=== PATIENT | male | born 1950 | race Caucasian/White ===

== ENCOUNTER 2021-02-11 15:10 | Inpatient (IN) | payer MEDICARE, OTHER, SELFPAY ==
[2021-02-11] VITALS (72 sets, daily range): BP systolic 123–197; BP diastolic 63–138; PULSE 85–141; RESP 11–27; TEMP 36.8; O2SAT 90–98; BMI 54.7
--- NOTE | 2021-02-11 15:43 | XRR_ITS ---
PROCEDURE INFORMATION: Exam: XR Chest Exam date and time: 02/11/2021 3:53 PM Age: 70 years old Clinical indication: Shortness of breath; Additional info: SOB TECHNIQUE: Imaging protocol: XR of the chest Views: 1 view. COMPARISON: CR Chest 1 [place] [id number] 06/10/2019 7:42 PM FINDINGS: Lungs: Unremarkable. No consolidation. Pleural spaces: Unremarkable. No pleural effusion. No pneumothorax. Heart/Mediastinum: Unremarkable. No cardiomegaly. Bones/joints: Unremarkable. XR/XR chest 1V portable [id number] IMPRESSION: No acute findings.
--- NOTE | 2021-02-11 15:43 | ECG_ITS ---
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 Measurements Intervals [place] Rate: 141 P: [place]: QRS: -81 QRSD: 145 T: 18 QT: 320 QTc: 491 Interpretive Statements ATRIAL FLUTTER/TACHYCARDIA WITH RAPID VENTRICULAR RESPONSE RIGHT BUNDLE BRANCH BLOCK [120+ ms QRS DURATION, UPRIGHT V1, 40+ ms S IN I/aVL/V4/V5/V6] MODERATE VOLTAGE CRITERIA FOR LVH, CONSIDER NORMAL VARIANT [MEETS CRITERIA IN ONE OF: R(aVL), S(V1), R(V5), R(V5/V6)+S(V1)] INFERIOR MYOCARDIAL INFARCTION [40+ ms Q WAVE AND/OR ST/T ABNORMALITY IN II/aVF], PROBABLY OLD Compared to ECG 06/11/2019 06:49:34 Myocardial infarct finding now present Sinus rhythm no longer present Left-axis deviation no longer present Electronically Signed On 02-11-2021 19:13:04 CDT by Jaspal Bhatia M.D. [id number]
[2021-02-11 15:56] LABS: Basophils # 0.1 10^3/uL (0.0-0.1); Basophils % 0.7 %; Eosinophils # 0.1 10^3/uL (0.0-0.8); Eosinophils % 1.8 %; Hematocrit 43.8 % (42.0-52.0); Lymphocytes # 2.1 10^3/uL (0.8-4.8); Lymphocytes % 28.8 %; Mean Corpuscular Hemoglobin 30.5 pg (28.0-34.0); Mean Corpuscular Volume 95.4 fL (80-94); Mean Platelet Volume 11.8 fL (7.4-10.4); Monocytes # 0.7 10^3/uL (0.2-0.9); Monocytes % 9.2 %; Neutrophils # 4.21 10^3/uL (1.8-7.7); Neutrophils % 58.9 %; Nucleated Red Blood Cells % 0 %; Platelet Count 158 10^3/cmm (130-400); Red Blood Count 4.59 10^6/uL (4.1-5.3); Red Cell Distribution Width 14.2 % (12.1-15.1); White Blood Count 7.2 10^3/uL (4.0-10.0)
[2021-02-11 16:20] LABS: Troponin(5th) Baseline 36 ng/L (0-15)
[2021-02-11 16:24] LABS: Alanine Aminotransferase 18 U/L (0-41); Albumin Level 3.9 g/dL (3.5-5.2); Alkaline Phosphatase 66 IU/L (40-130); Aspartate Amino Transferase 15 U/L (0-40); Blood Urea Nitrogen 14 mg/dL (8-23); Calcium 9.3 mg/dL (8.5-10.5); Carbon Dioxide 30 mmol/L (22-29); Chloride 101 mmol/L (98-107); Creatinine Clr Calc Pharmacy 149.7665; Globulin 3.4 g/dL (1.3-4.6); Glomerular Filtration Rate 95.6 mL/min (90-130); Glucose 82 mg/dL (65-115); INR 1.05 (0.8-1.2); NT Pro B Type Natriuretic Pept 601 pg/mL (0-125); Osmolality Calculated 294 mOsm/kg (285-295); Sodium 142 mmol/L (136-145); Total Bilirubin 0.7 mg/dL (0.15-1.2); Total Protein 7.3 g/dL (6.6-8.7)
[2021-02-11 16:26] LABS: D Dimer 0.47 ug/mIFEU (0-0.59)
--- NOTE | 2021-02-11 17:41 | P.HP_ITS ---
Providers/Chief Complaint Chief Complaint: RAPID HR/SENT BY CARDIO History of Present Illness Bartolo Hardy is a 70 year old male was sent by his primary care physician to emergency room with diagnosis of new onset atrial fibrillation with RVR. The patient was at his regular checkup with his PCP. EKG revealed A. fib with RVR. In the emergency room his ventricular rate was at 140s. The patient was given diltiazem bolus and started on diltiazem drip. Currently he is on 5 mg/h. His heart rate is at 114 currently. The patient reports feeling tired for last several months. It is mainly intermittent. He occasionally feels palpitations. However did not pay much attention to his symptoms. On review of systems he also indicates increased swelling in his lower extremities. Reports some shortness of breath which he contributed previously to increased weight. He has significant obesity. Denies chest pain. No cough. No fever or chills. Chest x-ray was unremarkable. BNP and troponin are mildly elevated however. Denies similar episodes in the past. He reports history of diabetes and hypertension. Denies any known history of heart disease. No history of CHF. Denies history of stroke. No nausea or vomiting. No diarrhea. Reports history of smoking in the past. Denies alcohol and drugs Review of Systems General: Reports: 10 or more systems reviewed and unremarkable except in HPI and below Medications/Allergies Allergies Allergy/AdvReac Type Severity Reaction Status Date / Time No Known Allergies Allergy Verified 02/11/21 15:24 Vitals/I&O/Wt Last Vital Signs Temp 98.2 F 02/11/21 15:21 Pulse 141 H 02/11/21 15:42 Resp 20 H 02/11/21 15:42 BP 141/86 02/11/21 15:42 Pulse Ox 98 02/11/21 15:42 Weight last 48 hrs Weight 188.241 kg Physical Exam Narrative: EXAM NARRATIVE: The patient is awake alert and oriented. No acute distress. Mood and affect are appropriate. Responses are adequate. Skin is warm and dry. Moist mucous membranes Neck supple. Unable to assess JVD because of large thick neck. Lungs are clear bilaterally. No respiratory distress Heart S1, S2, irregularly irregular. Mild murmur is appreciated. Abdomen is large, soft, nontender, bowel sounds are present Extremities bilateral pedal edema is present. No cyanosis or calf tenderness bilaterally Normal speech Eyes PERRL, extraocular muscles are intact No focal weakness or sensory loss Data : 02/11/21 15:40 02/11/21 15:40 Other Labs: Laboratory Results WBC 7.2 10^3/uL (4.0-10.0) 02/11/21 15:40 RBC 4.59 10^6/uL (4.1-5.3) 02/11/21 15:40 Hgb 14.0 g/dL (11.7-16.6) 02/11/21 15:40 Hct 43.8 % (42.0-52.0) 02/11/21 15:40 MCV 95.4 fL (80-94) H 02/11/21 15:40 MCH 30.5 pg (28.0-34.0) 02/11/21 15:40 MCHC 32.0 g/dL (30.0-36.0) 02/11/21 15:40 RDW 14.2 % (12.1-15.1) 02/11/21 15:40 Plt Count 158 10^3/cmm (130-400) 02/11/21 15:40 MPV 11.8 fL (7.4-10.4) H 02/11/21 15:40 Neut % (Auto) 58.9 % 02/11/21 15:40 Lymph % (Auto) 28.8 % 02/11/21 15:40 Christian % (Auto) 9.2 % 02/11/21 15:40 Eos % (Auto) 1.8 % 02/11/21 15:40 Baso % (Auto) 0.7 % 02/11/21 15:40 Neut # (Auto) 4.21 10^3/uL (1.8-7.7) 02/11/21 15:40 Lymph # (Auto) 2.1 10^3/uL (0.8-4.8) 02/11/21 15:40 Christian # (Auto) 0.7 10^3/uL (0.2-0.9) 02/11/21 15:40 Eos # (Auto) 0.1 10^3/uL (0.0-0.8) 02/11/21 15:40 Baso # (Auto) 0.1 10^3/uL (0.0-0.1) 02/11/21 15:40 Nucleated RBC % (auto) 0 % 02/11/21 15:40 Nucleated RBCs # 0.0 /100WBC 02/11/21 15:40 PT 14.10 SECONDS (12.1-14.9) 02/11/21 15:40 INR 1.05 (0.8-1.2) 02/11/21 15:40 D-Dimer 0.47 ug/mIFEU (0-0.59) 02/11/21 15:40 Sodium 142 mmol/L (136-145) 02/11/21 15:40 Potassium 4.0 mmol/L (3.5-5.1) 02/11/21 15:40 Chloride 101 mmol/L (98-107) 02/11/21 15:40 Carbon Dioxide 30 mmol/L (22-29) H 02/11/21 15:40 Anion Gap 15.0 (5-19) 02/11/21 15:40 BUN 14 mg/dL (8-23) 02/11/21 15:40 Creatinine 0.8 mg/dL (0.7-1.2) 02/11/21 15:40 GFR Calculation 95.6 mL/min (90-130) 02/11/21 15:40 Glucose 82 mg/dL (65-115) 02/11/21 15:40 Calculated Osmolality 294 mOsm/kg (285-295) 02/11/21 15:40 Calcium 9.3 mg/dL (8.5-10.5) 02/11/21 15:40 Total Bilirubin 0.7 mg/dL (0.15-1.2) 02/11/21 15:40 AST 15 U/L (0-40) 02/11/21 15:40 ALT 18 U/L (0-41) 02/11/21 15:40 Alkaline Phosphatase 66 IU/L (40-130) 02/11/21 15:40 Troponin T Baseline 36 ng/L (0-15) H 02/11/21 15:40 Troponin T 120 Minute 33.85 ng/L (0-15) H 02/11/21 17:00 Delta Troponin T -2.15 ABS# (0-10) L 02/11/21 17:00 NT-Pro-B Natriuret Pep 601 pg/mL (0-125) H 02/11/21 15:40 Total Protein 7.3 g/dL (6.6-8.7) 02/11/21 15:40 Albumin 3.9 g/dL (3.5-5.2) 02/11/21 15:40 Globulin 3.4 g/dL (1.3-4.6) 02/11/21 15:40 Impressions Chest X-Ray 02/11/21 15:43 IMPRESSION: No acute findings. A&P Additional A&P Information 70-year-old with history of morbid obesity, diabetes, hypertension, negative his tory of heart disease who is being admitted for A. fib with RVR. Has associated chronic shortness of breath and increased peripheral swelling. A. fib with RVR. The patient will go to cardiac stepdown unit. We will continue diltiazem drip. We will adjust the drip rate based on his heart rate. We will check TSH. Will order echo. Will wait for Dr. Snider to see and evaluate the patient. Consult was called by ER. [id number] score is 3 or higher. High risk for thromboembolic events. Will discuss with Dr. Snider and probably initiate anticoagulation. History of diabetes. We will review his home medications and resume them. We will start him on insulin sliding scale. Hypertension. Currently well controlled. We will review his home medications. DVT prophylaxis. As above. CODE STATUS. The patient wants to be full code. The plan of care was discussed with the patient and his who is at the bedside. I answered to their questions. They verbalized understanding and satisfaction with the conversation. Attestations Medical Necessity Statement*: The patient being admitted for A. fib with RVR requires diltiazem drip for rate control. I expect that the patient will spend more than 2 midnights in the hospital. Coding Level of Care Code Acute Business And Services Instructor for Heber Woodruff
[2021-02-11 17:42] LABS: Troponin 5 2HR 33.85 ng/L (0-15); Troponin 5 2HR Delta -2.15 ABS# (0-10)
--- NOTE | 2021-02-11 17:43 | ECG_ITS ---
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 Measurements Intervals [place] Rate: 112 P: [place]: QRS: -80 QRSD: 155 T: 28 QT: 378 QTc: 516 Interpretive Statements ATRIAL FLUTTER/TACHYCARDIA WITH RAPID VENTRICULAR RESPONSE RIGHT BUNDLE BRANCH BLOCK [120+ ms QRS DURATION, UPRIGHT V1, 40+ ms S IN I/aVL/V4/V5/V6] LEFT ANTERIOR FASCICULAR BLOCK [QRS AXIS <= -45, QR IN I, RS IN II] POSSIBLE LEFT VENTRICULAR HYPERTROPHY [VOLTAGE CRITERIA PLUS LAE OR QRS WIDENING] Compared to ECG 02/11/2021 15:20:08 Left anterior fascicular block now present Myocardial infarct finding no longer present Electronically Signed On 02-11-2021 19:21:18 CDT by Jaspal Bhatia M.D. [id number]
[2021-02-11 20:18] LABS: Glucose Point of Care 89 mg/dL (70-110)
[2021-02-11 20:38] LABS: Glucose Point of Care 78 mg/dL (70-110)
--- NOTE | 2021-02-11 21:22 | ED_ITS ---
HPI - Arrhythmia/Palpitations General: Chief Complaint: Arrhythmia/Palpitations Stated Complaint: RAPID HR/SENT BY CARDIO Time Seen by Provider: 02/11/21 15:40 Source: patient and other (his PCP) Mode of arrival: ambulatory Limitations: no limitations History of Present Illness: HPI narrative: Patient is a 70-year-old male with a history of diabetes mellitus but no cardiac history who presents to the emergency department after his primary care provider asked him to come in. He went to see his PCP today for a regular well check visit and he was noted to be in A. fib with RVR. He has no prior history of this. The patient denies palpitations or shortness of breath but endorses weakness. He denies any chest pain. MD complaint: atrial fibrillation Duration: constant Context: occurred during rest Associated symptoms: Deny anxiety, cough, diaphoresis, muscle cramps, nausea, paresthesias, pre-syncope, sense of impending doom, short of breath, syncope or vomiting Review of Systems General: Reports: 10 or more systems reviewed and unremarkable except in HPI and below Const: Denies: diaphoresis Card: Denies: syncope or pre-syncope GI: Denies: nausea or vomiting Musc: Denies: muscle cramps Psych: Denies: anxiety Physical Exam Const: COMMON NORMALS: no acute distress, average body habitus, patient oriented x3, no limitations, healthy appearing, alert and well nourished HENMT: COMMON NORMALS: normocephalic, atraumatic and moist oral mucous membranes HEAD & SCALP: normocephalic and atraumatic Neck/C-Spine: COMMON NORMALS: no meningeal signs and no JVD Chest: COMMONS NORMALS: normal inspection of the chest and normal palpation of entire chest wall Resp: COMMON NORMALS: normal respiratory effort, No retractions, No use of accessory muscles, clear to auscultation bilaterally and percussion normal AUSCULTATION: clear to auscultation bilaterally PERCUSSION: percussion normal Cardio: COMMON NORMALS: no JVD, regular rhythm, S1 normal heart sound present, S2 normal heart sound present, No gallops present (Cardio), No clicks present (Cardio), No murmurs present (Cardio), No rub (Cardio) and Peripheral pulses 2+ throughout RATE: tachycardic RHYTHM: regular rhythm HEART SOUNDS: S1 normal heart sound present and S2 normal heart sound present PERIPHERAL PULSES: Peripheral pulses 2+ throughout GI: COMMON NORMALS: Normal to inspection, nondistended, normoactive bowel sounds present, Soft to palpation, non-tender, No hepatosplenomegaly present, no masses and no bruits PALPATION: Yes Soft to palpation and Yes No hepatosplenomegaly present Extremity: COMMON NORMALS: normal to inspection, full ROM, capillary refill normal and no calf tenderness GENERAL: Yes edema (2+) Neuro: COMMON NORMALS: patient oriented x3 SENSORIUM/ORIENTATION: Yes alert MENINGEAL SIGNS: Yes no meningeal signs Skin: COMMON NORMALS: no rashes or lesions noted, no wounds, turgor normal, no jaundice, no petechiae and no mottling GENERAL SKIN EXAM: no rashes or lesions noted and turgor normal Course Consultations: Consultation #1: Discussed the patient with Dr. Lowe, hospitalist and he kindly accepted the patient to his service. Time: 17:06 Consultation #2: Discussed the patient with Dr. Snider, product marketing executive. He will see the patient while he is in the hospital. Time: 17:09 Vital Signs: Vital signs: Vital Signs Temperature 98.2 F 02/11/21 15:21 Pulse Rate 107 H 02/11/21 20:20 Respiratory Rate 21 H 02/11/21 20:20 Blood Pressure 123/63 02/11/21 20:20 Pulse Oximetry 94 02/11/21 19:20 MDM - Arrhythmia/Palpitations MDM Narrative: Medical decision making narrative: 70-year-old male who presented to the emergency department with new onset A. fib with RVR. He required intravenous doses of diltiazem and a continuous diltiazem drip. He responded to this management and he is admitted to the hospitalist service for further evaluation and management. Medical Records: Attestation: I reviewed the patient's medical records. Lab Data: Attestation: I reviewed the patient's lab results. Labs: Lab Results 02/11/21 02/11/21 02/11/21 Range/Units 15:40 15:40 15:40 WBC 7.2 (4.0-10.0) 10^3/ uL RBC 4.59 (4.1-5.3) 10^6/u L Hgb 14.0 (11.7-16.6) g/dL Hct 43.8 (42.0-52.0) % MCV 95.4 H (80-94) fL MCH 30.5 (28.0-34.0) pg MCHC 32.0 (30.0-36.0) g/dL RDW 14.2 (12.1-15.1) % Plt Count 158 (130-400) 10^3/c mm MPV 11.8 H (7.4-10.4) fL Neut % (Auto) 58.9 % Lymph % (Auto) 28.8 % Clinch % (Auto) 9.2 % Eos % (Auto) 1.8 % Baso % (Auto) 0.7 % Neut # (Auto) 4.21 (1.8-7.7) 10^3/u L Lymph # (Auto) 2.1 (0.8-4.8) 10^3/u L Clinch # (Auto) 0.7 (0.2-0.9) 10^3/u L Eos # (Auto) 0.1 (0.0-0.8) 10^3/u L Baso # (Auto) 0.1 (0.0-0.1) 10^3/u L Nucleated RBC % (a uto) 0 % Nucleated RBCs # 0.0 /100WBC PT 14.10 (12.1-14.9) SECO NDS INR 1.05 (0.8-1.2) D-Dimer 0.47 (0-0.59) ug/mIFE U Sodium 142 (136-145) mmol/L Potassium 4.0 (3.5-5.1) mmol/L Chloride 101 (98-107) mmol/L Carbon Dioxide 30 H (22-29) mmol/L Anion Gap 15.0 (5-19) BUN 14 (8-23) mg/dL Creatinine 0.8 (0.7-1.2) mg/dL GFR Calculation 95.6 (90-130) mL/min Glucose 82 (65-115) mg/dL Calculated Osmolal ity 294 (285-295) mOsm/k g Calcium 9.3 (8.5-10.5) mg/dL Total Bilirubin 0.7 (0.15-1.2) mg/dL AST 15 (0-40) U/L ALT 18 (0-41) U/L Alkaline Phosphata se 66 (40-130) IU/L Troponin T Baselin e (0-15) ng/L Troponin T 120 Min chip (0-15) ng/L Delta Troponin T (0-10) ABS# NT-Pro-B Natriuret Pep 601 H (0-125) pg/mL Total Protein 7.3 (6.6-8.7) g/dL Albumin 3.9 (3.5-5.2) g/dL Globulin 3.4 (1.3-4.6) g/dL 02/11/21 02/11/21 Range/Units 15:40 17:00 WBC (4.0-10.0) 10^3/ uL RBC (4.1-5.3) 10^6/u L Hgb (11.7-16.6) g/dL Hct (42.0-52.0) % MCV (80-94) fL MCH (28.0-34.0) pg MCHC (30.0-36.0) g/dL RDW (12.1-15.1) % Plt Count (130-400) 10^3/c mm MPV (7.4-10.4) fL Neut % (Auto) % Lymph % (Auto) % Clinch % (Auto) % Eos % (Auto) % Baso % (Auto) % Neut # (Auto) (1.8-7.7) 10^3/u L Lymph # (Auto) (0.8-4.8) 10^3/u L Clinch # (Auto) (0.2-0.9) 10^3/u L Eos # (Auto) (0.0-0.8) 10^3/u L Baso # (Auto) (0.0-0.1) 10^3/u L Nucleated RBC % (a uto) % Nucleated RBCs # /100WBC PT (12.1-14.9) SECO NDS INR (0.8-1.2) D-Dimer (0-0.59) ug/mIFE U Sodium (136-145) mmol/L Potassium (3.5-5.1) mmol/L Chloride (98-107) mmol/L Carbon Dioxide (22-29) mmol/L Anion Gap (5-19) BUN (8-23) mg/dL Creatinine (0.7-1.2) mg/dL GFR Calculation (90-130) mL/min Glucose (65-115) mg/dL Calculated Osmolal ity (285-295) mOsm/k g Calcium (8.5-10.5) mg/dL Total Bilirubin (0.15-1.2) mg/dL AST (0-40) U/L ALT (0-41) U/L Alkaline Phosphata se (40-130) IU/L Troponin T Baselin e 36 H (0-15) ng/L Troponin T 120 Min chip 33.85 H (0-15) ng/L Delta Troponin T -2.15 L (0-10) ABS# NT-Pro-B Natriuret Pep (0-125) pg/mL Total Protein (6.6-8.7) g/dL Albumin (3.5-5.2) g/dL Globulin (1.3-4.6) g/dL Imaging Data^: CXR: Attestation: I personally reviewed and interpreted this imaging study as follows: Radiologist's impression: [address] [place] [address] XRay Report Signed Patient: Bartolo Hardy #: [id number] : 1950Acct#:[id number] Age/Sex: 70 / MADM Date: 02/11/21 Loc: [facility]/Bed: Attending Dr: Ordering Provider/Ordering MD: Abril Lindsay MD, [facility] [place] Date of Service: 02/11/21 Procedure(s): XR chest 1V portable [id number] Accession Number(s): [id number] Report Number: [id number] PROCEDURE INFORMATION: Exam: XR Chest Exam date and time: 02/11/2021 3:53 PM Age: 70 years old Clinical indication: Shortness of breath; Additional info: SOB TECHNIQUE: Imaging protocol: XR of the chest Views: 1 view. COMPARISON: CR Chest 1 [place] [id number] 06/10/2019 7:42 PM FINDINGS: Lungs: Unremarkable. No consolidation. Pleural spaces: Unremarkable. No pleural effusion. No pneumothorax. Heart/Mediastinum: Unremarkable. No cardiomegaly. Bones/joints: Unremarkable. XR/XR chest 1V portable [id number] IMPRESSION: No acute findings. Dictated By:Isreal Valderrama Signed By:Prasad Valderrama Date/Time:02/11/21 1627 DD/ 1625 EKG Data^: EKG 1: Attestation: I personally reviewed and interpreted this EKG as follows: EKG interpretation date: 02/11/21 EKG interpretation time: 15:20 Prior EKG tracings: not available for review Interpretation: Atrial fibrillation with RVR. Heart rate [address] changes. Other EKG comments: Chest X-Ray 02/11/21 15:43 IMPRESSION: No acute findings. EKG 2: Attestation: I personally reviewed and interpreted this EKG as follows: EKG interpretation date: 02/11/21 EKG interpretation time: 17:58 Prior EKG tracings: available for review Interpretation: Atrial fibrillation with RVR. Heart rate 112 bpm. Right bundle branch block. No ST changes. Other EKG comments: Chest X-Ray 02/11/21 15:43 IMPRESSION: No acute findings. Critical Care Time Critical Care Time: Critical Care Time: Yes Total Critical Care Time: 60 Attestation: This case had a high probability of a clinically significant, sudden, or life threatening deterioration of this patient's condition which required my full and direct attention, intervention and personal management. Discharge Plan Discharge Patient Disposition: Admitted As Inpatient Admit Provider: Luke Lowe Clinical Impression: Atrial fibrillation with rapid ventricular response, New onset atrial fibrillation Condition: Stable Coding Level of Care Code ED Receiving Tank Operator for Chg Ranjan
--- NOTE | 2021-02-11 21:41 | PM.CONSULT ---
Providers/Reason For Consult Consulting Physican/Specialty*: Cardiology Reason for Consult*: New onset atrial fibrillation, new onset of congestive heart failure Attending Physician: Luke Lowe History of Present Illness History of Present Illness Bartolo Hardy is a 70 year old male past medical history significant for hypertension presented with new onset of atrial fibrillation and rapid ventricle response. He was started on Cardizem drip. We have been asked to assist in his care. According to the patient prior the past few months he has been feeling fatigued short of breath and palpitation. It is the reason he went to primary care physician. By noticing atrial fibrillation on physical examination he was sent to emergency room. He denies any prior history of cardiac disease diabetes mellitus stroke or valvular heart problem. Twelve-lead EKG is consistent with right bundle branch block. Patient also appeared to me in volume overload status most likely congestive heart failure of unknown etiology at this point. I will diurese him as well. Review of Systems General: Reports: 10 or more systems reviewed and unremarkable except in HPI and below Const: Denies: diaphoresis Card: Denies: syncope or pre-syncope GI: Denies: nausea or vomiting Musc: Denies: muscle cramps Psych: Denies: anxiety Meds/Allergies Home Medications and Allergies Allergies Allergy/AdvReac Type Severity Reaction Status Date / Time No Known Allergies Allergy Verified 02/11/21 15:24 Current Medications Current Medications Generic Name Dose Route Start Last Admin Trade Name Freq PRN Reason Stop Dose Admin Diltiazem HCl 125 mg/ Sodium 125 mls @ 0 mls/hr 02/11/21 16:00 02/11/21 19:37 Chloride IV 10 mg/hr .Q0M SHERLYN 10 mls/hr Titration Protocol Per Protocol Insulin Aspart 0 unit 02/11/21 18:00 02/11/21 20:18 Insulin Aspart 100 Unit/1 Ml SUBCUT Not Given WM&BEDTIME SHERLYN Protocol Vitals/I&O/Wt Last Vital Signs Temp 98.2 F 02/11/21 15:21 Pulse 107 H 02/11/21 20:20 Resp 21 H 02/11/21 20:20 BP 123/63 02/11/21 20:20 Pulse Ox 94 02/11/21 19:20 02/11/21 02/11/21 02/11/21 06:59 14:59 22:59 Intake Total 16.583 / 16.583 Output Total 500 / 500 Balance -483.417 / -483.417 Weight last 48 hrs Weight 415 lb Physical Exam Narrative: EXAM NARRATIVE: GENERAL: Patient is alert, awake and oriented x3. NECK: No jugular vein distension. HEENT: No cyanosis. No icterus. No pallor. HEART: Irregularly regular r S1 and S2. No murmur, rub or gallop. LUNGS: Clear to auscultate bilaterally. ABDOMEN: Soft, nontender and nondistended. Positive bowel sounds. No guarding, rebound or tenderness. CENTRAL NERVOUS SYSTEM: Grossly nonfocal. EXTREMITIES: Lower extremities without edema bilaterally. Pulses palpable in the lower extremities, both dorsalis pedis and posterior tibial. A&P Assessment and plan (1) New onset atrial fibrillation: Status: Acute (2) CHF (congestive heart failure), NYHA class III: Status: Acute Additional A&P Information Agree with continuation of Cardizem drip. Will add beta-cherelle if does not slow down. Will obtain echocardiogram to assess LV function and any structural heart problem. Need to rule out sleep apnea which could be inciting cause. Continue anticoagulation as suggested by medicine colleague. Further plan will be devised as per progress of the patient. Patient is also volume overloaded most likely secondary to CHF of unknown etiology. We will start diuresing him. Medicines will be optimized. After reviewing the echocardiogram will make distinction regarding systolic versus diastolic alongside with right ventricle. Consult Attestations Medical Necessity Statement: I am expecting his stay to cross more than 2 midnights Coding Level of Care Code New Pt Acute Merchandising Lead for g Fwd Patient Type New Medical Decision Making Moderate Complexity Diagnoses New onset atrial fibrillation I48.91 CHF (congestive heart failure), NYHA class III I50.9
--- NOTE | 2021-02-11 21:43 | ECG_ITS ---
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1950 Requested By: Abril Lindsay I Order Number: [id number] Reading MD: RICK ESTRADA Measurements Intervals [place] Rate: 86 P: [place]: QRS: -76 QRSD: 153 T: 21 QT: 410 QTc: 491 Interpretive Statements ATRIAL FIBRILLATION WITH ABERRANT CONDUCTION OR VENTRICULAR PREMATURE COMPLEXES RIGHT BUNDLE BRANCH BLOCK [120+ ms QRS DURATION, UPRIGHT V1, 40+ ms S IN I/aVL/V4/V5/V6] MODERATE VOLTAGE CRITERIA FOR LVH, CONSIDER NORMAL VARIANT [MEETS CRITERIA IN ONE OF: R(aVL), S(V1), R(V5), R(V5/V6)+S(V1)] INFERIOR MYOCARDIAL INFARCTION [40+ ms Q WAVE AND/OR ST/T ABNORMALITY IN II/aVF], OF INDETERMINATE AGE Compared to ECG 02/11/2021 17:58:43 Ventricular premature complex(es) now present Aberrant conduction of supraventricular beat(s) now present Myocardial infarct finding now present Atrial flutter no longer present Left anterior fascicular block no longer present Electronically Signed On 02-12-2021 20:20:21 CDT by RICK ESTRADA [id number]
[2021-02-11 21:44] LABS: Troponin 5 6HR 29.74 ng/L (0-15)
[2021-02-11 21:45] LABS: Troponin 5 6HR Delta -6.26 ng/L (0-12)
[2021-02-11] MEDS: potassium chloride ER 20 mEq Tablet PO (22:23)
[2021-02-11] MEDS: apixaban 5 mg Tablet PO (22:23)
[2021-02-11] MEDS: FUROsemide 10 mg/mL SDV 4mL 40 MG IVP (22:23)
[2021-02-12] VITALS (235 sets, daily range): BP systolic 89–222; BP diastolic 50–106; PULSE 53–132; RESP 7–51; TEMP 36.8; O2SAT 86–95
[2021-02-12 06:08] LABS: Anion Gap 11.5 (5-19); Blood Urea Nitrogen 13 mg/dL (8-23); Calcium 8.9 mg/dL (8.5-10.5); Carbon Dioxide 34 mmol/L (22-29); Chloride 100 mmol/L (98-107); Creatinine Clr Calc Pharmacy 149.7665; Glomerular Filtration Rate 95.6 mL/min (90-130); Glucose 71 mg/dL (65-115); Magnesium 2.2 mg/dL (1.7-2.3); Osmolality Calculated 293 mOsm/kg (285-295); Potassium 3.5 mmol/L (3.5-5.1); Sodium 142 mmol/L (136-145); Thyroid Stimulating Hormone 3.43 uIU/mL (0.27-4.20)
[2021-02-12 07:45] LABS: Glucose Point of Care 163 mg/dL (70-110)
[2021-02-12] MEDS: potassium chloride ER 20 mEq Tablet PO (08:36)
[2021-02-12] MEDS: FUROsemide 10 mg/mL SDV 4mL 40 MG IVP (08:37)
[2021-02-12] MEDS: metoprolol succinate ER (24 HR) 25 mg Tablet PO (08:37)
[2021-02-12] MEDS: apixaban 5 mg Tablet PO ×2 (08:37→20:47)
[2021-02-12] MEDS: lisinopril 10 mg Tablet PO (08:37)
[2021-02-12 09:05] LABS: Estmated Average Glucose 154
[2021-02-12 11:07] LABS: Glucose Point of Care 148 mg/dL (70-110)
--- NOTE | 2021-02-12 12:07 | PC.CHAP ---
Pastoral Care Encounter/Spiritual Assessment Type of Contact [] Declined nylon hot wire cutter visit [] Patient/Family/Request visit [] Outpatient visit [] Follow-up visit [] Physician referral [] Code/Alert [x] Routine visit [] Staff referral [] Actively dying [] Patient sleeping [] Family support [] [] Out of room [] Palliative care [] [] Receiving care in room [] Pre-surgical visit [] Trauma [] Long length of stay [x] ICU visit [] Other: Relational/Emotional Strength [] Patient feels connected with others/family/visitors/staff [] Distress [] Loneliness/isolation [] Abandonment Spirituality of Patient [] Person of [place] [] Attends Church of their [place] [] Believes in Prayer [] Reads Bible or Methodist materials [] There are Spiritual issues to be addressed Recyclable Products Sorter Interventions [x] Prayer [x] Active listening [x] Non-anxious presence [x] Spiritual/emotional support [] Crisis/trauma care [] Spiritual counseling [] Bereavement support [] Provided bereavement packet [] Provided Bible/devotional materials [] Provided toy/stuffed animal, coloring book to patient or family member [] Provided Communion [] Anointing/[place] [] Salvation [x] Completed spiritual assessment [] Other: Impact on Illness or Injury [] Angry [] Fearful [] Anxious [] Often cries [] Exhaustion [] Unable to work [] Unable to attend adventist [] Unable to walk/stand [] Unable to read [] Unable to drive [] Unable to eat/drink [] Unable to sleep [] Unable to be with family [] Patient intubated [] Other: Summary resting well... good spirits.. prayed for nylon hot wire cutter Time spent with patient 10 min
[2021-02-12] MEDS: verapamil ER 240 mg Tablet 120 MG PO (12:14)
--- NOTE | 2021-02-12 12:16 | USCV_ITS ---
Bartolo Hardy Age: 70 Gender: M : 1950 Exam Date: 02/12/2021 15:40 Ordering Phys: Rohan Snider MD ([email or web address]) Technologist: Eze Santo [place] [facility] [place]: EF BP: 149 / 70 HR: 69 Rhythm: Sinus Technical Quality: Adequate MEASUREMENTS (Male / Female) Normal Values 2D ECHO LVOT Diameter 2.2 cm LV Ejection Fraction MOD 2C 68.4 % LV Ejection Fraction 2C AL 68.5 % LA Diameter 3.8 cm M-MODE LV Diastolic Diameter MM 5.2 cm 4.2 - 5.9 / 3.9 - 5.3 cm LV Systolic Diameter MM 3.7 cm LV Ejection Fraction MM Teich 55.8 % IVS Diastolic Thickness MM 1.1 cm 0.6 - 1.0 / 0.6 - 0.9 cm IVS Systolic Thickness MM 1.6 cm LVPW Diastolic Thickness MM 1.2 cm 0.6 - 1.0 / 0.6 - 0.9 cm LVPW Systolic Thickness MM 2.2 cm RV Diastolic Diameter MM 1.5 cm DOPPLER AV Peak Velocity 254.7 cm/s LVOT Peak Velocity 76.0 cm/s AV Area Cont Eq vti 0.9 cm squared AV Area Cont Eq pk 1.1 cm squared MV Area PHT 5.0 cm squared Mitral E to A Ratio 1.1 MV E' Velocity 51.5 cm/s Mitral E to MV E' Ratio 13.6 Mitral E to LV E' Lateral Ratio 16.1 Mitral E to LV E' Septal Ratio 11.8 TR Peak Velocity 179.0 cm/s TR Peak Gradient 12.8 mmHg TV Peak E Velocity 87.0 cm/s Right Atrial Pressure 3.0 mmHg Pulmonary Artery Systolic Pressu 15.8 mmHg PV Peak Velocity 94.0 cm/s FINDINGS Left Ventricle Normal left ventricular cavity size. Normal left ventricular systolic function. No regional wall motion abnormalities. Left ventricular ejection fraction is estimated at 60 %. Grade III/IV diastolic dysfunction (restrictive filling pattern), severely elevated filling pressures. Right Ventricle The right ventricle is normal in size and function. Right Atrium The right atrium is normal in size. Left Atrium The left atrium is normal in size. Mitral Valve Moderately thickened mitral valve. Moderate mitral annular calcification. No mitral valve stenosis. No mitral valve regurgitation. Aortic Valve Severe aortic valve calcification. Moderate aortic valve stenosis, mean gradient 12.6 mmHg, OLIVE 0.88 cm squared. No aortic valve regurgitation. Tricuspid Valve Structurally normal tricuspid valve without significant stenosis or regurgitation. Pulmonary artery systolic pressure is normal. Pulmonic Valve Structurally normal pulmonic valve without significant stenosis. There is no pulmonic regurgitation. Pericardium Normal pericardium without effusion. Aorta Normal ascending aorta dimension. CONCLUSIONS 1-Normal left ventricular cavity size. Normal left ventricular systolic function. No regional wall motion abnormalities. Left ventricular ejection fraction is estimated at 60 %. Grade III/IV diastolic dysfunction (restrictive filling pattern), severely elevated filling pressures. 2-Severe aortic valve calcification. Moderate aortic valve stenosis, mean gradient 12.6 mmHg, OLIVE 0.88 cm squared. No aortic valve regurgitation. 3-Moderately thickened mitral valve. Moderate mitral annular calcification. No mitral valve stenosis. No mitral valve regurgitation. 4-There is no pericardial effusion. 5-Pulmonary artery systolic pressure is within normal limits. 6-Right atrial pressure is around 5 mm of mercury. Rohan Snider MD (Electronically Signed) Final Date: 13 February 2021 16:13 S
--- NOTE | 2021-02-12 12:43 | P.PN_ITS ---
Subjective Subjective: Interval history: The patient is feeling better today. Denies any active complaints. No chest pain or palpitations. No dizziness or lightheadedness. No shortness of breath. Medications: Reviewed: Yes Medication Review Details: Generic Name Dose Route Start Last Admin Trade Name Willq PRN Reason Stop Dose Admin Apixaban 5 mg 02/11/21 21:00 02/12/21 08:37 Apixaban 5 Mg Ta blet PO 5 mg BID@0900,2100 SHERLYN Administration Furosemide 40 mg 02/12/21 08:00 02/12/21 08:37 Furosemide 10 Mg /Ml Sdv 4ml IVP 40 mg Q24H SHERLYN Administration Diltiazem HCl 125 mg/ Sodium 125 mls @ 0 mls/h r 02/11/21 16:00 02/12/21 05:22 Chloride IV 5 mg/hr .Q0M SHERLYN 5 mls/hr Administration Protocol Per Protocol Insulin Aspart 0 unit 02/11/21 18:00 02/12/21 11:28 Insulin Aspart 1 00 Unit/1 Ml SUBCUT Not Given WM&BEDTIME SHERLYN Protocol Lisinopril 10 mg 02/12/21 08:00 02/12/21 08:37 Lisinopril 10 Mg Tablet PO 10 mg DAILY SHERLYN Administration Metoprolol Succina te 25 mg 02/12/21 09:00 02/12/21 08:37 Metoprolol Succi ruby Er (24 Hr) 25 Mg Tablet PO 25 mg DAILY SHERLYN Administration Potassium Chloride 20 meq 02/11/21 22:15 02/12/21 08:36 Potassium Chlori de Er 20 Meq Table t PO 20 meq DAILY SHERLYN Administration Verapamil HCl 120 mg 02/12/21 11:00 02/12/21 12:14 Verapamil Er 240 Mg Tablet PO 120 mg DAILY SHERLYN Administration Vitals/I&O/Wt Last Vital Signs Temp 98.3 F 02/12/21 08:00 Pulse 72 02/12/21 12:20 Resp 16 02/12/21 12:20 BP 148/62 02/12/21 12:20 Pulse Ox 93 02/12/21 12:20 02/11/21 02/12/21 02/12/21 22:59 06:59 14:59 Intake Total 238.583 / 238.583 437.666 / 676.249 120 / 120 Output Total 500 / 500 1300 / 1800 800 / 800 Balance -261.417 / -261.417 -862.334 / -1123.751 -680 / -680 Weight last 48 hrs Weight 188.241 kg Physical Exam Narrative: EXAM NARRATIVE: The patient is awake alert and oriented. No acute distress. Mood and affect are appropriate. Responses are adequate. Skin is warm and dry. Moist mucous membranes Neck supple. Unable to assess JVD because of large thick neck. Lungs are clear bilaterally. No respiratory distress Heart S1, S2, irregular. Abdomen is large, soft, nontender, bowel sounds are present Extremities bilateral pedal edema is present. No cyanosis or calf tenderness b ilaterally Normal speech Eyes PERRL, extraocular muscles are intact No focal weakness or sensory loss Data : 02/11/21 15:40 02/12/21 05:03 A&P Additional A&P Information 70-year-old with history of morbid obesity, diabetes, hypertension, negative history of heart disease who is being admitted for A. fib with RVR. Has as sociated chronic shortness of breath and increased peripheral swelling. A. fib with RVR. Stabilized with diltiazem drip. His medications are adjusted by Dr. Snider. (Currently on verapamil, beta-cherelle, Eliquis). Currently rate controlled. Appreciate Dr. Snider's input. TSH is within normal limit. Echo is pending. History of diabetes. A1c level is 7. We will review his home medications and resume them. Insulin sliding scale. Hypertension. Currently well controlled. We will review his home medications. DVT prophylaxis. Eliquis. CODE STATUS. Full code. The plan of care was discussed with the patient. he verbalized understanding and satisfaction with the conversation. 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
[2021-02-12] MEDS: perflutren protein-a microsphr 0.22 mg/mL SDV 3 mL IV (15:57)
[2021-02-12 17:06] LABS: Glucose Point of Care 119 mg/dL (70-110)
--- NOTE | 2021-02-12 19:37 | P.PN_ITS ---
Subjective Subjective: Interval history: Started diuresing well. Heart rate is under control now in fact patient is in sinus rhythm. Breathing better Medications: Reviewed: Yes Medication Review Details: Generic Name Dose Route Start Last Admin Trade Name Daniele PRN Reason Stop Dose Admin Apixaban 5 mg 02/11/21 21:00 02/12/21 08:37 Apixaban 5 Mg Ta blet PO 5 mg BID@0900,2100 SHERLYN Administration Furosemide 40 mg 02/12/21 08:00 02/12/21 08:37 Furosemide 10 Mg /Ml Sdv 4ml IVP 40 mg Q24H SHERLYN Administration Diltiazem HCl 125 mg/ Sodium 125 mls @ 0 mls/h r 02/11/21 16:00 02/12/21 05:22 Chloride IV 5 mg/hr .Q0M SHERLYN 5 mls/hr Administration Protocol Per Protocol Insulin Aspart 0 unit 02/11/21 18:00 02/12/21 11:28 Insulin Aspart 1 00 Unit/1 Ml SUBCUT Not Given WM&BEDTIME SHERLYN Protocol Lisinopril 10 mg 02/12/21 08:00 02/12/21 08:37 Lisinopril 10 Mg Tablet PO 10 mg DAILY SHERLYN Administration Metoprolol Succina te 25 mg 02/12/21 09:00 02/12/21 08:37 Metoprolol Succi ruby Er (24 Hr) 25 Mg Tablet PO 25 mg DAILY SHERLYN Administration Potassium Chloride 20 meq 02/11/21 22:15 02/12/21 08:36 Potassium Chlori de Er 20 Meq Table t PO 20 meq DAILY SHERLYN Administration Verapamil HCl 120 mg 02/12/21 11:00 02/12/21 12:14 Verapamil Er 240 Mg Tablet PO 120 mg DAILY SHERLYN Administration Vitals/I&O/Wt Last Vital Signs Temp 98.3 F 02/12/21 16:00 Pulse 72 02/12/21 16:00 Resp 16 02/12/21 16:00 BP 148/62 02/12/21 16:00 Pulse Ox 93 02/12/21 16:00 02/12/21 02/12/21 02/12/21 06:59 14:59 22:59 Intake Total 437.666 / 676.249 159.167 / 159.167 240 / 399.167 Output Total 1300 / 1800 800 / 800 400 / 1200 Balance -862.334 / -1123.751 -640.833 / -640.833 -160 / -800.833 Weight last 48 hrs Weight 415 lb Physical Exam Narrative: EXAM NARRATIVE: GENERAL: Patient is alert, awake and oriented x3. NECK: No jugular vein distension. HEENT: No cyanosis. No icterus. No pallor. HEART: Regular S1 and S2. No murmur, rub or gallop. LUNGS: Clear to auscultate bilaterally. ABDOMEN: Soft, nontender and nondistended. Positive bowel sounds. No guarding, rebound or tenderness. CENTRAL NERVOUS SYSTEM: Grossly nonfocal. EXTREMITIES: Lower extremities with 2+ edema bilaterally. Data : 02/11/21 15:40 02/12/21 05:03 A&P Assessment and plan (1) New onset atrial fibrillation: Status: Acute (2) CHF (congestive heart failure), NYHA class III: Status: Acute Additional A&P Information Continue IV Lasix 40 mg once a day and 20 mg of potassium chloride. I will switch patient to verapamil by mouth. I will discontinue IV calcium channel cherelle. Echocardiogram is pending. Further plan will be advised as per progress of patient. Continue anticoagulation. Attestations Medical Necessity Statement*: Patient require continuation hospitalization for above care Coding Level of Care Code Established Pt Acute Financial Sales Professional for Chg Fwd Patient Type Established History Expanded Problem Focused Exam Expanded Problem Focused Medical Decision Making Moderate Complexity Diagnoses New onset atrial fibrillation I48.91 CHF (congestive heart failure), NYHA class III I50.9
[2021-02-12 20:36] LABS: Glucose Point of Care 168 mg/dL (70-110)
[2021-02-13] VITALS (59 sets, daily range): BP systolic 110–149; BP diastolic 48–93; PULSE 61–88; RESP 13–26; TEMP 36.3–37; O2SAT 82–95
[2021-02-13 04:01] LABS: Basophils # 0.1 10^3/uL (0.0-0.1); Basophils % 0.8 %; Eosinophils # 0.2 10^3/uL (0.0-0.8); Eosinophils % 2.1 %; Hematocrit 41.6 % (42.0-52.0); Lymphocytes # 2.2 10^3/uL (0.8-4.8); Lymphocytes % 30.6 %; Mean Corpuscular HGB Conc 31.3 g/dL (30.0-36.0); Mean Corpuscular Hemoglobin 30.4 pg (28.0-34.0); Mean Corpuscular Volume 97.4 fL (80-94); Mean Platelet Volume 12.4 fL (7.4-10.4); Monocytes # 0.9 10^3/uL (0.2-0.9); Monocytes % 12.2 %; Neutrophils # 3.84 10^3/uL (1.8-7.7); Neutrophils % 53.9 %; Nucleated Red Blood Cells % 0 %; Platelet Count 152 10^3/cmm (130-400); Red Blood Count 4.27 10^6/uL (4.1-5.3); Red Cell Distribution Width 14.6 % (12.1-15.1); White Blood Count 7.1 10^3/uL (4.0-10.0)
[2021-02-13 04:14] LABS: Magnesium 2.3 mg/dL (1.7-2.3)
[2021-02-13 04:28] LABS: Albumin Level 3.7 g/dL (3.5-5.2); Anion Gap 12.3 (5-19); Blood Urea Nitrogen 25 mg/dL (8-23); Calcium 8.8 mg/dL (8.5-10.5); Carbon Dioxide 32 mmol/L (22-29); Chloride 104 mmol/L (98-107); Cholesterol 126 mg/dL (0-200); Glomerular Filtration Rate 73.9 mL/min (90-130); Glucose 92 mg/dL (65-115); HDL Cholesterol 28 mg/dL (60-100); LDL Cholesterol Calculated 78 mg/dL (50-129); LDL HDL Ratio 2.79 RATIO (0.00-3.22); Phosphorus 5.2 mg/dL (2.5-4.5); Potassium 4.3 mmol/L (3.5-5.1); Sodium 144 mmol/L (136-145); Triglycerides 100 mg/dL (0-150)
--- NOTE | 2021-02-13 05:48 | PC.NURSE ---
Patient transferred to [facility] at 0535 on telemetry. All of patients belongings were transported with the patient to the med-surg floor.
[2021-02-13] MEDS: metoprolol succinate ER (24 HR) 25 mg Tablet PO (10:13)
[2021-02-13] MEDS: apixaban 5 mg Tablet PO (10:13)
[2021-02-13] MEDS: potassium chloride ER 20 mEq Tablet PO (10:13)
[2021-02-13] MEDS: FUROsemide 10 mg/mL SDV 4mL 40 MG IVP (10:14)
[2021-02-13] MEDS: lisinopril 10 mg Tablet PO (10:14)
[2021-02-13 10:39] LABS: Glucose Point of Care 220 mg/dL (70-110)
[2021-02-13] MEDS: verapamil ER 240 mg Tablet 120 MG PO (12:08)
--- NOTE | 2021-02-13 15:55 | PM.PN ---
Subjective Subjective: Interval history: Doing much better denies any shortness of breath. Diuresed well. Heart rate is under control in sinus rhythm now. Medications: Reviewed: Yes Medication Review Details: Generic Name Dose Route Start Last Admin Trade Name Daniele PRN Reason Stop Dose Admin Apixaban 5 mg 02/11/21 21:00 02/12/21 08:37 Apixaban 5 Mg Ta blet PO 5 mg BID@0900,2100 SHERLYN Administration Furosemide 40 mg 02/12/21 08:00 02/12/21 08:37 Furosemide 10 Mg /Ml Sdv 4ml IVP 40 mg Q24H SHERLYN Administration Diltiazem HCl 125 mg/ Sodium 125 mls @ 0 mls/h r 02/11/21 16:00 02/12/21 05:22 Chloride IV 5 mg/hr .Q0M SHERLYN 5 mls/hr Administration Protocol Per Protocol Insulin Aspart 0 unit 02/11/21 18:00 02/12/21 11:28 Insulin Aspart 1 00 Unit/1 Ml SUBCUT Not Given WM&BEDTIME SHERLYN Protocol Lisinopril 10 mg 02/12/21 08:00 02/12/21 08:37 Lisinopril 10 Mg Tablet PO 10 mg DAILY SHERLYN Administration Metoprolol Succina te 25 mg 02/12/21 09:00 02/12/21 08:37 Metoprolol Succi ruby Er (24 Hr) 25 Mg Tablet PO 25 mg DAILY SHERLYN Administration Potassium Chloride 20 meq 02/11/21 22:15 02/12/21 08:36 Potassium Chlori de Er 20 Meq Table t PO 20 meq DAILY SHERLYN Administration Verapamil HCl 120 mg 02/12/21 11:00 02/12/21 12:14 Verapamil Er 240 Mg Tablet PO 120 mg DAILY SHERLYN Administration Vitals/I&O/Wt Last Vital Signs Temp 98.6 F 02/13/21 15:12 Pulse 81 02/13/21 15:12 Resp 20 H 02/13/21 15:12 BP 120/63 02/13/21 15:12 Pulse Ox 94 02/13/21 15:12 02/13/21 02/13/21 02/13/21 06:59 14:59 22:59 Intake Total 320 / 719.167 720 / 720 Output Total 500 / 1700 Balance -180 / -980.833 720 / 720 Physical Exam Narrative: EXAM NARRATIVE: GENERAL: Patient is alert, awake and oriented x3. NECK: No jugular vein distension. HEENT: No cyanosis. No icterus. No pallor. HEART: Regular S1 and S2. No murmur, rub or gallop. LUNGS: Clear to auscultate bilaterally. ABDOMEN: Soft, nontender and nondistended. Positive bowel sounds. No guarding, rebound or tenderness. CENTRAL NERVOUS SYSTEM: Grossly nonfocal. EXTREMITIES: Lower extremities with trace edema bilaterally. Data : 02/13/21 03:18 02/13/21 03:18 A&P Assessment and plan (1) New onset atrial fibrillation: Converted back in sinus rhythm continue verapamil 120 mg p.o. daily in the morning and metoprolol succinate 25 mg in the evening. Continue apixaban. Status: Acute (2) CHF (congestive heart failure), NYHA class III: Patient has diastolic decompensated heart failure which is now compensated after diuresis. Continue 40 mg p.o. Lasix along with 20 mg of potassium chloride. Status: Acute (3) Aortic stenosis, severe: Patient has moderate to severe aortic stenosis without significant aortic regurgitation. We will follow him up as an outpatient. I may will ask for left and right heart cath at some point before deciding regarding aortic valve replacement. Status: Acute Additional A&P Information Continue IV Lasix 40 mg once a day and 20 mg of potassium chloride. I will switch patient to verapamil by mouth. I will discontinue IV calcium channel cherelle. Echocardiogram is pending. Further plan will be advised as per progress of patient. Continue anticoagulation. Attestations Medical Necessity Statement*: From a cardiovascular perspective patient can be discharged home. 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
--- NOTE | 2021-02-13 16:03 | PM.DCS ---
Discharge Providers Date of Admission: 02/11/21 17:29 Date of Discharge: February 13, 2021 Attending Provider at Admission: Luke Lowe Attending Provider at Discharge: Luke Lowe Diagnoses at Discharge Discharge Diagnosis (1) New onset atrial fibrillation: Status: Acute (2) CHF (congestive heart failure), NYHA class III: Status: Acute Reason for Visit Reason for Visit: RAPID HR/SENT BY CARDIO Hospital Course Hospital Course 70-year-old with history of diabetes, hypertension admitted for A. fib with RVR. Has associated chronic shortness of breath and increased peripheral swelling. A. fib with RVR. Stabilized with diltiazem drip. His medications are adjusted by Dr. Snider and he is cleared for discharge. Currently rate controlled. Echo was with normal EF. Currently he is feeling well and is eager to go home. Reports improved tiredness. Denies dizziness or lightheadedness. Denies chest pain or palpitations. We had a discussion regarding his discharge medications and need for follow-up appointments for further adjustments to his medications and possible additional testing in the future. I asked him to watch for any signs of possible bleeding since he is on Eliquis. He verbalized understanding and agreement History of diabetes. A1c level is 7. He will continue his home medications and follow-up with his primary care physician. Hypertension. Currently well controlled. Physical Exam Narrative: EXAM NARRATIVE: The patient is awake alert and oriented. No acute distress. Mood and affect are appropriate. Responses are adequate. Skin is warm and dry. Moist mucous membranes Neck supple. Unable to assess JVD because of large thick neck. Lungs are clear bilaterally. No respiratory distress Heart S1, S2, irregular. Abdomen is soft, nontender, bowel sounds are present Extremities bilateral pedal edema is present. No cyanosis or calf tenderness bilaterally Normal speech Eyes PERRL, extraocular muscles are intact No focal weakness or sensory loss Discharge Data Data Completed and Pending: Completed Studies During Hospitalization Category Date Time Status XR chest 1V kaia ble [id number] Stat Exams 02/11/21 15:43 Completed Pending at discharge Category Date Time Status Complete Blood Co unt w/Auto AM LABS Lab 02/14/21 04:00 Ordered Magnesium AM LABS Lab 02/14/21 04:00 Ordered Renal Function Pa sinan AM LABS Lab 02/14/21 04:00 Ordered CV echo wo/w cont rast [id number] Routine Ultrasound 02/12/21 12:16 Taken US/CV paperwork R outine Ultrasound 02/12/21 Taken Labs from last 24 hours 02/13/21 02/13/21 02/13/21 10:25 03:18 03:18 WBC RBC Hgb Hct MCV MCH MCHC RDW Plt Count MPV Neut % (Auto) Lymph % (Auto) [place] % (Auto) Eos % (Auto) Baso % (Auto) Neut # (Auto) Lymph # (Auto) [place] # (Auto) Eos # (Auto) Baso # (Auto) Nucleated RBC % (a uto) Nucleated RBCs # Sodium 144 Potassium 4.3 Chloride 104 Carbon Dioxide 32 H Anion Gap 12.3 BUN 25 H Creatinine 1.0 GFR Calculation 73.9 L Glucose 92 POC Glucose 220 H Calcium 8.8 Phosphorus 5.2 H Magnesium 2.3 Albumin 3.7 Triglycerides 100 Cholesterol 126 LDL Cholesterol, C alc 78 HDL Cholesterol 28 L LDL/HDL Ratio 2.79 Cholesterol/HDL Ra aimee 4.50 02/13/21 02/12/21 02/12/21 03:18 20:32 17:04 WBC 7.1 RBC 4.27 Hgb 13.0 Hct 41.6 L MCV 97.4 H MCH 30.4 MCHC 31.3 RDW 14.6 Plt Count 152 MPV 12.4 H Neut % (Auto) 53.9 Lymph % (Auto) 30.6 [place] % (Auto) 12.2 Eos % (Auto) 2.1 Baso % (Auto) 0.8 Neut # (Auto) 3.84 Lymph # (Auto) 2.2 [place] # (Auto) 0.9 Eos # (Auto) 0.2 Baso # (Auto) 0.1 Nucleated RBC % (a uto) 0 Nucleated RBCs # 0.0 Sodium Potassium Chloride Carbon Dioxide Anion Gap BUN Creatinine GFR Calculation Glucose POC Glucose 168 H 119 H Calcium Phosphorus Magnesium Albumin Triglycerides Cholesterol LDL Cholesterol, C alc HDL Cholesterol LDL/HDL Ratio Cholesterol/HDL Ra aimee Vitals: Last Vital Signs Temp 98.6 F 02/13/21 15:12 Pulse 81 02/13/21 15:12 Resp 20 H 02/13/21 15:12 BP 120/63 02/13/21 15:12 Pulse Ox 94 02/13/21 15:12 Discharge Plan Discharge Patient Disposition: Home Condition: Stable Prescriptions: New Eliquis 5 mg Tablet 5 mg PO BID@0900,2100 Qty: 60 RF: 4 Klor-Con M20 20 mEq Tablet,Er Particles/Crystals 20 meq PO DAILY Qty: 30 RF: 4 lisinopril 10 mg Tablet 10 mg PO DAILY Qty: 30 RF: 3 metoprolol succinate 25 mg Tablet Extended Release 24 Hr 25 mg PO DAILY Qty: 30 RF: 4 Continued latanoprost 0.005 % drops 1 drp ophthalmic (eye) BEDTIME RF: 0 venlafaxine 75 mg capsule,extended release 24hr 75 mg PO DAILY RF: 0 allopurinol 100 mg tablet 200 mg PO DAILY RF: 0 amlodipine 10 mg tablet 10 mg PO DAILY RF: 0 simvastatin 20 mg tablet 20 mg PO DAILY RF: 0 doxazosin 2 mg tablet 2 mg PO DAILY RF: 0 metformin 750 mg tablet extended release 24 hr 1,500 mg PO DAILY RF: 0 Symbicort 80-4.5 mcg/actuation HFA aerosol inhaler 1 puff INHALATION DAILY RF: 0 Tresiba FlexTouch U-100 100 unit/mL (3 mL) insulin pen See Rx Instructions .ROUTE .COMPLEX RF: 0 furosemide 40 mg tablet 40 mg PO DAILY Qty: 30 RF: 3 aspirin 81 mg Tablet,Chewable 81 mg PO DAILY Qty: 30 RF: 4 Discharge Orders: Discharge Order (Routine); Ordered 02/13/21 Ordered By: Luke Lowe Referrals: Rohan Snider MD [Physician] - 2 weeks Discharge Diet: Cardiac Discharge Activity: Increase activity as tolerated Patient Instructions: Apixaban (By mouth), Heart Failure (DC), Atrial Fibrillation (DC) Activity Restrictions/Additional Instructions: Please follow-up with Dr. Snider and with your primary care physician as instructed. Please come back to emergency room if you develop any new dizziness or lightheadedness, weakness, tiredness, chest pain, palpitations, diaphoresis, black stool or bloody stool, blood in the urine, excessive bruising or any other new symptoms. Discharge Attestations Time Spent in Discharge Care*: less than 30 min Quality Metrics Clinical Quality Measures During this hospital stay, did patient experience: None Coding Level of Care Code Acute Chg FW DC note Diagnoses New onset atrial fibrillation I48.91 CHF (congestive heart failure), NYHA class III I50.9
--- NOTE | 2021-02-13 17:14 | PC.NURSE ---
patient and verbalize understanding of discharge instructions, home medications, and follow up appointments. All current questions answered. IV removed.
== END 2021-02-13 17:26 | disposition home or self-care (01) | DRG 308 ==
LOC: ER 16:33 → ICU 17:45 → MEDSURG 02-13 06:47
PROVIDERS: Admitting Provider Internal Medicine; Emergency Provider Family Medicine; Visit Provider Internal Medicine
DX: I48.91 Unspecified atrial fibrillation (principal); I50.33 Acute on chronic diastolic (congestive) heart failure; Z68.43 Body mass index [BMI] 50.0-59.9, adult; E66.01 Morbid (severe) obesity due to excess calories; Z87.891 Personal history of nicotine dependence; E11.9 Type 2 diabetes mellitus without complications; I11.0 Hypertensive heart disease with heart failure; I45.10 Unspecified right bundle-branch block; I35.0 Nonrheumatic aortic (valve) stenosis; Z79.84 Long term (current) use of oral hypoglycemic drugs; Z79.82 Long term (current) use of aspirin
CPT/HCPCS: 36415; 36416; 71045; 80048; 80053; 80061; 80069; 82962; 83036; 83735; 83880; 84443; 84484; 85025; 85378; 85610; 93005; 96365; 96366; 96372; 99285; C8929; J1815; J1940; J3490; Q9956

== ENCOUNTER → 2021-03-19 09:19 | Outpatient (BNVA) | payer MEDICARE, OTHER, SELFPAY | PROVIDERS: Visit Provider Internal Medicine Cardiovascular Disease | DX: Z01.812 Encounter for preprocedural laboratory examination (principal); Z20.822 Contact with and (suspected) exposure to COVID-19 | CPT/HCPCS: 87635 ==

== ENCOUNTER 2021-03-25 10:45 | Day surgery (SDC) | payer MEDICARE, OTHER, SELFPAY ==
[2021-03-25] MEDS: sodium chloride 0.9% 1,000 ML 30 ML IV (11:30)
[2021-03-25 11:33] VITALS: BMI 54.2
[2021-03-25 11:37] VITALS: BP 177/77; PULSE 86; RESP 18; TEMP 36.8; O2SAT 93
--- NOTE | 2021-03-25 11:45 | USCV_ITS ---
Bartolo Hardy Age: 71 Gender: M : 1950 Exam Date: 03/25/2021 15:01 Ordering Phys: Rohan Snider MD ([email or web address]) Technologist: Eze Santo Exam Location: [facility] [place] Indication: BP: / HR: Rhythm: Sinus Technical Quality: Good MEASUREMENTS (Male / Female) Normal Values Medications Patient given IV sedation by anesthesia service, for details please refer to the anesthesia report. Complications None. Proc. Components FINDINGS Left Ventricle Normal left ventricular cavity size. Normal left ventricular systolic function. Left ventricular ejection fraction is estimated at 60 %. Right Ventricle The right ventricle is normal in size and function. Right Atrium The right atrium is normal in size. Left Atrium The left atrium is normal in size. LA Appendage The LA appendage is normal. IA Septum The interatrial septum is normal. Mitral Valve Structurally normal mitral valve without significant stenosis or prolapse. There is no mitral regurgitation. Aortic Valve Severe aortic valve calcification. Moderate aortic valve stenosis, OLIVE 2.0 cm squared by planimetry.trace aortic valve regurgitation. Tricuspid Valve Structurally normal tricuspid valve without significant stenosis or regurgitation. Pulmonary artery systolic pressure is normal. Pulmonic Valve Structurally normal pulmonic valve without significant stenosis. There is no pulmonic regurgitation. Pericardium Normal pericardium without effusion. Aorta Normal ascending aorta dimension. CONCLUSIONS 1-Normal left ventricular cavity size. Normal left ventricular systolic function. Left ventricular ejection fraction is estimated at 60 %. 2-Severe aortic valve calcification. Moderate aortic valve stenosis, OLIVE 2.0 cm squared by planimetry.trace aortic valve regurgitation. 3-The LA appendage is normal. 4-Structurally normal mitral valve without significant stenosis or prolapse. There is no mitral regurgitation. 5-There is no pericardial effusion. 6-There are no prior echocardiogram studies to compare. Rohan Snider MD (Electronically Signed) Final Date: 27 Mar 2021 08:50 S
[2021-03-25 12:03] LABS: Glucose Point of Care 84 mg/dL (70-110)
--- NOTE | 2021-03-25 14:08 | ANES.PREANE2 ---
Pre-Anesthetic Assessment Pre-Anesthetic Assessment: Height/Weight: Height 1.83 m Weight 181.437 kg Temp Pulse Resp BP Pulse Ox 98.2 F 86 18 177/77 93 03/25/21 11:37 03/25/21 11:37 03/25/21 11:37 03/25/21 11:37 03/25/21 11:37 Preop Diagnosis: Aortic stenosis Proposed Procedure: Operation Date: 03/25/21 12:00 Proposed Procedures p BERTHA 60041 I35.0(Not Applicable) - Rohan Snider MD Familial anesthetic complications: Hard time waking up Was Beta Portillo taken within 24 hours: Yes Was Clonidine taken within 24 hours: N/A Last intake: Intake Last Liquid Date 03/24/21 Last Liquid Time 19:00 Last Solid Date 03/24/21 Last Solid Time :00 Social: Social History: No alcohol and No tobacco Comment: former smoker Exam: Pre-Anes Outpt Exam: alert, oriented x 3, clear to auscultation bilaterally and regular rate & rhythm Airway: Cervical ROM: WNL MP: 4 Dentition: Other (poor dentition) CV/HEM: CV/HEM: Afib, CHF and HTN Comments: mod to severe , EF 60% Metabolic: Metabolic: DM, Hyperlipidemia and Morbid obesity Anesthetic Plan: ASA status: 4 Anesthesia: MAC Risk of > 500 ml blood loss (7ml/kg in children): No PFSH Anesthesia PFSH: Medical History (Updated 03/09/21 @ 18:53 by Rohan Snider MD) CHF (congestive heart failure), NYHA class III New onset atrial fibrillation Family History (Updated 03/05/21 @ 16:23 by Gloria Alexander, RN) Other CAD (coronary artery disease) Cancer Dementia Diabetes Family history of premature coronary artery disease Hyperlipidemia Hypertension Denies family history of Chronic kidney disease (CKD) Anesthesia complication Bleeding disorder Lung disease Stroke Social History (Updated 03/05/21 @ 16:22 by Gloria Alexander, RN) Smoking and tobacco status: former smoker Alcohol intake: never Data Anesthesia Other Labs: Laboratory Results - last 48 hr 03/25/21 11:54 POC Glucose 84 Cardiac Studies: Echocardiogram 02/12/21
--- NOTE | 2021-03-25 15:10 | W.PM.OPSUD ---
Surgery/Procedure H&P Update DATE OF PROCEDURE: March 25, 2021 DATE H&P PERFORMED: 03/05/21 H&P UPDATE INFORMATION: I have reviewed H&P completed within last 30 days, I have examined patient prior to procedure and No changes to prior documentation PREOP DIAGNOSIS: Aortic stenosis PLANNED PROCEDURE: Operation Date: 03/25/21 12:00 Proposed Procedures p BERTHA 01118 I35.0(Not Applicable) - Rohan Snider MD AIRWAY EVAL/ANESTHESIA PLAN: ASA III, Risks, benefits & alternatives of sedation and/or procedure discussed and Patient agrees to continue as planned ADDITIONAL INFORMATION: Please see anesthesia note.
[2021-03-25 15:15] VITALS: BP 132/60; PULSE 85; RESP 18; TEMP 36.6; O2SAT 95
[2021-03-25 15:31] VITALS: BP 129/55; PULSE 81; RESP 18; O2SAT 96
--- NOTE | 2021-03-25 15:43 | ANE.PACU2 ---
Inpatient post-anesthesia follow up: Airway intact: Yes Vital signs: Temperature 97.9 F Pulse Rate 81 Respiratory Rate 18 Blood Pressure 129/55 Pulse Oximetry 96 Oxygen Delivery Me thod Room Air Oxygen Flow Rate Fraction of Inspir ed Oxygen Hydration adequate: Yes Nausea and vomiting: No Pain level: 1 Mental status: Baseline
== END 2021-03-25 15:40 | disposition home or self-care (01) ==
PROVIDERS: PCP Family Medicine; Visit Provider Internal Medicine Cardiovascular Disease
PROC: (CPT 93312; principal; 2021-03-25 12:00)
DX: I35.0 Nonrheumatic aortic (valve) stenosis (principal); Z87.891 Personal history of nicotine dependence; I48.91 Unspecified atrial fibrillation; I11.0 Hypertensive heart disease with heart failure; I50.9 Heart failure, unspecified; E11.9 Type 2 diabetes mellitus without complications; E78.5 Hyperlipidemia, unspecified; E66.01 Morbid (severe) obesity due to excess calories; Z68.43 Body mass index [BMI] 50.0-59.9, adult; Z82.49 Family history of ischemic heart disease and other diseases of the circulatory system; Z83.3 Family history of diabetes mellitus
CPT/HCPCS: 36416; 43270; 82962; 93312; 93318; 93320; 93325; 96360; 96361; J2704; J7030

== ENCOUNTER 2021-04-08 20:15 | Emergency (ER) | payer MEDICARE, OTHER, SELFPAY ==
[2021-04-08 20:25] VITALS: BP 119/59; PULSE 112; RESP 16; TEMP 36.8; O2SAT 94; BMI 54.9
--- NOTE | 2021-04-08 20:47 | ED_ITS ---
HPI - Skin/Abscess/Foreign Bdy General: Chief complaint: Skin/Abscess/Foreign Body Stated complaint: POSSIBLE SHINGLES Time Seen by Provider: 04/08/21 20:38 History of Present Illness: HPI narrative: Patient is a 71-year-old male comes to the ED with a pruritic rash. Rash started within the last 24 hours and any says it is itchy. He has had this rash once before he was given a steroid shot and it helped resolve it. Denies any pain from rash. Rash is located at the left underarm, left side of abdomen and right side of abdomen. There are red raised bumps and one under his armpit is a linear raised rash. Denies any purulent or clear fluid or drainage from rash. 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 Denies any shortness of breath, nausea/vomiting. Associated symptoms: Deny chills, fever(s), nausea or vomiting Review of Systems Const: Denies: fever(s), chills or fatigue Eyes: Denies: change in vision or eye discomfort ENMT: Denies: throat pain, odynophagia, nasal discharge or nasal congestion Card: Denies: chest pain, palpitations, edema, swelling of feet/ankles, dyspnea on exertion or orthopnea Resp: Denies: dyspnea, productive cough or non-productive cough GI: Denies: abdominal pain, nausea, vomiting, diarrhea, constipation or hematochezia : Denies: flank pain, difficulty urinating, dysuria or hematuria Musc: Denies: neck pain, back pain or extremity swelling Skin/Breast: Reports: rash (Pruritic rash on right and left side of abdomen and left axillary.) and pruritus; Denies: new lesions Neuro: Denies: headache(s), numbness in extremities or weakness in extremities PFSH ED PFSH: Medical History CHF (congestive heart failure), NYHA class III New onset atrial fibrillation Family History Other CAD (coronary artery disease) Cancer Dementia Diabetes Family history of premature coronary artery disease Hyperlipidemia Hypertension Denies family history of Chronic kidney disease (CKD) Anesthesia complication Bleeding disorder Lung disease Stroke Social History Smoking and tobacco status: former smoker Alcohol intake: never Physical Exam Const: COMMON NORMALS: no acute distress, patient oriented x3 and alert GENERAL APPEARANCE: cooperative and comfortable NUTRITIONAL APPEARANCE: obese HENMT: COMMON NORMALS: normocephalic HEAD & SCALP: normocephalic MOUTH: Normal oral and palatal mucosa present THROAT: posterior oropharynx normal and uvula midline Neck/C-Spine: COMMON NORMALS: supple GENERAL: Yes normal visual inspection Resp: COMMON NORMALS: normal respiratory effort, No retractions, No use of accessory muscles and clear to auscultation bilaterally AUSCULTATION: clear to auscultation bilaterally Cardio: COMMON NORMALS: regular rate, regular rhythm, S1 normal heart sound present, S2 normal heart sound present, No gallops present (Cardio), No clicks present (Cardio), No murmurs present (Cardio) and Peripheral pulses 2+ throughout RATE: regular rate RHYTHM: regular rhythm HEART SOUNDS: S1 normal heart sound present and S2 normal heart sound present PERIPHERAL PULSES: Peripheral pulses 2+ throughout GI: COMMON NORMALS: Normal to inspection, nondistended, normoactive bowel sounds present, Soft to palpation, non-tender and no masses PALPATION: Yes Soft to palpation : COMMON NORMALS: Yes no CVA tenderness BLADDER/KIDNEY EXAM: Yes no CVA tenderness Back/Pelvis: COMMON NORMALS: no CVA tenderness Extremity: COMMON NORMALS: normal to inspection Neuro: COMMON NORMALS: patient oriented x3 and moves all extremities SENSORIUM/ORIENTATION: Yes alert Skin: NARRATIVE SKIN EXAM: Patient has small maculopapular pruritic rash on right and left flank of abdomen and left axillary region. The rash under left axillary region is linear in nature and appears to be likely a contact dermatitis caused by poison yemi. All the rashes are nontender and nonvesicular. Findings suggestive of contact dermatitis. At this point based off exam I do not think this rash is shingles. GENERAL SKIN EXAM: dry skin Course Vital Signs: Vital signs: Vital Signs Temperature 98.2 F 04/08/21 20:25 Pulse Rate 106 H 04/08/21 21:16 Respiratory Rate 16 04/08/21 20:25 Blood Pressure 124/77 04/08/21 21:16 Pulse Oximetry 95 04/08/21 21:16 MDM - Skin/Abscess/Foreign Bdy MDM Narrative: Medical decision making narrative: Patient reports to the ED with the pruritic rash on both right and left side of abdomen and left axillary region. Rash is nontender and nonvesicular. History and exam findings suggestive of some contact dermatitis. Patient was given a shot of triamcinolone while here in the ED and discharged home. He was told to follow- up with PCP in 7 to 10 days for reevaluation. Return to ED precautions given. Patient understood and agree with plan. Discharge Plan Discharge Patient Disposition: Home Clinical Impression: Contact dermatitis Qualifiers: Contact dermatitis type: allergic Contact dermatitis trigger: unspecified trigger Qualified Code(s): L23.9 - Allergic contact dermatitis, unspecified cause Condition: Stable Prescriptions: No Action aspirin 81 mg tablet,chewable 81 mg PO DAILY Qty: 90 RF: 3 furosemide 40 mg tablet 40 mg PO .COMPLEX Qty: 135 RF: 3 Klor-Con M20 20 mEq tablet,ER particles/crystals 20 meq PO DAILY Qty: 90 RF: 3 metoprolol succinate 25 mg tablet extended release 24 hr 25 mg PO DAILY Qty: 90 RF: 3 Eliquis 5 mg tablet 5 mg PO BID@0900,2100 Qty: 180 RF: 3 lisinopril 10 mg tablet 10 mg PO DAILY Qty: 90 RF: 3 latanoprost 0.005 % drops 1 drp ophthalmic (eye) BEDTIME RF: 0 venlafaxine 75 mg capsule,extended release 24hr 75 mg PO DAILY RF: 0 allopurinol 100 mg tablet 200 mg PO DAILY RF: 0 amlodipine 10 mg tablet 10 mg PO DAILY RF: 0 simvastatin 20 mg tablet 20 mg PO DAILY RF: 0 doxazosin 2 mg tablet 2 mg PO DAILY RF: 0 metformin 750 mg tablet extended release 24 hr 1,500 mg PO DAILY RF: 0 budesonide-formoterol [Symbicort] 80-4.5 mcg/actuation HFA aerosol inhaler 1 puff INHALATION DAILY RF: 0 Tresiba FlexTouch U-100 100 unit/mL (3 mL) insulin pen See Rx Instructions .ROUTE .COMPLEX RF: 0 Discharge Orders: Discharge ED (Routine); Ordered 04/08/21 Ordered By: Felipe Marie Referrals: Ministerio Sewell MD [Primary Care Provider] - Discharge Diet: Regular Discharge Activity: Resume usual activity Patient Instructions: Contact Dermatitis (ED) Activity Restrictions/Additional Instructions: Follow-up with medical provider in 3 to 5 days for reevaluation. Make sure to monitor your blood sugars closely since you have been given a steroid. Continue taking all your previously prescribed medications. If rash continues to progress after couple days or becomes painful, return to the ER or your medical provider to reevaluate for possible shingles. Please read and understand discharge instructions. Thank you for choosing [facility] for your healthcare needs today. Please realize this is an emergency room and that we are providing you with a medical screening exam and this may not be complete and all inclusive of all the testing and or work up that you may need to determine your ailment or severity of your illness. It is very important that you follow up as instructed or that you return to the Emergency Department should you have concerns or if your condition changes or worsens in any way. Coding Level of Care Code ED Electrical Hardware Engineer for Heber Woodruff Exam Comprehensive
[2021-04-08] MEDS: triamcinolone 40 mg/mL SDV IM (21:07)
[2021-04-08 21:16] VITALS: BP 124/77; PULSE 106; O2SAT 95
== END 2021-04-08 21:17 | disposition home or self-care (01) ==
PROVIDERS: Emergency Provider Physician Assistant; PCP Family Medicine
DX: L23.9 Allergic contact dermatitis, unspecified cause (principal); Z79.82 Long term (current) use of aspirin; Z79.01 Long term (current) use of anticoagulants; Z79.4 Long term (current) use of insulin; I50.9 Heart failure, unspecified; Z87.891 Personal history of nicotine dependence; I48.91 Unspecified atrial fibrillation
CPT/HCPCS: 96372; 99283; J3301

== ENCOUNTER 2021-05-07 13:24 | Inpatient (IN) | payer MEDICARE, OTHER, SELFPAY ==
[2021-05-07] VITALS (61 sets, daily range): BP systolic 76–133; BP diastolic 54–99; PULSE 108–143; RESP 14–33; TEMP 36.8–37.1; O2SAT 89–100; BMI 54.3
--- NOTE | 2021-05-07 13:46 | XRR_ITS ---
PROCEDURE INFORMATION: Exam: XR Chest Exam date and time: 05/07/2021 1:46 PM Age: 71 years old Clinical indication: Cough and dyspnea; Additional info: Dyspnea/cough TECHNIQUE: Imaging protocol: XR of the chest. Views: 1 view. COMPARISON: 1. CR XR chest 1V portable [id number] 02/11/2021 4:02 PM 2. CR Chest 1 [place] [id number] 06/10/2019 7:42 PM 3. CR [facility] Chest 2 views 06/09/2019 4:41 PM 4. [place] [id number] 06/10/2019 9:19 PM FINDINGS: Lungs: Mild left basilar pneumonia. Pleural spaces: Unremarkable. No pleural effusion. No pneumothorax. Heart/Mediastinum: Unremarkable. No cardiomegaly. Bones/joints: Unremarkable. XR/XR chest 1V portable [id number] IMPRESSION: Mild left basilar pneumonia.
--- NOTE | 2021-05-07 13:46 | ECG_ITS ---
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1950 Requested By: Shaun Jones Order Number: [id number] Reading MD: RICK ESTRADA Measurements Intervals [place] Rate: 138 P: 173 NV: 112 QRS: -82 QRSD: 145 T: 64 QT: 332 QTc: 505 Interpretive Statements Possible atrial flutter RIGHT BUNDLE BRANCH BLOCK [120+ ms QRS DURATION, UPRIGHT V1, 40+ ms S IN I/aVL/V4/V5/V6] LEFT ANTERIOR FASCICULAR BLOCK [QRS AXIS <= -45, QR IN I, RS IN II] MODERATE VOLTAGE CRITERIA FOR LVH, CONSIDER NORMAL VARIANT [MEETS CRITERIA IN ONE OF: R(aVL), S(V1), R(V5), R(V5/V6)+S(V1)] Compared to ECG 02/11/2021 22:30:31 Short NV interval now present Left anterior fascicular block now present Atrial fibrillation no longer present Ventricular premature complex(es) no longer present Aberrant conduction of supraventricular beat(s) no longer present Myocardial infarct finding no longer present Electronically Signed On 05-07-2021 18:39:56 CDT by RICK ESTRADA [id number]
--- NOTE | 2021-05-07 13:48 | ED_ITS ---
HPI - Arrhythmia/Palpitations General: Chief Complaint: Dizziness Stated Complaint: low blood preassure, dizzy, SOB, Time Seen by Provider: 05/07/21 13:30 History of Present Illness: HPI narrative: 71-year-old male presents emergency room complaining of low blood pressure lightheaded dizziness short of breath last 4 days. He recently had metoprolol added to his medication list he has a known history of atrial fibrillation he is on aspirin and Eliquis. On presentation here he is in A. fib with RVR there is some ST elevation changes but I suspect that her rate related he denies any chest pain at this time he is able to converse easily he denies any pain neck arms shoulders back etc. Not previously been on a heart attack. MD complaint: heart racing and atrial fibrillation Onset (ago): day(s) Duration: constant Severity: moderate Context: occurred during rest Arrhythmia history: atrial fibrillation Associated symptoms: Reports short of breath; Deny anxiety, cough, diaphoresis, muscle cramps, nausea, paresthesias, pre- syncope, sense of impending doom, syncope or vomiting Treatments prior to arrival: beta-cherelle Review of Systems Const: Denies: diaphoresis ENMT: Denies: throat pain, ear or mastoid pain, nasal discharge or nasal congestion Card: Denies: syncope or pre-syncope Resp: Denies: dyspnea, productive cough or non-productive cough GI: Denies: nausea or vomiting : Denies: flank pain, dysuria, urinary frequency or urinary urgency Musc: Denies: muscle cramps Skin/Breast: Denies: rash or pruritus Psych: Denies: anxiety PFSH ED PFSH: Medical History CHF (congestive heart failure), NYHA class III New onset atrial fibrillation Family History Other CAD (coronary artery disease) Cancer Dementia Diabetes Family history of premature coronary artery disease Hyperlipidemia Hypertension Denies family history of Chronic kidney disease (CKD) Anesthesia complication Bleeding disorder Lung disease Stroke Social History Smoking and tobacco status: former smoker Alcohol intake: never Physical Exam Const: COMMON NORMALS: no acute distress GENERAL APPEARANCE: cooperative and comfortable ORIENTATION/CONSCIOUSNESS: Yes awake, Yes oriented to person, Yes oriented to place and Yes oriented to time HENMT: COMMON NORMALS: normocephalic, atraumatic, hearing grossly normal bilaterally and external ears normal HEAD & SCALP: normocephalic and atraumatic EXTERNAL EAR: Yes external ears normal Neck/C-Spine: COMMON NORMALS: no JVD Resp: COMMON NORMALS: normal respiratory effort, No retractions, No use of accessory muscles and clear to auscultation bilaterally AUSCULTATION: clear to auscultation bilaterally Cardio: COMMON NORMALS: no JVD, regular rate, regular rhythm and No murmurs present (Cardio) RATE: regular rate RHYTHM: regular rhythm GI: COMMON NORMALS: Soft to palpation and No hepatosplenomegaly present AUSCULTATION: Yes normoactive bowel sounds PALPATION: Yes Soft to palpation, No Tenderness to palpation present (GI), No Guarding due to palpation present (GI) and Yes No hepatosplenomegaly present Extremity: COMMON NORMALS: normal to inspection, capillary refill normal, no clubbing, cyanosis or edema, no calf tenderness and no pedal edema Neuro: SENSORIUM/ORIENTATION: Yes oriented to person, Yes oriented to place and Yes oriented to time Skin: COMMON NORMALS: no rashes or lesions noted GENERAL SKIN EXAM: no rashes or lesions noted Course Vital Signs: Vital signs: Vital Signs Temperature 97.4 F L 05/08/21 05:00 Pulse Rate 116 H 05/08/21 06:00 Respiratory Rate 19 H 05/08/21 05:00 Blood Pressure 132/84 05/08/21 05:00 Pulse Oximetry 95 05/08/21 05:00 MDM - Arrhythmia/Palpitations MDM Narrative: Medical decision making narrative: EKG shows A. fib flutter with rapid ventricular response. Initially patient was trialed on Cardizem he did not respond to that he quickly got to max dose with no effective improvement. He was changed to esmolol which did improve however his tachycardia persisted. Blood pressure actually improved initially and worsen that and then stabilized will admit to the ICU discussed with hospitalist orders are written Lab Data: Labs: Lab Results 05/07/21 05/07/21 05/07/21 Range/Units 13:35 13:35 13:35 WBC 13.2 H (4.0-10.0) 10^3/ uL RBC 4.47 (4.1-5.3) 10^6/u L Hgb 13.9 (11.7-16.6) g/dL Hct 42.7 (42.0-52.0) % MCV 95.5 H (80-94) fL MCH 31.1 (28.0-34.0) pg MCHC 32.6 (30.0-36.0) g/dL RDW 14.6 (12.1-15.1) % Plt Count 160 (130-400) 10^3/c mm MPV 12.1 H (7.4-10.4) fL Neut % (Auto) 81.6 % Lymph % (Auto) 10.6 % Warren % (Auto) 6.9 % Eos % (Auto) 0.2 % Baso % (Auto) 0.3 % Neut # (Auto) 10.75 H (1.8-7.7) 10^3/u L Lymph # (Auto) 1.4 (0.8-4.8) 10^3/u L Warren # (Auto) 0.9 (0.2-0.9) 10^3/u L Eos # (Auto) 0.0 (0.0-0.8) 10^3/u L Baso # (Auto) 0.0 (0.0-0.1) 10^3/u L Nucleated RBC % (a uto) 0 % Nucleated RBCs # 0.0 /100WBC Sodium 136 (136-145) mmol/L Potassium 4.4 (3.5-5.1) mmol/L Chloride 97 L (98-107) mmol/L Carbon Dioxide 27 (22-29) mmol/L Anion Gap 16.4 (5-19) BUN 22 (8-23) mg/dL Creatinine 1.4 H (0.7-1.2) mg/dL GFR Calculation Not Reportable Glucose 182 H (65-115) mg/dL Calculated Osmolal ity 290 (285-295) mOsm/k g Calcium 9.0 (8.5-10.5) mg/dL Total Bilirubin 0.8 (0.15-1.2) mg/dL AST 13 (0-40) U/L ALT 15 (0-41) U/L Alkaline Phosphata se 71 (40-130) IU/L Creatine Kinase 111 (39-308) U/L Troponin T Baselin e 42 H (0-15) ng/L Total Protein 6.6 (6.6-8.7) g/dL Albumin 3.8 (3.5-5.2) g/dL Globulin 2.8 (1.3-4.6) g/dL Urine Color (Yellow) Urine Appearance (CLEAR) Urine pH (5-7) Ur Specific Gravit y (1.005-1.030) Urine Protein (Negative) Urine Glucose (UA) (Normal) Urine Ketones (Negative) Urine Blood (Negative) Urine Nitrate (Negative) Urine Bilirubin (Negative) Urine Urobilinogen (Negative) mg/dL Ur Leukocyte Yusra ase (Negative) Urine RBC (0-2) /hpf Urine WBC (0-5) /hpf Ur Squamous Epith Cells (0-5) /hpf Amorphous Sediment Urine Bacteria (NONE) /hpf 05/07/21 Range/Units 15:00 WBC (4.0-10.0) 10^3/ uL RBC (4.1-5.3) 10^6/u L Hgb (11.7-16.6) g/dL Hct (42.0-52.0) % MCV (80-94) fL MCH (28.0-34.0) pg MCHC (30.0-36.0) g/dL RDW (12.1-15.1) % Plt Count (130-400) 10^3/c mm MPV (7.4-10.4) fL Neut % (Auto) % Lymph % (Auto) % Warren % (Auto) % Eos % (Auto) % Baso % (Auto) % Neut # (Auto) (1.8-7.7) 10^3/u L Lymph # (Auto) (0.8-4.8) 10^3/u L Warren # (Auto) (0.2-0.9) 10^3/u L Eos # (Auto) (0.0-0.8) 10^3/u L Baso # (Auto) (0.0-0.1) 10^3/u L Nucleated RBC % (a uto) % Nucleated RBCs # /100WBC Sodium (136-145) mmol/L Potassium (3.5-5.1) mmol/L Chloride (98-107) mmol/L Carbon Dioxide (22-29) mmol/L Anion Gap (5-19) BUN (8-23) mg/dL Creatinine (0.7-1.2) mg/dL GFR Calculation Glucose (65-115) mg/dL Calculated Osmolal ity (285-295) mOsm/k g Calcium (8.5-10.5) mg/dL Total Bilirubin (0.15-1.2) mg/dL AST (0-40) U/L ALT (0-41) U/L Alkaline Phosphata se (40-130) IU/L Creatine Kinase (39-308) U/L Troponin T Baselin e (0-15) ng/L Total Protein (6.6-8.7) g/dL Albumin (3.5-5.2) g/dL Globulin (1.3-4.6) g/dL Urine Color Yellow (Yellow) Urine Appearance Clear (CLEAR) Urine pH 5 (5-7) Ur Specific Gravit y 1.015 (1.005-1.030) Urine Protein Neg (Negative) Urine Glucose (UA) Norm (Normal) Urine Ketones Negative (Negative) Urine Blood Neg (Negative) Urine Nitrate Negative (Negative) Urine Bilirubin Neg (Negative) Urine Urobilinogen 4 H (Negative) mg/dL Ur Leukocyte Yusra ase Trace H (Negative) Urine RBC 0-4 H (0-2) /hpf Urine WBC 15-25 H (0-5) /hpf Ur Squamous Epith Cells 0-4 H (0-5) /hpf Amorphous Sediment Not Reportable Urine Bacteria 4+ H (NONE) /hpf Discharge Plan Discharge Patient Disposition: Admitted As Inpatient Admit Provider: Maynor Brasher Clinical Impression: Atrial flutter with rapid ventricular response, CHF (congestive heart failure), NYHA class III, Aortic stenosis, severe, Diabetes Condition: Stable Coding Level of Care Code ED Statistical Programmer for Stephanieg Fwd Exam Comprehensive
[2021-05-07 13:56] LABS: Basophils % 0.3 %; Eosinophils % 0.2 %; Hematocrit 42.7 % (42.0-52.0); Hemoglobin 13.9 g/dL (11.7-16.6); Lymphocytes # 1.4 10^3/uL (0.8-4.8); Lymphocytes % 10.6 %; Mean Corpuscular HGB Conc 32.6 g/dL (30.0-36.0); Mean Corpuscular Hemoglobin 31.1 pg (28.0-34.0); Mean Corpuscular Volume 95.5 fL (80-94); Mean Platelet Volume 12.1 fL (7.4-10.4); Monocytes # 0.9 10^3/uL (0.2-0.9); Monocytes % 6.9 %; Neutrophils # 10.75 10^3/uL (1.8-7.7); Neutrophils % 81.6 %; Nucleated Red Blood Cells % 0 %; Platelet Count 160 10^3/cmm (130-400); Red Blood Count 4.47 10^6/uL (4.1-5.3); Red Cell Distribution Width 14.6 % (12.1-15.1); White Blood Count 13.2 10^3/uL (4.0-10.0)
[2021-05-07 14:08] LABS: Alanine Aminotransferase 15 U/L (0-41); Albumin Level 3.8 g/dL (3.5-5.2); Alkaline Phosphatase 71 IU/L (40-130); Anion Gap 16.4 (5-19); Aspartate Amino Transferase 13 U/L (0-40); Blood Urea Nitrogen 22 mg/dL (8-23); Carbon Dioxide 27 mmol/L (22-29); Chloride 97 mmol/L (98-107); Creatine Phosphokinase 111 U/L (39-308); Globulin 2.8 g/dL (1.3-4.6); Glucose 182 mg/dL (65-115); Osmolality Calculated 290 mOsm/kg (285-295); Potassium 4.4 mmol/L (3.5-5.1); Sodium 136 mmol/L (136-145); Total Bilirubin 0.8 mg/dL (0.15-1.2); Total Protein 6.6 g/dL (6.6-8.7)
[2021-05-07 14:09] LABS: Troponin(5th) Baseline 42 ng/L (0-15)
[2021-05-07] MEDS: esmolol drip 2,500 MG/250 ML PREMIX 54.57 MG IV (14:56)
[2021-05-07] MEDS: levofloxacin-dextrose 5 % 750 MG/150 ML PREMIX 100 MG IV (15:37)
--- NOTE | 2021-05-07 15:46 | ECG_ITS ---
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1950 Requested By: Shaun Jones Order Number: [id number] Reading MD: RICK ESTRADA Measurements Intervals [place] Rate: 136 P: FL: QRS: -79 QRSD: 148 T: 45 QT: 333 QTc: 501 Interpretive Statements ATRIAL FLUTTER/TACHYCARDIA WITH RAPID VENTRICULAR RESPONSE RIGHT BUNDLE BRANCH BLOCK [120+ ms QRS DURATION, UPRIGHT V1, 40+ ms S IN I/aVL/V4/V5/V6] LEFT ANTERIOR FASCICULAR BLOCK [QRS AXIS <= -45, QR IN I, RS IN II] MODERATE VOLTAGE CRITERIA FOR LVH, CONSIDER NORMAL VARIANT [MEETS CRITERIA IN ONE OF: R(aVL), S(V1), R(V5), R(V5/V6)+S(V1)] POSSIBLE ANTERIOR MYOCARDIAL INFARCTION [30 ms Q WAVE IN V3/V4, OR R < 0.2 mV IN V4], OF INDETERMINATE AGE Compared to ECG 05/07/2021 14:29:47 Myocardial infarct finding now present Sinus tachycardia no longer present Short [place] interval no longer present Electronically Signed On 05-07-2021 18:40:48 CDT by RICK ESTRADA [id number]
[2021-05-07 16:05] LABS: Protein Urine Neg (Negative); Specific Gravity, Urine 1.015 (1.005-1.030); Urine Appearance Clear (CLEAR); Urine Color Yellow (Yellow); pH Urine 5 (5-7)
[2021-05-07 16:06] LABS: Add Urine Microscopic? YES; Bilirubin Urine Neg (Negative); Blood Urine Neg (Negative); Glucose Urine UA Norm (Normal); Ketones Urine Negative (Negative); Leukocyte Esterase Urine Trace (Negative); Nitrate Urine Negative (Negative); Urobilinogen Urine 4 mg/dL (Negative)
[2021-05-07 16:13] LABS: Add Urine Culture? Yes; Bacteria Urine 4+ /hpf; RBC Urine 0-4 /hpf (0-2); Squamous Epithelial Cell Urine 0-4 /hpf (0-5); WBC Urine 15-25 /hpf (0-5)
--- NOTE | 2021-05-07 16:28 | PM.HP ---
Providers/Chief Complaint Primary Care Provider: Ministerio Sewell MD Chief Complaint: low blood preassure, dizzy, SOB, History of Present Illness Bartolo Hardy is a 71 year old male with PMH of HTN,MIKE, A.FIB on Eliquis for Ac,DM,Gout ,HFpEF came in with c/o racing of heart as well as dizziness.Upon arrival in the ER he was worked up for above mention complain. Imaging Studies : Xray chest : Mild left basilar pneumonia. EKG : A. flutter with RVR with underlying RBBB as well as LAFB Pertinent Labs : WBC : 13.2 , H/H : 13.9/24,PLT : 160 Na : 136, K : 4.4 , BUN/SCR : 22/1.4 Troponin: Baseline : 42, 2h :38: 2h delta: -3.88, 6h: 46 6h D:4.13 U/A:Dirty In the ER patient was started on Cardizem drip but was later switched to esmolol drip as h/r was uncontrolled on maximum cardizem drip rate. Review of Systems Const: Denies: body aches, change in appetite or diaphoresis Card: Denies: edema, swelling of feet/ankles, orthopnea or leg pain with exertion Resp: Denies: dyspnea, productive cough, wheezing or pain on inspiration GI: Denies: abdominal pain, nausea, vomiting, diarrhea or constipation : Denies: flank pain or difficulty urinating Musc: Denies: back pain, extremity pain or extremity swelling Neuro: Denies: headache(s), difficulty walking or confusion Medications/Allergies Home Medications Medication Instructions Recorded Confirmed Last Taken Type Tresiba FlexTouch U-100 230 unit SUBCUT QAM 02/12/21 05/07/21 05/07/21 History allopurinol 200 mg PO QAM 02/12/21 05/07/21 05/07/21 07:00 History amlodipine 10 mg PO QAM 02/12/21 05/07/21 05/07/21 07:00 History budesonide-formoterol [Symbicort] 2 puff INHALATION DAILY 02/12/21 05/07/21 03/24/21 History doxazosin 2 mg PO QAM 02/12/21 05/07/21 05/07/21 07:00 History latanoprost 1 drp OPHTHALMIC (EYE) BEDTIME 02/12/21 05/07/21 05/06/21 History metformin 1,500 mg PO QAM 02/12/21 05/07/21 05/07/21 07:00 History simvastatin 20 mg PO QAM 02/12/21 05/07/21 05/07/21 07:00 History venlafaxine 75 mg PO QAM 02/12/21 05/07/21 05/07/21 07:00 History Eliquis 5 mg PO BID 05/07/21 05/07/21 05/07/21 07:00 History Klor-Con M20 20 meq PO QAM 05/07/21 05/07/21 05/07/21 07:00 History ascorbic acid (vitamin C) [Vitamin 500 mg PO QAM 05/07/21 05/07/21 Unknown History C] aspirin 81 mg PO QAM 05/07/21 05/07/21 05/07/21 07:00 History furosemide 40 mg PO BID 05/07/21 05/07/21 05/07/21 07:00 History lisinopril 10 mg PO QAM 05/07/21 05/07/21 05/07/21 07:00 History metoprolol succinate 25 mg PO QAM 05/07/21 05/07/21 05/07/21 07:00 History pramipexole 0.25 mg PO BEDTIME 05/07/21 05/07/21 05/06/21 History Allergies Allergy/AdvReac Type Severity Reaction Status Date / Time Penicillins Allergy ADR/ALGY-Fl Verified 05/07/21 14:34 ushing PFSH Acute PFSH: Medical History CHF (congestive heart failure), NYHA class III New onset atrial fibrillation Family History Other CAD (coronary artery disease) Cancer Dementia Diabetes Family history of premature coronary artery disease Hyperlipidemia Hypertension Denies family history of Chronic kidney disease (CKD) Anesthesia complication Bleeding disorder Lung disease Stroke Social History Smoking and tobacco status: former smoker Alcohol intake: never Vitals/I&O/Wt Last Vital Signs Temp 98.8 F 05/07/21 13:26 Pulse 126 H 05/07/21 16:22 Resp 20 H 05/07/21 16:22 BP 116/77 05/07/21 16:22 Pulse Ox 97 05/07/21 15:56 05/07/21 05/07/21 05/07/21 06:59 14:59 22:59 Intake Total 12.917 / 12.917 110.502 / 123.419 Balance 12.917 / 12.917 110.502 / 123.419 Weight last 48 hrs Weight 181.891 kg Physical Exam Const: COMMON NORMALS: patient oriented x3 HENMT: COMMON NORMALS: normocephalic and atraumatic HEAD & SCALP: normocephalic and atraumatic Chest: CHEST: Yes Symmetrical chest wall rise Resp: COMMON NORMALS: normal respiratory effort, No retractions, No use of accessory muscles and clear to auscultation bilaterally EFFORT & INSPECTION: Yes symmetric chest movement AUSCULTATION: clear to auscultation bilaterally Cardio: OTHER: S1S2 Of variable intensity, ESM in Rt 2nd ICS GI: COMMON NORMALS: Soft to palpation, non-tender, No hepatosplenomegaly present and no masses AUSCULTATION: Yes normoactive bowel sounds PALPATION: Yes Soft to palpation and Yes No hepatosplenomegaly present RECTAL EXAM: Yes deferred OTHER: Obese Abdomen Extremity: COMMON NORMALS: no clubbing, cyanosis or edema and no pedal edema Neuro: COMMON NORMALS: patient oriented x3 Data : 05/08/21 04:23 05/08/21 04:23 Micro: Microbiology 05/07/21 15:47 Blood Culture - Preliminary Blood SPECIMEN COLLECTED 05/07/21 15:50 Blood Culture - Preliminary Blood SPECIMEN COLLECTED A&P Assessment and plan (1) Atrial flutter with rapid ventricular response: A.flutter with RVR 2D Echo:Normal left ventricular cavity size. Normal left ventricular systolic function. No regional wall motion abnormalities. Left ventricular ejection fraction is estimated at 60 %. Grade III/IV diastolic dysfunction (restrictive filling pattern), severely elevated filling pressures. 2-Severe aortic valve calcification. Moderate aortic valve stenosis, mean gradient 12.6 mmHg, OLIVE 0.88 cm squared. No aortic valve regurgitation. Moderately thickened mitral valve. Moderate mitral annular calcification. No mitral valve stenosis. No mitral valve regurgitation. BERTHA : Normal left ventricular cavity size. Normal left ventricular systolic function. Left ventricular ejection fraction is estimated at 60 %.Severe aortic valve calcification. Moderate aortic valve stenosis, OLIVE 2.0 cm squared by planimetry.trace aortic valve regurgitation. The LA appendage is normal.Structurally normal mitral valve without significant stenosis or prolapse.There is no mitral regurgitation. In the ER patient was started on Cardizem drip but was later switched to esmolol drip as h/r was uncontrolled on maximum cardizem drip rate. Continue Esmolol Drip. Cardizem 60 mg po q6h Eliquis 5 mg q12 h TSH:3.43 Status: Acute (2) CHF (congestive heart failure), NYHA class III: Mildly decompensated heart failure with preserved ejection fraction. Continue Lasix 40 mg IV every 12 hours Daily. Intake output charting Daily weight K>4, Mg >2 Status: Acute Qualifiers: Congestive heart failure chronicity: chronic Congestive heart failure type: diastolic Qualified Code(s): I50.32 - Chronic diastolic (congestive) heart failure (3) Acute kidney injury superimposed on CKD: RACHELE on CKD:likey 2/2 CRS Monitor BMP Urine electrolytes Avoid nephrotoxic's Status: Acute (4) UTI (urinary tract infection): UTI with leukocytosis: Lactic acid procalcitonin Urine culture: Blood culture: Ceftriaxone 1 g IV daily Status: Acute (5) Aortic stenosis, severe: Status: Acute (6) Diabetes: LDSSI Status: Acute (7) HTN (hypertension): Amlodipine 10 mg p.o. daily Status: Acute (8) Gout: Allopurinol 200 mg p.o. daily. Status: Acute Additional A&P Information Code Status:Full Code DVT PPX: Not needed patient on Elquis Attestations Medical Necessity Statement*: Patient needs to be in hospital for the management of A.fib with RVR.Anticipated LOS greater then 2 midnights. Coding Level of Care Code Acute Scene And Lighting Design Lecturer for g Fwd Exam Detailed Diagnoses Atrial flutter with rapid ventricular response I48.92 CHF (congestive heart failure), NYHA class III I50.32 Congestive heart failure chronicity: chronic Congestive heart failure type: diastolic Acute kidney injury superimposed on CKD N17.9; N18.9 UTI (urinary tract infection) N39.0 Aortic stenosis, severe I35.0 Diabetes E11.9 HTN (hypertension) I10 Gout M10.9
[2021-05-07 16:46] LABS: Troponin 5 2HR 38.12 ng/L (0-15)
[2021-05-07 16:47] LABS: Troponin 5 2HR Delta -3.88 ABS# (0-10)
--- NOTE | 2021-05-07 16:48 | PC.NURSE ---
attempted to call report, call back pending
[2021-05-07] MEDS: esmolol drip 2,500 MG/250 ML PREMIX 163.7 MG IV ×2 (17:08→18:43)
[2021-05-07] MEDS: cefTRIAXone 1,000 MG in sodium chloride 0.9% (plus) 50 ML 100 MG IV (18:42)
[2021-05-07] MEDS: apixaban 5 mg Tablet PO (18:43)
[2021-05-07] MEDS: dilTIAZem 60 mg Tablet PO (18:43)
--- NOTE | 2021-05-07 18:48 | PC.NURSE ---
Pt arrived at 1835. Meds given per orders. pt connected to monitor. Pt is in a wide complex tachycardia, with rates in the 130's. Esmolol gtt at 150mcg/kg/min. O2@2L/NC in use. No c/o of pain or SOB. No other issues noted. Pt AAOx4.
--- NOTE | 2021-05-07 19:46 | ECG_ITS ---
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 Measurements Intervals [place] Rate: 128 P: 243 MS: 200 QRS: -76 QRSD: 156 T: 48 QT: 343 QTc: 502 Interpretive Statements ECTOPIC ATRIAL TACHYCARDIA RIGHT BUNDLE BRANCH BLOCK [120+ ms QRS DURATION, UPRIGHT V1, 40+ ms S IN I/aVL/V4/V5/V6] LEFT ANTERIOR FASCICULAR BLOCK [QRS AXIS <= -45, QR IN I, RS IN II] MINIMAL VOLTAGE CRITERIA FOR LVH, CONSIDER NORMAL VARIANT [MEETS CRITERIA IN ONE OF: R(aVL), S(V1), R(V5), R(V5/V6)+S(V1)] POSSIBLE SEPTAL MYOCARDIAL INFARCTION [30 ms Q WAVE IN V1/V2], PROBABLY OLD Compared to ECG 05/07/2021 16:06:35 Atrial flutter no longer present Myocardial infarct finding still present Electronically Signed On 05-08-2021 20:09:22 CDT by Jamee Torres M.D. [id number]
[2021-05-07] MEDS: esmolol drip 2,500 MG/250 ML PREMIX 190.99 MG IV (20:14)
[2021-05-07 21:33] LABS: Troponin 5 6HR 46.13 ng/L (0-15); Troponin 5 6HR Delta 4.13 ng/L (0-12)
[2021-05-07] MEDS: latanoprost 0.005% Op Soln 2.5 mL Btl 1 DROP EYE-BOTH (21:37)
[2021-05-07] MEDS: pramipexole 0.25 mg Tablet PO (21:37)
[2021-05-07] MEDS: zolpidem 5 mg Tablet PO (21:37)
[2021-05-07] MEDS: esmolol drip 2,500 MG/250 ML PREMIX 109.14 MG IV (21:51)
[2021-05-07 23:54] LABS: Glucose Point of Care 95 mg/dL (70-110)
[2021-05-08] VITALS (29 sets, daily range): BP systolic 80–184; BP diastolic 55–106; PULSE 40–132; RESP 15–30; TEMP 36.3–36.8; O2SAT 89–98
[2021-05-08] MEDS: esmolol drip 2,500 MG/250 ML PREMIX 109.14 MG IV (00:18)
--- NOTE | 2021-05-08 01:24 | PC.NURSE ---
Refractory Afib Dr. Caldwell notified for HR uncontrolled with esmolol gtt. HR remains afib rate 120's-140's. Esmolol at 125mcg, pt BP can not tolerated esmolol higher than 125mcg. Orders received to wean esmolol, give 150mg amiodarone bolus and start amiodarone gtt.
[2021-05-08 04:52] LABS: Basophils # 0.1 10^3/uL (0.0-0.1); Basophils % 0.3 %; Eosinophils % 0.1 %; Hematocrit 41.9 % (42.0-52.0); Hemoglobin 13.4 g/dL (11.7-16.6); Lymphocytes # 1.9 10^3/uL (0.8-4.8); Mean Corpuscular Hemoglobin 31.3 pg (28.0-34.0); Mean Corpuscular Volume 97.9 fL (80-94); Mean Platelet Volume 11.8 fL (7.4-10.4); Monocytes # 1.4 10^3/uL (0.2-0.9); Monocytes % 8.1 %; Neutrophils # 13.97 10^3/uL (1.8-7.7); Neutrophils % 79.9 %; Nucleated Red Blood Cells % 0 %; Platelet Count 143 10^3/cmm (130-400); Red Blood Count 4.28 10^6/uL (4.1-5.3); White Blood Count 17.5 10^3/uL (4.0-10.0)
[2021-05-08 05:11] LABS: Alanine Aminotransferase 11 U/L (0-41); Albumin Level 3.5 g/dL (3.5-5.2); Alkaline Phosphatase 60 IU/L (40-130); Anion Gap 11.4 (5-19); Aspartate Amino Transferase 11 U/L (0-40); Blood Urea Nitrogen 30 mg/dL (8-23); Calcium 8.3 mg/dL (8.5-10.5); Carbon Dioxide 28 mmol/L (22-29); Chloride 101 mmol/L (98-107); Glucose 91 mg/dL (65-115); Magnesium 2.2 mg/dL (1.7-2.3); Osmolality Calculated 288 mOsm/kg (285-295); Potassium 4.4 mmol/L (3.5-5.1); Sodium 136 mmol/L (136-145); Total Bilirubin 0.9 mg/dL (0.15-1.2); Total Protein 6.5 g/dL (6.6-8.7)
[2021-05-08 05:21] LABS: NT Pro B Type Natriuretic Pept 1088 pg/mL (0-125); Procalcitonin 0.31 ng/mL (0-0.5)
[2021-05-08] MEDS: aspirin 81 mg Chew Tablet PO (05:30)
[2021-05-08] MEDS: allopurinol 100 mg Tablet 200 MG PO (05:30)
[2021-05-08] MEDS: amlodipine 10 mg Tablet PO (05:31)
[2021-05-08] MEDS: atorvastatin 40 mg Tablet 20 MG PO (05:31)
[2021-05-08] MEDS: venlafaxine ER (24HR) 75 mg Capsule PO (05:32)
[2021-05-08] MEDS: doxazosin 4 mg Tablet 2 MG PO (05:33)
[2021-05-08] MEDS: ascorbic acid 500 mg Tablet PO (05:38)
[2021-05-08] MEDS: FUROsemide 10 mg/mL SDV 4mL 40 MG IVP ×2 (09:29→20:22)
[2021-05-08] MEDS: apixaban 5 mg Tablet PO ×2 (09:29→18:09)
--- NOTE | 2021-05-08 09:30 | PC.NURSE ---
MAR other delay related to caring for other ICU patents.
--- NOTE | 2021-05-08 10:06 | PC.CHAP ---
Pastoral Care Encounter/Spiritual Assessment Type of Contact [] Declined air tube releaser visit [] Patient/Family/Request visit [] Outpatient visit [] Follow-up visit [] Physician referral [] Code/Alert [x] Routine visit [] Staff referral [] Actively dying [] Patient sleeping [] Family support [] [] Out of room [] Palliative care [] [] Receiving care in room [] Pre-surgical visit [] Trauma [] Long length of stay [x] ICU visit [] Other: Relational/Emotional Strength [] Patient feels connected with others/family/visitors/staff [] Distress [] Loneliness/isolation [] Abandonment Spirituality of Patient [] Person of [place]ina [] Attends Tenriism of their [place] [] Believes in Prayer [] Reads Bible or Protestant materials [] There are Spiritual issues to be addressed Retail Supervisor Interventions [x] Prayer [] Active listening [] Non-anxious presence [] Spiritual/emotional support [] Crisis/trauma care [] Spiritual counseling [] Bereavement support [] Provided bereavement packet [] Provided Bible/devotional materials [] Provided toy/stuffed animal, coloring book to patient or family member [] Provided Communion [] Anointing/[place] [] Salvation [x] Completed spiritual assessment [] Other: Impact on Illness or Injury [] Angry [] Fearful [] Anxious [] Often cries [] Exhaustion [] Unable to work [] Unable to attend yarsani [] Unable to walk/stand [] Unable to read [] Unable to drive [] Unable to eat/drink [] Unable to sleep [] Unable to be with family [] Patient intubated [] Other: Summary Time spent with patient
[2021-05-08] MEDS: metoprolol tartrate 25 mg Tablet PO ×2 (10:53→20:22)
--- NOTE | 2021-05-08 11:57 | P.PN_ITS ---
Subjective Subjective: Interval history: Patient was seen and examined this morning, overall he is doing better, denies any chest pain shortness of breath. Vitals/I&O/Wt Last Vital Signs Temp 97.4 F L 05/08/21 05:00 Pulse 130 H 05/08/21 09:58 Resp 18 05/08/21 09:58 BP 132/84 05/08/21 05:00 Pulse Ox 97 05/08/21 09:58 05/07/21 05/08/21 05/08/21 22:59 06:59 14:59 Intake Total 1050.000 / 8644.049 0876.361 / 2348.278 209.482 / 209.482 Output Total 75 / 75 375 / 450 Balance 975.000 / 987.917 910.361 / 1898.278 209.482 / 209.482 Weight last 48 hrs Weight 181.891 kg Physical Exam Const: COMMON NORMALS: patient oriented x3 HENMT: COMMON NORMALS: normocephalic and atraumatic HEAD & SCALP: normocephalic and atraumatic Chest: CHEST: Yes Symmetrical chest wall rise Resp: COMMON NORMALS: normal respiratory effort, No retractions, No use of accessory muscles and clear to auscultation bilaterally EFFORT & INSPECTION: Yes symmetric chest movement AUSCULTATION: clear to auscultation bilaterally Cardio: OTHER: S1S2 Of variable intensity, ESM in Rt 2nd ICS GI: COMMON NORMALS: Soft to palpation, non-tender, No hepatosplenomegaly present and no masses AUSCULTATION: Yes normoactive bowel sounds PALPATION: Yes Soft to palpation and Yes No hepatosplenomegaly present RECTAL EXAM: Yes deferred OTHER: Obese Abdomen Extremity: COMMON NORMALS: no clubbing, cyanosis or edema and no pedal edema Neuro: COMMON NORMALS: patient oriented x3 Data : 05/08/21 04:23 05/08/21 04:23 Micro: Microbiology 05/07/21 15:47 Blood Culture - Preliminary Blood SPECIMEN COLLECTED 05/07/21 15:50 Blood Culture - Preliminary Blood SPECIMEN COLLECTED A&P Assessment and plan (1) Atrial flutter with rapid ventricular response: A.flutter with RVR 2D Echo:Normal left ventricular cavity size. Normal left ventricular systolic function. No regional wall motion abnormalities. Left ventricular ejection fraction is estimated at 60 %. Grade III/IV diastolic dysfunction (restrictive filling pattern), severely elevated filling pressures. 2-Severe aortic valve calcification. Moderate aortic valve stenosis, mean gradient 12.6 mmHg, OLIVE 0.88 cm squared. No aortic valve regurgitation. Moderately thickened mitral valve. Moderate mitral annular calcification. No mitral valve stenosis. No mitral valve regurgitation. BERTHA : Normal left ventricular cavity size. Normal left ventricular systolic function. Left ventricular ejection fraction is estimated at 60 %.Severe aortic valve calcification. Moderate aortic valve stenosis, OLIVE 2.0 cm squared by planimetry.trace aortic valve regurgitation. The LA appendage is normal.Structurally normal mitral valve without significant stenosis or prolapse.There is no mitral regurgitation. In the ER patient was started on Cardizem drip but was later switched to esmolol drip as h/r was uncontrolled on maximum cardizem drip rate. Esmolol Drip. Which was stopped overnight as the patient was hypotensive. Patient was started on amiodarone drip after amiodarone bolus, given the fact that the patient had a recent BERTHA which failed to show any clot attempt to convert him to normal sinus rhythm, was done.Given the fact that the patient has paroxysmal A. fib, and currently he is on anticoagulation. Patient responded to amiodarone drip and been converted to normal sinus rhythm. He was started on Amiodarone 400 mg p.o. every 12 hours daily. Metoprolol tartrate 25 mg every 12 hours daily. Eliquis 5 mg q12 h TSH:3.43 Status: Acute (2) CHF (congestive heart failure), NYHA class III: Mildly decompensated heart failure with preserved ejection fraction. Continue Lasix 40 mg IV every 12 hours Daily. Intake output charting Daily weight K>4, Mg >2 Status: Acute (3) Acute kidney injury superimposed on CKD: RACHELE on CKD:likey 2/2 CRS Monitor BMP Urine electrolytes Avoid nephrotoxic's Status: Acute (4) UTI (urinary tract infection): UTI with leukocytosis: Lactic acid: procalcitonin:Normal Urine culture: Blood culture: Ceftriaxone 1 g IV daily Status: Acute (5) Aortic stenosis, moderate: Moderate aortic stenosis: OLIVE 2.0 cm squared by planimetry. No acute intervention at this point of time. Status: Acute (6) Diabetes: LDSSI Status: Acute (7) HTN (hypertension): Amlodipine 10 mg p.o. daily Status: Acute (8) Gout: Allopurinol 200 mg p.o. daily. Status: Acute Additional A&P Information Code Status:Full Code DVT PPX: Not needed patient on Elquis Attestations Medical Necessity Statement*: Patient needs to be in hospital for management of A. fib with RVR. Coding Level of Care Code Acute Wage And Hour Investigator for Chg Fwd Exam Detailed Diagnoses Atrial flutter with rapid ventricular response I48.92 CHF (congestive heart failure), NYHA class III I50.9 Acute kidney injury superimposed on CKD N17.9; N18.9 UTI (urinary tract infection) N39.0 Aortic stenosis, moderate I35.0 Diabetes E11.9 HTN (hypertension) I10 Gout M10.9
--- NOTE | 2021-05-08 13:40 | PC.NURSE ---
Heart rhythm noted to be regular. Sinus. The P wave has two waves, but measures less than 0.2. Dr Brasher notified of change from A-fib.
--- NOTE | 2021-05-08 15:04 | PC.NURSE ---
Report faxed to [facility].
--- NOTE | 2021-05-08 15:36 | PC.NURSE ---
Report called to [facility]. Report given to RIKKI Guajardo.
--- NOTE | 2021-05-08 15:38 | PC.NURSE ---
Message left via voice message for about room transfer.
--- NOTE | 2021-05-08 16:00 | PC.NURSE ---
Pt transferred to [facility] via W/C. All belongings transferred with pt.
--- NOTE | 2021-05-08 17:10 | P.CONIM_ITS ---
Providers/Reason For Consult Consulting Physician/Specialty*: Dr. Hernadez, Cardiology Reason for Consult*: Atrial fibrillation with RVR Attending Physician: Maynor Brasher MD Primary Care Provider: Ministerio Sewell MD History of Present Illness History of Present Illness Bartolo Hardy is a 71 year old male with PMHx of paroxysmal A. fib RVR, DM- 2, HTN, HLD, morbid obesity, congestive heart failure (HFpEF) and moderate by recent BERTHA, COPD and smoker presented with c/o racing of heart as well as dizziness. He was noted to be in atrial flutter with RVR. He was started on cardizem drip followed by esmolol drip that was transitioned to amiodarone gtt after he had mild hypotension after PO cardizem. This morning he was started on metoprolol tartrate 25 mg BID and he converted to NSR around 12:30 pm. At the time of evaluation, he denies any complaints. Review of Systems General: Reports: 10 or more systems reviewed and unremarkable except in HPI and below Const: Denies: body aches, change in appetite or diaphoresis Card: Denies: edema, swelling of feet/ankles, orthopnea or leg pain with exertion Resp: Denies: dyspnea, productive cough, wheezing or pain on inspiration GI: Denies: abdominal pain, nausea, vomiting, diarrhea or constipation : Denies: flank pain or difficulty urinating Musc: Denies: back pain, extremity pain or extremity swelling Neuro: Denies: headache(s), difficulty walking or confusion Meds/Allergies Home Medications and Allergies Home Medications Medication Instructions Recorded Confirmed Last Taken Type Tresiba FlexTouch U-100 230 unit SUBCUT QAM 02/12/21 05/07/21 05/07/21 History allopurinol 200 mg PO QAM 02/12/21 05/07/21 05/07/21 07:00 History amlodipine 10 mg PO QAM 02/12/21 05/07/21 05/07/21 07:00 History budesonide-formoterol [Symbicort] 2 puff INHALATION DAILY 02/12/21 05/07/21 03/24/21 History doxazosin 2 mg PO QAM 02/12/21 05/07/21 05/07/21 07:00 History latanoprost 1 drp OPHTHALMIC (EYE) BEDTIME 02/12/21 05/07/21 05/06/21 History metformin 1,500 mg PO QAM 02/12/21 05/07/21 05/07/21 07:00 History simvastatin 20 mg PO QAM 02/12/21 05/07/21 05/07/21 07:00 History venlafaxine 75 mg PO QAM 02/12/21 05/07/21 05/07/21 07:00 History Eliquis 5 mg PO BID 05/07/21 05/07/21 05/07/21 07:00 History Klor-Con M20 20 meq PO QAM 05/07/21 05/07/21 05/07/21 07:00 History ascorbic acid (vitamin C) [Vitamin 500 mg PO QAM 05/07/21 05/07/21 Unknown History C] aspirin 81 mg PO QAM 05/07/21 05/07/21 05/07/21 07:00 History furosemide 40 mg PO BID 05/07/21 05/07/21 05/07/21 07:00 History lisinopril 10 mg PO QAM 05/07/21 05/07/21 05/07/21 07:00 History metoprolol succinate 25 mg PO QAM 05/07/21 05/07/21 05/07/21 07:00 History pramipexole 0.25 mg PO BEDTIME 05/07/21 05/07/21 05/06/21 History Allergies Allergy/AdvReac Type Severity Reaction Status Date / Time Penicillins Allergy ADR/ALGY-Fl Verified 05/07/21 14:34 ushing Current Medications Current Medications Generic Name Dose Route Start Last Admin Trade Name Freq PRN Reason Stop Dose Admin Allopurinol 200 mg 05/08/21 06:00 05/08/21 05:30 Allopurinol 100 Mg Tablet PO 200 mg QAM SHERLYN Administration Apixaban 5 mg 05/07/21 18:00 05/08/21 09:29 Apixaban 5 Mg Tablet PO 5 mg BID SHERLYN Administration Ascorbic Acid 500 mg 05/08/21 06:00 05/08/21 05:38 Ascorbic Acid 500 Mg Tablet PO 500 mg QAM SHERLYN Administration Aspirin 81 mg 05/08/21 06:00 05/08/21 05:30 Aspirin 81 Mg Chew Tablet PO 81 mg QAM SHERLYN Administration Atorvastatin Calcium 20 mg 05/08/21 06:00 05/08/21 05:31 Atorvastatin 40 Mg Tablet PO 20 mg QAM SHERLYN Administration Doxazosin Mesylate 2 mg 05/08/21 06:00 05/08/21 05:33 Doxazosin 4 Mg Tablet PO 2 mg QAM SHRELYN Administration Furosemide 40 mg 05/08/21 08:15 05/08/21 09:29 Furosemide 10 Mg/Ml Sdv 4ml IVP 40 mg Q12H SHERLYN Administration Ceftriaxone Sodium 1,000 mg/ 50 mls @ 100 mls/hr 05/07/21 18:00 05/07/21 19:12 Sodium Chloride IV Infused Q24H SHERLYN Infusion Protocol Amiodarone HCl 900 mg/ 518 mls @ 0 mls/hr 05/08/21 01:30 05/08/21 08:15 Dextrose/ IV Miscellaneous IV 0.5 mg/min Supplies .Q0M SHERLYN 17.27 mls/hr Titration Protocol Per Protocol Latanoprost 1 drop 05/07/21 21:00 05/07/21 21:37 Latanoprost 0.005% Op Soln 2.5 Ml Btl EYE-BOTH 1 drop BEDTIME SHERLYN Administration Metoprolol Tartrate 25 mg 05/08/21 10:30 05/08/21 10:53 Metoprolol Tartrate 25 Mg Tablet PO 25 mg BID@0900,2100 SHERLYN Administration Pramipexole Dihydrochloride 0.25 mg 05/07/21 21:00 05/07/21 21:37 Pramipexole 0.25 Mg Tablet PO 0.25 mg BEDTIME SHERLYN Administration Fluticasone/Salmeterol 1 puff 05/08/21 09:00 05/08/21 09:54 Fluticasone-Salmeterol 250-50 Diskus INHALATION 1 inhalation BID.RESPIRATORY SHERLYN Administration Venlafaxine HCl 75 mg 05/08/21 06:00 05/08/21 05:32 Venlafaxine Er (24hr) 75 Mg Capsule PO 75 mg QAM SHERLYN Administration Zolpidem Tartrate 5 mg 05/07/21 21:00 05/07/21 21:37 Zolpidem 5 Mg Tablet PO 5 mg BEDTIME SHERLYN Administration PFSH Acute PFSH: Medical History CHF (congestive heart failure), NYHA class III New onset atrial fibrillation Family History Other CAD (coronary artery disease) Cancer Dementia Diabetes Family history of premature coronary artery disease Hyperlipidemia Hypertension Denies family history of Chronic kidney disease (CKD) Anesthesia complication Bleeding disorder Lung disease Stroke Social History Smoking and tobacco status: former smoker Alcohol intake: never Vitals/I&O/Wt Last Vital Signs Temp 98 F 05/08/21 12:30 Pulse 90 05/08/21 14:56 Resp 18 05/08/21 14:30 BP 117/55 05/08/21 14:30 Pulse Ox 95 05/08/21 14:30 05/08/21 05/08/21 05/08/21 06:59 14:59 22:59 Intake Total 1285.361 / 2348.278 909.482 / 909.482 0 / 909.482 Output Total 375 / 450 1999 / 1999 Balance 910.361 / 1898.278 -1090.518 / -1090.518 0 / -1090.518 Weight last 48 hrs Weight 401 lb Physical Exam Narrative: EXAM NARRATIVE: [place]: obese man sitting in chair in NAD Neck: short thick neck, JVD not appreciated RS: CTAB/L decreased d/t habitus, No wheeezing or rales CVS: S, S2 regular. 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 Normal left ventricular systolic function. Left ventricular ejection fraction is estimated at 60 %. 2-Severe aortic valve calcification. Moderate aortic valve stenosis, OLIVE 2.0 cm squared by planimetry.trace aortic valve regurgitation. 3-The LA appendage is normal. 4-Structurally normal mitral valve without significant stenosis or prolapse. There is no mitral regurgitation. 5-There is no pericardial effusion. 6-There are no prior echocardiogram studies to compare. A&P Assessment and plan (1) Atrial flutter with rapid ventricular response: converted to NSR. -transition to PO amiodarone and continue Eliquis. -continue metoprolol. Status: Acute (2) CHF (congestive heart failure), NYHA class III: On lasix IV today, may continue Status: Acute Qualifiers: Congestive heart failure type: diastolic Congestive heart failure chronicity: acute on chronic Qualified Code(s): I50.33 - Acute on chronic diastolic (congestive) heart failure (3) HTN (hypertension): Status: Acute Qualifiers: Hypertension type: essential hypertension Qualified Code(s): I10 - Essential (primary) hypertension (4) Aortic stenosis, moderate: Status: Acute (5) Diabetes: Status: Acute Qualifiers: Diabetes mellitus type: type 2 Diabetes mellitus vermin exterminator insulin use: without fpc use Additional A&P Information H/P paroxysmal A. fib UTI Morbid obesity COPD Thank you for allowing me to participate in patient 's care. Please feeel free to call with questions or concerns. Coding Level of Care Code Acute Soaping Machine Back Tender for Heber Fwata Diagnoses Atrial flutter with rapid ventricular response I48.92 CHF (congestive heart failure), NYHA class III I50.33 Congestive heart failure type: diastolic Congestive heart failure chronicity: acute on chronic HTN (hypertension) I10 Hypertension type: essential hypertension Aortic stenosis, moderate I35.0 Diabetes E11.9 Diabetes mellitus type: type 2 Diabetes mellitus fpc insulin use: without fpc use
--- NOTE | 2021-05-08 17:18 | ECG_ITS ---
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 Measurements Intervals Scott Rate: 89 P: 46 IL: 154 QRS: -76 QRSD: 158 T: 25 QT: 399 QTc: 486 Interpretive Statements SINUS RHYTHM RIGHT BUNDLE BRANCH BLOCK [120+ ms QRS DURATION, UPRIGHT V1, 40+ ms S IN I/aVL/V4/V5/V6] LEFT ANTERIOR FASCICULAR BLOCK [QRS AXIS <= -45, QR IN I, RS IN II] MODERATE VOLTAGE CRITERIA FOR LVH, CONSIDER NORMAL VARIANT [MEETS CRITERIA IN ONE OF: R(aVL), S(V1), R(V5), R(V5/V6)+S(V1)] Compared to ECG 05/07/2021 19:43:28 Myocardial infarct finding no longer present Electronically Signed On 05-08-2021 20:14:07 CDT by Jamee Torres M.D. [id number]
[2021-05-08 18:06] LABS: Glucose Point of Care 173 mg/dL (70-110)
[2021-05-08] MEDS: amiodarone 200 mg Tablet 400 MG PO (18:09)
[2021-05-08] MEDS: cefTRIAXone 1,000 MG in sodium chloride 0.9% (plus) 50 ML 100 MG IV (18:09)
[2021-05-08] MEDS: latanoprost 0.005% Op Soln 2.5 mL Btl 1 DROP EYE-BOTH (20:21)
[2021-05-08] MEDS: zolpidem 5 mg Tablet PO (20:23)
[2021-05-08] MEDS: pramipexole 0.25 mg Tablet PO (20:23)
[2021-05-08] MEDS: oxyCODONE-APAP 5-325 mg Tablet 1 TAB PO (21:19)
[2021-05-09] VITALS (10 sets, daily range): BP systolic 115–139; BP diastolic 52–92; PULSE 80–94; RESP 16–20; TEMP 36.6–37.3; O2SAT 90–95
[2021-05-09 04:06] LABS: Basophils # 0.1 10^3/uL (0.0-0.1); Basophils % 0.3 %; Eosinophils % 0.1 %; Hematocrit 42.1 % (42.0-52.0); Hemoglobin 13.1 g/dL (11.7-16.6); Lymphocytes # 1.8 10^3/uL (0.8-4.8); Lymphocytes % 11.6 %; Mean Corpuscular HGB Conc 31.1 g/dL (30.0-36.0); Mean Corpuscular Hemoglobin 30.6 pg (28.0-34.0); Mean Corpuscular Volume 98.4 fL (80-94); Mean Platelet Volume 11.4 fL (7.4-10.4); Monocytes # 1.2 10^3/uL (0.2-0.9); Monocytes % 8.1 %; Neutrophils # 11.96 10^3/uL (1.8-7.7); Neutrophils % 79.3 %; Nucleated Red Blood Cells % 0 %; Platelet Count 150 10^3/cmm (130-400); Red Blood Count 4.28 10^6/uL (4.1-5.3); Red Cell Distribution Width 15.1 % (12.1-15.1); White Blood Count 15.1 10^3/uL (4.0-10.0)
[2021-05-09 04:22] LABS: Alanine Aminotransferase 14 U/L (0-41); Albumin Level 3.8 g/dL (3.5-5.2); Alkaline Phosphatase 66 IU/L (40-130); Anion Gap 11.6 (5-19); Aspartate Amino Transferase 15 U/L (0-40); Blood Urea Nitrogen 24 mg/dL (8-23); Calcium 8.6 mg/dL (8.5-10.5); Carbon Dioxide 33 mmol/L (22-29); Chloride 97 mmol/L (98-107); Globulin 3.2 g/dL (1.3-4.6); Glucose 104 mg/dL (65-115); Magnesium 2.3 mg/dL (1.7-2.3); Osmolality Calculated 288 mOsm/kg (285-295); Potassium 4.6 mmol/L (3.5-5.1); Sodium 137 mmol/L (136-145); Total Bilirubin 0.7 mg/dL (0.15-1.2)
[2021-05-09] MEDS: ascorbic acid 500 mg Tablet PO (05:53)
[2021-05-09] MEDS: aspirin 81 mg Chew Tablet PO (05:53)
[2021-05-09] MEDS: allopurinol 100 mg Tablet 200 MG PO (05:53)
[2021-05-09] MEDS: doxazosin 4 mg Tablet 2 MG PO (05:55)
[2021-05-09] MEDS: venlafaxine ER (24HR) 75 mg Capsule PO (05:56)
[2021-05-09] MEDS: atorvastatin 40 mg Tablet 20 MG PO (05:56)
[2021-05-09] MEDS: oxyCODONE-APAP 5-325 mg Tablet 1 TAB PO ×2 (08:25→13:19)
[2021-05-09] MEDS: metoprolol tartrate 25 mg Tablet PO (08:26)
[2021-05-09] MEDS: amiodarone 200 mg Tablet 400 MG PO ×2 (08:26→17:32)
[2021-05-09] MEDS: apixaban 5 mg Tablet PO ×2 (08:26→17:32)
[2021-05-09] MEDS: amlodipine 10 mg Tablet PO (08:26)
[2021-05-09 08:32] LABS: Glucose Point of Care 105 mg/dL (70-110)
[2021-05-09] MEDS: FUROsemide 10 mg/mL SDV 4mL 40 MG IVP (09:03)
[2021-05-09 11:06] LABS: Glucose Point of Care 179 mg/dL (70-110)
[2021-05-09] MEDS: FUROsemide 40 mg Tablet PO (15:57)
--- NOTE | 2021-05-09 16:02 | PM.DCS ---
Discharge Providers Date of Admission: 05/07/21 15:46 Date of Discharge: May 09, 2021 Attending Provider at Admission: Maynor Brasher MD Attending Provider at Discharge: Maynor Brasher MD Primary Care Provider: Ministerio Sewell MD Diagnoses at Discharge Discharge Diagnosis (1) Atrial flutter with rapid ventricular response: Status: Resolved Permanent problem details: Patient converted to normal sinus rhythm on amiodarone drip. (2) CHF (congestive heart failure), NYHA class III: Status: Chronic Qualifiers: Congestive heart failure chronicity: acute on chronic Congestive heart failure type: diastolic Qualified Code(s): I50.33 - Acute on chronic diastolic (congestive) heart failure (3) HTN (hypertension): Status: Chronic Qualifiers: Hypertension type: essential hypertension Qualified Code(s): I10 - Essential (primary) hypertension (4) Aortic stenosis, moderate: Status: Chronic (5) Diabetes: Status: Chronic Qualifiers: Diabetes mellitus snf insulin use: without snf use Diabetes mellitus type: type 2 Reason for Visit Reason for Visit: low blood preassure, dizzy, SOB, Hospital Course Hospital Course Bartolo Hardy is a 71 year old male with PMH of HTN,MIKE, A.FIB on Eliquis for Ac,DM,Gout ,HFpEF came in with c/o racing of heart as well as dizziness.Upon arrival in the ER he was worked up for above mention complain. Imaging Studies : Xray chest : Mild left basilar pneumonia. EKG : A. flutter with RVR with underlying RBBB as well as LAFB. Pertinent Labs : WBC : 13.2 , H/H : 13.9/24,PLT : 160. Na : 136, K : 4.4 , BUN/SCR : 22/1.4 Troponin: Baseline : 42, 2h :38: 2h delta: -3.88, 6h: 46 6h D:4.13 . U/A:Dirty. Patient had recent 2D Echo:Normal left ventricular cavity size. Normal left ventricular systolic function. No regional wall motion abnormalities. Left ventricular ejection fraction is estimated at 60 %. Grade III/IV diastolic dysfunction (restrictive filling pattern), severely elevated filling pressures. 2-Severe aortic valve calcification. Moderate aortic valve stenosis, mean gradient 12.6 mmHg, OLIVE 0.88 cm squared. No aortic valve regurgitation. Moderately thickened mitral valve. Moderate mitral annular calcification. No mitral valve stenosis. No mitral valve regurgitation. BERTHA : Normal left ventricular cavity size. Normal left ventricular systolic function. Left ventricular ejection fraction is estimated at 60 %.Severe aortic valve calcification. Moderate aortic valve stenosis, OLIVE 2.0 cm squared by planimetry.trace aortic valve regurgitation. The LA appendage is normal.Structurally normal mitral valve without significant stenosis or prolapse.There is no mitral regurgitation. In the ER patient was started on Cardizem drip but was later switched to esmolol drip as h/r was uncontrolled on maximum cardizem drip rate.Overnight patient became hypotensive on esmolol drip and had to be started on amiodarone drip after amiodarone bolus.given the fact that the patient had a recent BERTHA which failed to show any clot attempt to convert him to normal sinus rhythm, will not hurt and also given the fact that patient has paroxysmal A. fib, and currently he is on anticoagulation. Post conversion to normal sinus rhythm patient continued to be in sinus rhythm. Patient was discharged on p.o. amiodarone 400 mg twice daily for 7 days, thereafter to 200 mg twice daily for 7 days, and then 200 mg p.o. daily.Patient was also discharged on metoprolol succinate ER 25 mg every 12 hours daily, dose of metoprolol succinate has been increased to 25 mg every 12 daily as compared to his initial home dose of 25 mg p.o. daily.Patient was also managed for mildly decompensated heart failure with preserved ejection fraction he was kept on IV Lasix and was discharged on his home p.o. Lasix dose. Patient was also managed for RACHELE likely secondary to cardiorenal syndrome, at the time of discharge serum creatinine was stable, lisinopril has been kept on hold. Patient was also managed for UTI: He was kept on ceftriaxone during the hospital stay, urine culture grew gram-negative patricia: Pending sensitivity;Lactic acid: , procalcitonin:Normal, blood culture: NTD was discharged on levofloxacin for additional 3 days. Patient responded to the above medical management well And was discharged in stable condition, he will continue to follow cardiology as an outpatient in 1 week time. Physical Exam Const: COMMON NORMALS: patient oriented x3 HENMT: COMMON NORMALS: normocephalic and atraumatic HEAD & SCALP: normocephalic and atraumatic Chest: CHEST: Yes Symmetrical chest wall rise Resp: COMMON NORMALS: clear to auscultation bilaterally EFFORT & INSPECTION: Yes symmetric chest movement AUSCULTATION: clear to auscultation bilaterally Cardio: OTHER: S1S2 Of variable intensity, ESM in Rt 2nd ICS GI: COMMON NORMALS: Soft to palpation, non-tender, No hepatosplenomegaly present and no masses AUSCULTATION: Yes normoactive bowel sounds PALPATION: Yes Soft to palpation and Yes No hepatosplenomegaly present RECTAL EXAM: Yes deferred OTHER: Obese Abdomen Extremity: COMMON NORMALS: no clubbing, cyanosis or edema and no pedal edema Neuro: COMMON NORMALS: patient oriented x3 Discharge Data Data Completed and Pending: Completed Studies During Hospitalization Category Date Time Status XR chest 1V kaia ble [id number] Stat Exams 05/07/21 13:46 Completed Pending at discharge Category Date Time Status Blood Culture Sta t Lab 05/07/21 15:47 Results Complete Blood Co unt w/Auto AM LABS Lab 05/10/21 04:00 Ordered Comprehensive Met abolic Panel AM LA BS Lab 05/10/21 04:00 Ordered Magnesium AM LABS Lab 05/10/21 04:00 Ordered Urine Culture Sta t Lab 05/07/21 15:00 Results Labs from last 24 hours 05/09/21 05/09/21 05/09/21 11:00 07:21 03:54 WBC RBC Hgb Hct MCV MCH MCHC RDW Plt Count MPV Neut % (Auto) Lymph % (Auto) Callaway % (Auto) Eos % (Auto) Baso % (Auto) Neut # (Auto) Lymph # (Auto) [place] # (Auto) Eos # (Auto) Baso # (Auto) Nucleated RBC % (a uto) Nucleated RBCs # Sodium 137 Potassium 4.6 Chloride 97 L Carbon Dioxide 33 H Anion Gap 11.6 BUN 24 H Creatinine 1.4 H GFR Calculation Not Reportable Glucose 104 POC Glucose 179 H 105 Calculated Osmolal ity 288 Calcium 8.6 Magnesium 2.3 Total Bilirubin 0.7 AST 15 ALT 14 Alkaline Phosphata se 66 Total Protein 7.0 Albumin 3.8 Globulin 3.2 05/09/21 05/08/21 03:54 18:03 WBC 15.1 H RBC 4.28 Hgb 13.1 Hct 42.1 MCV 98.4 H MCH 30.6 MCHC 31.1 RDW 15.1 Plt Count 150 MPV 11.4 H Neut % (Auto) 79.3 Lymph % (Auto) 11.6 Callaway % (Auto) 8.1 Eos % (Auto) 0.1 Baso % (Auto) 0.3 Neut # (Auto) 11.96 H Lymph # (Auto) 1.8 Callaway # (Auto) 1.2 H Eos # (Auto) 0.0 Baso # (Auto) 0.1 Nucleated RBC % (a uto) 0 Nucleated RBCs # 0.0 Sodium Potassium Chloride Carbon Dioxide Anion Gap BUN Creatinine GFR Calculation Glucose POC Glucose 173 H Calculated Osmolal ity Calcium Magnesium Total Bilirubin AST ALT Alkaline Phosphata se Total Protein Albumin Globulin Vitals: Last Vital Signs Temp 99.2 F 05/09/21 12:05 Pulse 81 05/09/21 12:05 Resp 16 05/09/21 13:19 BP 124/52 05/09/21 12:05 Pulse Ox 90 05/09/21 12:05 Discharge Plan Discharge Patient Disposition: Home Condition: Stable Prescriptions: New Pacerone 200 mg Tablet 400 mg PO BID 7 Days Qty: 28 RF: 0 amiodarone 200 mg tablet 200 mg PO BID 7 Days Qty: 14 RF: 0 amiodarone 200 mg tablet 200 mg PO DAILY Qty: 30 RF: 3 levofloxacin 500 mg tablet 500 mg PO DAILY 3 Days RF: 0 Continued Vitamin C 500 mg Tablet 500 mg PO QAM RF: 0 pramipexole 0.25 mg tablet 0.25 mg PO BEDTIME RF: 0 furosemide 40 mg tablet 40 mg PO BID RF: 0 Klor-Con M20 20 mEq tablet,ER particles/crystals 20 meq PO QAM RF: 0 aspirin 81 mg tablet,chewable 81 mg PO QAM RF: 0 Eliquis 5 mg tablet 5 mg PO BID RF: 0 latanoprost 0.005 % drops 1 drp ophthalmic (eye) BEDTIME RF: 0 venlafaxine 75 mg capsule,extended release 24hr 75 mg PO QAM RF: 0 allopurinol 100 mg tablet 200 mg PO QAM RF: 0 amlodipine 10 mg tablet 10 mg PO QAM RF: 0 simvastatin 20 mg tablet 20 mg PO QAM RF: 0 doxazosin 2 mg tablet 2 mg PO QAM RF: 0 metformin 750 mg tablet extended release 24 hr 1,500 mg PO QAM RF: 0 budesonide-formoterol [Symbicort] 80-4.5 mcg/actuation HFA aerosol inhaler 2 puff INHALATION DAILY RF: 0 Tresiba FlexTouch U-100 100 unit/mL (3 mL) insulin pen 230 unit SUBCUT QAM RF: 0 Changed metoprolol succinate 25 mg tablet extended release 24 hr 25 mg PO BID Qty: 0 RF: 0 Held lisinopril 10 mg tablet 10 mg PO QAM RF: 0 Hold Instructions: Resume on 05/22/21. Discharge Orders: Discharge Order (Routine); Ordered 05/09/21 Ordered By: Maynor Brasher Referrals: Rohan Snider MD [Physician] - 05/13/21 3:00 pm (You have a cardiology followup with Dr. Snider at [facility] on May 13 at 3:00pm) Discharge Diet: Diabetic Discharge Activity: Resume usual activity Patient Instructions: Amiodarone (By mouth), Levofloxacin (By mouth), Atrial Fibrillation (DC), Aortic Stenosis (DC), Acute Kidney Injury (DC), Opioid Safety Discharge Attestations Time Spent in Discharge Care*: greater than 30 min Specific Discharge Activities: educating patient, educating and/or supporting family/caregiver, discussing with pcp/other providers, discussing with corrections caseworker/social workers/dc planners, documenting/other paperwork and evaluating patient/reviewing data Status at Discharge: Cognitive status at discharge: cognitively intact, Behavioral status at discharge: cooperative, Functional status at discharge: independent ambulation Overall status at discharge: patient is back to baseline Quality Metrics Clinical Quality Measures During this hospital stay, did patient experience: None Coding Level of Care Code Acute Chg FW DC note Exam Detailed Diagnoses Atrial flutter with rapid ventricular response I48.92 CHF (congestive heart failure), NYHA class III I50.33 Congestive heart failure chronicity: acute on chronic Congestive heart failure type: diastolic HTN (hypertension) I10 Hypertension type: essential hypertension Aortic stenosis, moderate I35.0 Diabetes E11.9 Diabetes mellitus intermediate manager insulin use: without intermediate manager use Diabetes mellitus type: type 2
[2021-05-09 16:27] LABS: Glucose Point of Care 182 mg/dL (70-110)
--- NOTE | 2021-05-09 17:45 | PC.NURSE ---
pt education provided to self and spouse. no questions or concerns pt left via wheelchair. VS stable upon departure.
--- NOTE | 2021-05-09 18:27 | P.PN_ITS ---
Subjective Subjective: Interval history: He feels well. Denies any complaints Medications: Reviewed: Yes Vitals/I&O/Wt Last Vital Signs Temp 97.9 F 05/09/21 16:21 Pulse 80 05/09/21 16:21 Resp 18 05/09/21 16:21 BP 139/57 05/09/21 16:21 Pulse Ox 95 05/09/21 16:21 05/09/21 05/09/21 05/09/21 06:59 14:59 22:59 Intake Total 200 / 2121.968 418 / 418 Output Total 900 / 3900 1150 / 1150 Balance -700 / -1778.032 -732 / -732 Physical Exam Narrative: EXAM NARRATIVE: [place]: obese man sitting in chair in NAD Neck: short thick neck, JVD not appreciated RS: CTAB/L decreased d/t habitus, No wheeezing or rales CVS: S, S2 regular. No rub or gallop. 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 -transitioned to PO amiodarone and continue Eliquis. -continue metoprolol. Amiodarone 400 mg BID x 1 week f/b 200 mg BID x 1 week and then 200 mg daily. -Patient requesting to be discharged today. May be discharged with follow-up in heart care services in 7 to 10 days. -He will potentially benefit from further risk stratification given multiple CAD risk factors. I will defer that to patient's primary umbrella finisher. Status: Resolved (2) CHF (congestive heart failure), NYHA class III: Transitioned to home dose lasix. Status: Chronic Qualifiers: Congestive heart failure type: diastolic Congestive heart failure chronicity: acute on chronic Qualified Code(s): I50.33 - Acute on chronic diastolic (congestive) heart failure (3) HTN (hypertension): Status: Chronic Qualifiers: Hypertension type: essential hypertension Qualified Code(s): I10 - Essential (primary) hypertension (4) Aortic stenosis, moderate: Status: Chronic (5) Diabetes: Status: Chronic Qualifiers: Diabetes mellitus penitentiary insulin use: without penitentiary use Diabetes mellitus type: type 2 Additional A&P Information H/P paroxysmal A. fib RACHELE: Lisinopril held. UTI: On antibiotics as per primary team Morbid obesity COPD Thank you for allowing me to participate in patient 's care. Please feeel free to call with questions or concerns. Attestations Medical Necessity Statement*: [facility] be discharged from [facility] from cardiac standpoint Time Spent in Patient Care: 16 - 35 minutes (>than 50% of time spent in counselling and/or direct pt care on unit) . Coding Level of Care Code Acute Mortgage Professional for Heber Hartleyd Diagnoses Atrial flutter with rapid ventricular response I48.92 CHF (congestive heart failure), NYHA class III I50.33 Congestive heart failure type: diastolic Congestive heart failure chronicity: acute on chronic HTN (hypertension) I10 Hypertension type: essential hypertension Aortic stenosis, moderate I35.0 Diabetes E11.9 Diabetes mellitus industrial education instructor insulin use: without industrial education instructor use Diabetes mellitus type: type 2
== END 2021-05-09 17:45 | disposition home or self-care (01) | DRG 308 ==
LOC: ER 15:17 → ICU 17:27 → CSU 05-08 15:53
PROVIDERS: Admitting Provider Internal Medicine; Emergency Provider Family Medicine; PCP Family Medicine; Visit Provider Internal Medicine
DX: I48.91 Unspecified atrial fibrillation (principal); I50.33 Acute on chronic diastolic (congestive) heart failure; J18.9 Pneumonia, unspecified organism; I13.0 Hypertensive heart and chronic kidney disease with heart failure and stage 1 through stage 4 chronic kidney disease, or unspecified chronic kidney disease; N17.9 Acute kidney failure, unspecified; N39.0 Urinary tract infection, site not specified; N18.9 Chronic kidney disease, unspecified; E11.22 Type 2 diabetes mellitus with diabetic chronic kidney disease; G47.33 Obstructive sleep apnea (adult) (pediatric); M10.9 Gout, unspecified; Z87.891 Personal history of nicotine dependence; I35.0 Nonrheumatic aortic (valve) stenosis; I95.9 Hypotension, unspecified; Z79.82 Long term (current) use of aspirin; Z79.01 Long term (current) use of anticoagulants; Z79.4 Long term (current) use of insulin; I48.92 Unspecified atrial flutter
CPT/HCPCS: 36415; 36416; 71045; 80053; 81001; 82550; 82962; 83735; 83880; 84145; 84484; 85025; 87040; 87077; 87086; 87186; 93005; 94640; 94660; 96365; 96366; 96367; 96372; 96375; 99291; J0282; J0696; J1815; J1940; J1956; J3490; J7060

== ENCOUNTER → 2021-07-09 14:46 | Outpatient (BNVA) | payer MEDICARE, OTHER, SELFPAY | PROVIDERS: PCP Family Medicine; Visit Provider Nurse Practitioner Family | DX: I50.33 Acute on chronic diastolic (congestive) heart failure (principal); I10 Essential (primary) hypertension | CPT/HCPCS: 80048; 83880 ==

== ENCOUNTER 2021-08-20 14:17 | Inpatient (IN) | payer MEDICARE, OTHER, SELFPAY ==
[2021-08-20] VITALS (10 sets, daily range): BP systolic 150–189; BP diastolic 49–79; PULSE 79–84; RESP 17–24; TEMP 36.7–36.9; O2SAT 92–95; BMI 56.7; BMI 58.0
--- NOTE | 2021-08-20 14:49 | W.ED.SOB ---
HPI - SOB/Dyspnea General: Chief Complaint: Shortness of Breath/Dyspnea Stated Complaint: heart care sent him over sob Time Seen by Provider: 08/20/21 14:49 History of Present Illness: HPI Narrative: Mr. Broussard is a 71-year-old gentleman with significant past medical history of atrial fibrillation on anticoagulation, CHF, aortic stenosis, hypertension who presents emergency department due to volume overload. Symptom onset was greater than 1 month ago. He has gradually worsening increased shortness of breath. He has marked dyspnea on exertion and orthopnea. He feels out of breath after walking only 5 to 6 feet. He has been compliant with his medication however continues to gain weight and retain fluid. Overall the intensity of symptoms is now moderate to severe. No infectious symptoms. No other specific exacerbating relieving factors identified. Review of Systems General: Reports: 10 or more systems reviewed and unremarkable except in HPI and below PFSH ED PFSH: Medical History Acute kidney injury superimposed on CKD Aortic stenosis, moderate Aortic stenosis, severe Atrial flutter with rapid ventricular response Patient converted to normal sinus rhythm on amiodarone drip. CHF (congestive heart failure), NYHA class III Diabetes Gout HTN (hypertension) New onset atrial fibrillation UTI (urinary tract infection) Surgical History H/O vasectomy Family History Other CAD (coronary artery disease) Cancer Dementia Diabetes Family history of premature coronary artery disease Hyperlipidemia Hypertension Denies family history of Chronic kidney disease (CKD) Anesthesia complication Bleeding disorder Lung disease Stroke Social History Alcohol intake: never Physical Exam Narrative: EXAM NARRATIVE: GENERAL/CONSTITUTIONAL -chronically ill-appearing. Increased respiratory effort. Obese Eyes - PERRL, no conjunctival injection ENMT - Atraumatic external nose and ears. Moist mucous membranes NECK - supple. trachea midline CARDIOVASCULAR - regular rate and rhythm. Peripheral pulses 2+ and equal. 2+ pitting edema, firm RESPIRATORY -diminished to auscultation bilaterally. No retractions or accessory muscle use. ABDOMEN/GI - Nontender. Nondistended. Obese MSK - Extremities without obvious deformity or tenderness to palpation SKIN - Warm, Dry NEURO - alert and appropriately oriented. Moves all extremities equally. Course ED course: - Patient was seen and evaluated by me at bedside - Patient placed on cardiac monitors, IV access obtained - Initial evaluation notable for increased respiratory effort, evidence of peripheral fluid overload. - Labs benign compared to clinical presentation - Imaging notable for no lobar consolidation - Upon serial reexamination after treatment the patient was similar - Based on patient history, evaluation, labs, and imaging as interpreted the most likely cause of the patient's condition is unclear, certainly peripheral volume overloaded, valve question requires further inpatient management - The results of ED evaluation were discussed with the patient including plan for admission due to requirement for level of care not available if discharged to prevent significant worsening/deterioration. -Hospitalist service contacted and agreed admit the patient - Patient was admitted without further deterioration or significant events. Vital Signs: Vital signs: Vital Signs Temperature 97.7 F 08/22/21 16:00 Pulse Rate 78 08/22/21 16:00 Respiratory Rate 16 08/22/21 16:00 Blood Pressure 169/78 08/22/21 16:00 Pulse Oximetry 95 08/22/21 16:00 MDM - SOB/Dyspnea Medical Records: Attestation: I reviewed the patient's medical records. Lab Data: Attestation: I reviewed the patient's lab results. Labs: Lab Results 08/20/21 08/20/21 08/20/21 15:43 15:43 15:43 WBC 7.5 10^3/uL 10^3/ uL (4.0-10.0) RBC 4.17 10^6/uL 10^6 /uL (4.1-5.3) Hgb 13.2 g/dL g/dL (11.7-16.6) Hct 41.8 % L % (42.0-52.0) MCV 100.2 fl H fl (80-94) MCH 31.7 pg pg (28.0-34.0) MCHC 31.6 g/dL g/dL (30.0-36.0) RDW 14.6 % % (12.1-15.1) Plt Count 136 10^3/cmm 10^3 /cmm (130-400) MPV 11.8 fL H fL (7.4-10.4) Neut % (Auto) 68.8 % % Lymph % (Auto) 17.2 % % Phillips % (Auto) 11.7 % % Eos % (Auto) 1.2 % % Baso % (Auto) 0.4 % % Neut # (Auto) 5.19 10^3/uL 10^3 /uL (1.8-7.7) Lymph # (Auto) 1.3 10^3/uL 10^3/ uL (0.8-4.8) Phillips # (Auto) 0.9 10^3/uL 10^3/ uL (0.2-0.9) Eos # (Auto) 0.1 10^3/uL 10^3/ uL (0.0-0.8) Baso # (Auto) 0.0 10^3/uL 10^3/ uL (0.0-0.1) Nucleated RBC % (a uto) 0 % % Nucleated RBCs # 0.0 /100WBC /100W BC Specimen Type Sample Site ABG pH ABG pCO2 ABG pO2 ABG HCO3 ABG Base Excess Serge Test Hematocrit O2 Delivery Device FiO2 Food Storeroom Clerk ID Sodium 139 mmol/L mmol/L (136-145) Potassium 4.6 mmol/L mmol/L (3.5-5.1) Chloride 99 mmol/L mmol/L (98-107) Carbon Dioxide 29 mmol/L mmol/L (22-29) Anion Gap 15.6 (5-19) BUN 22 mg/dL mg/dL (8-23) Creatinine 1.1 mg/dL mg/dL (0.7-1.2) GFR Calculation Not Reportable Glucose 95 mg/dL mg/dL (65-115) POC Glucose Estimat Average Gl ucose Hemoglobin A1c Calculated Osmolal ity 291 mOsm/kg mOsm/ kg (285-295) Lactate 1.0 mmol/L mmol/L (0.5-2.2) Calcium 8.7 mg/dL mg/dL (8.5-10.5) Total Bilirubin 0.3 mg/dL mg/dL (0.15-1.2) AST 15 U/L U/L (0-40) ALT 19 U/L U/L (0-41) Alkaline Phosphata se 67 IU/L IU/L (40-130) Troponin T Baselin e Troponin T 120 Min chip Delta Troponin T Troponin T Hi Sens 6Hr Troponin T Hi Sens 6Hr Delta NT-Pro-B Natriuret Pep 226 pg/mL H pg/mL (0-125) Total Protein 6.8 g/dL g/dL (6.6-8.7) Albumin 4.1 g/dL g/dL (3.5-5.2) Globulin 2.7 g/dL g/dL (1.3-4.6) Procalcitonin TSH 3.49 uIU/mL uIU/m L (0.27-4.20) SARS-CoV-2 Ag (Rap id) 08/20/21 08/20/21 08/20/21 15:43 15:43 15:43 WBC RBC Hgb Hct MCV MCH MCHC RDW Plt Count MPV Neut % (Auto) Lymph % (Auto) Phillips % (Auto) Eos % (Auto) Baso % (Auto) Neut # (Auto) Lymph # (Auto) Phillips # (Auto) Eos # (Auto) Baso # (Auto) Nucleated RBC % (a uto) Nucleated RBCs # Specimen Type Sample Site ABG pH ABG pCO2 ABG pO2 ABG HCO3 ABG Base Excess Serge Test Hematocrit O2 Delivery Device FiO2 Food Storeroom Clerk ID Sodium Potassium Chloride Carbon Dioxide Anion Gap BUN Creatinine GFR Calculation Glucose POC Glucose Estimat Average Gl ucose 157 Hemoglobin A1c 7.1 % H % (4.0-6.0) Calculated Osmolal ity Lactate Calcium Total Bilirubin AST ALT Alkaline Phosphata se Troponin T Baselin e 35 ng/L H ng/L (0-15) Troponin T 120 Min chip Delta Troponin T Troponin T Hi Sens 6Hr Troponin T Hi Sens 6Hr Delta NT-Pro-B Natriuret Pep Total Protein Albumin Globulin Procalcitonin TSH SARS-CoV-2 Ag (Rap id) Negative (Negative) 08/20/21 08/20/21 08/20/21 16:00 18:05 18:05 WBC RBC Hgb Hct MCV MCH MCHC RDW Plt Count MPV Neut % (Auto) Lymph % (Auto) Phillips % (Auto) Eos % (Auto) Baso % (Auto) Neut # (Auto) Lymph # (Auto) Phillips # (Auto) Eos # (Auto) Baso # (Auto) Nucleated RBC % (a uto) Nucleated RBCs # Specimen Type Arterial Sample Site Radial, right ABG pH 7.41 (7.35-7.45) ABG pCO2 47.5 mmHg H mmHg (35-45) ABG pO2 64.2 mmHg L mmHg (80.0-100.0) ABG HCO3 30.3 mmol/L H mmo l/L (22-26) ABG Base Excess 4.8 mmol/L H mmol /L (-2.0-2.0) Serge Test Pos Hematocrit 39.6 % L % (42-52) O2 Delivery Device Room air FiO2 21.0 % % Food Storeroom Clerk ID glc Sodium Potassium Chloride Carbon Dioxide Anion Gap BUN Creatinine GFR Calculation Glucose POC Glucose Estimat Average Gl ucose Hemoglobin A1c Calculated Osmolal ity Lactate Calcium Total Bilirubin AST ALT Alkaline Phosphata se Troponin T Baselin e Troponin T 120 Min chip 34.07 ng/L H ng/L (0-15) Delta Troponin T -0.93 ABS# L ABS# (0-10) Troponin T Hi Sens 6Hr Troponin T Hi Sens 6Hr Delta NT-Pro-B Natriuret Pep Total Protein Albumin Globulin Procalcitonin 0.07 ng/mL ng/mL (0-0.5) TSH SARS-CoV-2 Ag (Rap id) 08/20/21 08/20/21 08/21/21 21:10 21:41 04:25 WBC 7.9 10^3/uL 10^3/ uL (4.0-10.0) RBC 4.07 10^6/uL L 10 ^6/uL (4.1-5.3) Hgb 12.5 g/dL g/dL (11.7-16.6) Hct 40.7 % L % (42.0-52.0) MCV 100.0 fl H fl (80-94) MCH 30.7 pg pg (28.0-34.0) MCHC 30.7 g/dL g/dL (30.0-36.0) RDW 14.5 % % (12.1-15.1) Plt Count 138 10^3/cmm 10^3 /cmm (130-400) MPV 11.9 fL H fL (7.4-10.4) Neut % (Auto) 67.8 % % Lymph % (Auto) 18.4 % % Phillips % (Auto) 11.8 % % Eos % (Auto) 1.0 % % Baso % (Auto) 0.6 % % Neut # (Auto) 5.36 10^3/uL 10^3 /uL (1.8-7.7) Lymph # (Auto) 1.5 10^3/uL 10^3/ uL (0.8-4.8) Phillips # (Auto) 0.9 10^3/uL 10^3/ uL (0.2-0.9) Eos # (Auto) 0.1 10^3/uL 10^3/ uL (0.0-0.8) Baso # (Auto) 0.1 10^3/uL 10^3/ uL (0.0-0.1) Nucleated RBC % (a uto) 0 % % Nucleated RBCs # 0.0 /100WBC /100W BC Specimen Type Sample Site ABG pH ABG pCO2 ABG pO2 ABG HCO3 ABG Base Excess Serge Test Hematocrit O2 Delivery Device FiO2 Food Storeroom Clerk ID Sodium Potassium Chloride Carbon Dioxide Anion Gap BUN Creatinine GFR Calculation Glucose POC Glucose 87 mg/dL mg/dL (70-110) Estimat Average Gl ucose Hemoglobin A1c Calculated Osmolal ity Lactate Calcium Total Bilirubin AST ALT Alkaline Phosphata se Troponin T Baselin e Troponin T 120 Min chip Delta Troponin T Troponin T Hi Sens 6Hr 43.04 ng/L H ng/L (0-15) Troponin T Hi Sens 6Hr Delta 8.04 ng/L ng/L (0-12) NT-Pro-B Natriuret Pep Total Protein Albumin Globulin Procalcitonin TSH SARS-CoV-2 Ag (Rap id) 08/21/21 08/21/21 08/21/21 04:25 06:23 11:00 WBC RBC Hgb Hct MCV MCH MCHC RDW Plt Count MPV Neut % (Auto) Lymph % (Auto) Phillips % (Auto) Eos % (Auto) Baso % (Auto) Neut # (Auto) Lymph # (Auto) Phillips # (Auto) Eos # (Auto) Baso # (Auto) Nucleated RBC % (a uto) Nucleated RBCs # Specimen Type Sample Site ABG pH ABG pCO2 ABG pO2 ABG HCO3 ABG Base Excess Serge Test Hematocrit O2 Delivery Device FiO2 Food Storeroom Clerk ID Sodium 141 mmol/L mmol/L (136-145) Potassium 4.1 mmol/L mmol/L (3.5-5.1) Chloride 102 mmol/L mmol/L (98-107) Carbon Dioxide 30 mmol/L H mmol/ L (22-29) Anion Gap 13.1 (5-19) BUN 21 mg/dL mg/dL (8-23) Creatinine 1.3 mg/dL H mg/dL (0.7-1.2) GFR Calculation Not Reportable Glucose 67 mg/dL mg/dL (65-115) POC Glucose 83 mg/dL mg/dL 153 mg/dL H mg/dL (70-110) (70-110) Estimat Average Gl ucose Hemoglobin A1c Calculated Osmolal ity 293 mOsm/kg mOsm/ kg (285-295) Lactate Calcium 8.9 mg/dL mg/dL (8.5-10.5) Total Bilirubin AST ALT Alkaline Phosphata se Troponin T Baselin e Troponin T 120 Min chip Delta Troponin T Troponin T Hi Sens 6Hr Troponin T Hi Sens 6Hr Delta NT-Pro-B Natriuret Pep Total Protein Albumin Globulin Procalcitonin TSH SARS-CoV-2 Ag (Rap id) EKG Data^: EKG 1: Attestation: I personally reviewed and interpreted this EKG as follows: EKG Interpretation Date: 08/20/21 EKG interpretation time: 14:54 Interpretation: Twelve-lead EKG shows a regular sinus rhythm at a rate of 82. NM interval 166, QRS duration 149, QTc 442. Left axis deviation. Interpretation: Right bundle branch block. Similar to prior. EKG 2: Attestation: I personally reviewed and interpreted this EKG as follows: EKG Interpretation Date: 08/20/21 EKG interpretation time: 17:35 Interpretation: Twelve-lead EKG shows a regular sinus rhythm at a rate of 51. NM interval 167, QRS duration 162, QTc 455. Left axis deviation. Interpretation: Right bundle branch block. Sinus rhythm. Similar to prior. Discharge Plan Discharge Patient Disposition: Admitted As Inpatient Admit Provider: Rohan Caldwell Coding Level of Care Code ED Mine Analyst for Heber Woodruff
--- NOTE | 2021-08-20 14:50 | XR_ITS ---
WS: [id number] XR chest 1V portable [id number] REASON FOR EXAM: sob FINDINGS: The chest is unchanged compared to a previous examination of 02/11/2021. There is tortuosity and ectasia of the thoracic aorta. The heart is enlarged. Calcified granulomatous disease bilaterally. No active pulmonary parenchymal or pleural disease. Degenerative changes in the mid and lower thoracic spine. XR/XR chest 1V portable [id number] IMPRESSION: No acute chest abnormality.
--- NOTE | 2021-08-20 14:50 | ECG_ITS ---
[facility] Test Date: 2021-08-20 Pat Name: Bartolo Hardy Department: Room: Gender: Male Housekeeper: : 1950 Requested By: Joseph Mathews Order Number: [id number] Khalida MD: Jamee Torres M.D. Measurements Intervals [place] Rate: 82 P: 56 VA: 166 QRS: -79 QRSD: 149 T: 56 QT: 403 QTc: 473 Interpretive Statements SINUS RHYTHM RIGHT BUNDLE BRANCH BLOCK [120+ ms QRS DURATION, UPRIGHT V1, 40+ ms S IN I/aVL/V4/V5/V6] LEFT ANTERIOR FASCICULAR BLOCK [QRS AXIS <= -45, QR IN I, RS IN II] MODERATE VOLTAGE CRITERIA FOR LVH, CONSIDER NORMAL VARIANT [MEETS CRITERIA IN ONE OF: R(aVL), S(V1), R(V5), R(V5/V6)+S(V1)] Compared to ECG 05/08/2021 18:26:42 No significant changes Electronically Signed On 08-20-2021 17:30:28 CDT by Jamee Torres M.D. [email or web address] choice [facility] of smith countyExelonixtrinity [email or web address]/[id number]
--- NOTE | 2021-08-20 14:51 | CT_ITS ---
WS: [id number] CT HEAD NONCONTRAST HISTORY: Somnolence TECHNIQUE: Contiguous axial imaging performed through the brain in 2.5 mm imaging. Bone and soft tiss ue windows. Sagittal and coronal reformats reviewed. All CT scans at [facility] use at least one of these dose optimization techniques: automated exposure control; mA and/or kV adjustment per pa tient size (includes targeted exams where dose is matched to clinical indication); or iterative recon struction. DLP: 987.84 mGy.cm COMPARISON: None available. No acute intracranial hemorrhage, midline shift or mass effect. Mild atrophy and very mild chronic microvascular ischemic type changes. No prior infarct. There is a small lacunar infarct in the external capsule posteriorly on the LEFT. Ventricles: Normal size with no hydrocephalus. Paranasal sinuses: Mucoperiosteal thickening in the RIGHT maxillary sinus. Mastoid air cells: Well pneumatized. Calvarium and scalp: Skull is intact with no soft tissue edema or swelling. CT/CT head wo con* [id number] IMPRESSION: 1. No acute intracranial hemorrhage or edema. 2. Mild atrophy and a small LEFT lacunar infarct.
--- NOTE | 2021-08-20 15:47 | PC.NURSE ---
patient connected to street light cleaner
--- NOTE | 2021-08-20 15:55 | PC.PHAR ---
pts verified the pts medications-pt states he takes 160 units qam of tresiba flextouch u-100 ext med history shows last filled on 07/22/21 230 units daily-pt states he takes pramipexole 1mg hs ext med history shows last filled 07/11/21 for 0.5mg hs-notes are made in the pharmacy comments
[2021-08-20 15:58] LABS: Basophils % 0.4 %; Eosinophils # 0.1 10^3/uL (0.0-0.8); Eosinophils % 1.2 %; Hematocrit 41.8 % (42.0-52.0); Hemoglobin 13.2 g/dL (11.7-16.6); Lymphocytes # 1.3 10^3/uL (0.8-4.8); Lymphocytes % 17.2 %; Mean Corpuscular HGB Conc 31.6 g/dL (30.0-36.0); Mean Corpuscular Hemoglobin 31.7 pg (28.0-34.0); Mean Corpuscular Volume 100.2 fl (80-94); Mean Platelet Volume 11.8 fL (7.4-10.4); Monocytes # 0.9 10^3/uL (0.2-0.9); Monocytes % 11.7 %; Neutrophils # 5.19 10^3/uL (1.8-7.7); Neutrophils % 68.8 %; Nucleated Red Blood Cells % 0 %; Platelet Count 136 10^3/cmm (130-400); Red Blood Count 4.17 10^6/uL (4.1-5.3); Red Cell Distribution Width 14.6 % (12.1-15.1); White Blood Count 7.5 10^3/uL (4.0-10.0)
[2021-08-20 16:07] LABS: ABG PCO2 47.5 mmHg (35-45); ABG PH Result 7.41 (7.35-7.45); Arterial Blood Gas Hematocrit 39.6 % (42-52); Base Excess ABG 4.8 mmol/L (-2.0-2.0); Blood Gas Allen Test Pos; Blood Gas Operator Identificat glc; Blood Gas Sample Site Radial, right; Blood Gas Sample Type Arterial; HCO3 ABG 30.3 mmol/L (22-26); Oxygen Device ROOM AIR; PO2 ABG 64.2 mmHg (80.0-100.0)
[2021-08-20 16:27] LABS: Troponin(5th) Baseline 35 ng/L (0-15)
[2021-08-20 16:38] LABS: Alanine Aminotransferase 19 U/L (0-41); Albumin Level 4.1 g/dL (3.5-5.2); Alkaline Phosphatase 67 IU/L (40-130); Aspartate Amino Transferase 15 U/L (0-40); Blood Urea Nitrogen 22 mg/dL (8-23); Calcium 8.7 mg/dL (8.5-10.5); Carbon Dioxide 29 mmol/L (22-29); Chloride 99 mmol/L (98-107); Globulin 2.7 g/dL (1.3-4.6); Glucose 95 mg/dL (65-115); NT Pro B Type Natriuretic Pept 226 pg/mL (0-125); Osmolality Calculated 291 mOsm/kg (285-295); Sodium 139 mmol/L (136-145); Thyroid Stimulating Hormone 3.49 uIU/mL (0.27-4.20); Total Bilirubin 0.3 mg/dL (0.15-1.2); Total Protein 6.8 g/dL (6.6-8.7)
[2021-08-20 16:42] LABS: Anion Gap 15.6 (5-19); Potassium 4.6 mmol/L (3.5-5.1); SARS Covid-2 Antigen Negative (Negative)
--- NOTE | 2021-08-20 16:50 | ECG_ITS ---
[facility] Test Date: 2021-08-20 Pat Name: Bartolo Hardy Department: Room: Gender: Male Awning Installer: : 1950 Requested By: Joseph Mathews Order Number: [id number] Khalida MD: Jamee Torres M.D. Measurements Intervals [place] Rate: 81 P: 52 DE: 167 QRS: -80 QRSD: 162 T: 54 QT: 417 QTc: 486 Interpretive Statements SINUS RHYTHM RIGHT BUNDLE BRANCH BLOCK [120+ ms QRS DURATION, UPRIGHT V1, 40+ ms S IN I/aVL/V4/V5/V6] LEFT ANTERIOR FASCICULAR BLOCK [QRS AXIS <= -45, QR IN I, RS IN II] MINIMAL VOLTAGE CRITERIA FOR LVH, CONSIDER NORMAL VARIANT [MEETS CRITERIA IN ONE OF: R(aVL), S(V1), R(V5), R(V5/V6)+S(V1)] Compared to ECG 08/20/2021 14:53:58 No significant changes Electronically Signed On 08-20-2021 17:33:22 CDT by Jamee Torres M.D. [id number]
--- NOTE | 2021-08-20 17:11 | P.HP_ITS ---
Providers/Chief Complaint Primary Care Provider: Ministerio Sewell MD Chief Complaint: heart care sent him over sob History of Present Illness Bartolo Hardy is a 71 year old male who carries history of moderate aortic valve stenosis, preserved ejection fraction, presented today from cardiology clinic for weight gain, shortness of breath, orthopnea, PND and somnolence. Patient is stating that for last 3 to 4 weeks he has been gaining weight roughly he has gained 8 to 10 pounds, he is endorsing orthopnea, PND however no fever, chest pain. No diarrhea. is at the bedside who is endorsing that at night she walks her refrigerator to restrict him from eating junk food. In the daytime he does overeat. He does not follow cardio restricted diet. He is compliant with his medications. On 08/13 his Lasix dose was increased to 60 mg twice a day from 40 mg twice a day regimen because of worsening of edema. Diagnostics in the ER revealed congestive heart failure exacerbation with high BMI BNP is not reliable however clinically he does look fluid overloaded with mild crackles on auscultation of lung chest x-ray is unremarkable 3+ pitting edema of lower extremity extending up to abdominal wall We will discontinue amlodipine, start her on Bumex 2 mg IV daily requested echo In the ER he received IV Lasix, EKG showing sinus rhythm heart rate 80 Patient is full code, does use CPAP at night, Review of Systems Const: Reports: fatigue; Denies: fever(s) or body aches Eyes: Denies: change in vision ENMT: Denies: throat pain Card: Reports: swelling of feet/ankles, dyspnea on exertion and orthopnea Resp: Reports: dyspnea; Denies: non-productive cough GI: Reports: early satiety; Denies: abdominal pain : Denies: flank pain Musc: Denies: neck pain Skin/Breast: Denies: rash Neuro: Denies: headache(s) Psych: Denies: anxiety Endo: Denies: polyuria Pierre/Lymph: Denies: easy bruising All/Imm: Denies: urticaria Medications/Allergies Home Medications Medication Instructions Recorded Confirmed Last Taken Type Tresiba FlexTouch U-100 160 unit SUBCUT QAM 02/12/21 08/20/21 08/20/21 History allopurinol 200 mg PO QAM 02/12/21 08/20/2121 08:00 History amlodipine 10 mg PO QAM 02/12/21 08/20/21 08/20/21 08:00 History doxazosin 2 mg PO QAM 02/12/21 08/20/21 08/20/21 08:00 History latanoprost 1 drp OPHTHALMIC (EYE) BEDTIME 02/12/21 08/20/21 08/19/21 History venlafaxine 75 mg PO QAM 02/12/21 08/20/21 08/20/21 08:00 History Eliquis 5 mg PO BID 05/07/21 08/20/21 08/20/21 08:00 History ascorbic acid (vitamin C) [Vitamin 500 mg PO QAM 05/07/21 08/20/21 08/20/21 History C] aspirin 81 mg PO QAM 05/07/21 08/20/21 08/20/21 08:00 History metformin 750 mg tablet,extended 750 mg PO BID tab 06/25/21 08/20/21 08/20/21 08:00 History release 24 hr simvastatin 20 mg tablet 20 mg PO QAM tab 07/09/21 08/20/21 08/20/21 08:00 Hist ory metoprolol succinate 25 mg 37.5 mg PO BID #270 tab 07/26/21 08/20/21 08/20/21 08:00 Rx tablet,extended release 24 hr budesonide-formoterol HFA 80 2 puff INHALATION BID g 08/13/21 08/20/21 08/20/21 History mcg-4.5 mcg/actuation aerosol inhaler furosemide 40 mg tablet 60 mg PO BID #90 tab 08/13/21 08/20/21 08/20/21 08:00 Rx potassium chloride 20 mEq 20 meq PO BID #180 tab 08/13/21 08/20/21 08/20/21 08:00 Rx tablet,extended release acetaminophen [Tylenol 8 Hour] 2,600 mg PO BEDTIME 08/20/21 08/20/21 08/19/21 History amiodarone 200 mg PO QAM 08/20/21 08/20/21 08/20/21 08:00 History levothyroxine 50 mcg PO QAM 08/20/21 08/20/21 08/20/21 08:00 History lisinopril 10 mg PO QAM 08/20/21 08/20/21 08/20/21 08:00 History polyethylene glycol 3350 [Miralax] 17 g PO DAILY 08/20/21 08/20/21 Unknown History pramipexole 1 mg PO BEDTIME 08/20/21 08/20/21 08/19/21 History Allergies Allergy/AdvReac Type Severity Reaction Status Date / Time No Known Allergies Allergy Verified 08/20/21 15:55 PFSH Acute PFSH: Medical History (Updated 08/20/21 @ 17:45 by Rohan Caldwell MD) Acute kidney injury superimposed on CKD Aortic stenosis, moderate Aortic stenosis, severe Atrial flutter with rapid ventricular response Patient converted to normal sinus rhythm on amiodarone drip. CHF (congestive heart failure), NYHA class III Diabetes Gout HTN (hypertension) New onset atrial fibrillation UTI (urinary tract infection) Surgical History (Updated 08/20/21 @ 17:45 by Rohan Caldwell MD) H/O vasectomy Family History Other CAD (coronary artery disease) Cancer Dementia Diabetes Family history of premature coronary artery disease Hyperlipidemia Hypertension Denies family history of Chronic kidney disease (CKD) Anesthesia complication Bleeding disorder Lung disease Stroke Social History Alcohol intake: never Vitals/I&O/Wt Last Vital Signs Temp 98.4 F 08/20/21 14:32 Pulse 80 08/20/21 16:30 Resp 19 H 08/20/21 16:30 BP 165/50 08/20/21 16:30 Pulse Ox 93 08/20/21 16:30 Weight last 48 hrs Weight 195.045 kg Physical Exam Narrative: EXAM NARRATIVE: morbidly obese male who appears stated age Features of congestive heart failure Grade 2/6 aortic stenosis murmur appreciated all over precordium No active chest pain S1, S2 sinus rhythm Generalized anasarca 3+ edema Abdominal wall edema Patient bilaterally Saturating well on room air No focal deficit No signs of cellulitis No focal deficit Awake alert oriented x3 GCS 15 Data : 08/20/21 15:43 08/20/21 15:43 A&P Assessment and plan (1) Aortic stenosis, moderate: Status: Acute (2) CHF (congestive heart failure), NYHA class III: Status: Acute Qualifiers: Congestive heart failure type: diastolic Congestive heart failure chronicity: acute on chronic Qualified Code(s): I50.33 - Acute on chronic diastolic (congestive) heart failure (3) CHF exacerbation: Status: Acute (4) Dietary indiscretion: Status: Acute Additional A&P Information Acute CHF exacerbation, preserved ejection fraction Moderate aortic stenosis We will request echo in the morning Start Bumex 2 mg IV daily For accurate ins and outs will request Brand catheter placement We will update Dr. Srinivasan in the morning I do believe because of exacerbation is underlying valvular pathology with underlying dietary indiscretion Fluid restriction Obstructive sleep apnea: Auto CPAP at night Type 2 diabetes: Lantus and sliding scale for now check hemoglobin A1c level Full code Cardiac fluid restricted diet DVT prophylaxis not indicated as patient is already on Eliquis which he takes for A. fib History of A. fib currently in sinus rhythm continue amiodarone and AV denice blocking agents Attestations Medical Necessity Statement*: Anticipating discharge within 48 hours Time Spent in Patient Care: Greater than 35 minutes Coding Level of Care Code Acute Transformer Coil Winder for Chg Fwd Diagnoses Aortic stenosis, moderate I35.0 CHF (congestive heart failure), NYHA class III I50.33 Congestive heart failure type: diastolic Congestive heart failure chronicity: acute on chronic CHF exacerbation I50.9 Dietary indiscretion R63.8
[2021-08-20] MEDS: FUROsemide 10 mg/mL SDV 4mL 40 MG IVP (17:20)
[2021-08-20 18:23] LABS: Estmated Average Glucose 157; Hemoglobin A1C 7.1 % (4.0-6.0)
--- NOTE | 2021-08-20 18:28 | PC.NURSE ---
PATIENT OUTPUT 1500 ML.
[2021-08-20 18:34] LABS: Troponin 5 2HR 34.07 ng/L (0-15)
[2021-08-20 18:35] LABS: Troponin 5 2HR Delta -0.93 ABS# (0-10)
[2021-08-20 18:40] LABS: Procalcitonin 0.07 ng/mL (0-0.5)
[2021-08-20] MEDS: apixaban 5 mg Tablet PO (20:31)
[2021-08-20] MEDS: metoprolol succinate ER (24 HR) 25 mg Tablet 37.5 MG PO (20:32)
[2021-08-20] MEDS: pramipexole 0.25 mg Tablet 1 MG PO (20:32)
--- NOTE | 2021-08-20 20:50 | ECG_ITS ---
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 Measurements Intervals [place] Rate: 82 P: 82 NM: 174 QRS: -77 QRSD: 154 T: 49 QT: 420 QTc: 491 Interpretive Statements SINUS RHYTHM RIGHT BUNDLE BRANCH BLOCK [120+ ms QRS DURATION, UPRIGHT V1, 40+ ms S IN I/aVL/V4/V5/V6] LEFT ANTERIOR FASCICULAR BLOCK [QRS AXIS <= -45, QR IN I, RS IN II] MINIMAL VOLTAGE CRITERIA FOR LVH, CONSIDER NORMAL VARIANT [MEETS CRITERIA IN ONE OF: R(aVL), S(V1), R(V5), R(V5/V6)+S(V1)] Compared to ECG 08/20/2021 17:27:25 No significant changes Electronically Signed On 08-21-2021 23:06:00 CDT by Jamee Torres M.D. [id number]
[2021-08-20] MEDS: ipratropium-albuterol 3 mL Neb INHALATION (20:56)
[2021-08-20 21:18] LABS: Glucose Point of Care 87 mg/dL (70-110)
[2021-08-20 22:32] LABS: Troponin 5 6HR 43.04 ng/L (0-15); Troponin 5 6HR Delta 8.04 ng/L (0-12)
[2021-08-21] VITALS (7 sets, daily range): BP systolic 137–183; BP diastolic 62–72; PULSE 82–93; RESP 17–24; TEMP 36.7–36.8; O2SAT 90–93
--- NOTE | 2021-08-21 04:31 | PC.NURSE ---
Pt has refused story catheter at this time
--- NOTE | 2021-08-21 04:54 | PC.NURSE ---
i reported high reps 20 to nurse
[2021-08-21 05:10] LABS: Basophils # 0.1 10^3/uL (0.0-0.1); Basophils % 0.6 %; Eosinophils # 0.1 10^3/uL (0.0-0.8); Hematocrit 40.7 % (42.0-52.0); Hemoglobin 12.5 g/dL (11.7-16.6); Lymphocytes # 1.5 10^3/uL (0.8-4.8); Lymphocytes % 18.4 %; Mean Corpuscular HGB Conc 30.7 g/dL (30.0-36.0); Mean Corpuscular Hemoglobin 30.7 pg (28.0-34.0); Mean Platelet Volume 11.9 fL (7.4-10.4); Monocytes # 0.9 10^3/uL (0.2-0.9); Monocytes % 11.8 %; Neutrophils # 5.36 10^3/uL (1.8-7.7); Neutrophils % 67.8 %; Nucleated Red Blood Cells % 0 %; Platelet Count 138 10^3/cmm (130-400); Red Blood Count 4.07 10^6/uL (4.1-5.3); Red Cell Distribution Width 14.5 % (12.1-15.1); White Blood Count 7.9 10^3/uL (4.0-10.0)
[2021-08-21 05:40] LABS: Blood Urea Nitrogen 21 mg/dL (8-23); Calcium 8.9 mg/dL (8.5-10.5); Carbon Dioxide 30 mmol/L (22-29); Chloride 102 mmol/L (98-107); Glucose 67 mg/dL (65-115); Osmolality Calculated 293 mOsm/kg (285-295); Sodium 141 mmol/L (136-145)
[2021-08-21 05:41] LABS: Anion Gap 13.1 (5-19); Potassium 4.1 mmol/L (3.5-5.1)
[2021-08-21] MEDS: lisinopril 10 mg Tablet PO (05:54)
[2021-08-21] MEDS: atorvastatin 40 mg Tablet 20 MG PO (05:55)
[2021-08-21] MEDS: amiodarone 200 mg Tablet PO (05:55)
[2021-08-21] MEDS: allopurinol 100 mg Tablet 200 MG PO (05:57)
[2021-08-21] MEDS: venlafaxine ER (24HR) 75 mg Capsule PO (05:57)
[2021-08-21] MEDS: ascorbic acid 500 mg Tablet PO (05:58)
[2021-08-21] MEDS: levothyroxine 50 mcg Tablet PO (05:58)
[2021-08-21] MEDS: aspirin 81 mg Chew Tablet PO (05:58)
[2021-08-21 06:46] LABS: Glucose Point of Care 83 mg/dL (70-110)
[2021-08-21] MEDS: bumetanide 0.25 mg/mL SDV 10 mL 2 MG IVP ×2 (09:04→16:34)
[2021-08-21] MEDS: metoprolol succinate ER (24 HR) 25 mg Tablet 37.5 MG PO ×2 (09:04→17:00)
[2021-08-21] MEDS: apixaban 5 mg Tablet PO ×2 (09:04→17:00)
[2021-08-21] MEDS: potassium chloride ER 20 mEq Tablet PO ×2 (09:04→17:00)
--- NOTE | 2021-08-21 09:54 | PC.CHAP ---
Pastoral Care Encounter/Spiritual Assessment Type of Contact [] Declined slot shift supervisor visit [] Patient/Family/Request visit [] Outpatient visit [] Follow-up visit [] Physician referral [] Code/Alert [x] Routine visit [] Staff referral [] Actively dying [] Patient sleeping [] Family support [] [] Out of room [] Palliative care [] [] Receiving care in room [] Pre-surgical visit [] Trauma [] Long length of stay [] ICU visit [] Other: Relational/Emotional Strength [x] Patient feels connected with others/family/visitors/staff [] Distress [] Loneliness/isolation [] Abandonment Spirituality of Patient [x] Person of Pina [x] Attends Confucianism of their [place] [x] Believes in Prayer [x] Reads Bible or Confucianism materials [] There are Spiritual issues to be addressed Grade Foreman Interventions [x] Prayer [x] Active listening [x] Non-anxious presence [x Spiritual/emotional support [] Crisis/trauma care [] Spiritual counseling [] Bereavement support [] Provided bereavement packet [] Provided Bible/devotional materials [] Provided toy/stuffed animal, coloring book to patient or family member [] Provided Communion [] Anointing/[place] [] Salvation [x] Completed spiritual assessment [] Other: Impact on Illness or Injury [] Angry [] Fearful [] Anxious [] Often cries [] Exhaustion [] Unable to work [] Unable to attend confucianist [] Unable to walk/stand [] Unable to read [] Unable to drive [] Unable to eat/drink [] Unable to sleep [] Unable to be with family [] Patient intubated [] Other: Summary patient doi9ng good patient prayed for me Time spent with patient 15 min
[2021-08-21] MEDS: acetaminophen 325 mg Tablet PO (10:27)
[2021-08-21 11:05] LABS: Glucose Point of Care 153 mg/dL (70-110)
--- NOTE | 2021-08-21 12:24 | P.CONIM_ITS ---
Providers/Reason For Consult Consulting Physician/Specialty*: Dr. Hernadez, cardiology Reason for Consult*: Aortic stenosis and congestive heart failure Attending Physician: Rohan Caldwell MD Primary Care Provider: Ministerio Sewell MD History of Present Illness History of Present Illness Bartolo Hardy is a 71 year old pleasant male with past medical history of heart failure with preserved ejection fraction, paroxysmal atrial fibrillation/ atrial flutter (s/p cardioversion), moderate aortic stenosis, diabetes mellitus type 2, hypertension, hyperlipidemia, morbid obesity, obstructive sleep apnea on CPAP, COPD and smoking who is recently being managed for decompensated angelia estive heart failure. He was seen by Ms. Awilda Carrizales on 20 August for worsening shortness of breath. He had gained 8 pounds since last visit. He was sent to ER for further management. EKG on admission showed sinus rhythm with right bundle branch block. Left anterior fascicular block. Moderate voltage criteria for LVH. He was started on Bumex 2 mg IV daily. This morning his dose of Bumex was increased to 2 mg IV twice a day. At the time of examination, patient states his shortness of breath has improved. Denies any fever, chills, URI or UTI-like symptoms. He complains of watery diarrhea (foul-smelling) 3-4 times/day for last 2 weeks. He denies any recent antibiotic use. Patient states he has been struggling with worsening shortness of breath over the past month. Complains of worsening leg swelling and some orthopnea. No significant symptoms of PND. He complains of some difficulty in swallowing larger pills as well as meals intermittently for the last 3 to 4 months. No prior EGD. No complaints of hematochezia or melena or gastric ulcers. Review of Systems General: Reports: 10 or more systems reviewed and unremarkable except in HPI and below Const: Reports: fatigue; Denies: fever(s) or body aches Card: Reports: swelling of feet/ankles, dyspnea on exertion and orthopnea Resp: Reports: dyspnea; Denies: non-productive cough GI: Reports: diarrhea; Denies: abdominal pain, hematemesis, early satiety or hematochezia : Denies: flank pain Musc: Denies: neck pain Skin/Breast: Denies: rash Neuro: Denies: headache(s) Psych: Denies: anxiety Endo: Denies: polyuria Pierre/Lymph: Denies: easy bruising All/Imm: Denies: urticaria Meds/Allergies Home Medications and Allergies Home Medications Medication Instructions Recorded Confirmed Last Taken Type Tresiba FlexTouch U-100 160 unit SUBCUT QAM 02/12/21 08/20/21 08/20/21 History allopurinol 200 mg PO QAM 02/12/21 08/20/21 08/20/21 08:00 History amlodipine 10 mg PO QAM 02/12/21 08/20/21 08/20/21 08:00 History doxazosin 2 mg PO QAM 02/12/21 08/20/21 08/20/21 08:00 History latanoprost 1 drp OPHTHALMIC (EYE) BEDTIME 02/12/21 08/20/21 08/19/21 History venlafaxine 75 mg PO QAM 02/12/21 08/20/21 08/20/21 08:00 History Eliquis 5 mg PO BID 05/07/21 08/20/21 08/20/21 08:00 History ascorbic acid (vitamin C) [Vitamin 500 mg PO QAM 05/07/21 08/20/21 08/20/21 History C] aspirin 81 mg PO QAM 05/07/21 08/20/21 08/20/21 08:00 History metformin 750 mg tablet,extended 750 mg PO BID tab 06/25/21 08/20/21 08/20/21 08:00 History release 24 hr simvastatin 20 mg tablet 20 mg PO QAM tab 07/09/21 08/20/21 08/20/21 08:00 History metoprolol succinate 25 mg 37.5 mg PO BID #270 tab 07/26/21 08/20/21 08/20/21 08:00 Rx tablet,extended release 24 hr budesonide-formoterol HFA 80 2 puff INHALATION BID g 08/13/21 08/20/21 08/20/21 History mcg-4.5 mcg/actuation aerosol inhaler furosemide 40 mg tablet 60 mg PO BID #90 tab 08/13/21 08/20/21 08/20/21 08:00 Rx potassium chloride 20 mEq 20 meq PO BID #180 tab 08/13/21 08/20/21 08/20/21 08:00 Rx tablet,extended release acetaminophen [Tylenol 8 Hour] 2,600 mg PO BEDTIME 08/20/21 08/20/21 08/19/21 History amiodarone 200 mg PO QAM 08/20/21 08/20/21 08/20/21 08:00 History levothyroxine 50 mcg PO QAM 08/20/21 08/20/21 08/20/21 08:00 History lisinopril 10 mg PO QAM 08/20/21 08/20/21 08/20/21 08:00 History polyethylene glycol 3350 [Miralax] 17 g PO DAILY 08/20/21 08/20/21 Unknown Hi story pramipexole 1 mg PO BEDTIME 08/20/21 08/20/21 08/19/21 History Allergies Allergy/AdvReac Type Severity Reaction Status Date / Time No Known Allergies Allergy Verified 08/20/21 15:55 Current Medications Current Medications Generic Name Dose Route Start Last Admin Trade Name Freq PRN Reason Stop Dose Admin Acetaminophen 325 - 650 mg 08/21/21 10:14 08/21/21 10:27 Acetaminophen 325 Mg Tablet PO 650 mg Q4H PRN Administration MILD PAIN OR INCREASE TEMP Albuterol/Ipratropium 3 ml 08/20/21 19:47 08/20/21 20:56 Ipratropium-Albuterol 3 Ml Neb INHALATION 3 ml Q6H PRN Administration SHORTNESS OF BREATH Allopurinol 200 mg 08/21/21 06:00 08/21/21 05:57 Allopurinol 100 Mg Tablet PO 200 mg QAM SHERLYN Administration Amiodarone HCl 200 mg 08/21/21 06:00 08/21/21 05:55 Amiodarone 200 Mg Tablet PO 200 mg QAM SHERLYN Administration Apixaban 5 mg 08/20/21 20:00 08/21/21 09:04 Apixaban 5 Mg Tablet PO 5 mg BID SHERLYN Administration Ascorbic Acid 500 mg 08/21/21 06:00 08/21/21 05:58 Ascorbic Acid 500 Mg Tablet PO 500 mg QAM SHERLYN Administration Aspirin 81 mg 08/21/21 06:00 08/21/21 05:58 Aspirin 81 Mg Chew Tablet PO 81 mg QAM SHERLYN Administration Atorvastatin Calcium 20 mg 08/21/21 06:00 08/21/21 05:55 Atorvastatin 40 Mg Tablet PO 20 mg QAM SHERLYN Administration Insulin Aspart 0 unit 08/20/21 19:47 08/21/21 11:41 Insulin Aspart 100 Unit/1 Ml SUBCUT 4 unit WM&BEDTIME SHERLYN Administration Protocol Insulin Glargine 30 unit 08/21/21 09:00 08/21/21 09:07 Insulin Glargine 100 Units/1 Ml SUBCUT Not Given DAILY SHERLYN Levothyroxine Sodium 50 mcg 08/21/21 06:00 08/21/21 05:58 Levothyroxine 50 Mcg Tablet PO 50 mcg QAM SHERLYN Administration Lisinopril 10 mg 08/21/21 06:00 08/21/21 05:54 Lisinopril 10 Mg Tablet PO 10 mg QAM SHERLYN Administration Metoprolol Succinate 37.5 mg 08/20/21 19:47 08/21/21 09:04 Metoprolol Succinate Er (24 Hr) 25 Mg Tablet PO 37.5 mg BID SHERLYN Administration Potassium Chloride 20 meq 08/21/21 09:00 08/21/21 09:04 Potassium Chloride Er 20 Meq Tablet PO 20 meq BID SHERLYN Administration Pramipexole Dihydrochloride 1 mg 08/20/21 21:00 08/20/21 20:32 Pramipexole 0.25 Mg Tablet PO 1 mg BEDTIME SHERLYN Administration Venlafaxine HCl 75 mg 08/21/21 06:00 08/21/21 05:57 Venlafaxine Er (24hr) 75 Mg Capsule PO 75 mg QAM SHERLYN Administration PFSH Acute PFSH: Medical History Acute kidney injury superimposed on CKD Aortic stenosis, moderate Aortic stenosis, severe Atrial flutter with rapid ventricular response Patient converted to normal sinus rhythm on amiodarone drip. CHF (congestive heart failure), NYHA class III Diabetes Gout HTN (hypertension) New onset atrial fibrillation UTI (urinary tract infection) Surgical History H/O vasectomy Family History Other CAD (coronary artery disease) Cancer Dementia Diabetes Family history of premature coronary artery disease Hyperlipidemia Hypertension Denies family history of Chronic kidney disease (CKD) Anesthesia complication Bleeding disorder Lung disease Stroke Social History Alcohol intake: never Vitals/I&O/Wt Last Vital Signs Temp 98.1 F 08/21/21 11:53 Pulse 86 08/21/21 11:53 Resp 18 08/21/21 11:53 BP 183/70 08/21/21 11:53 Pulse Ox 91 08/21/21 11:53 08/20/21 08/21/21 08/21/21 22:59 06:59 14:59 Intake Total 240 / 240 480 / 480 Output Total 780 / 780 1150 / 1150 Balance -540 / -540 -670 / -670 Weight last 48 hrs Weight 440 lb Weight 430 lb Physical Exam Narrative: EXAM NARRATIVE: GENERAL: Morbidly obese man lying in bed in no acute respiratory distress HEENT: Pupils equal round reactive to light. No pallor or icterus. NECK: Small thick neck, JVD not appreciated CARDIOVASCULAR SYSTEM: S1-S2 regular. Grade 3/6 systolic murmur in aortic area RESPIRATORY SYSTEM: Decreased breath sounds due to body habitus. No wheezes or rales. no use of accessory muscles. ABDOMEN: Soft, nontender and nondistended. Normal bowel sounds present. EXTREMITIES: No cyanosis or clubbing. No edema. SENIOR STATISTICAL PROGRAMMER: Patient is alert oriented ?3. No focal neurological deficits. SKIN: Normal turgor and temperature. PSYCH: Normal insight and judgment. Data Labs: Other Labs: ABG on admission: pH 7.41, PCO2 48, PO2 64 on FiO2 of 21%. BUN 22, creatinine 1.1 on 20 August. Hemoglobin A1c 7.1. Rapid Covid antigen negative. TSH 3.49. Baseline troponin T of 35 and at 2 hours of 34. At 6 hours 43. NT proBNP 226. Imaging^: CT Head: Radiologist's impression: IMPRESSION: 1. No acute intracranial hemorrhage or edema. 2. Mild atrophy and a small LEFT lacunar infarct. Other Data: Attestation for Other Data: I personally reviewed and interpreted the following: Other data: BERTHA (03/25/21) CONCLUSIONS 1-Normal left ventricular cavity size. Normal left ventricular systolic function. Left ventricular ejection fraction is estimated at 60 %. 2-Severe aortic valve calcification. Moderate aortic valve stenosis, OLIVE 2.0 cm squared by planimetry.trace aortic valve regurgitation. 3-The LA appendage is normal. 4-Structurally normal mitral valve without significant stenosis or prolapse. There is no mitral regurgitation. 5-There is no pericardial effusion. 6-There are no prior echocardiogram studies to compare. Transthoracic echocardiogram 12 February 2021 CONCLUSIONS 1-Normal left ventricular cavity size. Normal left ventricular systolic function. No regional wall motion abnormalities. Left ventricular ejection fraction is estimated at 60 %. Grade III/IV diastolic dysfunction (restrictive filling pattern), severely elevated filling pressures. 2-Severe aortic valve calcification. Moderate aortic valve stenosis, mean gradient 12.6 mmHg, OLIVE 0.88 cm squared. No aortic valve regurgitation. 3-Moderately thickened mitral valve. Moderate mitral annular calcification. No mitral valve stenosis. No mitral valve regurgitation. 4-There is no pericardial effusion. 5-Pulmonary artery systolic pressure is within normal limits. 6-Right atrial pressure is around 5 mm of mercury. Event monitor 15 July - 28 July 2021 Baseline rhythm is sinus rhythm with a heart rate of 87 bpm. 0 critical 1 serious and 6 stable events occurred. Patient was in atrial fibrillation 1% of the time. Heart rate ranged from 92 to 150 bpm with average heart rate ranging from 110s to 129 bpm. Overall heart rate ranged from 52 to 150 bpm with average heart rate of 77 bpm. Patient was rate controlled 98% of the time and not in atrial fibrillation. One 7 beats long run of nonsustained ventricular tachycardia asymptomatic. A&P Assessment and plan (1) CHF exacerbation: Decompensated heart failure with preserved ejection fraction -Right ventricle not well visualized but appears to be functioning normally on TDS study. -Agree with Bumex 2 mg IV every 12 for today, good urine output so far. -His diuretics will probably need to be down titrated tomorrow. -He remains in sinus rhythm. Underlying ischemia could be a possible etiology for his CHF exacerbation. -Will probably need a stress test/coronary angiogram either way. Unsure if we will get good results on stress test given BMI ~58. Status: Acute Qualifiers: Heart failure type: diastolic Qualified Code(s): I50.33 - Acute on chronic diastolic (congestive) heart failure (2) RACHELE (acute kidney injury): f/u BMP in am Status: Acute (3) HTN (hypertension): Status: Acute Qualifiers: Hypertension type: essential hypertension Qualified Code(s): I10 - Essential (primary) hypertension Additional A&P Information Paroxysmal atrial flutter/fibrillation Elevated troponin Aortic stenosis: Moderate to severe aortic stenosis by continued equation with a peak velocity of 3.3 m/s, peak gradient 45 mmHg and mean gradient 25 mmHg. Aortic valve area 1.1 cm? (LVOT 21 mm). Indexed aortic valve area 0.3 cm2/m2. DVI -0.27 Diabetes mellitus type 2 Bifascicular block Morbid obesity Obstructive sleep apnea on CPAP Thank you for allowing me to participate in patient's care. Please please feel free to call with questions or concerns. Consult Attestations Time Spent in Patient Care: Greater than 35 minutes (>than 50% of time spent in counselling and/or direct pt care on unit) . Coding Level of Care Code Acute Customer Accounts Advisor for Stephanieg Fwd Diagnoses CHF exacerbation I50.33 Heart failure type: diastolic RACHELE (acute kidney injury) N17.9 HTN (hypertension) I10 Hypertension type: essential hypertension
[2021-08-21] MEDS: perflutren protein-a microsphr 0.22 mg/mL SDV 3 mL IV (12:30)
--- NOTE | 2021-08-21 12:31 | PM.PN ---
Subjective Subjective: Interval history: This morning patient is endorsing feeling slightly better, still endorsing orthopnea and PND, saturating well on room air Did requested Dr. Hernadez to evaluate, I did receive a call from veterinary technology instructor that they want to be able to calculate velocity around aortic valve because of his BMI and depth of the heart, requested Dr. Radford if transesophageal echo will be indicated, she will evaluate this patient today for now we will do echo with contrast No active chest pain, -1.2 L negative balance with 2 L urine output Plan to escalate Bumex dose creatinine today 1.3 Vitals/I&O/Wt Last Vital Signs Temp 98.1 F 08/21/21 11:53 Pulse 86 08/21/21 11:53 Resp 18 08/21/21 11:53 BP 183/70 08/21/21 11:53 Pulse Ox 91 08/21/21 11:53 08/20/21 08/21/21 08/21/21 22:59 06:59 14:59 Intake Total 240 / 240 480 / 480 Output Total 780 / 780 1150 / 1150 Balance -540 / -540 -670 / -670 Weight last 48 hrs Weight 199.581 kg Weight 195.045 kg Physical Exam Narrative: EXAM NARRATIVE: Morbidly obese male was sitting in his chair Generalized anasarca No active chest pain Saturating well on room air Present awake alert oriented x3 GCS 15 Systolic murmur grade 2/6 over precordium Abdomen soft distended with obesity Bilateral breath sounds with crackles at the bases of the lung Lower extremity edema without any signs of cellulitis Data : 08/21/21 04:25 08/21/21 04:25 A&P Assessment and plan (1) Dietary indiscretion: Status: Acute (2) CHF exacerbation: Status: Acute (3) Aortic stenosis, moderate: Status: Acute (4) CHF (congestive heart failure), NYHA class III: Status: Acute Qualifiers: Congestive heart failure type: diastolic Congestive heart failure chronicity: acute on chronic Qualified Code(s): I50.33 - Acute on chronic diastolic (congestive) heart failure (5) RACHELE (acute kidney injury): Status: Acute Additional A&P Information Acute preserved ejection fraction heart failure exacerbation secondary to dietary indiscretion and valvular abnormality Requested Dr. Hernadez if patient would benefit from transesophageal echo Patient is stating that he can hardly take 20 feet without getting short of breath Symptomatic aortic valve stenosis We will go ahead and start him on Bumex 2 mg IV twice daily Adequate urine output RACHELE seems secondary to cardiorenal in nature anticipating improvement with diuresis Monitor for any signs of contraction alkalosis Normal pro calcitonin and TSH Sleep apnea: Auto CPAP at night Sliding scale consistent carb cardiac diet for type 2 diabetes Full code Restricted fluid diet A. fib history: Currently in sinus rhythm continue Eliquis along AV denice blocking agents Attestations Medical Necessity Statement*: Will reevaluate after cardiology evaluation, continue medical management for now Time Spent in Patient Care: 16 - 35 minutes Coding Level of Care Code Acute [employer] Information Center Supervisor for Chg Fwd Diagnoses Dietary indiscretion R63.8 CHF exacerbation I50.9 Aortic stenosis, moderate I35.0 CHF (congestive heart failure), NYHA class III I50.33 Congestive heart failure type: diastolic Congestive heart failure chronicity: acute on chronic RACHELE (acute kidney injury) N17.9
[2021-08-21 17:37] LABS: Glucose Point of Care 336 mg/dL (70-110)
--- NOTE | 2021-08-21 19:47 | USCV_ITS ---
Bartolo Hardy Age: 71 Gender: M : 1950 Exam Date: 08/21/2021 12:06 Ordering Phys: Rohan Caldwell MD Technologist: Eze Santo Exam Location: [facility] [place] Indication: CHF. Aortic stenosis BP: 143 / 75 HR: 82 Rhythm: Sinus Technical Quality: Poor MEASUREMENTS (Male / Female) Normal Values 2D ECHO LVOT Diameter 2.1 cm LV Ejection Fraction MOD 2C 50.9 % LV Ejection Fraction 2C AL 50.6 % LA Diameter 4.6 cm LA Width 6.3 cm LA Height 6.7 cm RA Width 6.1 cm RA Height 5.8 cm Aorta at Sinotubular Diameter 3.9 cm DOPPLER AV Peak Velocity 365.7 cm/s LVOT Peak Velocity 90.0 cm/s AV Area Cont Eq vti 0.9 cm squared AV Area Cont Eq pk 0.8 cm squared MV Area PHT 5.0 cm squared Mitral E to A Ratio 1.1 MV E' Velocity 135.0 cm/s TR Peak Velocity 166.0 cm/s TR Peak Gradient 11.0 mmHg TV Peak E Velocity 82.0 cm/s Right Atrial Pressure 3.0 mmHg Pulmonary Artery Systolic Pressu 14.0 mmHg FINDINGS Left Ventricle Normal left ventricular cavity size. Normal left ventricular systolic function. Left ventricular ejection fraction is estimated at 65-70 %. No regional wall motion abnormalities. Abnormal septal motion consistent with conduction abnormality. Right Ventricle Possibly normal right ventricular systolic function. Right ventricular systolic pressure 14 mmHg. Right Atrium Right atrium not well visualized. Left Atrium Probably mildly increased left atrial size. Mitral Valve Moderate mitral annular calcification. No mitral valve stenosis. Trace mitral valve regurgitation. Aortic Valve Aortic valve not well visualized. Thickened and calcified aortic valve. At least moderate aortic valve stenosis, peak velocity 3.3 m/s, peak gradient 45 mmHg, mean gradient 25 mmHg, OLIVE 1.1 cm squared (LVOT=21 mm). Dimensionless valve index of 0.27. Indexed aortic valve area 0.4 cm2/m2. Tricuspid Valve Tricuspid valve not well visualized. Pulmonic Valve Pulmonic valve not well visualized. Pericardium No pericardial effusion. Aorta Aorta not well visualized. Normal-sized aortic root. CONCLUSIONS 1. This is a technically difficult study. Ultrasound enhancing agent Optison was used per protocol. 2. Normal left ventricular cavity size and systolic function. Left ventricular ejection fraction is estimated at 65-70 %. No regional wall motion abnormalities. Abnormal septal motion consistent with conduction abnormality. 3. Thickened and calcified aortic valve. At least moderate aortic valve stenosis, peak velocity 3.3 m/s, peak gradient 45 mmHg, mean gradient 25 mmHg, OLIVE 1.1 cm squared (LVOT=21 mm). Dimensionless valve index of 0.27. Indexed aortic valve area 0.4 cm2/m2. 4. Direct comparison to previous study is not possible given technical differences in study. Elsa Hernadez MD (Electronically Signed) Final Date: 21 August 2021 16:58 Amended: 22 August 2021 16:45 C
[2021-08-21 20:37] LABS: Glucose Point of Care 161 mg/dL (70-110)
[2021-08-21] MEDS: pramipexole 0.25 mg Tablet 1 MG PO (21:06)
[2021-08-22] VITALS (8 sets, daily range): BP systolic 140–170; BP diastolic 75–83; PULSE 76–91; RESP 16–24; TEMP 36.5–37.5; O2SAT 90–96
[2021-08-22] MEDS: ascorbic acid 500 mg Tablet PO (06:05)
[2021-08-22] MEDS: aspirin 81 mg Chew Tablet PO (06:05)
[2021-08-22] MEDS: allopurinol 100 mg Tablet 200 MG PO (06:06)
[2021-08-22] MEDS: atorvastatin 40 mg Tablet 20 MG PO (06:06)
[2021-08-22] MEDS: amiodarone 200 mg Tablet PO (06:07)
[2021-08-22] MEDS: levothyroxine 50 mcg Tablet PO (06:08)
[2021-08-22] MEDS: venlafaxine ER (24HR) 75 mg Capsule PO (06:08)
[2021-08-22 06:43] LABS: Glucose Point of Care 128 mg/dL (70-110)
[2021-08-22 06:44] LABS: Blood Urea Nitrogen 20 mg/dL (8-23); Calcium 8.9 mg/dL (8.5-10.5); Carbon Dioxide 31 mmol/L (22-29); Chloride 98 mmol/L (98-107); Glucose 120 mg/dL (65-115); Osmolality Calculated 290 mOsm/kg (285-295); Sodium 138 mmol/L (136-145)
[2021-08-22 07:23] LABS: Glucose Point of Care 121 mg/dL (70-110)
[2021-08-22] MEDS: insulin glargine 100 units/1 mL 30 UNIT SUBCUT (08:32)
[2021-08-22] MEDS: apixaban 5 mg Tablet PO (08:32)
[2021-08-22] MEDS: potassium chloride ER 20 mEq Tablet PO ×2 (08:32→17:42)
[2021-08-22] MEDS: metoprolol succinate ER (24 HR) 25 mg Tablet 37.5 MG PO ×2 (08:32→17:42)
[2021-08-22] MEDS: bumetanide 0.25 mg/mL SDV 10 mL 2 MG IVP (08:33)
[2021-08-22] MEDS: ipratropium-albuterol 3 mL Neb INHALATION (08:54)
[2021-08-22] MEDS: acetaminophen 325 mg Tablet PO (10:26)
--- NOTE | 2021-08-22 10:36 | PC.CHAP ---
Pastoral Care Encounter/Spiritual Assessment Type of Contact [] Declined security nurse visit [] Patient/Family/Request visit [] Outpatient visit [] Follow-up visit [] Physician referral [] Code/Alert [x] Routine visit [] Staff referral [] Actively dying [] Patient sleeping [] Family support [] [] Out of room [] Palliative care [] [x] Receiving care in room [] Pre-surgical visit [] Trauma [x] Long length of stay [] ICU visit [] Other: Relational/Emotional Strength [x] Patient feels connected with others/family/visitors/staff [] Distress [] Loneliness/isolation [] Abandonment Spirituality of Patient [x] Person of Pina [] Attends Yarsani of their [place] [x] Believes in Prayer [] Reads Bible or Methodist materials [] There are Spiritual issues to be addressed Manager Fixed Income Interventions [x] Prayer [x] Active listening [x] Non-anxious presence [x] Spiritual/emotional support [] Crisis/trauma care [x] Spiritual counseling [] Bereavement support [] Provided bereavement packet [] Provided Bible/devotional materials [] Provided toy/stuffed animal, coloring book to patient or family member [] Provided Communion [] Anointing/[place] [] Salvation [x] Completed spiritual assessment [] Other: Impact on Illness or Injury [] Angry [] Fearful [x] Anxious [] Often cries [] Exhaustion [x] Unable to work [] Unable to attend mandaeism [] Unable to walk/stand [] Unable to read [] Unable to drive [] Unable to eat/drink [] Unable to sleep [] Unable to be with family [] Patient intubated [] Other: Summary Lungs shortness of breath [place] he has a declining santo waiting to see how things go and the`n the next step, he hopoes his health will get batter has good attitude and will go home soon Time spent with patient 10 mins
[2021-08-22 12:03] LABS: Glucose Point of Care 162 mg/dL (70-110)
--- NOTE | 2021-08-22 12:35 | PM.PN ---
Subjective Subjective: Interval history: Patient was seen and examined this morning, adequate urine output overnight creatinine has improved Patient is endorsing feeling better, saturating well on room air no orthopnea, PND or chest pain We will keep him n.p.o. if he goes for right and left heart cath tomorrow, discontinue Eliquis, de-escalate Bumex to 2 mg daily instead of twice a day 4500 mL urine output, There is difference of 20 pounds in his weight from day of admission Vitals/I&O/Wt Last Vital Signs Temp 98.4 F 08/22/21 08:00 Pulse 89 08/22/21 08:57 Resp 22 H 08/22/21 08:57 BP 155/83 08/22/21 08:00 Pulse Ox 95 08/22/21 08:57 08/21/21 08/22/21 08/22/21 22:59 06:59 14:59 Intake Total 360 / 1320 360 / 360 Output Total 2300 / 3450 400 / 3850 Balance -1940 / -2130 -400 / -2530 360 / 360 Weight last 48 hrs Weight 191.507 kg Weight 199.581 kg Weight 195.045 kg Physical Exam Narrative: EXAM NARRATIVE: Patient was laying with semi-Alston position 25 degrees Saturating well on room air Feet looks less edematous Distended abdomen S1, S2 systolic murmur all over precordium 2/6 No genital swelling EOMI, PERRLA Saturating well on room air No focal deficit Data : 08/21/21 04:25 08/22/21 05:54 A&P Assessment and plan (1) RACHELE (acute kidney injury): Status: Acute (2) Dietary indiscretion: Status: Acute (3) CHF exacerbation: Status: Acute Qualifiers: Heart failure type: diastolic Qualified Code(s): I50.33 - Acute on chronic diastolic (congestive) heart failure (4) Aortic stenosis, moderate: Status: Acute (5) CHF (congestive heart failure), NYHA class III: Status: Acute Qualifiers: Congestive heart failure type: diastolic Congestive heart failure chronicity: acute on chronic Qualified Code(s): I50.33 - Acute on chronic diastolic (congestive) heart failure Additional A&P Information Acute presentation heart failure exacerbation Moderate aortic stenosis Considering high BMI stress test is not optimal Might plan for right and left heart cath will follow up with cardiology recommendations Plan to de-escalate Bumex to 2 mg IV push daily instead of twice a day 20 pound weight difference from day of admission, 4500 mL urine output Hold Eliquis in anticipation of procedure tomorrow RACHELE cardiorenal improved with aggressive diuretic regimen A. fib without RVR: Continue AV denice blocking agents Sleep apnea, auto CPAP at night N.p.o. after midnight Hold Eliquis Full code Attestations Medical Necessity Statement*: Continue medical management Time Spent in Patient Care: 16 - 35 minutes Coding Level of Care Code Acute Rubber Extrusion Machine Operator for Chg Fwd Diagnoses RACHELE (acute kidney injury) N17.9 Dietary indiscretion R63.8 CHF exacerbation I50.33 Heart failure type: diastolic Aortic stenosis, moderate I35.0 CHF (congestive heart failure), NYHA class III I50.33 Congestive heart failure type: diastolic Congestive heart failure chronicity: acute on chronic
--- NOTE | 2021-08-22 13:10 | P.PN_ITS ---
Subjective Subjective: Interval history: UO 3.8 L, -2.5 L, LOS- 2.7 Patient declined telemetry. Weight patient's weight today is 422 pounds <--440 lb (08/20/21) Medications: Reviewed: Yes Medication Review Details: Current Medications Acetaminophen (Acetaminophen 325 Mg Tablet) 325 - 650 mg PO Q4H PRN PRN Reason: MILD PAIN OR INCREASE TEMP Last Admin: 08/22/21 10:26 Dose: 650 mg Documented by: Albuterol/Ipratropium (Ipratropium-Albuterol 3 Ml Neb) 3 ml INHALATION Q6H PRN PRN Reason: SHORTNESS OF BREATH Last Admin: 08/22/21 08:54 Dose: 3 ml Documented by: Allopurinol (Allopurinol 100 Mg Tablet) [facility] [place] Last Admin: 08/22/21 06:06 Dose: 200 mg Documented by: Amiodarone HCl (Amiodarone 200 Mg Tablet) 200 mg PO [facility] Last Admin: 08/22/21 06:07 Dose: 200 mg Documented by: Apixaban (Apixaban 5 Mg Tablet) 5 mg PO BID [facility] Last Admin: 08/22/21 08:32 Dose: 5 mg Documented by: Ascorbic Acid (Ascorbic Acid 500 Mg Tablet) 500 mg PO [facility] Last Admin: 08/22/21 06:05 Dose: 500 mg Documented by: Aspirin (Aspirin 81 Mg Chew Tablet) 81 mg PO QAM [facility] Last Admin: 08/22/21 06:05 Dose: 81 mg Documented by: Atorvastatin Calcium (Atorvastatin 40 Mg Tablet) 20 mg PO [facility] Last Admin: 08/22/21 06:06 Dose: 20 mg Documented by: Bumetanide (Bumetanide 0.25 Mg/Ml Sdv 10 Ml) 2 mg IVP Q24H [facility] Dextrose (Dextrose 50% Syringe 50 Ml) 25 ml IVP ONCE PRN; Protocol PRN Reason: hypoglycemia protocol Dextrose (Dextrose 50% Syringe 50 Ml) 50 ml IVP PRN PRN; Protocol PRN Reason: hypoglycemia protocol Glucagon (Glucagon 1 Mg/Ml Inj 1 Ml) 1 mg IM ONCE PRN; Protocol PRN Reason: Adult Acute Hypoglycemia Prot. Dextrose (D5w) 500 mls @ 100 mls/hr IV ONCE PRN; Protocol PRN Reason: Adult Acute Hypoglycemia Prot Insulin Aspart (Insulin Aspart 100 Unit/1 Ml) 0 unit SUBCUT WM&BEDTIME [facility]; Protocol Last Admin: 08/22/21 12:57 Dose: 4 unit Documented by: Insulin Glargine (Insulin Glargine 100 Units/1 Ml) 30 unit SUBCUT DAILY [facility] Last Admin: 08/22/21 08:32 Dose: 30 unit Documented by: Levothyroxine Sodium (Levothyroxine 50 Mcg Tablet) 50 mcg [facility] [place] Last Admin: 08/22/21 06:08 Dose: 50 mcg Documented by: Lisinopril (Lisinopril 10 Mg Tablet) 10 mg PO QAM [facility] Last Admin: 08/21/21 05:54 Dose: 10 mg Documented by: Metoprolol Succinate (Metoprolol Succinate Er (24 Hr) 25 Mg Tablet) 37.5 mg PO BID [facility] Last Admin: 08/22/21 08:32 Dose: 37.5 mg Documented by: Potassium Chloride (Potassium Chloride Er 20 Meq Tablet) 20 meq PO BID [facility] Last Admin: 08/22/21 08:32 Dose: 20 meq Documented by: Pramipexole Dihydrochloride (Pramipexole 0.25 Mg Tablet) 1 mg PO BEDTIME [facility] Last Admin: 08/21/21 21:06 Dose: 1 mg Documented by: Venlafaxine HCl (Venlafaxine Er (24hr) 75 Mg Capsule) 75 mg PO [facility] Last Admin: 08/22/21 06:08 Dose: 75 mg Documented by: Vitals/I&O/Wt Last Vital Signs Temp 98.4 F 08/22/21 08:00 Pulse 89 08/22/21 08:57 Resp 22 H 08/22/21 08:57 BP 155/83 08/22/21 08:00 Pulse Ox 95 08/22/21 08:57 08/21/21 08/22/21 08/22/21 22:59 06:59 14:59 Intake Total 360 / 1320 360 / 360 Output Total 2300 / 3450 400 / 3850 Balance -1940 / -2130 -400 / -2530 360 / 360 Weight last 48 hrs Weight 422 lb 3.2 oz Weight 440 lb Weight 430 lb Physical Exam Narrative: EXAM NARRATIVE: GENERAL: Morbidly obese man lying in bed in no acute respiratory distress HEENT: Pupils equal round reactive to light. No pallor or icterus. NECK: Small thick neck, JVD not appreciated CARDIOVASCULAR SYSTEM: S1-S2 regular. Grade 3/6 systolic murmur in aortic area RESPIRATORY SYSTEM: Decreased breath sounds due to body habitus. No wheezes or rales. ABDOMEN: Soft, nontender and obese. Normal bowel sounds present. EXTREMITIES: No cyanosis or clubbing. 2-3+ bilateral leg edema. HOROLOGIST APPRENTICE: Patient is alert oriented ?3. No focal neurological deficits. SKIN: Normal turgor and temperature. PSYCH: Normal insight and judgment. Data : 08/21/21 04:25 08/22/21 05:54 A&P Assessment and plan (1) CHF exacerbation: Decompensated heart failure with preserved ejection fraction -Right ventricle not well visualized but appears to be functioning normally on TDS study. -Decrease Bumex to 2 mg IV daily for today, good urine output so far. -He remains in sinus rhythm. Underlying ischemia could be a possible etiology for his worsening SMITH and CHF exacerbation. -Patient has multiple CAD risk factors with last stress test 7 years ago. -Recommend left and right cardiac cathetarization for assessment of coronaries as well as assessment of aortic valve. - stress test will likely not help much given BMI ~58 and weight 422 lb. -Plan for procedure tomorrow at noon with Dr. Bhatia. Jareth Yusuf in prep for Cath. Risks and benefits were discussed with the patients. Possible complications were reviewed with the patient as well. Plan is to proceed with the procedure tomorrow. Status: Acute Qualifiers: Heart failure type: diastolic Qualified Code(s): I50.33 - Acute on chronic diastolic (congestive) heart failure (2) RACHELE (acute kidney injury): f/u BMP with normal creatinine. Status: Acute (3) HTN (hypertension): Status: Acute Qualifiers: Hypertension type: essential hypertension Qualified Code(s): I10 - Essential (primary) hypertension Additional A&P Information Paroxysmal atrial flutter/fibrillation Elevated troponin Aortic stenosis: Moderate to severe aortic stenosis by continued equation with a peak velocity of 3.3 m/s, peak gradient 45 mmHg and mean gradient 25 mmHg. Aortic valve area 1.1 cm? (LVOT 21 mm). Indexed aortic valve area 0.3 cm2/m2. DVI -0.27 Diabetes mellitus type 2 Bifascicular block Morbid obesity Obstructive sleep apnea on CPAP Thank you for allowing me to participate in patient's care. Please please feel free to call with questions or concerns. Attestations Medical Necessity Statement*: Needs hospital stay for decompensated CHF and f urther w/u for moderate to severe Time Spent in Patient Care: Greater than 35 minutes (>than 50% of time spent in counselling and/or direct pt care on unit) . Coding Level of Care Code Acute Correctional Substance Abuse Counselor for [place] Fwd Diagnoses CHF exacerbation I50.33 Heart failure type: diastolic RACHELE (acute kidney injury) N17.9 HTN (hypertension) I10 Hypertension type: essential hypertension
[2021-08-22 17:20] LABS: Glucose Point of Care 155 mg/dL (70-110)
[2021-08-22] MEDS: insulin lispro 100 unit/1 mL SUBCUT ×2 (17:41→21:09)
[2021-08-22] MEDS: azithromycin 250 mg Tablet 500 MG PO (17:42)
[2021-08-22] MEDS: pramipexole 0.25 mg Tablet 1 MG PO (20:39)
[2021-08-22 21:02] LABS: Glucose Point of Care 204 mg/dL (70-110)
[2021-08-23] VITALS (20 sets, daily range): BP systolic 133–173; BP diastolic 63–87; PULSE 70–79; RESP 16–70; TEMP 36.5–37; O2SAT 91–97
[2021-08-23] MEDS: ascorbic acid 500 mg Tablet PO (05:23)
[2021-08-23] MEDS: levothyroxine 50 mcg Tablet PO (05:23)
[2021-08-23] MEDS: amiodarone 200 mg Tablet PO (05:23)
[2021-08-23] MEDS: atorvastatin 40 mg Tablet 20 MG PO (05:23)
[2021-08-23] MEDS: aspirin 81 mg Chew Tablet 324 MG PO (05:24)
[2021-08-23] MEDS: allopurinol 100 mg Tablet 200 MG PO (05:24)
[2021-08-23] MEDS: venlafaxine ER (24HR) 75 mg Capsule PO (05:24)
[2021-08-23 06:20] LABS: Anion Gap 11.5 (5-19); Blood Urea Nitrogen 19 mg/dL (8-23); Calcium 8.9 mg/dL (8.5-10.5); Carbon Dioxide 33 mmol/L (22-29); Chloride 101 mmol/L (98-107); Glucose 134 mg/dL (65-115); Magnesium 2.2 mg/dL (1.7-2.3); NT Pro B Type Natriuretic Pept 112 pg/mL (0-125); Osmolality Calculated 296 mOsm/kg (285-295); Potassium 4.5 mmol/L (3.5-5.1); Sodium 141 mmol/L (136-145)
[2021-08-23 06:25] LABS: Glucose Point of Care 136 mg/dL (70-110)
[2021-08-23] MEDS: acetaminophen 325 mg Tablet PO (06:45)
[2021-08-23] MEDS: metoprolol succinate ER (24 HR) 25 mg Tablet 37.5 MG PO ×2 (09:15→18:38)
[2021-08-23] MEDS: potassium chloride ER 20 mEq Tablet PO ×2 (09:15→18:38)
[2021-08-23] MEDS: azithromycin 250 mg Tablet 500 MG PO (09:15)
[2021-08-23] MEDS: diphenhydrAMINE 50 mg Capsule PO (11:07)
[2021-08-23 11:13] LABS: Glucose Point of Care 123 mg/dL (70-110)
--- NOTE | 2021-08-23 12:29 | P.HPUD_ITS ---
Surgery/Procedure H&P Update DATE OF PROCEDURE: August 23, 2021 DATE H&P PERFORMED: 08/21/21 H&P UPDATE INFORMATION: I have reviewed H&P completed within last 30 days, I have examined patient prior to procedure and No changes to prior documentation PREOP DIAGNOSIS: Aortic stenosis/ Congestive heart failure PRIMARY INDICATION FOR PROCEDURE: Aortic stenosis/ Congestive heart failure PLANNED PROCEDURE: Operation Date: 08/23/21 12:00 Proposed Procedures p Cardiac Catheterization rigth and left heart cath(Bilateral) - Jaspal orellana M.D Possible percutaneous coronary intervention PATIENT REASSESSED PRIOR TO SEDATION, WITH NO CHANGE NOTED: Yes PHYSICAL EXAM: alert, oriented x 3, clear to auscultation bilaterally and regular rate & rhythm AIRWAY EVAL/ANESTHESIA PLAN: ASA III, Monitored Anesthesia, Local Anesthesia, Risks, benefits & alternatives of sedation and/or procedure discussed and Patient agrees to continue as planned
--- NOTE | 2021-08-23 14:10 | PC.NURSE ---
Pt arrived to room 101 from clinical lab clerk at approximately 1400. Pt had TR Band on right wrist. No hematoma, swelling or bleeding noted around the TR band. Pt had no c/o pain or discomfort at the present time. Call light in reach. Will continue to monitor.
--- NOTE | 2021-08-23 14:45 | PM.PN ---
Subjective Subjective: Interval history: Status post PCI of RCA stent as per my discussion with Dr. Radford Diarrhea consistent with mary beth Patient is endorsing feeling the same No orthopnea PND no chest pain Lower extremity swelling. The same as yesterday Weight today 191 kg Vitals/I&O/Wt Last Vital Signs Temp 97.7 F 08/23/21 11:27 Pulse 79 08/23/21 11:27 Resp 20 H 08/23/21 11:27 BP 163/76 08/23/21 11:27 Pulse Ox 91 08/23/21 11:27 08/22/21 08/23/21 08/23/21 22:59 06:59 14:59 Output Total 750 / 1350 400 / 1750 350 / 350 Balance -750 / -870 -400 / -1270 -350 / -350 Weight last 48 hrs Weight 191.144 kg Weight 191.507 kg Physical Exam Narrative: EXAM NARRATIVE: Patient was in semi-Alston position saturating well on room air Clinical signs of fluid overload however slight improvement of lower extremity edema Pedal edema positive Distended abdomen however less tense as compared to yesterday EOMI, PERRLA Saturating well on room air No focal deficit Data : 08/21/21 04:25 08/23/21 05:35 Micro: Microbiology 08/22/21 11:57 Enteric Pathogens (PCR) - Final Stool Parasite Antigen Panel - Final 08/22/21 11:57 C.difficile Toxin B Gene (PCR) - Final Stool A&P Assessment and plan (1) RACHELE (acute kidney injury): Status: Acute (2) Dietary indiscretion: Status: Acute (3) CHF exacerbation: Status: Acute Qualifiers: Heart failure type: diastolic Qualified Code(s): I50.33 - Acute on chronic diastolic (congestive) heart failure (4) S/P right coronary artery (RCA) stent placement: Status: Acute (5) Aortic stenosis, moderate: Status: Acute (6) CHF (congestive heart failure), NYHA class III: Status: Acute Qualifiers: Congestive heart failure type: diastolic Congestive heart failure chronicity: acute on chronic Qualified Code(s): I50.33 - Acute on chronic diastolic (congestive) heart failure Additional A&P Information Preserved ejection fraction heart failure progress to class IV Moderate aortic valve stenosis Patient symptoms improved with diuresis Status post RCA stent 08/23 Continue aspirin, Plavix high-dose statins No active chest pain Bumex 1 mg daily RACHELE secondary to cardiorenal: Improved with diuresis Patient counseled on balanced meals, low sodium intake Compylobacter diarrhea: Continue azithromycin for 3 more days Sleep apnea: Uses BiPAP at night Moderate dose sliding scale for history of diabetes Full code DVT prophylaxis currently on Eliquis for history of A. fib Attestations Medical Necessity Statement*: Anticipating discharge tomorrow home Time Spent in Patient Care: 16 - 35 minutes Coding Level of Care Code Acute User Experience Developer for Chg Fwd Diagnoses RACHELE (acute kidney injury) N17.9 Dietary indiscretion R63.8 CHF exacerbation I50.33 Heart failure type: diastolic S/P right coronary artery (RCA) stent placement Z95.5 Aortic stenosis, moderate I35.0 CHF (congestive heart failure), NYHA class III I50.33 Congestive heart failure type: diastolic Congestive heart failure chronicity: acute on chronic
--- NOTE | 2021-08-23 16:16 | XACV_ITS ---
Exam Room: [facility] Ht: 185 cm Wt: 191 kg BSA: 3.25 m2 Gender: Male : 1950 Any Known Allergies: No known allergies Exam Priority: Routine Procedure(s): Procedure Description: Diagnostic procedure Procedure Description: PCI procedure Procedure Description: Left Heart Catheterization Procedure Description: Drug Eluting Coronary Stent Procedure Description: PTCA Procedure Description: Miscellaneous Procedure Description: ACT Procedure Description: Coronary Angiography Diagnostic Cath Status: Urgent Diagnostic Findings * Left Main is short and has no signficant disease. * Left Anterior Descending has mild luminal irregularities. * INDICATION: Worsening dyspnea on exertion/congestive heart failure/ aortic stenosis. * Aortic valve findings: Peak to peak gradient: 42mmHg Mean gradient: 26 mmHg. * Circumflex has no disease. * Mid Right Coronary Artery: significant 80% stenosis, MEGGAN: 3 flow. * Coronary angiography shows right dominance. PCI Status: Urgent PCI Indication: Other Interventional Findings * PCI indication: Severe mid RCA stenosis/ worsening dyspnea on exertion. * Procedure Detail: Procedure details: We engaged RCA with a JR4 guide catheter. IV heparin was administered to maintain an ACT above 250 seconds. A 0.014 run-through guidewire was used to cross the stenosis and was placed in distal vessel. 2.5 x 12 mm semicompliant balloon was used to predilate the stenosis in the mid RCA. This was followed by placement of 3.5 x 18 mm resolute Oxford drug-eluting stent. We postdilated the proximal part of stent with 3.75 x 8 mm NC balloon. At this time final angiogram was performed that showed excellent stent expansion, MEGGAN-3 flow and no residual stenosis. Guidewire and guide catheter were removed. Patient left the Chemist [employer] in a stable condition.. * Mid Right Coronary Artery: 80% stenosis treated with a AB TREK 2.50X12 RX BALLOON, RACHEL Bass GRACIELA 3.5X18 ASHLEY, and RACHEL MAE EUPHORA RX [id number] BALLOON. 0% residual stenosis, MEGGAN: 3 flow. Conclusions 1. Severe mid RCA stenosis s/p successful revascularization with ASHLEY x 1. 2. Moderate aortic stenosis with mean gradient across the aortic valve of 26mmHg. Recommendations * Transfer to [facility]. * Continue Eliquis and Plavix. * High intensity statin therapy. * Outpatient cardiology follow up in 4 weeks. Interventional RX Recommendation: PCI w/o planned CABG Diagnostic RX Recommendation: PCI w/o planned CABG Anticoagulation: Heparin Pressures Phase:Rest AO : 165 / 91 ( 117 ) @ 11:52:00 AM 155 / 89 ( 114 ) @ 12:03:00 PM 124 / 84 ( 99 ) @ 12:22:00 PM 157 / 82 ( 109 ) @ 12:35:00 PM 163 / 66 ( 106 ) @ 12:35:00 PM 145 / 77 ( 103 ) @ 12:35:00 PM LV : 213 / 9 / 29 @ 12:34:00 PM 197 / 8 / 28 @ 12:35:00 PM 194 / 5 / 27 @ 12:35:00 PM Valves Phase:DefaultPhase AV : 42.0 @ 1:49:01 PM AV Mean Gradient: 26.0 @ 1:49:01 PM Clinical Evaluation EBL: 5mL-10mL Procedural Details Procedure Consent Obtained. Pre-Procedure Time Out. Identified patient by full name and date of as verbalized by the patient/guarantor. Does the consent match the physician's order: Yes. Accurate & Complete Informed Consent: Yes. Inpatient/Outpatient History & Physical on Chart: Yes. If H&P is completed, is and addenduem needed: No; If yes, is the addendum complete: N/A. Visualize and Verify Site with Patient/Guarantor: N/A. Relevant Radiology Images available: N/A. Pre-op teaching completed and patient verbalized understanding. The risks, benefits, and alternatives of sedation and/or procedure were discussed by physician. The patient agrees to continue. Procedure started. [facility] Clinical Fraility Score: 4: Vulnerable. [employer] Indications: CHF, aortic stenosis. Chest Pain Symptom Assessment: Atypical Angina. Cardiovascular Instability: No. Correct patient, site and procedure confirmed by cath team. PERRLA. Strong, equal hand stock room manager bilaterally. Lungs clear x 5 lobes. IV Site on Arrival: 20 gauge in the right hand. IV Fluids: 0.9% NaCl at KVO. 0 mL infused prior to cardiac cath rn. right groin was prepped with chloroprep then draped in the usual sterile fashion. right radial was prepped with chloroprep then draped in the usual sterile fashion. right brachial was prepped with chloroprep then draped in the usual sterile fashion. Baseline sample Acquired. HR: 78 BPM. Equipment: 6F - Radial. Attempt to call Dr Bhatia. Went to voicemail. Cardiac Cath Pack. ACIST Manifold Kit Model BT 2000. Heparinized Saline (2 units/mL), 1000 mL bag. Physician notified. Physician arrived. Physician scrubbed in. Immediate Pre-Procedure Time Out. Correct Patient: Yes; Correct Procedure: Yes; Correct Site: Yes; Correct Patient Position: Yes; Correct Supplies: Yes; Dried Flammable Prep: Yes; Blood Products Available: N/A;. A 20 gauge IV was started in the right anticubital using aseptic technique. Lidocaine 1% infiltrated to the right brachial. Ultrasound machine used to obtain venous access. Venous access obtained with a micropuncture set. Wire and needle out. Lidocaine 1% infiltrated to the right radial. Arterial access obtained. Oxygen started at 2liters/min via nasal canula. A TR 6FR Radial TIG 4.0 110cm was advanced over the wire and used for Left coronary angiography. Multiple views taken of left coronary artery. Catheter redirected to the RCA. Catheter removed over the exchange wire. Inventory is CRD 6FR JR 4 GUIDE 100cm. Inventory is TR 180cm Runthrough NS extra floppy 0.014 wire. 6 panamanian JR 4 guide catheter was inserted over the wire. ACT drawn. Results 222 seconds. Therapeutic limits - pre-heparin administration 90-150 seconds and monitoring heparin during a vascular procedure >250 seconds. Runthrough guidewire was advanced through the guide catheter to lesion in the mid RCA. Inflation number : 1 A AB TREK 2.50X12 RX BALLOON was prepped and advanced across the Mid RCA , then inflated to 12 YEHUDA for 0:27 seconds. Balloon and wire out. Inflation Number : 2 A MDT R GRACIELA 3.5X18 ASHLEY -Lot Number# [id number] exp date 04/16/2024 was prepped and advanced across the Mid RCA. The stent was deployed at 12 YEHUDA for 0:29 seconds. Stent balloon out over wire. ACT drawn. Results 358 seconds. Therapeutic limits - pre-heparin administration 90-150 seconds and monitoring heparin during a vascular procedure >250 seconds. Inflation number : 3 A MDT NC EUPHORA RX [id number] BALLOON was prepped and advanced across the Mid RCA , then inflated to 12 YEHUDA for 0:21 seconds. Inflation number: 4 The MDT NC EUPHORA RX [id number] BALLOON was reinflated across the Mid RCA, to 12 YEHUDA for 0:17 seconds. Inflation number: 5 The MDT NC EUPHORA RX [id number] BALLOON was reinflated across the Mid RCA, to 14 YEHUDA for 0:12 seconds. Balloon out. Results checked. Wire out. Guide catheter out. A 5 panamanian Angled Pig catheter in over wire. Catheter removed over the exchange wire. A 5 panamanian AR MOD catheter in over wire. Catheter removed over the exchange wire. A 5 panamanian TIG catheter in over wire. EDP Sample taken: LV 213/9,29; HR: 60 BPM; SpO2: 97%. EDP Sample taken: LV 197/8,28; HR: 78 BPM; SpO2: 98%. Pullback taken: LV 194/5,27; AO 157/82(109); Mean: 26mmHg, Peak to Peak: 42mmHg, SEP: 22sec/min; HR: 78 BPM; SpO2: 97%. Catheter removed over the exchange wire. ACT drawn. Results 205 seconds. Therapeutic limits - pre-heparin administration 90-150 seconds and monitoring heparin during a vascular procedure >250 seconds. Physician scrubbed out. A TR Band was successful obtaining hemostatsis at the Right Radial artery insertion site. TR band placed. Hemostasis obtained. Post Procedure: Pulses reassessed and unchanged. PERRLA. Strong, equal hand stock room manager bilaterally. No VTE prophylaxis required. Medication's Wasted: Lidocaine 1% = 17 mL. Medication's Wasted: Nitro = 49.6 mg. Total IV fluids: 74 mL. Contrast type used: Omnipaque 300 mgI/mL, 500 mL bottle. Complications: none. Post-op diagnosis: severe mid RCA stenosis, Moderate aortic stenosis. Estimated blood loss: 5mL-10mL. Procedure completed. Patient transferred by wheelchair to 1st floor. Vital chart was stopped. Access Site Site: Right Radial artery Sheath Size: 6 Fr Hemostasis Method: TR Band Hemostasis Success: Successful Procedure Medications Start: 12:28 PM Stop: 12:28 PM Medication: Versed Amount: 1 mg Route: I.V. Start: 12:28 PM Stop: 12:28 PM Medication: Fentanyl Amount: 50 mcg Route: I.V. Start: 12:51 PM Stop: 12:51 PM Medication: Heparin Amount: 5000 units Start: 1:00 PM Stop: 1:00 PM Medication: Heparin Amount: 88960 units Route: I.V. Start: 1:06 PM Stop: 1:06 PM Medication: Heparin Amount: 2000 units Route: I.V. Start: 1:11 PM Stop: 1:11 PM Medication: Heparin Amount: 1000 units Route: I.V. Start: 1:20 PM Stop: 1:20 PM Medication: Nitrogylcerin Amount: 200 mcg Route: I.C. Start: 12:50 PM Stop: 12:50 PM Medication: Nitrogylcerin Amount: 200 mcg Route: I.A. Start: 1:40 PM Stop: 1:40 PM Medication: Heparin Amount: 3000 units Route: I.V. Start: 1:41 PM Stop: 1:41 PM Medication: Plavix Amount: 600 mg Route: P.O. I, the attending physician, have reviewed and verified all procedure medications. Yes, all medications given per verbal order History/Risk Factors Hypertension: Yes Dyslipidemia: Yes Peripheral Arterial Disease (PAD): No Myocardial Infarction ([place]): No Obesity: Yes Renal Disease: No Tobacco Use: Never Prior Interventions PCI: No CABG: No Valve Surgery: No Report Signatures Finalized by Jaspal Bhatia MD on 09/07/2021 01:28 PM
[2021-08-23 18:35] LABS: Glucose Point of Care 216 mg/dL (70-110)
--- NOTE | 2021-08-23 19:36 | PC.NURSE ---
TR Band removed at approximately 1800. No hematoma, swelling or bleeding noted. Pt had no c/o pain or discomfort at the present time. Call light in reach. Will continue to monitor.
[2021-08-23 19:47] LABS: Glucose Point of Care 173 mg/dL (70-110)
[2021-08-23] MEDS: insulin lispro 100 unit/1 mL SUBCUT (20:29)
[2021-08-23] MEDS: atorvastatin 40 mg Tablet 80 MG PO (20:30)
--- NOTE | 2021-08-23 20:44 | PC.NURSE ---
Received report from RIKKI Packer. Patient resting in bed watching TV. Patient s/p C with right radial access. Dressing in place to right wrist remains c,d,i with no s/s of bleeding or hematoma formation observed. Discussed site care and restrictions. Patient verbalized complete understanding.
[2021-08-24] VITALS (8 sets, daily range): BP systolic 129–150; BP diastolic 57–70; PULSE 73–76; RESP 18–22; TEMP 36.7–36.8; O2SAT 92–96
[2021-08-24 04:03] LABS: Basophils # 0.1 10^3/uL (0.0-0.1); Basophils % 0.9 %; Eosinophils # 0.2 10^3/uL (0.0-0.8); Eosinophils % 2.6 %; Hematocrit 41.4 % (42.0-52.0); Hemoglobin 12.9 g/dL (11.7-16.6); Lymphocytes # 1.4 10^3/uL (0.8-4.8); Lymphocytes % 22.4 %; Mean Corpuscular HGB Conc 31.2 g/dL (30.0-36.0); Mean Corpuscular Volume 99.5 fl (80-94); Mean Platelet Volume 11.6 fL (7.4-10.4); Monocytes # 0.7 10^3/uL (0.2-0.9); Monocytes % 11.3 %; Neutrophils # 3.99 10^3/uL (1.8-7.7); Nucleated Red Blood Cells % 0 %; Platelet Count 163 10^3/cmm (130-400); Red Blood Count 4.16 10^6/uL (4.1-5.3); Red Cell Distribution Width 13.9 % (12.1-15.1); White Blood Count 6.4 10^3/uL (4.0-10.0)
[2021-08-24 04:34] LABS: Anion Gap 13.3 (5-19); Blood Urea Nitrogen 18 mg/dL (8-23); Carbon Dioxide 29 mmol/L (22-29); Chloride 97 mmol/L (98-107); Creatinine Clr Calc Pharmacy 108.3767; Glucose 105 mg/dL (65-115); Osmolality Calculated 282 mOsm/kg (285-295); Potassium 4.3 mmol/L (3.5-5.1); Sodium 135 mmol/L (136-145)
[2021-08-24] MEDS: allopurinol 100 mg Tablet 200 MG PO (04:45)
[2021-08-24] MEDS: levothyroxine 50 mcg Tablet PO (04:45)
[2021-08-24] MEDS: amiodarone 200 mg Tablet PO (04:45)
[2021-08-24] MEDS: lisinopril 10 mg Tablet PO (04:45)
--- NOTE | 2021-08-24 06:30 | PC.NURSE ---
Shift Note Frequent safety and comfort rounds continue. Orders and/or nursing care completed as indicated. Patient monitored for response to intervention and treatment(s). Education provided includes post [facility] site care. Patient verbalized complete understanding. Patient had uneventful night. Patient denies pain or needs. No distress observed. . Will continue to monitor.
[2021-08-24 06:40] LABS: Glucose Point of Care 125 mg/dL (70-110)
--- NOTE | 2021-08-24 09:32 | P.PN_ITS ---
Subjective Subjective: Interval history: Patient is doing well. He underwent coronary angiogram yesterday that showed severe mid RCA stenosis. Mean gradient across aortic valve was 26 mmHg consistent with moderate aortic stenosis. Vitals/I&O/Wt Last Vital Signs Temp 98.1 F 08/24/21 08:00 Pulse 74 08/24/21 08:22 Resp 22 H 08/24/21 08:22 BP 129/57 08/24/21 08:00 Pulse Ox 96 08/24/21 08:22 08/23/21 08/24/21 08/24/21 22:59 06:59 14:59 Intake Total 360 / 360 Output Total 500 / 500 Balance -140 / -140 Weight last 48 hrs Weight 421 lb 6.4 oz Physical Exam Narrative: EXAM NARRATIVE: GENERAL: Morbidly obese man in no distress HEENT: PERRLA NECK: No abnormalities seen CARDIOVASCULAR SYSTEM: Regular rate and rhythm. S1 plus S2, grade 3/6 systolic murmur RESPIRATORY SYSTEM: Diminished heart sounds, no wheezes or rales ABDOMEN: Soft, nontender and obese. Normal bowel sounds present. EXTREMITIES: No cyanosis or clubbing. 2 + bilateral edema MAINTENANCE SERVICES DISPATCHER: Patient is alert oriented ?3. No focal neurological deficits. SKIN: Normal turgor and temperature. PSYCH: Normal insight and judgment. Data : 08/24/21 03:14 08/24/21 03:14 Micro: Microbiology 08/22/21 11:57 Enteric Pathogens (PCR) - Final Stool Parasite Antigen Panel - Final A&P Assessment and plan (1) CHF exacerbation: Preserved LV systolic function. Has diuresed well. Close to being euvolemic. Given his worsening dyspnea on exertion and CHF exacerbation, coronary angiogram was performed as stress test accuracy would be questionable given his weight of 400+ pounds. Coronary angiogram showed severe mid RCA stenosis. He underwent successful revascularization with ASHLEY x1. Continue Eliquis. Start Plavix. Stop aspirin. Discharge on Eliquis and Plavix Aortic stenosis is moderate with mean gradient of 26 mmHg. Status: Acute Qualifiers: Heart failure type: diastolic Qualified Code(s): I50.33 - Acute on chronic diastolic (congestive) heart failure (2) RACHELE (acute kidney injury): Resolved Status: Acute (3) HTN (hypertension): Status: Acute Qualifiers: Hypertension type: essential hypertension Qualified Code(s): I10 - Essential (primary) hypertension (4) Aortic stenosis, moderate: Status: Acute (5) Atrial flutter: Status: Acute Additional A&P Information Thank you for allowing me to participate in patient's care. Patient is stable to be discharged from cardiology standpoint. Please call with questions. Attestations Medical Necessity Statement*: Care expected to cross 2 midnights. Coding Level of Care Code Acute Associate Justice for [place] Fwd Diagnoses CHF exacerbation I50.33 Heart failure type: diastolic RACHELE (acute kidney injury) N17.9 HTN (hypertension) I10 Hypertension type: essential hypertension Aortic stenosis, moderate I35.0 Atrial flutter I48.92
[2021-08-24] MEDS: potassium chloride ER 20 mEq Tablet PO (09:33)
[2021-08-24] MEDS: azithromycin 250 mg Tablet 500 MG PO (09:33)
[2021-08-24] MEDS: apixaban 5 mg Tablet PO (09:33)
[2021-08-24] MEDS: clopidogrel 75 mg Tablet PO (09:33)
[2021-08-24] MEDS: metoprolol succinate ER (24 HR) 25 mg Tablet 37.5 MG PO (09:33)
--- NOTE | 2021-08-24 09:37 | PC.SOCIAL ---
IMM update IMM updated with patient. Verbalized an understanding. Copy Pg2 provided. Initialled,dated, timed, and placed in chart.
[2021-08-24] MEDS: insulin glargine 100 units/1 mL 30 UNIT SUBCUT (10:27)
--- NOTE | 2021-08-24 11:15 | P.DS_ITS ---
Discharge Providers Date of Admission: 08/21/21 16:07 Date of Discharge: August 24, 2021 Attending Provider at Admission: Rohan Caldwell MD Attending Provider at Discharge: Rohan Caldwell MD Primary Care Provider: Ministerio Sewell MD Diagnoses at Discharge Discharge Diagnosis (1) CHF exacerbation: Status: Acute Qualifiers: Heart failure type: diastolic Qualified Code(s): I50.33 - Acute on chronic diastolic (congestive) heart failure (2) RACHELE (acute kidney injury): Status: Acute (3) HTN (hypertension): Status: Acute Qualifiers: Hypertension type: essential hypertension Qualified Code(s): I10 - Essential (primary) hypertension (4) Aortic stenosis, moderate: Status: Acute (5) Atrial flutter: Status: Acute Reason for Visit Reason for Visit: heart care sent him over sob Hospital Course Hospital Course Mr. Hardy who is a 71-year-old male, was sent from cardiology clinic for exacerbation of his shortness of breath and weight gain. Few weeks ago his diuretic regimen was increased by his crusher operator. Despite increasing diuretic dose he was experiencing shortness of breath which he described as worsening air hunger after walking upto 20 feet. He has been experiencing orthopnea, PND. Endorsed 10 pound weight gain in last 2 weeks. He does not follow any cardiac diet, as per the he does overeat and eats a lot of junk food on daily basis. Did not experience any chest pain, nausea, vomiting or diarrhea. He was admitted for management of CHF exacerbation, echo showed moderate aortic valve stenosis which has not worsened since last echo, cardiology was consulted, not a candidate of stress test due to BMI, patient went for right and left heart cath, status post stent RCA. Post PCI patient is endorsing improvement in his symptoms he remained in negative fluid balance he was diuresed aggressively with Bumex 2 mg IV twice a day which was deescalated to 1 mg at the time of discharge. He will be discharged on Plavix, Eliquis high-dose statins along with lisinopril and metoprolol succinate. Follow-up with cardiology in [address] Snider in 3- 4weeks. Patient did develop diarrhea stool studies positive for campylobacter, C. difficile negative, he was started on azithromycin Physical Exam Narrative: EXAM NARRATIVE: Patient is able to lay flat no orthopnea or PND very pleasant and cooperative during my evaluation S1, S2 variable Abdomen soft distended visceral obesity Pedal edema 1+ EOMI, PERRLA No audible stridor or wheezing Saturating well on room air Nonfocal neuro exam Discharge Data Data Completed and Pending: Completed Studies During Hospitalization Category Date Time Status CT head wo con* 7 0450 Urgent Cat Scan 08/20/21 14:51 Completed XR chest 1V kaia ble [id number] Urgent Exams 08/20/21 14:50 Completed CV. echo wo/w con trast [id number] Routin e Ultrasound 08/21/21 19:47 Completed Pending at discharge Category Date Time Status SACK KEEPER request for service Routin e Exams 08/23/21 16:16 Taken Labs from last 24 hours 08/24/21 08/24/21 08/24/21 06:35 03:14 03:14 WBC 6.4 RBC 4.16 Hgb 12.9 Hct 41.4 L MCV 99.5 H MCH 31.0 MCHC 31.2 RDW 13.9 Plt Count 163 MPV 11.6 H Neut % (Auto) 62.0 Lymph % (Auto) 22.4 Benson % (Auto) 11.3 Eos % (Auto) 2.6 Baso % (Auto) 0.9 Neut # (Auto) 3.99 Lymph # (Auto) 1.4 Benson # (Auto) 0.7 Eos # (Auto) 0.2 Baso # (Auto) 0.1 Nucleated RBC % (a uto) 0 Nucleated RBCs # 0.0 Sodium 135 L Potassium 4.3 Chloride 97 L Carbon Dioxide 29 Anion Gap 13.3 BUN 18 Creatinine 1.1 GFR Calculation Not Reportable Glucose 105 POC Glucose 125 H Calculated Osmolal ity 282 L Calcium 9.0 08/23/21 08/23/21 19:39 17:49 WBC RBC Hgb Hct MCV MCH MCHC RDW Plt Count MPV Neut % (Auto) Lymph % (Auto) Benson % (Auto) Eos % (Auto) Baso % (Auto) Neut # (Auto) Lymph # (Auto) Benson # (Auto) Eos # (Auto) Baso # (Auto) Nucleated RBC % (a uto) Nucleated RBCs # Sodium Potassium Chloride Carbon Dioxide Anion Gap BUN Creatinine GFR Calculation Glucose POC Glucose 173 H 216 H Calculated Osmolal ity Calcium Vitals: Last Vital Signs Temp 98.1 F 08/24/21 08:00 Pulse 74 08/24/21 08:22 Resp 22 H 08/24/21 08:22 BP 129/57 08/24/21 08:00 Pulse Ox 96 08/24/21 08:22 Discharge Plan Discharge Patient Disposition: Home Condition: Stable Prescriptions: New atorvastatin 40 mg Tablet 80 mg PO BEDTIME 30 Days Qty: 30 RF: 2 clopidogrel 75 mg Tablet 75 mg PO DAILY 30 Days Qty: 30 RF: 3 azithromycin 500 mg tablet 500 mg PO DAILY 5 Days Qty: 5 RF: 0 bumetanide 2 mg tablet 1 mg PO DAILY Qty: 30 RF: 0 Continued potassium chloride 20 mEq tablet extended release 20 meq PO BID Qty: 180 RF: 4 ascorbic acid (vitamin C) [Vitamin C] 500 mg Tablet 500 mg PO QAM RF: 0 Tylenol 8 Hour 650 mg Tablet Extended Release 2,600 mg PO BEDTIME RF: 0 pramipexole 0.5 mg tablet 1 mg PO BEDTIME RF: 0 levothyroxine 50 mcg tablet 50 mcg PO QAM RF: 0 lisinopril 10 mg tablet 10 mg PO QAM RF: 0 Miralax 17 gram/dose Powder 17 g PO DAILY RF: 0 amiodarone 200 mg tablet 200 mg PO QAM RF: 0 metoprolol succinate 25 mg tablet extended release 24 hr 37.5 mg PO BID 30 Days Qty: 270 RF: 3 Eliquis 5 mg tablet 5 mg PO BID 30 Days Qty: 60 RF: 0 latanoprost 0.005 % drops 1 drp ophthalmic (eye) BEDTIME RF: 0 venlafaxine 75 mg capsule,extended release 24hr 75 mg PO QAM RF: 0 allopurinol 100 mg tablet 200 mg PO QAM RF: 0 amlodipine 10 mg tablet 10 mg PO QAM RF: 0 doxazosin 2 mg tablet 2 mg PO QAM RF: 0 Tresiba FlexTouch U-100 100 unit/mL (3 mL) insulin pen 160 unit SUBCUT QAM RF: 0 metformin 750 mg tablet extended release 24 hr 750 mg PO BID RF: 0 budesonide-formoterol [Symbicort] 80-4.5 mcg/actuation HFA aerosol inhaler 2 puff INHALATION BID RF: 0 Discontinued furosemide 40 mg tablet 60 mg PO BID Qty: 90 RF: 6 simvastatin 20 mg tablet 20 mg PO QAM RF: 0 aspirin 81 mg tablet,chewable 81 mg PO QAM RF: 0 Discharge Orders: Discharge Order (Routine); Ordered 08/24/21 Ordered By: Rohan Caldwell Referrals: Rohan Snider MD [Physician] - 6 Weeks (You will need to follow-up with Dr. Snider in 6 weeks. Please call [phone] if you have not heard from them by Thursday. Thank You.) Rachelle Lin FNP [Nurse Practitioner] - 4-7 days (You will need to follow-up with Rachelle Lin on 4 to 7 days. If you have not heard from them by Thursday afternoon please give them a call at [phone]. Thank You.) Ministerio Sewell MD [Primary Care Provider] - 4-7 days (Please follow up with your pcp in 4 to 7 days. If you have not heard from them by Thursday afternoon please call them at [phone]. Thank You.) Discharge Diet: Cardiac and Diabetic Patient Instructions: Abdominal Aortic Aneurysm, Azithromycin (By mouth), Atorvastatin (By mouth), Clopidogrel (By mouth), Coronary Angioplasty (DC), Aortic Stenosis (DC), Coronary Intravascular Stent Placement (DC), CHF Stoplight, Opioid Safety, Post Angiogram Home Care Instructions Activity Restrictions/Additional Instructions: For diarrhea take azithromycin , you have campylobacter diarrhea which is bacterial See RACHELLE LIN IN & DAYS AND THEN DR SNIDER LOW SoDIUM DIET Discharge Attestations Time Spent in Discharge Care*: less than 30 min Status at Discharge: Cognitive status at discharge: cognitively intact , Behavioral status at discharge: cooperative , Quality Metrics Clinical Quality Measures During this hospital stay, did patient experience: None Coding Level of Care Code Acute Chg FW DC note Diagnoses CHF exacerbation I50.33 Heart failure type: diastolic RACHELE (acute kidney injury) N17.9 HTN (hypertension) I10 Hypertension type: essential hypertension Aortic stenosis, moderate I35.0 Atrial flutter I48.92
[2021-08-24 11:24] LABS: Glucose Point of Care 129 mg/dL (70-110)
--- NOTE | 2021-08-24 13:38 | PC.NURSE ---
Discharge Note Patient discharged to home via wheelchair accompanied by . Discharge instructions reviewed with patient and/or sales support representative. Post angiogram home care instructions provided to pt. Mobile pharmacy medications and/or prescriptions provided. Belongings/home medications returned.
--- NOTE | 2021-08-28 08:48 | PC.SOCIAL ---
discharge follow up call made, spoke with patients . she reports patient got out yesterday and is feeling better, breathing is much easier. patient received all medications from the pharmacy, discussed new and discontinued medications with , he is taking as directed. patient follow up appointment made with dimple arrieta and dr. landaverde, give those dates and times. patient has follow up with pcp. denies questions or concerns.
== END 2021-08-24 13:37 | disposition home or self-care (01) | DRG 246 ==
LOC: ER 16:09 → MEDSURG 18:20 → CSU 08-23 14:22
PROVIDERS: Internal Medicine; Admitting Provider Internal Medicine; Emergency Provider Emergency Medicine; PCP Family Medicine; Visit Provider Internal Medicine
PROC: 027034Z Dilation of Coronary Artery, One Artery with Drug-eluting Intraluminal Device, Percutaneous Approach (ICD-10-PCS; principal; 2021-08-23 12:00)
PROC: 027034Z Dilation of Coronary Artery, One Artery with Drug-eluting Intraluminal Device, Percutaneous Approach (ICD-10-PCS; 2021-08-23 12:00)
DX: I13.0 Hypertensive heart and chronic kidney disease with heart failure and stage 1 through stage 4 chronic kidney disease, or unspecified chronic kidney disease (principal); I50.33 Acute on chronic diastolic (congestive) heart failure; Z68.43 Body mass index [BMI] 50.0-59.9, adult; N17.9 Acute kidney failure, unspecified; N18.9 Chronic kidney disease, unspecified; E11.22 Type 2 diabetes mellitus with diabetic chronic kidney disease; I48.0 Paroxysmal atrial fibrillation; I35.0 Nonrheumatic aortic (valve) stenosis; M10.9 Gout, unspecified; Z87.440 Personal history of urinary (tract) infections; Z82.49 Family history of ischemic heart disease and other diseases of the circulatory system; G47.33 Obstructive sleep apnea (adult) (pediatric); E66.01 Morbid (severe) obesity due to excess calories; I45.10 Unspecified right bundle-branch block; B96.89 Other specified bacterial agents as the cause of diseases classified elsewhere; Z79.01 Long term (current) use of anticoagulants; Z79.84 Long term (current) use of oral hypoglycemic drugs; I25.10 Atherosclerotic heart disease of native coronary artery without angina pectoris
CPT/HCPCS: 36415; 36416; 36600; 70450; 71045; 80048; 80053; 82803; 82962; 83036; 83605; 83735; 83880; 84145; 84443; 84484; 85025; 85347; 87426; 87493; 87506; 93005; 93458; 94640; 94660; 96372; 96374; 99285; C1725; C1769; C1874; C1887; C1894; C8929; C9600; G0378; J1644; J1815 ×2; J1940; J2250; J3010; J3490; J7030; Q0144; Q0163; Q9956; Q9967

== ENCOUNTER → 2021-09-05 10:30 | Outpatient (BNVA) | payer MEDICARE, OTHER, SELFPAY | PROVIDERS: PCP Family Medicine; Visit Provider Nurse Practitioner Family | DX: I48.92 Unspecified atrial flutter (principal); Z95.5 Presence of coronary angioplasty implant and graft; I11.0 Hypertensive heart disease with heart failure; I50.33 Acute on chronic diastolic (congestive) heart failure; I25.10 Atherosclerotic heart disease of native coronary artery without angina pectoris | CPT/HCPCS: 80048; 83880 ==

== ENCOUNTER 2021-12-02 09:48 | Emergency (ER) | payer MEDICARE, OTHER, SELFPAY ==
[2021-12-02 09:56] VITALS: BP 194/50; PULSE 84; RESP 22; O2SAT 98; BMI 56.6
--- NOTE | 2021-12-02 10:00 | XR_ITS ---
WS: [id number] Exam: XR chest 1V portable [id number] Date/Time of Exam: 12/02/2021 10:02 AM Reason For Exam: dyspnea/cough Comparison 08/20/2021. Right perihilar infiltrate as well as infiltrate in the right lower lobe noted. Left lung is clear. H eart size is top limits normal for technique. No pleural effusions or pneumothorax. The mediastinum a nd bony thorax are unremarkable. XR/XR chest 1V portable [id number] IMPRESSION: 1. Right perihilar and right basal infiltrate suggesting pneumonia.
[2021-12-02 10:03] VITALS: BP 166/52; PULSE 82; RESP 24; O2SAT 100
--- NOTE | 2021-12-02 10:12 | W.ED.SOB ---
HPI - SOB/Dyspnea General: Chief Complaint: Shortness of Breath/Dyspnea Stated Complaint: Chest pain Time Seen by Provider: 12/02/21 09:49 History of Present Illness: HPI Narrative: 71-year-old male presents emergency room with complaint of shortness of breath. He has significant orthopnea as well. He is normally on oxygen but I am unable to get from them what he usually has it on they have been turning it up to 5 L because he feels short of breath. On arrival here when I came in the room he is on 4 L and maintaining a sat of 98 to 99%. He denies any chest pain. He has not had any recent change in medications he has chronic swelling of his legs which he feels is for the most part unchanged. He is continue to take all of his medicines has not really noticed anything that improves his symptoms besides sitting upright. Worsens with any exertional activity even just walking or with lying flat. In August of this year he was hospitalized with CHF ultimately went to cardiac Peeler Operator and had a mid RCA lesion treated with a drug-eluting stent. He has a history of diabetes atrial fibrillation as well he is on Eliquis and Plavix which he is continue to take. He states he is also been taking all of his diuretics he reports he has had decreased urine output recently. MD elicited complaint: shortness of breath and cough Pertinent past history: COPD, congestive heart failure and diabetes Context: occurred during exertion Timing: constant Severity: mild Exacerbating factors: lying flat and exertion Relieving factors: oxygen, rest and upright position Known history of: congestive heart failure and diabetes Associated symptoms: Reports cough and orthopnea; Deny abdominal pain, chest congestion, chest pain, diaphoresis, dizziness, extremity pain, fever(s), hemoptysis, lightheadedness, myalgias, nausea, palpitations, paresthesias, polydipsia, polyuria, rash or sense of impending doom Treatment prior to arrival: oxygen Review of Systems Const: Denies: fever(s) or diaphoresis ENMT: Denies: throat pain, ear or mastoid pain, nasal discharge or nasal congestion Card: Reports: orthopnea; Denies: chest pain, palpitations or lightheadedness Resp: Reports: dyspnea; Denies: hemoptysis or chest congestion GI: Denies: abdominal pain or nausea : Denies: flank pain, dysuria, urinary frequency or urinary urgency Musc: Denies: extremity pain Skin/Breast: Denies: rash or pruritus Neuro: Denies: dizziness Endo: Denies: polyuria or polydipsia PFSH ED PFSH: Medical History Acute kidney injury superimposed on CKD Aortic stenosis, moderate Atrial flutter with rapid ventricular response Patient converted to normal sinus rhythm on amiodarone drip. CHF (congestive heart failure), NYHA class III CHF exacerbation Coronary artery disease Diabetes Dietary indiscretion Gout HTN (hypertension) New onset atrial fibrillation UTI (urinary tract infection) Surgical History H/O vasectomy S/P right coronary artery (RCA) stent placement Family History Other CAD (coronary artery disease) Cancer Dementia Diabetes Family history of premature coronary artery disease Hyperlipidemia Hypertension Denies family history of Chronic kidney disease (CKD) Anesthesia complication Bleeding disorder Lung disease Stroke Social History Alcohol intake: never Physical Exam Const: GENERAL APPEARANCE: cooperative and comfortable ORIENTATION/CONSCIOUSNESS: Yes awake, Yes oriented to person, Yes oriented to place and Yes oriented to time HENMT: COMMON NORMALS: normocephalic, atraumatic and hearing grossly normal bilaterally HEAD & SCALP: normocephalic and atraumatic Neck/C-Spine: COMMON NORMALS: no JVD Resp: COMMON NORMALS: No retractions and No use of accessory muscles AUSCULTATION: crackles Laterality: bilateral (Bases) and diminished lung sounds Cardio: COMMON NORMALS: no JVD, regular rate, regular rhythm and No murmurs present (Cardio) RATE: regular rate RHYTHM: regular rhythm GI: COMMON NORMALS: Soft to palpation and No hepatosplenomegaly present AUSCULTATION: Yes normoactive bowel sounds PALPATION: Yes Soft to palpation, No Tenderness to palpation present (GI), No Guarding due to palpation present (GI) and Yes No hepatosplenomegaly present Extremity: GENERAL: Yes edema (2-3+) Neuro: SENSORIUM/ORIENTATION: Yes oriented to person, Yes oriented to place and Yes oriented to time Skin: COMMON NORMALS: no rashes or lesions noted GENERAL SKIN EXAM: no rashes or lesions noted Course Vital Signs: Vital signs: Vital Signs Pulse Rate 85 12/02/21 14:35 Respiratory Rate 22 H 12/02/21 14:35 Blood Pressure 162/56 12/02/21 14:35 Pulse Oximetry 96 12/02/21 14:35 MDM - SOB/Dyspnea MDM Narrative: Medical decision making narrative: Chest x-ray read by radiology as pneumonia we diuresed him and he is feeling significantly better he is able to be down at 2 L/min while at rest. RT came down reevaluated the patient he does need 3 L with any activity. His white count is normal. He does not have a left shift. I do think it is more heart failure we will increase his Bumex to twice daily have him recheck within the next 1 to 2 days with his primary care doctor. Lab Data: Labs: Lab Results 12/02/21 12/02/21 12/02/21 10:36 10:36 10:36 WBC 9.4 10^3/uL 10^3/ uL (4.0-10.0) RBC 3.48 10^6/uL L 10 ^6/uL (4.1-5.3) Hgb 10.7 g/dL L g/dL (11.7-16.6) Hct 35.7 % L % (42.0-52.0) MCV 102.6 fl H fl (80-94) MCH 30.7 pg pg (28.0-34.0) MCHC 30.0 g/dL g/dL (30.0-36.0) RDW 15.6 % H % (12.1-15.1) Plt Count 133 10^3/cmm 10^3 /cmm (130-400) MPV 11.6 fL H fL (7.4-10.4) Neut % (Auto) 78.7 % % Lymph % (Auto) 10.7 % % Clare % (Auto) 8.2 % % Eos % (Auto) 1.0 % % Baso % (Auto) 0.4 % % Neut # (Auto) 7.38 10^3/uL 10^3 /uL (1.8-7.7) Lymph # (Auto) 1.0 10^3/uL 10^3/ uL (0.8-4.8) Clare # (Auto) 0.8 10^3/uL 10^3/ uL (0.2-0.9) Eos # (Auto) 0.1 10^3/uL 10^3/ uL (0.0-0.8) Baso # (Auto) 0.0 10^3/uL 10^3/ uL (0.0-0.1) Nucleated RBC % (a uto) 0 % % Nucleated RBCs # 0.0 /100WBC /100W BC Sodium 141 mmol/L mmol/L (136-145) Potassium 4.8 mmol/L mmol/L (3.5-5.1) Chloride 105 mmol/L mmol/L (98-107) Carbon Dioxide 23 mmol/L mmol/L (22-29) Anion Gap 17.8 (5-19) BUN 23 mg/dL mg/dL (8-23) Creatinine 1.2 mg/dL mg/dL (0.7-1.2) GFR Calculation Not Reportable Glucose 133 mg/dL H mg/dL (65-115) Calculated Osmolal ity 298 mOsm/kg H mOs m/kg (285-295) Calcium 8.0 mg/dL L mg/dL (8.5-10.5) Total Bilirubin 0.7 mg/dL mg/dL (0.15-1.2) AST 42 U/L H U/L (0-40) ALT 56 U/L H U/L (0-41) Alkaline Phosphata se 87 IU/L IU/L (40-130) Troponin T Baselin e 46 ng/L H ng/L (0-15) Troponin T 120 Min [place] Troponin T NT-Pro-B Natriuret Pep 339 pg/mL H pg/mL (0-125) Total Protein 6.5 g/dL L g/dL (6.6-8.7) Albumin 3.9 g/dL g/dL (3.5-5.2) Globulin 2.6 g/dL g/dL (1.3-4.6) Coronavirus 229E ( PCR) SARS-CoV-2 (PCR) 12/02/21 12/02/21 12:10 13:09 WBC RBC Hgb Hct MCV MCH MCHC RDW Plt Count MPV Neut % (Auto) Lymph % (Auto) Clare % (Auto) Eos % (Auto) Baso % (Auto) Neut # (Auto) Lymph # (Auto) Clare # (Auto) Eos # (Auto) Baso # (Auto) Nucleated RBC % (a uto) Nucleated RBCs # Sodium Potassium Chloride Carbon Dioxide Anion Gap BUN Creatinine GFR Calculation Glucose Calculated Osmolal ity Calcium Total Bilirubin AST ALT Alkaline Phosphata se Troponin T Baselin e Troponin T 120 Min [place] 49.19 ng/L H ng/L (0-15) Delta Troponin T 3.19 ABS# ABS# (0-10) NT-Pro-B Natriuret Pep Total Protein Albumin Globulin Coronavirus 229E ( PCR) Not detected (NOT DETECT) SARS-CoV-2 (PCR) Not detected (NOT DETECT) Discharge Plan Discharge Patient Disposition: Home Clinical Impression: CHF (congestive heart failure), NYHA class III Condition: Stable Prescriptions: Changed bumetanide 1 mg tablet 2 mg PO BID Qty: 180 RF: 3 No Action amiodarone 200 mg tablet 200 mg PO QAM Qty: 90 RF: 3 amlodipine 10 mg tablet 10 mg PO QAM Qty: 90 RF: 3 Eliquis 5 mg tablet 5 mg PO BID Qty: 180 RF: 3 atorvastatin 80 mg tablet 80 mg PO BEDTIME Qty: 90 RF: 3 clopidogrel 75 mg tablet 75 mg PO DAILY Qty: 90 RF: 3 lisinopril 10 mg tablet 10 mg PO QAM Qty: 90 RF: 3 metoprolol succinate 25 mg tablet extended release 24 hr 37.5 mg PO BID Qty: 270 RF: 3 potassium chloride 20 mEq tablet extended release 20 meq PO BID Qty: 180 RF: 3 levofloxacin 500 mg tablet 500 mg PO DAILY 5 Days Qty: 5 RF: 0 Tylenol 8 Hour 650 mg Tablet Extended Release 2,600 mg PO BEDTIME RF: 0 pramipexole 0.5 mg tablet 1 mg PO BEDTIME RF: 0 levothyroxine 50 mcg tablet 50 mcg PO QAM RF: 0 latanoprost 0.005 % drops 1 drp ophthalmic (eye) BEDTIME RF: 0 venlafaxine 75 mg capsule,extended release 24hr 75 mg PO QAM RF: 0 allopurinol 100 mg tablet 200 mg PO QAM RF: 0 doxazosin 2 mg tablet 2 mg PO QAM RF: 0 metformin 750 mg tablet extended release 24 hr 750 mg PO BID RF: 0 budesonide-formoterol [Symbicort] 80-4.5 mcg/actuation HFA aerosol inhaler 2 puff INHALATION BID RF: 0 Tresiba FlexTouch U-100 100 unit/mL (3 mL) insulin pen 230 unit SUBCUT QAM RF: 0 Discharge Orders: Discharge ED (Routine); Ordered 12/02/21 Ordered By: Shaun Ambrose Referrals: Ministerio Sewell MD [Primary Care Provider] - Discharge Diet: Usual diet Discharge Activity: Increase activity as tolerated Patient Instructions: Opioid Safety Activity Restrictions/Additional Instructions: Increase her Bumex to 2 mg twice daily. Increase on your oxygen at 3 L/min nasal cannula 24 hours a day. Follow-up with your primary care doctor within the week. Turn if you have further problems. Case management make arrangements for you to see pulmonology. Coding Level of Care Code ED Computer Forwarding System Markup Clerk for [place] Fwd Exam Detailed
[2021-12-02] MEDS: FUROsemide 10 mg/mL SDV 10mL 60 MG IVP (10:40)
[2021-12-02 10:52] LABS: Basophils % 0.4 %; Eosinophils # 0.1 10^3/uL (0.0-0.8); Hematocrit 35.7 % (42.0-52.0); Hemoglobin 10.7 g/dL (11.7-16.6); Lymphocytes % 10.7 %; Mean Corpuscular Hemoglobin 30.7 pg (28.0-34.0); Mean Corpuscular Volume 102.6 fl (80-94); Mean Platelet Volume 11.6 fL (7.4-10.4); Monocytes # 0.8 10^3/uL (0.2-0.9); Monocytes % 8.2 %; Neutrophils # 7.38 10^3/uL (1.8-7.7); Neutrophils % 78.7 %; Nucleated Red Blood Cells % 0 %; Platelet Count 133 10^3/cmm (130-400); Red Blood Count 3.48 10^6/uL (4.1-5.3); Red Cell Distribution Width 15.6 % (12.1-15.1); White Blood Count 9.4 10^3/uL (4.0-10.0)
[2021-12-02 11:00] VITALS: BP 154/52; PULSE 83; RESP 19; O2SAT 100
[2021-12-02 11:12] LABS: Troponin(5th) Baseline 46 ng/L (0-15)
[2021-12-02 11:20] LABS: Alanine Aminotransferase 56 U/L (0-41); Albumin Level 3.9 g/dL (3.5-5.2); Alkaline Phosphatase 87 IU/L (40-130); Anion Gap 17.8 (5-19); Aspartate Amino Transferase 42 U/L (0-40); Blood Urea Nitrogen 23 mg/dL (8-23); Carbon Dioxide 23 mmol/L (22-29); Chloride 105 mmol/L (98-107); Creatinine Clr Calc Pharmacy 100.4464; Globulin 2.6 g/dL (1.3-4.6); Glucose 133 mg/dL (65-115); NT Pro B Type Natriuretic Pept 339 pg/mL (0-125); Osmolality Calculated 298 mOsm/kg (285-295); Potassium 4.8 mmol/L (3.5-5.1); Sodium 141 mmol/L (136-145); Total Bilirubin 0.7 mg/dL (0.15-1.2); Total Protein 6.5 g/dL (6.6-8.7)
[2021-12-02 12:45] LABS: Troponin 5 2HR 49.19 ng/L (0-15); Troponin 5 2HR Delta 3.19 ABS# (0-10)
[2021-12-02 13:00] VITALS: BP 162/56; PULSE 85; RESP 18; O2SAT 96
[2021-12-02 14:15] VITALS: O2SAT 84
[2021-12-02 14:35] VITALS: BP 162/56; PULSE 85; RESP 22; O2SAT 96
[2021-12-02 15:06] LABS: Adenovirus Not Detected (NOT DETECT); Chlamydia Pneumoniae Not Detected (NOT DETECT); Coronavirus 229E,HKU1,NL63,OC4 Not Detected (NOT DETECT); Human Metapneumovirus Not Detected (NOT DETECT); Human Rhinovirus/Enterovirus Not Detected (NOT DETECT); Influenza A Not Detected (NOT DETECT); Influenza A H1 Not Detected (NOT DETECT); Influenza A H1-2009 Not Detected (NOT DETECT); Influenza A H3 Not Detected (NOT DETECT); Influenza B Not Detected (NOT DETECT); Mycoplasma Pneumoniae Not Detected (NOT DETECT); Parainfluenza Virus Type 1 Not Detected (NOT DETECT); Parainfluenza Virus Type 2 Not Detected (NOT DETECT); Parainfluenza Virus Type 3 Not Detected (NOT DETECT); Parainfluenza Virus Type 4 Not Detected (NOT DETECT); Respiratory Syncytial Virus A Not Detected (NOT DETECT); Respiratory Syncytial Virus B Not Detected (NOT DETECT); SARS-COV-2 Not Detected (NOT DETECT)
--- NOTE | 2021-12-02 16:00 | ECG_ITS ---
[facility] Test Date: 2021-12-02 Pat Name: Bartolo Hardy Department: Room: Gender: Male Enrichment Director: : 1950 Requested By: Shaun Jones Order Number: [id number] Reading MD: RICK ESTRADA Measurements Intervals [place] Rate: 80 P: 57 WA: 170 QRS: -69 QRSD: 157 T: 51 QT: 429 QTc: 497 Interpretive Statements SINUS RHYTHM RIGHT BUNDLE BRANCH BLOCK [120+ ms QRS DURATION, UPRIGHT V1, 40+ ms S IN I/aVL/V4/V5/V6] LEFT ANTERIOR FASCICULAR BLOCK [QRS AXIS <= -45, QR IN I, RS IN II] MINIMAL VOLTAGE CRITERIA FOR LVH, CONSIDER NORMAL VARIANT [MEETS CRITERIA IN ONE OF: R(aVL), S(V1), R(V5), R(V5/V6)+S(V1)] Compared to ECG 08/20/2021 21:01:35 No significant changes Electronically Signed On 12-02-2021 20:57:00 TWISTING PRESS OPERATOR by RICK ESTRADA [id number]
== END 2021-12-02 14:38 | disposition home or self-care (01) ==
PROVIDERS: Emergency Provider Family Medicine; PCP Family Medicine
DX: I11.0 Hypertensive heart disease with heart failure (principal); I50.9 Heart failure, unspecified; Z79.01 Long term (current) use of anticoagulants; Z79.84 Long term (current) use of oral hypoglycemic drugs; Z79.02 Long term (current) use of antithrombotics/antiplatelets; Z79.4 Long term (current) use of insulin; I25.10 Atherosclerotic heart disease of native coronary artery without angina pectoris; E11.9 Type 2 diabetes mellitus without complications; Z20.822 Contact with and (suspected) exposure to COVID-19
CPT/HCPCS: 71045; 80053; 83880; 84484; 85025; 87635; 93005; 96374; 99284; J1940

== ENCOUNTER 2021-12-03 09:17 | Inpatient (IN) | payer MEDICARE, OTHER, SELFPAY ==
[2021-12-03] VITALS (29 sets, daily range): BP systolic 138–162; BP diastolic 55–81; PULSE 81–105; RESP 16–39; TEMP 36.7–36.9; O2SAT 92–99; BMI 56.6
--- NOTE | 2021-12-03 09:33 | ECG_ITS ---
[facility] Test Date: 2021-12-03 Pat Name: Bartolo Hardy Department: Room: Gender: Male Dietetics Teacher: : 1950 Requested By: Shaun Jones Order Number: [id number] Khalida MD: Jamee Torres M.D. Measurements Intervals [place] Rate: 84 P: 51 CO: 166 QRS: -75 QRSD: 143 T: 54 QT: 392 QTc: 466 Interpretive Statements SINUS RHYTHM RIGHT BUNDLE BRANCH BLOCK [120+ ms QRS DURATION, UPRIGHT V1, 40+ ms S IN I/aVL/V4/V5/V6] LEFT ANTERIOR FASCICULAR BLOCK [QRS AXIS <= -45, QR IN I, RS IN II] Compared to ECG 12/02/2021 10:23:54 No significant changes Electronically Signed On 12-04-2021 17:40:54 ANALYTICS ARCHITECT by Jamee Torres M.D. [id number]
--- NOTE | 2021-12-03 09:33 | XR_ITS ---
WS: [id number] Exam: XR chest 1V portable [id number] Date/Time of Exam: 12/03/2021 9:36 AM Reason For Exam: dyspnea/cough Comparison 12/02/2021. Groundglass infiltrates again noted in the mid and lower right lung suggesting pneumonia. Heart size is top limits normal unchanged. There is increased pulmonary vascularity noted. No pleural effusions or pneumothorax. The mediastinum is not widened for technique. Bony structures are intact. XR/XR chest 1V portable [id number] IMPRESSION: 1. Groundglass infiltrates in the mid and lower right lung zone suspicious for pneumonia. 2. Heart size is top limits normal. Pulmonary vascularity is increased. Some de gree of mild cardiac decompensation is not excluded.
--- NOTE | 2021-12-03 10:05 | ED_ITS ---
HPI - SOB/Dyspnea General: Chief Complaint: Shortness of Breath/Dyspnea Stated Complaint: sob Time Seen by Provider: 12/03/21 09:33 History of Present Illness: HPI Narrative: 71-year-old male who was seen yesterday in the ER. At that time he had severe orthopnea. Radiology read the chest x-ray is being pneumonia however he had a normal white count and not no productive cough he related this been going on for some time we diuresed him and he had significant improvement of his symptoms we had RT come and see him and do a home O2 eval and he required 3 not 2 L oxygen by nasal cannula. He was feeling much better and we discharged him home with an increased dose of Bumex. Today he returned to his primary care doctor's office was hypoxic and tachypneic and was referred back here. On 5 L initially on arrival here he is 99%. He still has significant orthopnea his legs are more swollen than when we seen him yesterday. He denies any chest pain he still denies any productive cough. MD elicited complaint: shortness of breath and cough Pertinent past history: COPD and congestive heart failure Timing: constant Severity: mild Exacerbating factors: lying flat and coughing Relieving factors: oxygen and upright position Known history of: COPD and congestive heart failure Associated symptoms: Reports chest congestion and cough; Deny abdominal pain, chest pain, diaphoresis, dizziness, extremity pain, fever(s), lightheadedness, myalgias, nausea, orthopnea, palpitations, paresthesias, polyuria, rash, sense of impending doom, syncope or vomiting Treatment prior to arrival: oxygen Review of Systems Const: Denies: fever(s) or diaphoresis ENMT: Denies: throat pain, ear or mastoid pain, nasal discharge or nasal congestion Card: Denies: chest pain, palpitations, lightheadedness, syncope or orthopnea Resp: Reports: chest congestion GI: Denies: abdominal pain, nausea or vomiting : Denies: flank pain, dysuria, urinary frequency or urinary urgency Musc: Denies: extremity pain Skin/Breast: Denies: rash or pruritus Neuro: Denies: dizziness Endo: Denies: polyuria PFSH ED PFSH: Medical History Acute kidney injury superimposed on CKD Aortic stenosis, moderate Atrial flutter with rapid ventricular response Patient converted to normal sinus rhythm on amiodarone drip. CHF (congestive heart failure), NYHA class III CHF exacerbation Coronary artery disease Diabetes Dietary indiscretion Gout HTN (hypertension) New onset atrial fibrillation UTI (urinary tract infection) Surgical History H/O vasectomy S/P right coronary artery (RCA) stent placement Family History Other CAD (coronary artery disease) Cancer Dementia Diabetes Family history of premature coronary artery disease Hyperlipidemia Hypertension Denies family history of Chronic kidney disease (CKD) Anesthesia complication Bleeding disorder Lung disease Stroke Social History Alcohol intake: never Physical Exam Const: GENERAL APPEARANCE: cooperative and comfortable ORIENTATION/CONSCIOUSNESS: Yes awake, Yes oriented to person, Yes oriented to place and Yes oriented to time HENMT: COMMON NORMALS: normocephalic, atraumatic and hearing grossly normal bilaterally HEAD & SCALP: normocephalic and atraumatic Neck/C-Spine: COMMON NORMALS: no JVD Resp: AUSCULTATION: rhonchi and wheezes Cardio: COMMON NORMALS: no JVD, regular rate, regular rhythm and No murmurs present (Cardio) RATE: regular rate RHYTHM: regular rhythm GI: COMMON NORMALS: Soft to palpation and No hepatosplenomegaly present AUSCULTATION: Yes normoactive bowel sounds PALPATION: Yes Soft to palpation, No Tenderness to palpation present (GI), No Guarding due to palpation present (GI) and Yes No hepatosplenomegaly present Extremity: COMMON NORMALS: normal to inspection, capillary refill normal, no clubbing, cyanosis or edema, no calf tenderness and no pedal edema Neuro: SENSORIUM/ORIENTATION: Yes oriented to person, Yes oriented to place and Yes oriented to time Skin: COMMON NORMALS: no rashes or lesions noted GENERAL SKIN EXAM: no rashes or lesions noted Course Vital Signs: Vital signs: Vital Signs Temperature 97.6 F 12/09/21 14:02 Pulse Rate 123 H 12/09/21 14:02 Respiratory Rate 20 H 12/09/21 14:02 Blood Pressure 136/85 12/09/21 14:02 Pulse Oximetry 95 12/09/21 14:02 MDM - SOB/Dyspnea MDM Narrative Medical decision making narrative: Patient acute congestive heart failure given diuretics here will admit for further diuresis medication adjustment discussed with hospitalist. Orders written. Chest x-ray read as pneumonia clinically appears to be congestive heart failure has responded to diuresis. Medical Records Attestation: I reviewed the patient's medical records. Lab Data Attestation: I reviewed the patient's lab results. Result diagrams: 12/08/21 11:24 12/09/21 06:18 Labs: Lab Results 12/03/21 12/03/21 12/03/21 10:49 10:50 10:58 WBC 9.4 10^3/uL 10^3/uL (4.0-10.0) RBC 3.24 10^6/uL L 10^6/uL (4.1-5.3) Hgb 10.1 g/dL L g/dL (11.7-16.6) Hct 33.9 % L % (42.0-52.0) MCV 104.6 fl H fl (80-94) MCH 31.2 pg pg (28.0-34.0) MCHC 29.8 g/dL L g/dL (30.0-36.0) RDW 15.7 % H % (12.1-15.1) Plt Count 131 10^3/cmm 10^3/cmm (130-400) MPV 11.6 fL H fL (7.4-10.4) Neut % (Auto) 83.2 % % Lymph % (Auto) 8.1 % % [place] % (Auto) 7.1 % % Eos % (Auto) 0.2 % % Baso % (Auto) 0.4 % % Neut # (Auto) 7.82 10^3/uL H 10^3/uL (1.8-7.7) Lymph # (Auto) 0.8 10^3/uL 10^3/uL (0.8-4.8) [place] # (Auto) 0.7 10^3/uL 10^3/uL (0.2-0.9) Eos # (Auto) 0.0 10^3/uL 10^3/uL (0.0-0.8) Baso # (Auto) 0.0 10^3/uL 10^3/uL (0.0-0.1) Nucleated RBC % (auto) 0 % % Nucleated RBCs # 0.0 /100WBC /100WBC Sodium Potassium Chloride Carbon Dioxide Anion Gap BUN Creatinine GFR Calculation Glucose POC Glucose 278 mg/dL H mg/dL (70-110) Calculated Osmolality Lactic Acid Calcium Total Bilirubin AST ALT Alkaline Phosphatase Troponin T Baseline Troponin T 120 Minute Delta Troponin T C-Reactive Protein NT-Pro-B Natriuret Pep Total Protein Albumin Globulin Procalcitonin Urine Color Yellow (Yellow) Urine Appearance Clear (CLEAR) Urine pH 5 (5-7) Ur Specific [place] 1.015 (1.005-1.030) Urine Protein Neg (Negative) Urine Glucose (UA) Norm (Normal) Urine Ketones Negative (Negative) Urine Blood Neg (Negative) Urine Nitrate Negative (Negative) Urine Bilirubin Neg (Negative) Urine Urobilinogen 1 mg/dL H mg/dL (Negative) Ur Leukocyte Esterase Trace H (Negative) Urine RBC None /hpf /hpf (0-2) Urine WBC 5-10 /hpf H /hpf (0-5) Ur Squamous Epith Cells 5-10 /hpf H /hpf (0-5) Amorphous Sediment Not Reportable Urine Bacteria 1+ /hpf H /hpf (NONE) Hyaline Casts 5-10 /lpf H /lpf Urine Mucus 1+ /hpf /hpf 12/03/21 12/03/21 12/03/21 10:58 10:58 10:58 WBC RBC Hgb Hct MCV MCH MCHC RDW Plt Count MPV Neut % (Auto) Lymph % (Auto) [place] % (Auto) Eos % (Auto) Baso % (Auto) Neut # (Auto) Lymph # (Auto) [place] # (Auto) Eos # (Auto) Baso # (Auto) Nucleated RBC % (auto) Nucleated RBCs # Sodium 138 mmol/L mmol/L (136-145) Potassium 4.9 mmol/L mmol/L (3.5-5.1) Chloride 100 mmol/L mmol/L (98-107) Carbon Dioxide 29 mmol/L mmol/L (22-29) Anion Gap 13.9 (5-19) BUN 26 mg/dL H mg/dL (8-23) Creatinine 1.2 mg/dL mg/dL (0.7-1.2) GFR Calculation Not Reportable Glucose 274 mg/dL H mg/dL (65-115) POC Glucose Calculated Osmolality 301 mOsm/kg H mOsm/kg (285-295) Lactic Acid 1.3 mmol/L mmol/L (0.5-2.2) Calcium 8.2 mg/dL L mg/dL (8.5-10.5) Total Bilirubin 1.0 mg/dL mg/dL (0.15-1.2) AST 37 U/L U/L (0-40) ALT 66 U/L H U/L (0-41) Alkaline Phosphatase 81 IU/L IU/L (40-130) Troponin T Baseline 55 ng/L H ng/L (0-15) Troponin T 120 Minute Delta Troponin T C-Reactive Protein NT-Pro-B Natriuret Pep 380 pg/mL H pg/mL (0-125) Total Protein 6.7 g/dL g/dL (6.6-8.7) Albumin 3.8 g/dL g/dL (3.5-5.2) Globulin 2.9 g/dL g/dL (1.3-4.6) Procalcitonin Urine Color Urine Appearance Urine pH Ur Specific [place] Urine Protein Urine Glucose (UA) Urine Ketones Urine Blood Urine Nitrate Urine Bilirubin Urine Urobilinogen Ur Leukocyte Esterase Urine RBC Urine WBC Ur Squamous Epith Cells Amorphous Sediment Urine Bacteria Hyaline Casts Urine Mucus 12/03/21 12/03/21 10:58 13:00 WBC RBC Hgb Hct MCV MCH MCHC RDW Plt Count MPV Neut % (Auto) Lymph % (Auto) [place] % (Auto) Eos % (Auto) Baso % (Auto) Neut # (Auto) Lymph # (Auto) [place] # (Auto) Eos # (Auto) Baso # (Auto) Nucleated RBC % (auto) Nucleated RBCs # Sodium Potassium Chloride Carbon Dioxide Anion Gap BUN Creatinine GFR Calculation Glucose POC Glucose Calculated Osmolality Lactic Acid Calcium Total Bilirubin AST ALT Alkaline Phosphatase Troponin T Baseline Troponin T 120 Minute 52.22 ng/L H ng/L (0-15) Delta Troponin T -2.78 ABS# L ABS# (0-10) C-Reactive Protein 70.0 mg/L H mg/L (0.0-4.9) NT-Pro-B Natriuret Pep Total Protein Albumin Globulin Procalcitonin 0.09 ng/mL ng/mL (0-0.5) Urine Color Urine Appearance Urine pH Ur Specific [place] Urine Protein Urine Glucose (UA) Urine Ketones Urine Blood Urine Nitrate Urine Bilirubin Urine Urobilinogen Ur Leukocyte Esterase Urine RBC Urine WBC Ur Squamous Epith Cells Amorphous Sediment Urine Bacteria Hyaline Casts Urine Mucus Discharge Plan Discharge Patient Disposition: Admitted As Inpatient Admit Provider: Michael Perry Clinical Impression: CHF (congestive heart failure), NYHA class III, HTN (hypertension), Coronary artery disease, Aortic stenosis, moderate Condition: Stable Discharge Orders: Discharge Order (Routine); Ordered 12/09/21 Ordered By: Lowell Mcnamara Discharge Diet: Cardiac Discharge Activity: Increase activity as tolerated Coding Level of Care Code 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
[2021-12-03 11:11] LABS: Basophils % 0.4 %; Eosinophils % 0.2 %; Hematocrit 33.9 % (42.0-52.0); Hemoglobin 10.1 g/dL (11.7-16.6); Lymphocytes # 0.8 10^3/uL (0.8-4.8); Lymphocytes % 8.1 %; Mean Corpuscular HGB Conc 29.8 g/dL (30.0-36.0); Mean Corpuscular Hemoglobin 31.2 pg (28.0-34.0); Mean Corpuscular Volume 104.6 fl (80-94); Mean Platelet Volume 11.6 fL (7.4-10.4); Monocytes # 0.7 10^3/uL (0.2-0.9); Monocytes % 7.1 %; Neutrophils # 7.82 10^3/uL (1.8-7.7); Neutrophils % 83.2 %; Nucleated Red Blood Cells % 0 %; Platelet Count 131 10^3/cmm (130-400); Red Blood Count 3.24 10^6/uL (4.1-5.3); Red Cell Distribution Width 15.7 % (12.1-15.1); White Blood Count 9.4 10^3/uL (4.0-10.0)
[2021-12-03] MEDS: FUROsemide 10 mg/mL SDV 10mL 60 MG IVP (11:18)
[2021-12-03 11:32] LABS: Add Urine Microscopic? YES; Bilirubin Urine Neg (Negative); Blood Urine Neg (Negative); Glucose Urine UA Norm (Normal); Ketones Urine Negative (Negative); Leukocyte Esterase Urine Trace (Negative); Nitrate Urine Negative (Negative); Protein Urine Neg (Negative); Specific Gravity, Urine 1.015 (1.005-1.030); Urine Appearance Clear (CLEAR); Urine Color Yellow (Yellow); Urobilinogen Urine 1 mg/dL (Negative); pH Urine 5 (5-7)
[2021-12-03 11:33] LABS: Add Urine Culture? Yes; Bacteria Urine 1+ /hpf; Mucus Urine 1+ /hpf
--- NOTE | 2021-12-03 11:33 | ECG_ITS ---
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 Measurements Intervals [place] Rate: 86 P: 63 WI: 166 QRS: -71 QRSD: 145 T: 53 QT: 402 QTc: 483 Interpretive Statements SINUS RHYTHM RIGHT BUNDLE BRANCH BLOCK [120+ ms QRS DURATION, UPRIGHT V1, 40+ ms S IN I/aVL/V4/V5/V6] LEFT ANTERIOR FASCICULAR BLOCK [QRS AXIS <= -45, QR IN I, RS IN II] Compared to ECG 12/03/2021 10:11:45 No significant changes Electronically Signed On 12-05-2021 19:31:56 GRAZING EXAMINER by Elsa Hernadez M.D. [id number]
[2021-12-03 11:43] LABS: Lactic Sepsis W/Reflex 1.3 mmol/L (0.5-2.2)
[2021-12-03 11:57] LABS: Troponin(5th) Baseline 55 ng/L (0-15)
[2021-12-03 12:04] LABS: Alanine Aminotransferase 66 U/L (0-41); Albumin Level 3.8 g/dL (3.5-5.2); Alkaline Phosphatase 81 IU/L (40-130); Anion Gap 13.9 (5-19); Aspartate Amino Transferase 37 U/L (0-40); Blood Urea Nitrogen 26 mg/dL (8-23); Calcium 8.2 mg/dL (8.5-10.5); Carbon Dioxide 29 mmol/L (22-29); Chloride 100 mmol/L (98-107); Creatinine Clr Calc Pharmacy 100.4464; Globulin 2.9 g/dL (1.3-4.6); Glucose 274 mg/dL (65-115); NT Pro B Type Natriuretic Pept 380 pg/mL (0-125); Osmolality Calculated 301 mOsm/kg (285-295); Potassium 4.9 mmol/L (3.5-5.1); Sodium 138 mmol/L (136-145); Total Protein 6.7 g/dL (6.6-8.7)
--- NOTE | 2021-12-03 13:21 | P.HP_ITS ---
Providers/Chief Complaint Primary Care Provider: Ministerio Sewell MD Chief Complaint: sob History of Present Illness Bartolo Hardy is a 71 year old male with a past medical history of diastolic CHF, on 2 L at home, history of RCA stenting, moderate aortic valve stenosis, insulin-dependent type 2 days mellitus, atrial fall flutter with RVR on Eliquis, hypertension, gout, who presents to [facility] due to progressive increasingly short of breath, bilateral lower extremity edema, inability to lie flat, increased abdominal wall edema. Patient tells me that he has been experiencing increasingly short of breath, takes Lasix at home, no chest pain, no palpitations, no fevers, chills, no cough, has received 3 COVID shots, pneumonia shot, flu shot. He presented to the emergency room yesterday, was diuresed, placed on Bumex, tells me continues to be short of breath at home, was placed on 3 L before discharge, presents to the primary care provider persistently short of breath, he is satting in the low 80s on 3 L s, o he was sent to the hospital for evaluation. Review of Systems Const: Denies: fever(s), chills, fatigue or malaise Eyes: Denies: change in vision or blurry vision ENMT: Denies: nasal congestion Resp: Denies: non-productive cough GI: Denies: nausea, vomiting, hematemesis, diarrhea, constipation, hematochezia or melena : Denies: flank pain, difficulty urinating, dysuria or urinary frequency Skin/Breast: Denies: rash Neuro: Denies: headache(s), dizziness or vertigo Medications/Allergies Home Medications Medication Instructions Recorded Confirmed Last Taken Type allopurinol 200 mg PO QAM 02/12/21 11/19/21 08/20/21 08:00 History doxazosin 2 mg PO QAM 02/12/21 11/19/21 08/20/21 08:00 History latanoprost 1 drp OPHTHALMIC (EYE) BEDTIME 02/12/21 11/19/21 08/19/21 History venlafaxine 75 mg PO QAM 02/12/21 11/19/21 08/20/21 08:00 History metformin 750 mg tablet,extended 750 mg PO BID tab 06/25/21 11/19/21 08/20/21 08:00 History release 24 hr budesonide-formoterol HFA 80 2 puff INHALATION BID g 08/13/21 11/19/21 08/20/21 History mcg-4.5 mcg/actuation aerosol inhaler Tylenol 8 Hour 2,600 mg PO BEDTIME 08/20/21 11/19/21 08/19/21 History levothyroxine 50 mcg PO QAM 08/20/21 11/19/21 08/20/21 08:00 History pramipexole 1 mg PO BEDTIME 08/20/21 11/19/21 08/19/21 History amiodarone 200 mg tablet 200 mg PO QAM #90 tab 11/19/21 11/19/21 Unknown Rx amlodipine 10 mg tablet 10 mg PO QAM #90 tab 11/19/21 11/19/21 Unknown Rx apixaban 5 mg tablet 5 mg PO BID #180 tab 11/19/21 11/19/21 Unknown Rx atorvastatin 80 mg tablet 80 mg PO BEDTIME #90 tab 11/19/21 11/19/21 Unknown Rx clopidogrel 75 mg tablet 75 mg PO DAILY #90 tab 11/19/21 11/19/21 Unknown Rx insulin degludec 100 unit/mL (3 230 unit SUBCUT QAM ml 11/19/21 11/19/21 Unknown History mL) subcutaneous pen lisinopril 10 mg tablet 10 mg PO QAM #90 tab 11/19/21 11/19/21 Unknown Rx metoprolol succinate 25 mg 37.5 mg PO BID #270 tab 11/19/21 11/19/21 Unknown Rx tablet,extended release 24 hr potassium chloride 20 mEq 20 meq PO BID #180 tab 11/19/21 11/19/21 Unknown Rx tablet,extended release bumetanide 2 mg PO BID #180 tab 12/02/21 11/19/21 Unknown Rx levofloxacin 500 mg tablet 500 mg PO DAILY 5 Days #5 tab 12/02/21 Unknown Rx Allergies Allergy/AdvReac Type Severity Reaction Status Date / Time No Known Allergies Allergy Verified 10/07/21 09:10 PFSH Acute PFSH: Medical History Acute kidney injury superimposed on CKD Aortic stenosis, moderate Atrial flutter with rapid ventricular response Patient converted to normal sinus rhythm on amiodarone drip. CHF (congestive heart failure), NYHA class III CHF exacerbation Coronary artery disease Diabetes Dietary indiscretion Gout HTN (hypertension) New onset atrial fibrillation UTI (urinary tract infection) Surgical History H/O vasectomy S/P right coronary artery (RCA) stent placement Family History Other CAD (coronary artery disease) Cancer Dementia Diabetes Family history of premature coronary artery disease Hyperlipidemia Hypertension Denies family history of Chronic kidney disease (CKD) Anesthesia complication Bleeding disorder Lung disease Stroke Social History Alcohol intake: never Vitals/I&O/Wt Last Vital Signs Temp 98.1 F 12/03/21 09:43 Pulse 84 12/03/21 12:23 Resp 21 H 12/03/21 12:23 BP 151/55 12/03/21 12:23 Pulse Ox 96 12/03/21 12:23 Weight last 48 hrs Weight 194.591 kg Physical Exam Const: COMMON NORMALS: no acute distress and patient oriented x3 GENERAL APPEARANCE: cooperative and comfortable HENMT: COMMON NORMALS: normocephalic HEAD & SCALP: normocephalic Eye: COMMON NORMALS: Equal, round and reactive pupils present and EOMs intact bilaterally GENERAL EYE: appearance normal, both eyes and all related struc tures PUPIL: Yes Equal, round and reactive pupils present Neck/C-Spine: COMMON NORMALS: full ROM and no lymphadenopathy THYROID: Thyroid normal Lymph: LYMPHATIC: no lymphadenopathy noted Resp: COMMON NORMALS: normal respiratory effort, No retractions, No use of accessory muscles and clear to auscultation bilaterally AUSCULTATION: c rackles Cardio: COMMON NORMALS: regular rate, regular rhythm, S1 normal heart sound present, S2 normal heart sound present, No gallops present (Cardio), No clicks present (Cardio) and No murmurs present (Cardio) RATE: regular rate RHYTHM: regular rhythm HEART SOUNDS: S1 normal heart sound present and S2 normal heart sound present GI: COMMON NORMALS: Normal to inspection, nondistended, normoactive bowel sounds present, Soft to palpation, non-tender and No hepatosplenomegaly present INSPECTION: Yes Abdominal wall edema and Yes abdominal distension PALPATION: Yes Soft to palpation and Yes No hepatosplenomegaly present Extremity: COMMON NORMALS: normal to inspection and full ROM NARRATIVE EXTREMITY EXAM: 2+ pitting edema bilateral lower extremity Neuro: COMMON NORMALS: patient oriented x3, CN's II-XII intact bilaterally, moves all extremities and no focal motor deficits Psych: COMMON NORMALS: mental status grossly normal, Normal thought process present and cooperative THOUGHT PROCESS: Normal thought process present Data : 12/03/21 10:58 12/03/21 10:58 Micro: Microbiology 12/03/21 10:50 Blood Culture - Preliminary Blood SPECIMEN COLLECTED 12/03/21 10:58 Blood Culture - Preliminary Blood SPECIMEN COLLECTED A&P Assessment and plan (1) Acute exacerbation of CHF (congestive heart failure): - Acute diastolic CHF exacerbation -Fluid restrictions 1500 cc -Bumex 1 mg every 8 hours -We will consider metolazone based on urine output and clinical response -Monitor creatinine, monitor urine output -BiPAP as needed during the day for shortness of breath, schedule during the night -Full code -Lovenox for DVT prophylaxis Pneumonia -Chest x-ray shows groundglass opacities, right lung -Repeat COVID testing, flu testing -Sputum, blood cultures, urine bacterial infection -Rocephin, azithromycin -Oxygen therapy -Vitamin C, zinc, vitamin D, incentive spirometer, flutter valve Insulin-dependent type 2 diabetes mellitus -Takes Tresiba 230 every morning, we do not carry this in the hospital -Lantus 50 units twice daily with moderate dose sliding scale Moderate aortic valve stenosis, continue to monitor Atrial flutter, continue Eliquis CAD status post stenting, continue Plavix Status: Acute (2) Coronary artery disease: Status: Acute (3) HTN (hypertension): Status: Acute Qualifiers: Hypertension type: essential hypertension Qualified Code(s): I10 - Essential (primary) hypertension Attestations Medical Necessity Statement*: Patient requires hospitalization, inpatient, greater than 2 midnights, for acute diastolic CHF exacerbation, pneumonia Coding Level of Care Code 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
[2021-12-03 13:28] LABS: Procalcitonin 0.09 ng/mL (0-0.5)
[2021-12-03 13:35] LABS: Troponin 5 2HR 52.22 ng/L (0-15)
[2021-12-03 13:36] LABS: Troponin 5 2HR Delta -2.78 ABS# (0-10)
--- NOTE | 2021-12-03 15:33 | ECG_ITS ---
[facility] Test Date: 2021-12-03 Pat Name: Bartolo Hardy Department: Room: Gender: Male Small Order Cutter: : 1950 Requested By: Shaun Jones Order Number: [id number] Khalida MD: Elsa Hernadez M.D. Measurements Intervals [place] Rate: 83 P: 44 DC: 161 QRS: -68 QRSD: 150 T: 56 QT: 408 QTc: 481 Interpretive Statements SINUS RHYTHM RIGHT BUNDLE BRANCH BLOCK [120+ ms QRS DURATION, UPRIGHT V1, 40+ ms S IN I/aVL/V4/V5/V6] LEFT ANTERIOR FASCICULAR BLOCK [QRS AXIS <= -45, QR IN I, RS IN II] MODERATE VOLTAGE CRITERIA FOR LVH, CONSIDER NORMAL VARIANT [MEETS CRITERIA IN ONE OF: R(aVL), S(V1), R(V5), R(V5/V6)+S(V1)] Compared to ECG 12/03/2021 11:51:48 No significant changes Electronically Signed On 12-05-2021 19:30:05 NEWS GATHERING TECHNICIAN by Elsa Hernadez M.D. [id number]
[2021-12-03 16:39] LABS: Glucose Point of Care 278 mg/dL (70-110)
[2021-12-03 17:02] LABS: Glucose Point of Care 165 mg/dL (70-110)
[2021-12-03] MEDS: bumetanide 0.25 mg/mL SDV 4 mL 1 MG IVP (18:22)
[2021-12-03] MEDS: potassium chloride ER 20 mEq Tablet PO (18:25)
[2021-12-03] MEDS: ascorbic acid 500 mg Tablet PO (18:25)
[2021-12-03] MEDS: famotidine 20 mg Tablet PO (18:25)
[2021-12-03] MEDS: cefTRIAXone 1,000 MG in sodium chloride 0.9% (plus) 50 ML 100 MG IV (18:25)
[2021-12-03] MEDS: azithromycin 500 MG in sodium chloride 0.9% 250 ML 250 MG IV (18:39)
[2021-12-03 20:05] LABS: Troponin 5 6HR 51.87 ng/L (0-15)
[2021-12-03 20:18] LABS: Troponin 5 6HR Delta -3.13 ng/L (0-12)
[2021-12-03 20:59] LABS: Glucose Point of Care 214 mg/dL (70-110)
[2021-12-03] MEDS: pramipexole 0.25 mg Tablet 1 MG PO (21:10)
[2021-12-03] MEDS: atorvastatin 40 mg Tablet 80 MG PO (21:10)
[2021-12-03] MEDS: apixaban 5 mg Tablet PO (21:10)
[2021-12-03] MEDS: latanoprost 0.005% Op Soln 2.5 mL Btl 1 DROP EYE-BOTH (21:11)
[2021-12-03] MEDS: insulin lispro 100 unit/1 mL SUBCUT (21:13)
[2021-12-03] MEDS: acetaminophen 325 mg Tablet 650 MG PO (21:20)
[2021-12-03] MEDS: metoprolol succinate ER (24 HR) 25 mg Tablet 37.5 MG PO (21:23)
[2021-12-03 23:05] LABS: Influenza A by IFA Negative (Negative); Influenza B by IFA Negative (Negative)
[2021-12-04] VITALS (12 sets, daily range): BP systolic 128–173; BP diastolic 62–86; PULSE 72–90; RESP 17–26; TEMP 36.6–38.4; O2SAT 91–100
[2021-12-04] MEDS: zolpidem 5 mg Tablet PO ×2 (00:39→21:40)
[2021-12-04] MEDS: bumetanide 0.25 mg/mL SDV 4 mL 1 MG IVP ×3 (01:14→17:30)
[2021-12-04 03:07] LABS: Basophils # 0.1 10^3/uL (0.0-0.1); Basophils % 0.5 %; Eosinophils # 0.1 10^3/uL (0.0-0.8); Hematocrit 32.3 % (42.0-52.0); Hemoglobin 9.8 g/dL (11.7-16.6); Lymphocytes # 1.2 10^3/uL (0.8-4.8); Lymphocytes % 12.4 %; Mean Corpuscular HGB Conc 30.3 g/dL (30.0-36.0); Mean Corpuscular Hemoglobin 31.3 pg (28.0-34.0); Mean Corpuscular Volume 103.2 fl (80-94); Mean Platelet Volume 11.3 fL (7.4-10.4); Monocytes # 0.9 10^3/uL (0.2-0.9); Monocytes % 9.2 %; Neutrophils # 7.59 10^3/uL (1.8-7.7); Neutrophils % 76.2 %; Nucleated Red Blood Cells % 0 %; Platelet Count 137 10^3/cmm (130-400); Red Blood Count 3.13 10^6/uL (4.1-5.3); Red Cell Distribution Width 15.6 % (12.1-15.1)
[2021-12-04 03:35] LABS: Alanine Aminotransferase 54 U/L (0-41); Albumin Level 3.5 g/dL (3.5-5.2); Alkaline Phosphatase 73 IU/L (40-130); Anion Gap 15.2 (5-19); Aspartate Amino Transferase 26 U/L (0-40); Blood Urea Nitrogen 31 mg/dL (8-23); Calcium 7.8 mg/dL (8.5-10.5); Carbon Dioxide 28 mmol/L (22-29); Chloride 100 mmol/L (98-107); Globulin 3.3 g/dL (1.3-4.6); Glucose 116 mg/dL (65-115); Osmolality Calculated 296 mOsm/kg (285-295); Potassium 4.2 mmol/L (3.5-5.1); Sodium 139 mmol/L (136-145); Total Bilirubin 0.9 mg/dL (0.15-1.2); Total Protein 6.8 g/dL (6.6-8.7)
[2021-12-04 03:40] LABS: Magnesium 2.3 mg/dL (1.7-2.3); NT Pro B Type Natriuretic Pept 350 pg/mL (0-125)
[2021-12-04 03:45] LABS: NT Pro B Type Natriuretic Pept 340 pg/mL (0-125)
[2021-12-04] MEDS: levothyroxine 50 mcg Tablet PO (06:17)
[2021-12-04] MEDS: venlafaxine ER (24HR) 75 mg Capsule PO (06:17)
[2021-12-04] MEDS: amlodipine 10 mg Tablet PO (06:18)
[2021-12-04] MEDS: amiodarone 200 mg Tablet PO (06:18)
[2021-12-04] MEDS: allopurinol 100 mg Tablet 200 MG PO (06:18)
[2021-12-04] MEDS: doxazosin 4 mg Tablet 2 MG PO (06:18)
[2021-12-04 06:49] LABS: Glucose Point of Care 194 mg/dL (70-110)
--- NOTE | 2021-12-04 07:00 | XR_ITS ---
WS: [id number] Exam: XR chest 1V portable [id number] Date/Time of Exam: 12/04/2021 5:23 AM Reason For Exam: sob Comparison 12/03/2021. Increasing widespread airspace infiltrates noted throughout both lungs. The lungs are fully expanded. The heart is enlarged but unchanged in size. No pleural effusions. The mediastinum is unremarkable f or technique. Bony structures are intact. XR/XR chest 1V portable [id number] IMPRESSION: 1. Worsening widespread pulmonary infiltrates throughout both lungs when compar ed to prior study. 2. Cardiac enlargement unchanged.
[2021-12-04] MEDS: insulin glargine 100 units/1 mL 50 UNIT SUBCUT ×2 (08:34→21:42)
[2021-12-04] MEDS: zinc gluconate 50 mg Tablet PO (08:34)
[2021-12-04] MEDS: potassium chloride ER 20 mEq Tablet PO ×2 (08:34→17:30)
[2021-12-04] MEDS: famotidine 20 mg Tablet PO ×2 (08:34→17:30)
[2021-12-04] MEDS: ascorbic acid 500 mg Tablet PO ×2 (08:34→17:30)
[2021-12-04] MEDS: insulin lispro 100 unit/1 mL SUBCUT ×3 (08:34→21:42)
[2021-12-04] MEDS: clopidogrel 75 mg Tablet PO (08:35)
[2021-12-04] MEDS: cholecalciferol (vitamin D3) 1,000 unit Tablet 1000 UNIT PO (08:35)
[2021-12-04] MEDS: apixaban 5 mg Tablet PO ×2 (08:35→21:40)
[2021-12-04] MEDS: metoprolol succinate ER (24 HR) 25 mg Tablet 37.5 MG PO ×2 (08:35→21:40)
[2021-12-04] MEDS: metOLazone 5 MG Tablet 10 MG PO (09:44)
[2021-12-04 11:46] LABS: Glucose Point of Care 175 mg/dL (70-110)
[2021-12-04 14:06] LABS: Adenovirus Not Detected (NOT DETECT); Chlamydia Pneumoniae Not Detected (NOT DETECT); Coronavirus 229E,HKU1,NL63,OC4 Not Detected (NOT DETECT); Human Metapneumovirus Not Detected (NOT DETECT); Human Rhinovirus/Enterovirus Not Detected (NOT DETECT); Influenza A Not Detected (NOT DETECT); Influenza A H1 Not Detected (NOT DETECT); Influenza A H1-2009 Not Detected (NOT DETECT); Influenza A H3 Not Detected (NOT DETECT); Influenza B Not Detected (NOT DETECT); Mycoplasma Pneumoniae Not Detected (NOT DETECT); Parainfluenza Virus Type 1 Not Detected (NOT DETECT); Parainfluenza Virus Type 2 Not Detected (NOT DETECT); Parainfluenza Virus Type 3 Not Detected (NOT DETECT); Parainfluenza Virus Type 4 Not Detected (NOT DETECT); Respiratory Syncytial Virus A Not Detected (NOT DETECT); Respiratory Syncytial Virus B Not Detected (NOT DETECT); SARS-COV-2 Not Detected (NOT DETECT)
--- NOTE | 2021-12-04 14:11 | P.PN_ITS ---
Subjective Subjective: Interval history: Patient was seen this morning he tells me that he feels a lot better, continues to have bilateral extremity edema, but significantly improved, he had a fever overnight, Vitals/I&O/Wt Last Vital Signs Temp 99.2 F 12/04/21 12:00 Pulse 85 12/04/21 12:00 Resp 24 H 12/04/21 12:00 BP 161/66 12/04/21 12:00 Pulse Ox 95 12/04/21 12:00 12/03/21 12/04/21 12/04/21 22:59 06:59 14:59 Intake Total 550 / 550 180 / 180 Output Total 1700 / 2950 1500 / 4450 Balance -1150 / -2400 -1500 / -3900 180 / 180 Weight last 48 hrs Weight 194.591 kg Weight 194.591 kg Physical Exam Const: COMMON NORMALS: no acute distress and patient oriented x3 Resp: COMMON NORMALS: normal respiratory effort, No retractions, No use of accessory muscles and clear to auscultation bilaterally AUSCULTATION: clear to auscultation bilaterally Cardio: COMMON NORMALS: regular rate, regular rhythm, S1 normal heart sound present and S2 normal heart sound present RATE: regular rate RHYTHM: regular rhythm HEART SOUNDS: S1 normal heart sound present and S2 normal heart sound present GI: COMMON NORMALS: Normal to inspection, nondistended, normoactive bowel sounds present, Soft to palpation, non-tender and no bruits PALPATION: Yes Soft to palpation Extremity: NARRATIVE EXTREMITY EXAM: 2+ pitting edema bilateral lower extremities Neuro: COMMON NORMALS: patient oriented x3 Psych: COMMON NORMALS: mental status grossly normal Data : 12/04/21 02:22 12/04/21 02:22 Micro: Microbiology 12/03/21 15:09 Gram Stain - Final Sputum - Expectorated Sputum 12/03/21 10:50 Blood Culture - Preliminary Blood NEGATIVE TO DATE 12/03/21 10:58 Blood Culture - Preliminary Blood NEGATIVE TO DATE 12/03/21 10:50 Urine Culture - Preliminary Urine,Clean Catch 12/03/21 10:50 Bacterial Antigens - Final Urine,Voided A&P Assessment and plan (1) Acute exacerbation of CHF (congestive heart failure): - Acute diastolic CHF exacerbation -Fluid restrictions 1500 cc -Bumex 1 mg every 8 hours -We will consider metolazone based on urine output and clinical response -Creatinine 1.4, -3.9 L -Monitor creatinine, monitor urine output -BiPAP as needed during the day for shortness of breath, schedule during the night -Full code -Lovenox for DVT prophylaxis Pneumonia -Chest x-ray shows groundglass opacities, bilateral lung -COVID testing negative, flu testing negative -Sputum, blood cultures, urine bacterial infection -Rocephin, azithromycin -Oxygen therapy -Vitamin C, zinc, vitamin D, incentive spirometer, flutter valve Insulin-dependent type 2 diabetes mellitus -Takes Tresiba 230 every morning, we do not carry this in the hospital -Lantus 50 units twice daily with moderate dose sliding scale Moderate aortic valve stenosis, continue to monitor Atrial flutter, continue Eliquis CAD status post stenting, continue Plavix Status: Acute (2) Coronary artery disease: Status: Acute (3) HTN (hypertension): Status: Acute Qualifiers: Hypertension type: essential hypertension Qualified Code(s): I10 - Essential (primary) hypertension Attestations Medical Necessity Statement*: Patient requires hospitalization for acute diastolic CHF exacerbation, pneumonia, Coding Level of Care Code Acute Machine Buffer for [facility] Fwd Diagnoses Acute exacerbation of CHF (congestive heart failure) I50.9 Coronary artery disease I25.10 HTN (hypertension) I10 Hypertension type: essential hypertension
[2021-12-04] MEDS: cefTRIAXone 1,000 MG in sodium chloride 0.9% (plus) 50 ML 100 MG IV (17:29)
[2021-12-04] MEDS: azithromycin 500 MG in sodium chloride 0.9% 250 ML 250 MG IV (17:40)
[2021-12-04 21:32] LABS: Glucose Point of Care 151 mg/dL (70-110)
[2021-12-04 21:33] LABS: Glucose Point of Care 205 mg/dL (70-110)
[2021-12-04] MEDS: pramipexole 0.25 mg Tablet 1 MG PO (21:39)
[2021-12-04] MEDS: latanoprost 0.005% Op Soln 2.5 mL Btl 1 DROP EYE-BOTH (21:39)
[2021-12-04] MEDS: atorvastatin 40 mg Tablet 80 MG PO (21:40)
[2021-12-05] VITALS (11 sets, daily range): BP systolic 120–182; BP diastolic 69–94; PULSE 82–119; RESP 18–24; TEMP 36.6–37.6; O2SAT 92–99
--- NOTE | 2021-12-05 01:07 | PC.NURSE ---
i reported high reps 20 to nurse
[2021-12-05] MEDS: LORazepam 2 mg Tablet PO (02:24)
[2021-12-05] MEDS: venlafaxine ER (24HR) 75 mg Capsule PO (05:36)
[2021-12-05] MEDS: allopurinol 100 mg Tablet 200 MG PO (05:36)
[2021-12-05] MEDS: amlodipine 10 mg Tablet PO (05:36)
[2021-12-05] MEDS: levothyroxine 50 mcg Tablet PO (05:37)
[2021-12-05] MEDS: doxazosin 4 mg Tablet 2 MG PO (05:37)
[2021-12-05] MEDS: bumetanide 0.25 mg/mL SDV 4 mL 1 MG IVP ×2 (05:39→22:37)
[2021-12-05 05:42] LABS: Basophils % 0.4 %; Eosinophils % 0.2 %; Hematocrit 32.2 % (42.0-52.0); Hemoglobin 9.9 g/dL (11.7-16.6); Lymphocytes # 1.1 10^3/uL (0.8-4.8); Lymphocytes % 10.5 %; Mean Corpuscular HGB Conc 30.7 g/dL (30.0-36.0); Mean Corpuscular Hemoglobin 31.3 pg (28.0-34.0); Mean Corpuscular Volume 101.9 fl (80-94); Monocytes # 0.6 10^3/uL (0.2-0.9); Monocytes % 6.1 %; Neutrophils # 8.47 10^3/uL (1.8-7.7); Neutrophils % 82.2 %; Nucleated Red Blood Cells % 0 %; Platelet Count 152 10^3/cmm (130-400); Red Blood Count 3.16 10^6/uL (4.1-5.3); Red Cell Distribution Width 14.9 % (12.1-15.1); White Blood Count 10.3 10^3/uL (4.0-10.0)
[2021-12-05] MEDS: amiodarone 200 mg Tablet PO (05:48)
[2021-12-05 06:21] LABS: Alanine Aminotransferase 43 U/L (0-41); Albumin Level 3.6 g/dL (3.5-5.2); Alkaline Phosphatase 67 IU/L (40-130); Anion Gap 18.6 (5-19); Aspartate Amino Transferase 21 U/L (0-40); Blood Urea Nitrogen 31 mg/dL (8-23); Calcium 8.1 mg/dL (8.5-10.5); Carbon Dioxide 29 mmol/L (22-29); Chloride 97 mmol/L (98-107); Globulin 3.6 g/dL (1.3-4.6); Glucose 150 mg/dL (65-115); Magnesium 2.2 mg/dL (1.7-2.3); NT Pro B Type Natriuretic Pept 376 pg/mL (0-125); Osmolality Calculated 299 mOsm/kg (285-295); Phosphorus 4.5 mg/dL (2.5-4.5); Potassium 4.6 mmol/L (3.5-5.1); Sodium 140 mmol/L (136-145); Total Bilirubin 0.8 mg/dL (0.15-1.2); Total Protein 7.2 g/dL (6.6-8.7)
[2021-12-05 06:28] LABS: Glucose Point of Care 162 mg/dL (70-110)
[2021-12-05 08:31] LABS: ABG PH Result 7.31 (7.35-7.45); Arterial Blood Gas Hematocrit 31.8 % (42-52); Base Excess ABG 7.8 mmol/L (-2.0-2.0); Blood Gas Allen Test Pos; Blood Gas Sample Type Arterial; Carboxyhemoglobin 1.1 %THgb (0.4-20.1); HGB O2 Sat 95.5 % (95-100); Ionized Calcium Level - ABG 1.2 mmol/L (1.1-1.4); Methemoglobin 1.2 % (0.4-1.5); Oxygen Saturation ABG 97.8; Potassium Level - ABG 4.1 mmol/L (3.5-5.0); Total Hemoglobin 10.4 g/dL (14-18)
[2021-12-05 08:32] LABS: Alveolar-Arterial Oxygen Gradi 22.1 mmHg (5-10); Blood Gas Operator Identificat ED; Blood Gas Sample Site Radial, left; Blood Gas Tidal Volume 0.55; Oxygen Device BIPAP
[2021-12-05 08:34] LABS: ABG PCO2 71.9 mmHg (35-45)
--- NOTE | 2021-12-05 10:41 | PC.NURSE ---
Dr. Perry notified of patient's increasing lethargy and confusion. ABG's drawn by resp.- Orders received to leave pt on bipap and hold morning medications. is at bedside.
[2021-12-05 11:37] LABS: ABG PH Result 7.35 (7.35-7.45); Arterial Blood Gas Hematocrit 31.4 % (42-52); Base Excess ABG 10.1 mmol/L (-2.0-2.0); Blood Gas Allen Test Pos; Blood Gas Sample Type Arterial; Carboxyhemoglobin 1.1 %THgb (0.4-20.1); HCO3 ABG 37.7 mmol/L (22-26); HGB O2 Sat 95.6 % (95-100); Ionized Calcium Level - ABG 1.2 mmol/L (1.1-1.4); Methemoglobin 1.2 % (0.4-1.5); Oxygen Saturation ABG 97.8; PO2 ABG 96.4 mmHg (80.0-100.0); Total Hemoglobin 10.2 g/dL (14-18)
[2021-12-05 11:38] LABS: Alveolar-Arterial Oxygen Gradi 14.5 mmHg (5-10); Blood Gas Operator Identificat ED; Blood Gas Sample Site Radial, left; Blood Gas Tidal Volume 0.55; Oxygen Device BIPAP
[2021-12-05 12:30] LABS: Glucose Point of Care 148 mg/dL (70-110)
--- NOTE | 2021-12-05 12:41 | P.PN_ITS ---
Vitals/I&O/Wt Last Vital Signs Temp 99.7 F H 12/05/21 12:00 Pulse 115 H 12/05/21 12:00 Resp 24 H 12/05/21 12:00 BP 132/76 12/05/21 12:00 Pulse Ox 99 12/05/21 12:00 12/04/21 12/05/21 12/05/21 22:59 06:59 14:59 Intake Total 780 / 1020 240 / 1260 Output Total 250 / 1750 700 / 700 Balance 780 / -480 -10 / -490 -700 / -700 Weight last 48 hrs Weight 194.591 kg Physical Exam Const: COMMON NORMALS: no acute distress ORIENTATION/CONSCIOUSNESS: Yes awake, Yes oriented to person and Yes confused; not oriented to place and not oriented to time Resp: COMMON NORMALS: normal respiratory effort, No retractions, No use of accessory muscles and clear to auscultation bilaterally AUSCULTATION: clear to auscultation bilaterally Cardio: COMMON NORMALS: regular rate, regular rhythm, S1 normal heart sound present and S2 normal heart sound present RATE: regular rate RHYTHM: regular rhythm HEART SOUNDS: S1 normal heart sound present and S2 normal heart sound present GI: COMMON NORMALS: Normal to inspection, nondistended, normoactive bowel sounds present, Soft to palpation and non-tender PALPATION: Yes Soft to palpation Extremity: NARRATIVE EXTREMITY EXAM: 2+ pitting edema Neuro: SENSORIUM/ORIENTATION: Yes oriented to person, No oriented to place and No oriented to time Urinary Catheter Management^: Brand: Cath Placed During This Visit: yes, but has since been removed by the nurse Reason for Continuing Indwelling Catheter: Other Date Urinary Catheter Removed: 12/04/21 Time Urinary Catheter Discontinued: 22:45 Data : 12/05/21 05:35 12/05/21 05:35 Micro: Microbiology 12/03/21 15:09 Gram Stain - Final Sputum - Expectorated Sputum Sputum Culture - Preliminary 12/03/21 10:50 Urine Culture - Preliminary Urine,Clean Catch 12/03/21 15:09 MRSA Culture - Final Nose 12/03/21 10:50 Blood Culture - Preliminary Blood NEGATIVE TO DATE 12/03/21 10:58 Blood Culture - Preliminary Blood NEGATIVE TO DATE 12/03/21 10:50 Bacterial Antigens - Final Urine,Voided A&P Assessment and plan (1) Acute exacerbation of CHF (congestive heart failure): Acute hypercarbic respiratory failure -Currently alert to person, does awaken, does fall asleep -Initial pH 7.31, PCO2 71, now 7.35, PCO2 68 -Continue BiPAP -Continue diuresis - Acute diastolic CHF exacerbation -Fluid restrictions 1500 cc -Bumex 1 mg every 8 hours -We will consider metolazone based on urine output and clinical response -Creatinine 1.3, -5 mg -Monitor creatinine, monitor urine output -BiPAP as needed during the day for shortness of breath, schedule during the night -Full code -Lovenox for DVT prophylaxis Pneumonia -Chest x-ray shows groundglass opacities, bilateral lung -COVID testing negative, flu testing negative -Sputum, blood cultures, urine bacterial infection -Rocephin, azithromycin -Oxygen therapy -Vitamin C, zinc, vitamin D, incentive spirometer, flutter valve Insulin-dependent type 2 diabetes mellitus -Takes Tresiba 230 every morning, we do not carry this in the hospital -Lantus 50 units twice daily with moderate dose sliding scale Moderate aortic valve stenosis, continue to monitor Atrial flutter, continue Eliquis CAD status post stenting, continue Plavix Status: Acute (2) Coronary artery disease: Status: Acute (3) HTN (hypertension): Status: Acute Qualifiers: Hypertension type: essential hypertension Qualified Code(s): I10 - Essential (primary) hypertension Attestations Medical Necessity Statement*: Patient requires hospitalization for acute diastolic CHF exacerbation, now with acute hypercarbic respiratory failure, pneumonia Coding Level of Care Code Acute Medical Center Manager for [facility] Diagnoses Acute exacerbation of CHF (congestive heart failure) I50.9 Coronary artery disease I25.10 HTN (hypertension) I10 Hypertension type: essential hypertension
--- NOTE | 2021-12-05 12:45 | USCV_ITS ---
Bartolo Hardy Age: 71 Gender: M : 1950 Exam Date: 12/05/2021 14:14 Ordering Phys: Michael Perry MD Technologist: Exam Location: [facility] – [place] Indication: CONGESTIVE HEART FAILURE BP: 145 / 73 HR: 112 Rhythm: OTHER Technical Quality: Adequate MEASUREMENTS (Male / Female) Normal Values 2D ECHO LV Diastolic Diameter PLAX 4.2 cm 4.2 - 5.9 / 3.9 - 5.3 cm LV Systolic Diameter PLAX 2.9 cm IVS Diastolic Thickness 1.1 cm 0.6 - 1.0 / 0.6 - 0.9 cm IVS Systolic Thickness 1.5 cm LVPW Diastolic Thickness 1.2 cm 0.6 - 1.0 / 0.6 - 0.9 cm LVPW Systolic Thickness 1.6 cm LV Ejection Fraction 2D Teich 57.3 % LV Ejection Fraction MOD 2C 51.8 % LV Ejection Fraction 2C AL 54.6 % LA Width 4.0 cm LA Height 4.3 cm RA Width 4.0 cm RA Height 5.3 cm FINDINGS Left Ventricle Normal left ventricular cavity size. Normal left ventricular systolic function. Left ventricular ejection fraction is estimated at 65 %. Right Ventricle Right Atrium Left Atrium Mitral Valve Aortic Valve Tricuspid Valve Pulmonic Valve Pericardium Aorta CONCLUSIONS Limited echo to assess LV function 1-Normal left ventricular cavity size. Normal left ventricular systolic function. Left ventricular ejection fraction is estimated at 65 %. 2-There is no pericardial effusion. Rohan Snider MD (Electronically Signed) Final Date: 05 December 2021 20:11 S
[2021-12-05] MEDS: bumetanide 0.25 mg/mL SDV 10 mL 2 MG IVP (13:24)
[2021-12-05] MEDS: perflutren protein-a microsphr 0.22 mg/mL SDV 3 mL IV (14:40)
[2021-12-05] MEDS: cefTRIAXone 1,000 MG in sodium chloride 0.9% (plus) 50 ML 100 MG IV (16:50)
[2021-12-05 17:24] LABS: ABG PH Result 7.41 (7.35-7.45); Arterial Blood Gas Hematocrit 32.1 % (42-52); Base Excess ABG 13.3 mmol/L (-2.0-2.0); Blood Gas Allen Test Pos; Blood Gas Sample Type Arterial; HCO3 ABG 40.2 mmol/L (22-26); PO2 ABG 62.1 mmHg (80.0-100.0)
[2021-12-05] MEDS: potassium chloride ER 20 mEq Tablet PO (17:24)
[2021-12-05] MEDS: azithromycin 500 MG in sodium chloride 0.9% 250 ML 250 MG IV (17:24)
[2021-12-05] MEDS: ascorbic acid 500 mg Tablet PO (17:24)
[2021-12-05] MEDS: famotidine 20 mg Tablet PO (17:24)
[2021-12-05 17:25] LABS: ABG PCO2 63.6 mmHg (35-45); Blood Gas Operator Identificat ED; Blood Gas Sample Site Radial, right; Blood Gas Tidal Volume 0.55; Oxygen Device BIPAP
[2021-12-05 17:26] LABS: ABG PCO2 68.2 mmHg (35-45)
[2021-12-05 17:57] LABS: Glucose Point of Care 145 mg/dL (70-110)
[2021-12-05] MEDS: ipratropium-albuterol 3 mL Neb INHALATION (20:20)
[2021-12-05] MEDS: pramipexole 0.25 mg Tablet 1 MG PO (20:44)
[2021-12-05] MEDS: atorvastatin 40 mg Tablet 80 MG PO (20:44)
[2021-12-05] MEDS: latanoprost 0.005% Op Soln 2.5 mL Btl 1 DROP EYE-BOTH (20:45)
[2021-12-05] MEDS: metoprolol succinate ER (24 HR) 25 mg Tablet 37.5 MG PO (20:45)
[2021-12-05] MEDS: apixaban 5 mg Tablet PO (20:46)
[2021-12-05] MEDS: insulin glargine 100 units/1 mL 50 UNIT SUBCUT (20:46)
[2021-12-05 22:00] LABS: Glucose Point of Care 128 mg/dL (70-110)
[2021-12-06] VITALS (11 sets, daily range): BP systolic 115–159; BP diastolic 56–89; PULSE 73–119; RESP 18–30; TEMP 36.7–36.9; O2SAT 86–97
[2021-12-06] MEDS: ipratropium-albuterol 3 mL Neb INHALATION ×3 (02:30→14:14)
[2021-12-06] MEDS: acetaminophen 325 mg Tablet 650 MG PO (05:05)
[2021-12-06] MEDS: venlafaxine ER (24HR) 75 mg Capsule PO (05:06)
[2021-12-06] MEDS: levothyroxine 50 mcg Tablet PO (05:06)
[2021-12-06] MEDS: allopurinol 100 mg Tablet 200 MG PO (05:06)
[2021-12-06] MEDS: amiodarone 200 mg Tablet PO (05:07)
[2021-12-06] MEDS: amlodipine 10 mg Tablet PO (05:19)
[2021-12-06] MEDS: bumetanide 0.25 mg/mL SDV 4 mL 1 MG IVP ×3 (05:34→21:16)
[2021-12-06 06:02] LABS: Basophils % 0.5 %; Eosinophils # 0.2 10^3/uL (0.0-0.8); Eosinophils % 1.9 %; Hematocrit 33.2 % (42.0-52.0); Hemoglobin 10.5 g/dL (11.7-16.6); Lymphocytes # 1.3 10^3/uL (0.8-4.8); Lymphocytes % 16.3 %; Mean Corpuscular HGB Conc 31.6 g/dL (30.0-36.0); Mean Corpuscular Hemoglobin 30.8 pg (28.0-34.0); Mean Corpuscular Volume 97.4 fl (80-94); Mean Platelet Volume 10.5 fL (7.4-10.4); Monocytes # 0.8 10^3/uL (0.2-0.9); Monocytes % 9.7 %; Neutrophils # 5.72 10^3/uL (1.8-7.7); Neutrophils % 71.1 %; Nucleated Red Blood Cells % 0 %; Platelet Count 162 10^3/cmm (130-400); Red Blood Count 3.41 10^6/uL (4.1-5.3); Red Cell Distribution Width 14.5 % (12.1-15.1)
[2021-12-06 06:31] LABS: Phosphorus 2.7 mg/dL (2.5-4.5)
[2021-12-06 06:32] LABS: Alanine Aminotransferase 33 U/L (0-41); Albumin Level 3.6 g/dL (3.5-5.2); Alkaline Phosphatase 63 IU/L (40-130); Anion Gap 18.7 (5-19); Aspartate Amino Transferase 19 U/L (0-40); Blood Urea Nitrogen 30 mg/dL (8-23); Calcium 8.4 mg/dL (8.5-10.5); Carbon Dioxide 31 mmol/L (22-29); Chloride 92 mmol/L (98-107); Creatinine Clr Calc Pharmacy 100.4464; Globulin 3.4 g/dL (1.3-4.6); Glucose 109 mg/dL (65-115); NT Pro B Type Natriuretic Pept 1100 pg/mL (0-125); Osmolality Calculated 293 mOsm/kg (285-295); Potassium 3.7 mmol/L (3.5-5.1); Sodium 138 mmol/L (136-145); Total Bilirubin 1.1 mg/dL (0.15-1.2)
[2021-12-06 06:48] LABS: Glucose Point of Care 131 mg/dL (70-110)
[2021-12-06] MEDS: cholecalciferol (vitamin D3) 1,000 unit Tablet 1000 UNIT PO (08:22)
[2021-12-06] MEDS: famotidine 20 mg Tablet PO ×2 (08:22→17:54)
[2021-12-06] MEDS: apixaban 5 mg Tablet PO ×2 (08:22→21:12)
[2021-12-06] MEDS: potassium chloride ER 20 mEq Tablet PO ×2 (08:22→17:54)
[2021-12-06] MEDS: zinc gluconate 50 mg Tablet PO (08:22)
[2021-12-06] MEDS: ascorbic acid 500 mg Tablet PO ×2 (08:23→17:54)
[2021-12-06] MEDS: insulin glargine 100 units/1 mL 50 UNIT SUBCUT ×2 (08:23→21:45)
[2021-12-06] MEDS: clopidogrel 75 mg Tablet PO (08:23)
[2021-12-06] MEDS: metOLazone 5 MG Tablet 10 MG PO (08:30)
[2021-12-06] MEDS: metoprolol succinate ER (24 HR) 25 mg Tablet 37.5 MG PO ×2 (08:31→21:13)
--- NOTE | 2021-12-06 12:33 | PC.SOCIAL ---
Pg 2 IMM Explained to pt Pg 2 IMM. No questions voiced. Provided pt a copy. Initialed, dated, & timed a copy & placed in chart.
[2021-12-06] MEDS: insulin lispro 100 unit/1 mL SUBCUT ×2 (14:48→18:15)
--- NOTE | 2021-12-06 15:38 | PC.CHAP ---
Pastoral Care Encounter/Spiritual Assessment Type of Contact [] Declined clerk general visit [] Patient/Family/Request visit [] Outpatient visit [] Follow-up visit [] Physician referral [] Code/Alert [xx] Routine visit [] Staff referral [] Actively dying [] Patient sleeping [] Family support [] [] Out of room [] Palliative care [] [] Receiving care in room [] Pre-surgical visit [] Trauma [] Long length of stay [] ICU visit [] Other: Relational/Emotional Strength [xx] Patient feels connected with others/family/visitors/staff [] Distress [] Loneliness/isolation [] Abandonment Spirituality of Patient [xx] Person of Pina [xx] Attends Protestant of their Pina [xx] Believes in Prayer [xx] Reads Bible or Samaritan materials [] There are Spiritual issues to be addressed Basket Assembler Interventions [xdx] Prayer [xx] Active listening [xx] Non-anxious presence [] Spiritual/emotional support [] Crisis/trauma care [] Spiritual counseling [] Bereavement support [] Provided bereavement packet [] Provided Bible/devotional materials [] Provided toy/stuffed animal, coloring book to patient or family member [] Provided Communion [] Anointing/[place] [] Salvation [xx] Completed spiritual assessment [] Other: Impact on Illness or Injury [] Angry [] Fearful [] Anxious [] Often cries [] Exhaustion [] Unable to work [] Unable to attend scientologist [] Unable to walk/stand [] Unable to read [] Unable to drive [] Unable to eat/drink [] Unable to sleep [] Unable to be with family [] Patient intubated [] Other: Summary Patient stated he is feeling better. He needed to talk about his past and mistakes he had made.He spoke of such to say how God had brought him through and blessed him in many ways even after the loss of his teenage daughter to a car accident. He and his have been in mormon most of their lives and he thanks God for this and keeping them strong in their pina. Time spent with patient 12 minutes
--- NOTE | 2021-12-06 16:21 | PM.PN ---
Vitals/I&O/Wt Last Vital Signs Temp 98.1 F 12/06/21 12:00 Pulse 75 12/06/21 14:19 Resp 18 12/06/21 14:14 BP 148/89 12/06/21 12:00 Pulse Ox 96 12/06/21 14:14 12/06/21 12/06/21 12/06/21 06:59 14:59 22:59 Intake Total 450 / 1720 Output Total 2900 / 6050 Balance -2450 / -4330 Physical Exam Const: COMMON NORMALS: no acute distress and patient oriented x3 Resp: COMMON NORMALS: normal respiratory effort, No retractions, No use of accessory muscles and clear to auscultation bilaterally AUSCULTATION: clear to auscultation bilaterally Cardio: COMMON NORMALS: regular rate, regular rhythm, S1 normal heart sound present and S2 normal heart sound present RATE: regular rate RHYTHM: regular rhythm HEART SOUNDS: S1 normal heart sound present and S2 normal heart sound present GI: COMMON NORMALS: Normal to inspection, nondistended, normoactive bowel sounds present, Soft to palpation and non-tender PALPATION: Yes Soft to palpation Extremity: NARRATIVE EXTREMITY EXAM: 2+ PITTING EDEMAQ Neuro: COMMON NORMALS: patient oriented x3 Psych: COMMON NORMALS: mental status grossly normal Urinary Catheter Management^: Brand: Cath Placed During This Visit: yes, but has since been removed by the nurse Reason for Continuing Indwelling Catheter: Other Date Urinary Catheter Removed: 12/04/21 Time Urinary Catheter Discontinued: 22:45 Data : 12/06/21 05:52 12/06/21 05:52 Micro: Microbiology 12/03/21 15:09 Gram Stain - Final Sputum - Expectorated Sputum Sputum Culture - Final 12/03/21 10:50 Urine Culture - Final Urine,Clean Catch A&P Assessment and plan (1) Acute exacerbation of CHF (congestive heart failure): Acute hypercarbic respiratory failure -Hypercarbia has improved in -Currently alert to person, place, time -Continue BiPAP -Continue diuresis - Acute diastolic CHF exacerbation -Fluid restrictions 1500 cc -BNP 1100, continues to have bilateral extremity edema, diuresed over -Bumex 1 mg every 8 hours, diuresed over 8 L -We will consider metolazone based on urine output and clinical response -Creatinine 1.2 -Monitor creatinine, monitor urine output -BiPAP as needed during the day for shortness of breath, schedule during the night -Full code -Lovenox for DVT prophylaxis Pneumonia -Chest x-ray shows groundglass opacities, bilateral lung -COVID testing negative, flu testing negative -Sputum, blood cultures, urine bacterial infection -Rocephin, azithromycin -Oxygen therapy -Vitamin C, zinc, vitamin D, incentive spirometer, flutter valve Insulin-dependent type 2 diabetes mellitus -Takes Tresiba 230 every morning, we do not carry this in the hospital -Lantus 50 units twice daily with moderate dose sliding scale Moderate aortic valve stenosis, continue to monitor Atrial flutter, continue Eliquis CAD status post stenting, continue Plavix Status: Acute (2) Coronary artery disease: Status: Acute (3) HTN (hypertension): Status: Acute Qualifiers: Hypertension type: essential hypertension Qualified Code(s): I10 - Essential (primary) hypertension Attestations Medical Necessity Statement*: Patient requires hospitalization for acute CHF exacerbation Coding Level of Care Code Acute 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
[2021-12-06] MEDS: cefTRIAXone 1,000 MG in sodium chloride 0.9% (plus) 50 ML 100 MG IV (17:55)
--- NOTE | 2021-12-06 20:03 | PC.NURSE ---
O2 SAT O2 sat 86% with VS check done. Is on CPAP with 4l O2. Reported to pt care nurse
[2021-12-06] MEDS: azithromycin 500 MG in sodium chloride 0.9% 250 ML 250 MG IV (21:09)
[2021-12-06] MEDS: atorvastatin 40 mg Tablet 80 MG PO (21:12)
[2021-12-06] MEDS: latanoprost 0.005% Op Soln 2.5 mL Btl 1 DROP EYE-BOTH (21:13)
[2021-12-06] MEDS: pramipexole 0.25 mg Tablet 1 MG PO (21:15)
[2021-12-06] MEDS: zolpidem 5 mg Tablet PO (21:45)
[2021-12-06 23:04] LABS: Glucose Point of Care 139 mg/dL (70-110)
[2021-12-06 23:04] LABS: Glucose Point of Care 174 mg/dL (70-110)
[2021-12-06 23:04] LABS: Glucose Point of Care 200 mg/dL (70-110)
[2021-12-06] MEDS: LORazepam 2 mg Tablet PO (23:41)
[2021-12-07] VITALS (14 sets, daily range): BP systolic 116–155; BP diastolic 65–88; PULSE 0–131; RESP 18–23; TEMP 36.6–36.8; O2SAT 87–98
[2021-12-07] MEDS: haloperidol inj 5 mg/mL INJ 1 mL IM (00:49)
--- NOTE | 2021-12-07 01:44 | PC.NURSE ---
Patient became confused, anxious, combative constantly getting out of bed and pulling Cpap machine off. O2 was dropping to low 70s. Patient was grabbing 's shirt at the neck trying to force her to lay in bed. patient was uncooperative with the nurse. Physician called. 2MG po Ativan was administered but not effective. Patient pulled out IV. Again was uncooperative and combative. called for 2nd time. Security was called to patients room. Haloperidol 5mg IM was administered. Patient has now calmed down and resting. Will continue to monitor.
[2021-12-07] MEDS: LORazepam 2 mg/mL INJ 1 mL IVP (03:24)
[2021-12-07] MEDS: diphenhydrAMINE 50 mg/mL SDV 1mL 25 MG IVP (03:34)
[2021-12-07] MEDS: ziprasidone 20 mg/mL SDV 10 MG IM (04:31)
[2021-12-07 06:50] LABS: Glucose Point of Care 114 mg/dL (70-110)
[2021-12-07] MEDS: zinc gluconate 50 mg Tablet PO (09:57)
[2021-12-07] MEDS: famotidine 20 mg Tablet PO ×2 (09:57→17:48)
[2021-12-07] MEDS: cholecalciferol (vitamin D3) 1,000 unit Tablet 1000 UNIT PO (09:58)
[2021-12-07] MEDS: allopurinol 100 mg Tablet 200 MG PO (09:58)
[2021-12-07] MEDS: ascorbic acid 500 mg Tablet PO (09:58)
[2021-12-07] MEDS: amiodarone 200 mg Tablet PO (09:58)
[2021-12-07] MEDS: clopidogrel 75 mg Tablet PO (09:59)
[2021-12-07] MEDS: amlodipine 10 mg Tablet PO (09:59)
[2021-12-07] MEDS: levothyroxine 50 mcg Tablet PO (09:59)
[2021-12-07] MEDS: potassium chloride ER 20 mEq Tablet PO ×2 (09:59→17:48)
[2021-12-07] MEDS: doxazosin 4 mg Tablet 2 MG PO (10:00)
[2021-12-07] MEDS: venlafaxine ER (24HR) 75 mg Capsule PO (10:00)
[2021-12-07] MEDS: ipratropium-albuterol 3 mL Neb INHALATION ×3 (10:07→20:16)
[2021-12-07] MEDS: metoprolol succinate ER (24 HR) 25 mg Tablet 37.5 MG PO (11:17)
[2021-12-07] MEDS: apixaban 5 mg Tablet PO ×2 (11:17→20:58)
[2021-12-07 11:53] LABS: Basophils # 0.1 10^3/uL (0.0-0.1); Basophils % 0.7 %; Eosinophils # 0.3 10^3/uL (0.0-0.8); Eosinophils % 3.9 %; Hematocrit 36.7 % (42.0-52.0); Hemoglobin 11.5 g/dL (11.7-16.6); Lymphocytes # 1.9 10^3/uL (0.8-4.8); Lymphocytes % 23.1 %; Mean Corpuscular HGB Conc 31.3 g/dL (30.0-36.0); Mean Corpuscular Volume 98.9 fl (80-94); Mean Platelet Volume 11.3 fL (7.4-10.4); Monocytes % 11.9 %; Neutrophils # 4.84 10^3/uL (1.8-7.7); Neutrophils % 59.7 %; Nucleated Red Blood Cells % 0 %; Platelet Count 212 10^3/cmm (130-400); Red Blood Count 3.71 10^6/uL (4.1-5.3); White Blood Count 8.1 10^3/uL (4.0-10.0)
--- NOTE | 2021-12-07 11:59 | P.PN_ITS ---
Subjective Subjective: Interval history: Reports he is doing okay. Had an event last night where he was very confused again. From what I understand he was not wearing his CPAP and eventually had to be put on BiPAP here. Oxygen was also turned up at night. Medications: Reviewed: Yes Vitals/I&O/Wt Last Vital Signs Temp 98.2 F 12/07/21 09:15 Pulse 100 12/07/21 10:16 Resp 19 H 12/07/21 10:16 BP 155/88 12/07/21 09:15 Pulse Ox 94 12/07/21 10:16 12/06/21 12/07/21 12/07/21 22:59 06:59 14:59 Intake Total 530 / 680 730 / 1410 Output Total 1000 / 1000 3100 / 4100 Balance -470 / -320 -2370 / -2690 Physical Exam Narrative: EXAM NARRATIVE: General exam is a male, no apparent distress, mild confusion Neck is supple Cardiovascular irregular irregular with a 2/6 systolic murmur Lungs clear, sounds distant Abdomen is soft obese nontender Extremities trace edema Urinary Catheter Management^: Brand: Cath Placed During This Visit: yes, but has since been removed by the nurse Reason for Continuing Indwelling Catheter: Other Date Urinary Catheter Removed: 12/04/21 Time Urinary Catheter Discontinued: 22:45 Data : 12/06/21 05:52 12/06/21 05:52 Micro: Microbiology 12/03/21 15:09 Gram Stain - Final Sputum - Expectorated Sputum Sputum Culture - Final A&P Assessment and plan (1) Acute exacerbation of CHF (congestive heart failure): Consistent with acute diastolic heart failure. Associated with acute hypercarbic respiratory failure Continues to diurese, with 2700 cc out yesterday. Change Bumex to p.o. May need intermittent Zaroxolyn. Status: Acute (2) Coronary artery disease: Stable currently. Continue Plavix Status: Acute (3) HTN (hypertension): Status: Acute Qualifiers: Hypertension type: essential hypertension Qualified Code(s): I10 - Essential (primary) hypertension Additional A&P Information History of atrial fibrillation. On amiodarone, anticoagulation, metoprolol Concern of pneumonia. Was placed on Rocephin and a Zithromax on admission. Discontinue Zithromax. COVID-negative on admission Obesity hypoventilation with hypercarbia. Would best be served by noninvasive ventilator. This could reduce hospitalizations, reduce confusion. His CPAP is not effective at home, nor at the hospital. Moderate aortic stenosis Type 2 diabetes. Continue insulin Eliquis will suffice for DVT prophylaxis. Discussed potential nursing facility placement which family and patient refused. Attestations Medical Necessity Statement*: Needs continued hospitalization for conversion to p.o. from his IV diuretics as well as exploration of need of noninvasive ventilator at home. Coding Level of Care Code Acute Pairing Machine Operator for [facility] Diagnoses Acute exacerbation of CHF (congestive heart failure) I50.9 Coronary artery disease I25.10 HTN (hypertension) I10 Hypertension type: essential hypertension
[2021-12-07 12:20] LABS: Alanine Aminotransferase 29 U/L (0-41); Albumin Level 3.8 g/dL (3.5-5.2); Alkaline Phosphatase 71 IU/L (40-130); Anion Gap 18.6 (5-19); Aspartate Amino Transferase 27 U/L (0-40); Blood Urea Nitrogen 32 mg/dL (8-23); Calcium 9.8 mg/dL (8.5-10.5); Carbon Dioxide 35 mmol/L (22-29); Chloride 91 mmol/L (98-107); Globulin 3.9 g/dL (1.3-4.6); Glucose 119 mg/dL (65-115); Magnesium 2.4 mg/dL (1.7-2.3); Osmolality Calculated 300 mOsm/kg (285-295); Potassium 3.6 mmol/L (3.5-5.1); Sodium 141 mmol/L (136-145); Total Bilirubin 1.3 mg/dL (0.15-1.2); Total Protein 7.7 g/dL (6.6-8.7)
[2021-12-07 12:25] LABS: NT Pro B Type Natriuretic Pept 698 pg/mL (0-125)
[2021-12-07 12:35] LABS: Glucose Point of Care 152 mg/dL (70-110)
[2021-12-07] MEDS: insulin lispro 100 unit/1 mL SUBCUT ×3 (13:49→20:58)
--- NOTE | 2021-12-07 16:18 | ECG_ITS ---
[facility] Test Date: 2021-12-07 Pat Name: Bartolo Hardy Department: Room: 278 Gender: Male Lead Data Architect: : 1950 Requested By: Lowell Kaplan Order Number: [id number] Khalida MD: Jamee Torres M.D. Measurements Intervals [place] Rate: 124 P: 265 WA: 187 QRS: -79 QRSD: 146 T: 55 QT: 368 QTc: 529 Interpretive Statements ECTOPIC ATRIAL TACHYCARDIA RIGHT BUNDLE BRANCH BLOCK [120+ ms QRS DURATION, UPRIGHT V1, 40+ ms S IN I/aVL/V4/V5/V6] LEFT ANTERIOR FASCICULAR BLOCK [QRS AXIS <= -45, QR IN I, RS IN II] LEFT VENTRICULAR HYPERTROPHY AND ST-T CHANGE [VOLTAGE CRITERIA PLUS ST/T ABNORMALITY] Compared to ECG 12/03/2021 15:26:52 ST (T wave) deviation now present Sinus rhythm no longer present Electronically Signed On 12-08-2021 20:01:26 BEHAVIORAL GENETICIST by Jamee Torres M.D. [id number]
[2021-12-07] MEDS: metoprolol tartrate 1 mg/1 mL SDV 5 mL 5 MG IVP (16:25)
[2021-12-07] MEDS: lidocaine 1% 5 ML in potassium chloride premix 100 ML 25 ML IV (16:41)
[2021-12-07 17:41] LABS: Glucose Point of Care 159 mg/dL (70-110)
[2021-12-07] MEDS: metoprolol succinate ER (24 HR) 25 mg Tablet 50 MG PO (17:48)
[2021-12-07] MEDS: bumetanide 1 mg Tablet 2 MG PO (17:56)
--- NOTE | 2021-12-07 20:31 | PC.NURSE ---
i reported high pulse 131 to nurse
[2021-12-07] MEDS: insulin glargine 100 units/1 mL 50 UNIT SUBCUT (20:58)
[2021-12-07] MEDS: atorvastatin 40 mg Tablet 80 MG PO (20:58)
[2021-12-07] MEDS: pramipexole 0.25 mg Tablet 1 MG PO (20:59)
[2021-12-07] MEDS: cefTRIAXone 1,000 MG in sodium chloride 0.9% (plus) 50 ML 100 MG IV (21:01)
[2021-12-07 21:03] LABS: Glucose Point of Care 227 mg/dL (70-110)
[2021-12-07] MEDS: latanoprost 0.005% Op Soln 2.5 mL Btl 1 DROP EYE-BOTH (22:40)
[2021-12-08] VITALS (9 sets, daily range): BP systolic 96–139; BP diastolic 56–74; PULSE 0–135; RESP 18–29; TEMP 36.4–36.9; O2SAT 90–96
[2021-12-08] MEDS: LORazepam 2 mg/mL INJ 1 mL IVP (00:36)
--- NOTE | 2021-12-08 00:58 | PC.NURSE ---
i reported high pulse 135 to nurse
--- NOTE | 2021-12-08 02:38 | PC.NURSE ---
Patient continues to be restless and increased fidgeting, pulling at lines and cords. Per Dr Brasher, order placed for Geodon 10 mg IM one time dose for now.
[2021-12-08] MEDS: ziprasidone 20 mg/mL SDV 10 MG IM (02:58)
[2021-12-08] MEDS: levothyroxine 50 mcg Tablet PO (06:40)
[2021-12-08] MEDS: doxazosin 4 mg Tablet 2 MG PO (06:40)
[2021-12-08] MEDS: venlafaxine ER (24HR) 75 mg Capsule PO (06:40)
[2021-12-08] MEDS: allopurinol 100 mg Tablet 200 MG PO (06:40)
[2021-12-08] MEDS: amiodarone 200 mg Tablet PO (06:40)
[2021-12-08] MEDS: amlodipine 10 mg Tablet PO (06:41)
[2021-12-08 07:54] LABS: Glucose Point of Care 137 mg/dL (70-110)
--- NOTE | 2021-12-08 07:54 | PC.NURSE ---
Patient continued to refuse telemetry.
[2021-12-08] MEDS: cholecalciferol (vitamin D3) 1,000 unit Tablet 1000 UNIT PO (09:35)
[2021-12-08] MEDS: metoprolol succinate ER (24 HR) 25 mg Tablet 50 MG PO ×2 (09:35→20:24)
[2021-12-08] MEDS: potassium chloride ER 20 mEq Tablet PO ×2 (09:35→17:38)
[2021-12-08] MEDS: bumetanide 1 mg Tablet 2 MG PO (09:35)
[2021-12-08] MEDS: famotidine 20 mg Tablet PO ×2 (09:36→17:38)
[2021-12-08] MEDS: apixaban 5 mg Tablet PO ×2 (09:36→20:25)
[2021-12-08] MEDS: clopidogrel 75 mg Tablet PO (09:36)
[2021-12-08 11:35] LABS: Basophils # 0.1 10^3/uL (0.0-0.1); Eosinophils # 0.3 10^3/uL (0.0-0.8); Eosinophils % 3.9 %; Hematocrit 37.2 % (42.0-52.0); Hemoglobin 11.8 g/dL (11.7-16.6); Lymphocytes # 1.4 10^3/uL (0.8-4.8); Mean Corpuscular HGB Conc 31.7 g/dL (30.0-36.0); Mean Corpuscular Hemoglobin 31.1 pg (28.0-34.0); Mean Corpuscular Volume 97.9 fl (80-94); Mean Platelet Volume 11.1 fL (7.4-10.4); Monocytes # 0.8 10^3/uL (0.2-0.9); Monocytes % 10.2 %; Neutrophils # 5.05 10^3/uL (1.8-7.7); Neutrophils % 66.2 %; Nucleated Red Blood Cells % 0 %; Platelet Count 225 10^3/cmm (130-400); Red Cell Distribution Width 14.9 % (12.1-15.1); White Blood Count 7.6 10^3/uL (4.0-10.0)
--- NOTE | 2021-12-08 11:56 | PC.SOCIAL ---
IMM Update pg 2 of IMM updated and reviewed w/ patient and patients . Copy provided. Copy signed and dated in chart.
[2021-12-08 11:58] LABS: Alanine Aminotransferase 27 U/L (0-41); Albumin Level 3.6 g/dL (3.5-5.2); Alkaline Phosphatase 72 IU/L (40-130); Anion Gap 20.7 (5-19); Aspartate Amino Transferase 27 U/L (0-40); Blood Urea Nitrogen 37 mg/dL (8-23); Calcium 9.7 mg/dL (8.5-10.5); Carbon Dioxide 33 mmol/L (22-29); Chloride 88 mmol/L (98-107); Globulin 3.8 g/dL (1.3-4.6); Glucose 180 mg/dL (65-115); Magnesium 2.3 mg/dL (1.7-2.3); Osmolality Calculated 299 mOsm/kg (285-295); Potassium 3.7 mmol/L (3.5-5.1); Sodium 138 mmol/L (136-145); Total Bilirubin 1.2 mg/dL (0.15-1.2); Total Protein 7.4 g/dL (6.6-8.7)
[2021-12-08] MEDS: insulin lispro 100 unit/1 mL SUBCUT ×2 (12:46→20:44)
--- NOTE | 2021-12-08 12:49 | PM.PN ---
Subjective Subjective: Interval history: Feels good this morning. relates he did wake up last night, somewhat out of sorts and he ended up getting some Geodon and Ativan. She states he went back to sleep, and was compliant with BiPAP. Medications: Reviewed: Yes Vitals/I&O/Wt Last Vital Signs Temp 98.4 F 12/08/21 12:00 Pulse 83 12/08/21 12:00 Resp 18 12/08/21 12:00 BP 131/68 12/08/21 12:00 Pulse Ox 93 12/08/21 12:00 12/07/21 12/08/21 12/08/21 22:59 06:59 14:59 Intake Total 240 / 720 290 / 1010 1345 / 1345 Output Total 2700 / 2700 1140 / 3840 1000 / 1000 Balance -2460 / -1980 -850 / -2830 345 / 345 Physical Exam Narrative: EXAM NARRATIVE: General exam is a male, no apparent distress, mild confusion Neck is supple Cardiovascular irregular irregular with a 2/6 systolic murmur Lungs clear, sounds distant Abdomen is soft obese nontender Extremities trace edema Urinary Catheter Management^: Brand: Cath Placed During This Visit: yes, but has since been removed by the nurse Reason for Continuing Indwelling Catheter: Other Date Urinary Catheter Removed: 12/04/21 Time Urinary Catheter Discontinued: 22:45 Data : 12/08/21 11:24 12/08/21 11:24 Micro: Microbiology 12/03/21 10:50 Blood Culture - Final Blood NO GROWTH AFTER 5 DAYS 12/03/21 10:58 Blood Culture - Final Blood NO GROWTH AFTER 5 DAYS A&P Assessment and plan (1) Acute exacerbation of CHF (congestive heart failure): Consistent with acute diastolic heart failure. Associated with acute hypercarbic respiratory failure Continues to diurese well with even changing to p.o. Hold p.m. dose of Bumex today. May need intermittent Zaroxolyn. Status: Acute (2) Coronary artery disease: Stable currently. Continue Plavix Status: Acute (3) HTN (hypertension): Status: Acute Qualifiers: Hypertension type: essential hypertension Qualified Code(s): I10 - Essential (primary) hypertension Additional A&P Information History of atrial fibrillation. On amiodarone, anticoagulation, metoprolol. Heart rate controlled currently. Concern of pneumonia. Was placed on Rocephin and a Zithromax on admission. Discontinue Zithromax. COVID-negative on admission Obesity hypoventilation with hypercarbia. Would best be served by noninvasive ventilator. This could reduce hospitalizations, reduce confusion. His CPAP is not effective at home, nor at the hospital. This has been arranged. He still wakes up, significantly with agitation. We will try some Restoril at night as long as he is going to be compliant with BiPAP/trilogy. Moderate aortic stenosis Type 2 diabetes. Continue insulin Eliquis will suffice for DVT prophylaxis. Discussed potential nursing facility placement which family and patient refused. Discontinue Brand Attestations Medical Necessity Statement*: Needs continued hospitalization, for adjustment of medication prior to discharge secondary to acute diastolic heart failure with medication adjustment being made prior to discharge. 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
[2021-12-08 12:56] LABS: Glucose Point of Care 214 mg/dL (70-110)
[2021-12-08] MEDS: cefTRIAXone 1,000 MG in sodium chloride 0.9% (plus) 50 ML 100 MG IV (20:23)
[2021-12-08] MEDS: insulin glargine 100 units/1 mL 50 UNIT SUBCUT (20:23)
[2021-12-08] MEDS: temazepam 15 mg Capsule PO (20:24)
[2021-12-08] MEDS: atorvastatin 40 mg Tablet 80 MG PO (20:24)
[2021-12-08] MEDS: pramipexole 0.25 mg Tablet 1 MG PO (20:24)
[2021-12-08] MEDS: acetaminophen 325 mg Tablet 650 MG PO (20:24)
[2021-12-08] MEDS: latanoprost 0.005% Op Soln 2.5 mL Btl 1 DROP EYE-BOTH (20:26)
[2021-12-08 20:51] LABS: Glucose Point of Care 238 mg/dL (70-110)
[2021-12-09 00:03] VITALS: PULSE 87; RESP 29; O2SAT 94
[2021-12-09] MEDS: allopurinol 100 mg Tablet 200 MG PO (06:07)
[2021-12-09] MEDS: venlafaxine ER (24HR) 75 mg Capsule PO (06:07)
[2021-12-09] MEDS: doxazosin 4 mg Tablet 2 MG PO (06:07)
[2021-12-09] MEDS: amiodarone 200 mg Tablet PO (06:07)
[2021-12-09] MEDS: amlodipine 10 mg Tablet PO (06:07)
[2021-12-09] MEDS: levothyroxine 50 mcg Tablet PO (06:07)
[2021-12-09 06:11] VITALS: BP 161/69; PULSE 77; RESP 20; TEMP 36.5; O2SAT 92
[2021-12-09 06:26] LABS: Glucose Point of Care 131 mg/dL (70-110)
[2021-12-09 07:03] LABS: Alanine Aminotransferase 25 U/L (0-41); Albumin Level 3.6 g/dL (3.5-5.2); Alkaline Phosphatase 76 IU/L (40-130); Anion Gap 16.5 (5-19); Aspartate Amino Transferase 26 U/L (0-40); Blood Urea Nitrogen 40 mg/dL (8-23); Calcium 8.5 mg/dL (8.5-10.5); Carbon Dioxide 38 mmol/L (22-29); Chloride 89 mmol/L (98-107); Globulin 3.5 g/dL (1.3-4.6); Glucose 126 mg/dL (65-115); Osmolality Calculated 301 mOsm/kg (285-295); Potassium 3.5 mmol/L (3.5-5.1); Sodium 140 mmol/L (136-145); Total Bilirubin 1.1 mg/dL (0.15-1.2); Total Protein 7.1 g/dL (6.6-8.7)
[2021-12-09] MEDS: ipratropium-albuterol 3 mL Neb INHALATION (08:29)
[2021-12-09 08:30] VITALS: PULSE 85; RESP 18; O2SAT 98
[2021-12-09 08:34] VITALS: PULSE 99
[2021-12-09] MEDS: metoprolol succinate ER (24 HR) 25 mg Tablet 50 MG PO (08:52)
[2021-12-09] MEDS: cholecalciferol (vitamin D3) 1,000 unit Tablet 1000 UNIT PO (08:52)
[2021-12-09] MEDS: apixaban 5 mg Tablet PO (08:52)
[2021-12-09] MEDS: potassium chloride ER 20 mEq Tablet PO (08:52)
[2021-12-09] MEDS: famotidine 20 mg Tablet PO (08:52)
[2021-12-09] MEDS: clopidogrel 75 mg Tablet PO (08:52)
[2021-12-09] MEDS: bumetanide 1 mg Tablet 2 MG PO (08:53)
[2021-12-09] MEDS: insulin glargine 100 units/1 mL 50 UNIT SUBCUT (08:53)
--- NOTE | 2021-12-09 08:54 | PC.NURSE ---
patient requesting miralax. Dr Mcnamara notified. rcvd verbal order from Dr Mcnamara for Miralax
[2021-12-09] MEDS: polyethylene glycol 3350 Pkt 17 gm PO (08:59)
--- NOTE | 2021-12-09 09:11 | PM.DCS ---
Discharge Providers Date of Admission: 12/03/21 16:00 Date of Discharge: December 09, 2021 Attending Provider at Admission: Michael Perry MD Attending Provider at Discharge: Lowell Mcnamara MD Primary Care Provider: Ministerio Sewell MD Diagnoses at Discharge Discharge Diagnosis (1) Acute exacerbation of CHF (congestive heart failure): Status: Acute (2) Coronary artery disease: Status: Acute (3) HTN (hypertension): Status: Acute Qualifiers: Hypertension type: essential hypertension Qualified Code(s): I10 - Essential (primary) hypertension Reason for Visit Reason for Visit: sob Physical Exam Urinary Catheter Management^: Brand: Cath Placed During This Visit: yes, but has since been removed by the nurse Reason for Continuing Indwelling Catheter: Other Date Urinary Catheter Removed: 12/04/21 Time Urinary Catheter Discontinued: 22:45 Discharge Data Data Completed and Pending: Completed Studies During Hospitalization Category Date Time Status XR chest 1V kaia ble [id number] Routine Exams 12/04/21 07:00 Completed XR chest 1V kaia ble [id number] Stat Exams 12/03/21 09:33 Completed CV echo lmt wo/w contras [id number] Rout ine Ultrasound 12/05/21 12:45 Completed Labs from last 24 hours 12/09/21 12/09/21 12/08/21 06:18 06:08 20:31 WBC RBC Hgb Hct MCV MCH MCHC RDW Plt Count MPV Neut % (Auto) Lymph % (Auto) [place] % (Auto) Eos % (Auto) Baso % (Auto) Neut # (Auto) Lymph # (Auto) [place] # (Auto) Eos # (Auto) Baso # (Auto) Nucleated RBC % (a uto) Nucleated RBCs # Sodium 140 Potassium 3.5 Chloride 89 L Carbon Dioxide 38 H Anion Gap 16.5 BUN 40 H Creatinine 1.6 H GFR Calculation Not Reportable Glucose 126 H POC Glucose 131 H 238 H Calculated Osmolal ity 301 H Calcium 8.5 Magnesium Total Bilirubin 1.1 AST 26 ALT 25 Alkaline Phosphata se 76 Total Protein 7.1 Albumin 3.6 Globulin 3.5 12/08/21 12/08/21 12/08/21 12:34 11:24 11:24 WBC 7.6 RBC 3.80 L Hgb 11.8 Hct 37.2 L MCV 97.9 H MCH 31.1 MCHC 31.7 RDW 14.9 Plt Count 225 MPV 11.1 H Neut % (Auto) 66.2 Lymph % (Auto) 18.0 [place] % (Auto) 10.2 Eos % (Auto) 3.9 Baso % (Auto) 1.0 Neut # (Auto) 5.05 Lymph # (Auto) 1.4 [place] # (Auto) 0.8 Eos # (Auto) 0.3 Baso # (Auto) 0.1 Nucleated RBC % (a uto) 0 Nucleated RBCs # 0.0 Sodium 138 Potassium 3.7 Chloride 88 L Carbon Dioxide 33 H Anion Gap 20.7 H BUN 37 H Creatinine 1.5 H GFR Calculation Not Reportable Glucose 180 H POC Glucose 214 H Calculated Osmolal ity 299 H Calcium 9.7 Magnesium 2.3 Total Bilirubin 1.2 AST 27 ALT 27 Alkaline Phosphata se 72 Total Protein 7.4 Albumin 3.6 Globulin 3.8 Vitals: Last Vital Signs Temp 97.7 F 12/09/21 06:11 Pulse 99 12/09/21 08:34 Resp 18 12/09/21 08:30 BP 161/69 12/09/21 06:11 Pulse Ox 98 12/09/21 08:30 Discharge Plan Discharge Patient Disposition: Home Health Service Condition: Stable Prescriptions: New temazepam 15 mg Capsule 15 mg PO BEDTIME PRN (Reason: sleep) Qty: 10 RF: 0 metoprolol succinate 25 mg Tablet Extended Release 24 Hr 50 mg PO BID@0900,2100 Qty: 60 RF: 0 bumetanide 1 mg tablet 1 mg PO DAILY Qty: 30 RF: 0 Lantus Solostar U-100 Insulin 100 unit/mL (3 mL) insulin pen 40 unit SUBCUT QPM Qty: 15 RF: 0 Continued amiodarone 200 mg tablet 200 mg PO QAM Qty: 90 RF: 3 amlodipine 10 mg tablet 10 mg PO QAM Qty: 90 RF: 3 Eliquis 5 mg tablet 5 mg PO BID Qty: 180 RF: 3 atorvastatin 80 mg tablet 80 mg PO BEDTIME Qty: 90 RF: 3 clopidogrel 75 mg tablet 75 mg PO DAILY Qty: 90 RF: 3 lisinopril 10 mg tablet 10 mg PO QAM Qty: 90 RF: 3 acetaminophen [Tylenol 8 Hour] 650 mg Tablet Extended Release 2,600 mg PO BEDTIME RF: 0 pramipexole 0.5 mg tablet 0.5 mg PO BEDTIME RF: 0 levothyroxine 50 mcg tablet 50 mcg PO QAM RF: 0 latanoprost 0.005 % drops 1 drp ophthalmic (eye) BEDTIME RF: 0 venlafaxine 75 mg capsule,extended release 24hr 75 mg PO QAM RF: 0 allopurinol 100 mg tablet 200 mg PO QAM RF: 0 doxazosin 2 mg tablet 2 mg PO QAM RF: 0 budesonide-formoterol [Symbicort] 80-4.5 mcg/actuation HFA aerosol inhaler 2 puff INHALATION DAILY RF: 0 Tresiba FlexTouch U-100 100 unit/mL (3 mL) insulin pen 230 unit SUBCUT QAM RF: 0 potassium chloride 20 mEq tablet extended release 40 meq PO QAM RF: 0 Discontinued metoprolol succinate 25 mg tablet extended release 24 hr 37.5 mg PO BID Qty: 270 RF: 3 metformin 750 mg tablet extended release 24 hr 750 mg PO BID RF: 0 ascorbic acid (vitamin C) [Vitamin C] 500 mg Tablet 500 mg PO DAILY RF: 0 levofloxacin 500 mg tablet 500 mg PO DAILY RF: 0 bumetanide 1 mg tablet 2 mg PO BID RF: 0 Discharge Orders: Discharge Order (Routine); Ordered 12/09/21 Ordered By: Lowell Mcnamara Other Ambulatory Orders: DME: Non-Invasive Vent (Order) Location: None Selected Ordered By: Lowell Mcnamara Referrals: Gilmer Ocasio MD [Physician] - 2 weeks (Severe sleep apnea, sleep disordered breathing, obesity hypoventilation) Awilda Carrizales FNP [Nurse Practitioner] - 1 week (Follow-up severe heart failure, compounded by severe obstructive sleep apnea) Ministerio Sewell MD [Primary Care Provider] - 4-7 days (BMP on follow-up, 3 to 4 days) Discharge Diet: Cardiac Discharge Activity: Increase activity as tolerated Patient Instructions: Opioid Safety Activity Restrictions/Additional Instructions: Resume your oxygen at 2 L. Keep sat 88 to 92%. Wear your trilogy ventilator all the time when you sleep, and naps during the day. Keep follow-up Fluid restriction is 1400 cc/day Weigh yourself daily, and call your primary care provider if greater than 3 pounds of weight gain 2 days in a row from your baseline Discharge Attestations Status at Discharge: Cognitive status at discharge: cognitively intact, Behavioral status at discharge: cooperative, Coding Level of Care Code Acute Chg [facility] note Diagnoses Acute exacerbation of CHF (congestive heart failure) I50.9 Coronary artery disease I25.10 HTN (hypertension) I10 Hypertension type: essential hypertension
--- NOTE | 2021-12-09 10:47 | PM.EVENT ---
Event Note Event Note: Trilogy is warranted in this patient, noninvasive home ventilation secondary to his severe obesity hypoventilation syndrome causing significant hypercarbia, frequent hospitalizations, not responsive to CPAP.
[2021-12-09] MEDS: insulin lispro 100 unit/1 mL SUBCUT (11:51)
[2021-12-09 12:00] VITALS: BP 136/85; PULSE 123; RESP 20; TEMP 36.4; O2SAT 95
[2021-12-09 12:29] LABS: Glucose Point of Care 174 mg/dL (70-110)
--- NOTE | 2021-12-09 14:01 | PC.NURSE ---
discharge instructions given to patient and . both verbalized understanding of instructions. patient taken to private vehicle via wheelchair. SBAR faxed to [facility]
[2021-12-09 14:02] VITALS: BP 136/85; PULSE 123; RESP 20; TEMP 36.4; O2SAT 95
--- NOTE | 2021-12-09 15:15 | P.DS_ITS ---
Discharge Providers Date of Admission: 12/03/21 16:00 Date of Discharge: December 09, 2021 Attending Provider at Admission: Michael Perry MD Attending Provider at Discharge: Lowell Mcnamara MD Primary Care Provider: Ministerio Sewell MD Diagnoses at Discharge Discharge Diagnosis (1) Acute exacerbation of CHF (congestive heart failure): Status: Acute (2) Coronary artery disease: Status: Acute (3) HTN (hypertension): Status: Acute Qualifiers: Hypertension type: essential hypertension Qualified Code(s): I10 - Essential (primary) hypertension Reason for Visit Reason for Visit: sob Hospital Course Hospital Course Bartolo was admitted to the hospital with acute exacerbation of CHF on December 03. He was placed on IV Bumex. There was concern of possible pneumonia and he was also placed on Rocephin and azithromycin. Covid testing was negative. Some iss ues with atrial flutter/fibrillation while in the hospital requiring adjustment of his chronic medications, with increase in metoprolol. Echocardiogram was performed which demonstrated preserved EF at 65% and was limited. He had significant events in the hospital with obesity hypoventilation and hypercarbic respiratory failure. He was placed on BiPAP in the hospital which was certainly more effective than his CPAP but it was thought a noninvasive ventilator would be needed at home to reduce his CO2 retention at night. This was arranged at discharge. [place] 25263 mL to the negative. Renal function tolerated this well and has creatinine was 1.6 at discharge. Nursing facility placement was recommended but wanted to take him home with home health. I discussed the need for follow-up with pulmonary, his primary care provider, repeat BMP in 3 to 4 days. He will also need follow-up with cardiology. He was discharged on just 1 mg of Bumex per day. He has been transition to oral diuretics several days prior to discharge and they were highly effective after his initial diuresis had been completed. He was instructed to weigh himself every day, and call his primary care provider or cardiology should his weight increase more than 3 pounds 2 days in a row. He was given a as needed sleeping medication, but cautioned this could worsen sleep apnea and hypercarbia and should only be used in conjunction with use of his trilogy. Physical Exam Narrative: EXAM NARRATIVE: General exam no distress Neck is supple Cardiovascular regular Lungs clear Abdomen is soft Extremities no cyanosis clubbing. Trace edema Urinary Catheter Management^: Brand: Cath Placed During This Visit: yes, but has since been removed by the nurse Reason for Continuing Indwelling Catheter: Other Date Urinary Catheter Removed: 12/04/21 Time Urinary Catheter Discontinued: 22:45 Discharge Data Data Completed and Pending: Completed Studies During Hospitalization Category Date Time Status XR chest 1V kaia ble [id number] Routine Exams 12/04/21 07:00 Completed XR chest 1V kaia ble [id number] Stat Exams 12/03/21 09:33 Completed CV echo lmt wo/w contras [id number] Rout ine Ultrasound 12/05/21 12:45 Completed Labs from last 24 hours 12/09/21 12/09/21 12/09/21 11:09 06:18 06:08 Sodium 140 Potassium 3.5 Chloride 89 L Carbon Dioxide 38 H Anion Gap 16.5 BUN 40 H Creatinine 1.6 H GFR Calculation Not Reportable Glucose 126 H POC Glucose 174 H 131 H Calculated Osmolal ity 301 H Calcium 8.5 Total Bilirubin 1.1 AST 26 ALT 25 Alkaline Phosphata se 76 Total Protein 7.1 Albumin 3.6 Globulin 3.5 12/08/21 20:31 Sodium Potassium Chloride Carbon Dioxide Anion Gap BUN Creatinine GFR Calculation Glucose POC Glucose 238 H Calculated Osmolal ity Calcium Total Bilirubin AST ALT Alkaline Phosphata se Total Protein Albumin Globulin Vitals: Last Vital Signs Temp 97.6 F 12/09/21 14:02 Pulse 123 H 12/09/21 14:02 Resp 20 H 12/09/21 14:02 BP 136/85 12/09/21 14:02 Pulse Ox 95 12/09/21 14:02 Discharge Plan Discharge Patient Disposition: Home Health Service Condition: Stable Prescriptions: New temazepam 15 mg Capsule 15 mg PO BEDTIME PRN (Reason: sleep) Qty: 10 RF: 0 metoprolol succinate 25 mg Tablet Extended Release 24 Hr 50 mg PO BID@0900,2100 Qty: 60 RF: 0 Lantus Solostar U-100 Insulin 100 unit/mL (3 mL) insulin pen 40 unit SUBCUT QPM Qty: 15 RF: 0 bumetanide 1 mg tablet 1 mg PO DAILY Qty: 30 RF: 0 Continued amiodarone 200 mg tablet 200 mg PO QAM Qty: 90 RF: 3 amlodipine 10 mg tablet 10 mg PO QAM Qty: 90 RF: 3 Eliquis 5 mg tablet 5 mg PO BID Qty: 180 RF: 3 atorvastatin 80 mg tablet 80 mg PO BEDTIME Qty: 90 RF: 3 clopidogrel 75 mg tablet 75 mg PO DAILY Qty: 90 RF: 3 lisinopril 10 mg tablet 10 mg PO QAM Qty: 90 RF: 3 acetaminophen [Tylenol 8 Hour] 650 mg Tablet Extended Release 2,600 mg PO BEDTIME RF: 0 pramipexole 0.5 mg tablet 0.5 mg PO BEDTIME RF: 0 levothyroxine 50 mcg tablet 50 mcg PO QAM RF: 0 latanoprost 0.005 % drops 1 drp ophthalmic (eye) BEDTIME RF: 0 venlafaxine 75 mg capsule,extended release 24hr 75 mg PO QAM RF: 0 allopurinol 100 mg tablet 200 mg PO QAM RF: 0 doxazosin 2 mg tablet 2 mg PO QAM RF: 0 budesonide-formoterol [Symbicort] 80-4.5 mcg/actuation HFA aerosol inhaler 2 puff INHALATION DAILY RF: 0 Tresiba FlexTouch U-100 100 unit/mL (3 mL) insulin pen 230 unit SUBCUT QAM RF: 0 potassium chloride 20 mEq tablet extended release 40 meq PO QAM RF: 0 Discontinued metoprolol succinate 25 mg tablet extended release 24 hr 37.5 mg PO BID Qty: 270 RF: 3 metformin 750 mg tablet extended release 24 hr 750 mg PO BID RF: 0 ascorbic acid (vitamin C) [Vitamin C] 500 mg Tablet 500 mg PO DAILY RF: 0 levofloxacin 500 mg tablet 500 mg PO DAILY RF: 0 bumetanide 1 mg tablet 2 mg PO BID RF: 0 Discharge Orders: Discharge Order (Routine); Ordered 12/09/21 Ordered By: Lowell Mcnamara Other Ambulatory Orders: DME: Commode (Order) Location: None Selected Ordered By: Lowell Mcnamara DME: Non-Invasive Vent (Order) Location: None Selected Ordered By: Lowell Mcnamara DME: Walker (Order) Location: None Selected Ordered By: Lowell Mcnamara Referrals: [facility] [place] Home Care ([facility]) [Outside] Datar,Gilmer Vuong MD [Physician] - 12/23/21 11:15 am (Severe sleep apnea, sleep disordered breathing, obesity hypoventilation) Awilda Carrizales FNP [Nurse Practitioner] - 12/18/21 2:45 pm (Follow-up severe heart failure, compounded by severe obstructive sleep apnea) Ministerio Sewell MD [Primary Care Provider] - 12/12/21 3:00 pm (BMP on follow-up, 3 to 4 days) Discharge Diet: Cardiac Discharge Activity: Increase activity as tolerated Patient Instructions: Metoprolol (By mouth), Bumetanide (By mouth), Temazepam (By mouth), Insulin Glargine (By injection), Heart Failure (ED), How to Choose and Use a Walker (GEN), Using Oxygen at Home (DC), CHF Stoplight, Opioid Safety Activity Restrictions/Additional Instructions: Resume your oxygen at 2 L. Keep sat 88 to 92%. Wear your trilogy ventilator all the time when you sleep, and naps during the day. Keep follow-up Fluid restriction is 1400 cc/day Weigh yourself daily, and call your primary care provider if greater than 3 pounds of weight gain 2 days in a row from your baseline Discharge Attestations Time Spent in Discharge Care*: greater than 30 min Status at Discharge: Cognitive status at discharge: cognitively intact , Behavioral status at discharge: cooperative , Quality Metrics Clinical Quality Measures During this hospital stay, did patient experience: None Coding Level of Care Code Acute Chg [facility] note Diagnoses Acute exacerbation of CHF (congestive heart failure) I50.9 Coronary artery disease I25.10 HTN (hypertension) I10 Hypertension type: essential hypertension
== END 2021-12-09 14:07 | disposition home health service (06) | DRG 291 ==
LOC: ER 09:35 → MEDSURG 16:00
PROVIDERS: Admitting Provider Family Medicine; Emergency Provider Family Medicine; PCP Family Medicine; Visit Provider Internal Medicine
DX: I13.0 Hypertensive heart and chronic kidney disease with heart failure and stage 1 through stage 4 chronic kidney disease, or unspecified chronic kidney disease (principal); I50.33 Acute on chronic diastolic (congestive) heart failure; J18.9 Pneumonia, unspecified organism; J96.02 Acute respiratory failure with hypercapnia; E66.2 Morbid (severe) obesity with alveolar hypoventilation; Z68.43 Body mass index [BMI] 50.0-59.9, adult; N18.9 Chronic kidney disease, unspecified; E11.22 Type 2 diabetes mellitus with diabetic chronic kidney disease; I35.0 Nonrheumatic aortic (valve) stenosis; I25.10 Atherosclerotic heart disease of native coronary artery without angina pectoris; Z95.5 Presence of coronary angioplasty implant and graft; M10.9 Gout, unspecified; I48.91 Unspecified atrial fibrillation; Z87.440 Personal history of urinary (tract) infections; Z79.01 Long term (current) use of anticoagulants; Z79.4 Long term (current) use of insulin
CPT/HCPCS: 36415; 36416; 36600; 71045; 80051; 80053; 81001; 82330; 82803; 82805; 82962; 83605; 83735; 83880; 84100; 84145; 84484; 85025; 86140; 86403; 87040; 87070; 87086; 87205; 87635; 87641; 87804; 93005; 94640; 94660; 94664; 96372; 96374; 97116; 97161; 97165; 97530; 99284; 99285; C8924; J0456; J0696; J1200; J1630; J1815 ×2; J1940; J2060; J3480; J3486; J3490; J7050; Q9956

== ENCOUNTER 2021-12-11 14:21 | Inpatient (IN) | payer MEDICARE, OTHER, SELFPAY ==
[2021-12-11] VITALS (9 sets, daily range): BP systolic 96–118; BP diastolic 39–58; PULSE 60–73; RESP 15–20; TEMP 37.1; O2SAT 95–100; BMI 53.6; BMI 54.6
--- NOTE | 2021-12-11 14:36 | XR_ITS ---
WS: [id number] Portable AP semiupright chest, 12/11/2021 Clinical Data: dyspnea/cough Comparison: Portable chest, 12/04/2021. Findings: Patchy pulmonary opacities have totally cleared. No pneumonia or pneumothorax is seen. The heart is enlarged. The aortic arch and descending thoracic aorta show calcification and tortuosity. M onitor leads are on the chest wall. XR/XR chest 1V portable 18500 Impression: 1. Clearing of patchy bilateral pulmonary opacities. 2. Cardiomegaly and atherosclerosis.
--- NOTE | 2021-12-11 14:37 | ECG_ITS ---
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 Measurements Intervals Traer Rate: 61 P: 41 UT: 190 QRS: -73 QRSD: 172 T: -11 QT: 515 QTc: 523 Interpretive Statements SINUS RHYTHM WITH OCCASIONAL SUPRAVENTRICULAR PREMATURE COMPLEXES RIGHT BUNDLE BRANCH BLOCK [120+ ms QRS DURATION, UPRIGHT V1, 40+ ms S IN I/aVL/V4/V5/V6] LEFT ANTERIOR FASCICULAR BLOCK [QRS AXIS <= -45, QR IN I, RS IN II] MODERATE VOLTAGE CRITERIA FOR LVH, CONSIDER NORMAL VARIANT [MEETS CRITERIA IN ONE OF: R(aVL), S(V1), R(V5), R(V5/V6)+S(V1)] Compared to ECG 12/11/2021 14:50:15 No significant changes Electronically Signed On 12-12-2021 0:04:08 AUDOGRAPH OPERATOR by Jamee Torres M.D. [id number]
[2021-12-11 15:02] LABS: Basophils % 0.4 %; Eosinophils # 0.2 10^3/uL (0.0-0.8); Eosinophils % 1.8 %; Hematocrit 30.4 % (42.0-52.0); Hemoglobin 9.6 g/dL (11.7-16.6); Lymphocytes # 1.3 10^3/uL (0.8-4.8); Lymphocytes % 15.1 %; Mean Corpuscular HGB Conc 31.6 g/dL (30.0-36.0); Mean Corpuscular Volume 101.3 fl (80-94); Mean Platelet Volume 11.2 fL (7.4-10.4); Monocytes # 0.9 10^3/uL (0.2-0.9); Monocytes % 10.4 %; Neutrophils # 5.93 10^3/uL (1.8-7.7); Neutrophils % 70.9 %; Nucleated Red Blood Cells % 0 %; Platelet Count 213 10^3/cmm (130-400); Red Cell Distribution Width 14.9 % (12.1-15.1); White Blood Count 8.4 10^3/uL (4.0-10.0)
--- NOTE | 2021-12-11 15:27 | ED_ITS ---
HPI - General Adult General: Chief complaint: General Medical Stated complaint: HYPOTENSION Time Seen by Provider: 12/11/21 14:36 History of Present Illness: 71-year-old male presents emergency room after almost passing out. He got lightheaded dizzy weak had a near syncopal episode. Patient has a history of's aortic stenosis and diabetes mellitus as well as congestive heart failure was recently hospitalized for congestive heart failure and diuresed 16 L. He was given push dose epi by EMS prior to arrival. He is on oxygen at home he is awake and alert and has good recall of everything that happened. Denies any fever sweats chills. Denies any chest pain at this time and interestingly does not have any orthopnea either. He is doing much better on arrival here he is sitting nearly flat with his head of bed only elevated about 10 degrees is not having difficulty breathing he denies any chest pain. Onset (ago): minute(s) Severity: moderate Relieving factors: none Exacerbating factors: none Associated symptoms: Deny chest pain, confusion, cough, diaphoresis, decreased appetite, dyspnea, fevers/chills, headache(s), malaise, nausea, rash, palpitations, seizures, short of breath, syncope, vomiting or weakness Treatments prior to arrival: none Review of Systems Const: Denies: malaise or diaphoresis ENMT: Denies: throat pain, ear or mastoid pain, nasal discharge or nasal congestion Card: Denies: chest pain, palpitations or syncope Resp: Denies: dyspnea GI: Denies: nausea or vomiting : Denies: flank pain, dysuria, urinary frequency or urinary urgency Skin/Breast: Denies: rash Neuro: Denies: headache(s) or confusion PFS ED PFSH: Medical History Acute kidney injury superimposed on CKD Aortic stenosis, moderate Atrial flutter with rapid ventricular response Patient converted to normal sinus rhythm on amiodarone drip. CHF (congestive heart failure), NYHA class III CHF exacerbation Coronary artery disease Diabetes Dietary indiscretion Gout HTN (hypertension) New onset atrial fibrillation UTI (urinary tract infection) Surgical History H/O vasectomy S/P right coronary artery (RCA) stent placement Family History Other CAD (coronary artery disease) Cancer Dementia Diabetes Family history of premature coronary artery disease Hyperlipidemia Hypertension Denies family history of Chronic kidney disease (CKD) Anesthesia complication Bleeding disorder Lung disease Stroke Social History Alcohol intake: never Physical Exam Const: GENERAL APPEARANCE: cooperative and comfortable ORIENTATION/CONSCIOUSNESS: Yes awake, Yes oriented to person, Yes oriented to place and Yes oriented to time HENMT: COMMON NORMALS: normocephalic, atraumatic and hearing grossly normal bilaterally HEAD & SCALP: normocephalic and atraumatic Neck/C-Spine: COMMON NORMALS: no JVD Resp: COMMON NORMALS: normal respiratory effort, No retractions and No use of accessory muscles AUSCULTATION: crackles Cardio: COMMON NORMALS: no JVD, regular rate, regular rhythm and No murmurs present (Cardio) RATE: regular rate RHYTHM: regular rhythm HEART SOUNDS: Murmur heart sound present systolic Location: right sternal border GI: COMMON NORMALS: Soft to palpation and No hepatosplenomegaly present AUSCULTATION: Yes normoactive bowel sounds PALPATION: Yes Soft to palpation, No Tenderness to palpation present (GI), No Guarding due to palpation present (GI) and Yes No hepatosplenomegaly present Extremity: COMMON NORMALS: normal to inspection, capillary refill normal, no c lubbing, cyanosis or edema, no calf tenderness and no pedal edema Neuro: SENSORIUM/ORIENTATION: Yes oriented to person, Yes oriented to place and Yes oriented to time Skin: COMMON NORMALS: no rashes or lesions noted GENERAL SKIN EXAM: no rashes or lesions noted Course Vital Signs: Vital signs: Vital Signs Temperature 98.7 F 12/11/21 14:44 Pulse Rate 60 12/11/21 16:01 Respiratory Rate 16 12/11/21 16:01 Blood Pressure 118/58 12/11/21 16:01 Pulse Oximetry 98 12/11/21 16:01 [facility] - General Adult Medical Decision Making Patient has acute kidney failure. We have started gentle rehydration. Unfortunately think it means he is going to have some degree of fluid retention to maintain his kidney function discussed with the patient discussed Dr. Caldwell orders written. Medical Records I reviewed the patient's medical records. Lab Data I reviewed the patient's lab results. : 12/11/21 14:53 12/11/21 14:53 Radiology Impressions Chest X-Ray 12/11/21 14:36 Impression: 1. Clearing of patchy bilateral pulmonary opacities. 2. Cardiomegaly and atherosclerosis. Laboratory Results WBC 8.4 10^3/uL (4.0-10.0) 12/11/21 14:53 RBC 3.00 10^6/uL (4.1-5.3) L 12/11/21 14:53 Hgb 9.6 g/dL (11.7-16.6) L 12/11/21 14:53 Hct 30.4 % (42.0-52.0) L 12/11/21 14:53 MCV 101.3 fl (80-94) H 12/11/21 14:53 MCH 32.0 pg (28.0-34.0) 12/11/21 14:53 MCHC 31.6 g/dL (30.0-36.0) 12/11/21 14:53 RDW 14.9 % (12.1-15.1) 12/11/21 14:53 Plt Count 213 10^3/cmm (130-400) 12/11/21 14:53 MPV 11.2 fL (7.4-10.4) H 12/11/21 14:53 Neut % (Auto) 70.9 % 12/11/21 14:53 Lymph % (Auto) 15.1 % 12/11/21 14:53 Ogle % (Auto) 10.4 % 12/11/21 14:53 Eos % (Auto) 1.8 % 12/11/21 14:53 Baso % (Auto) 0.4 % 12/11/21 14:53 Neut # (Auto) 5.93 10^3/uL (1.8-7.7) 12/11/21 14:53 Lymph # (Auto) 1.3 10^3/uL (0.8-4.8) 12/11/21 14:53 Ogle # (Auto) 0.9 10^3/uL (0.2-0.9) 12/11/21 14:53 Eos # (Auto) 0.2 10^3/uL (0.0-0.8) 12/11/21 14:53 Baso # (Auto) 0.0 10^3/uL (0.0-0.1) 12/11/21 14:53 Nucleated RBC % (auto) 0 % 12/11/21 14:53 Nucleated RBCs # 0.0 /100WBC 12/11/21 14:53 Specimen Type Arterial 12/11/21 15:51 Sample Site Radial, left 12/11/21 15:51 ABG pH 7.39 (7.35-7.45) 12/11/21 15:51 ABG pCO2 59.5 mmHg (35-45) H 12/11/21 15:51 ABG pO2 104.0 mmHg (80.0-100.0) H 12/11/21 15:51 ABG HCO3 36.1 mmol/L (22-26) H 12/11/21 15:51 ABG O2 Saturation 97.9 12/11/21 15:51 ABG Base Excess 9.5 mmol/L (-2.0-2.0) H 12/11/21 15:51 Serge Test Pos 12/11/21 15:51 A-a O2 Gradient 10.8 mmHg (5-10) H 12/11/21 15:51 Hematocrit 32.2 % (42-52) L 12/11/21 15:51 Hgb O2 Saturation 95.9 % (95-100) 12/11/21 15:51 Carboxyhemoglobin 0.9 %THgb (0.4-20.1) 12/11/21 15:51 Methemoglobin 1.1 % (0.4-1.5) 12/11/21 15:51 Total Hemoglobin 10.5 g/dL (14-18) L 12/11/21 15:51 Sodium 134.0 mmol/L (131-143) 12/11/21 15:51 Potassium 3.9 mmol/L (3.5-5.0) 12/11/21 15:51 Glucose 125.0 mg/dL (70-115) H 12/11/21 15:51 Ionized Calcium 1.1 mmol/L (1.1-1.4) 12/11/21 15:51 O2 Delivery Device Nc 12/11/21 15:51 O2 Liters/Min 4.0 % 12/11/21 15:51 FiO2 36.0 % 12/11/21 15:51 Folded Towel Machine Operator ID Cak 12/11/21 15:51 Sodium 134 mmol/L (136-145) L 12/11/21 14:53 Potassium 3.7 mmol/L (3.5-5.1) 12/11/21 14:53 Chloride 87 mmol/L (98-107) L 12/11/21 14:53 Carbon Dioxide 28 mmol/L (22-29) 12/11/21 14:53 Anion Gap 22.7 (5-19) H 12/11/21 14:53 BUN 54 mg/dL (8-23) H 12/11/21 14:53 Creatinine 4.4 mg/dL (0.7-1.2) H 12/11/21 14:53 GFR Calculation Not Reportable 12/11/21 14:53 Glucose 145 mg/dL (65-115) H 12/11/21 14:53 Calculated Osmolality 295 mOsm/kg (285-295) 12/11/21 14:53 Calcium 8.8 mg/dL (8.5-10.5) 12/11/21 14:53 Total Bilirubin 0.5 mg/dL (0.15-1.2) 12/11/21 14:53 AST 18 U/L (0-40) 12/11/21 14:53 ALT 18 U/L (0-41) 12/11/21 14:53 Alkaline Phosphatase 68 IU/L (40-130) 12/11/21 14:53 Creatine Kinase 110 U/L (39-308) 12/11/21 14:53 Troponin T Baseline 123 ng/L (0-15) H* 12/11/21 14:53 NT-Pro-B Natriuret Pep 569 pg/mL (0-125) H 12/11/21 14:53 Total Protein 6.2 g/dL (6.6-8.7) L 12/11/21 14:53 Albumin 3.1 g/dL (3.5-5.2) L 12/11/21 14:53 Globulin 3.1 g/dL (1.3-4.6) 12/11/21 14:53 Discharge Plan Discharge Patient Disposition: Admitted As Inpatient Clinical Impression: Acute kidney injury superimposed on chronic kidney disease, CHF (congestive heart failure), NYHA class III, Coronary artery disease, HTN (hypertension) Condition: Stable Prescriptions: No Action amiodarone 200 mg tablet 200 mg PO QAM Qty: 90 3RF amlodipine 10 mg tablet 10 mg PO QAM Qty: 90 3RF Eliquis 5 mg tablet 5 mg PO BID Qty: 180 3RF atorvastatin 80 mg tablet 80 mg PO BEDTIME Qty: 90 3RF clopidogrel 75 mg tablet 75 mg PO DAILY Qty: 90 3RF lisinopril 10 mg tablet 10 mg PO QAM Qty: 90 3RF acetaminophen [Tylenol 8 Hour] 650 mg Tablet Extended Release 2,600 mg PO BEDTIME PRN (Reason: Pain) 0RF pramipexole 0.5 mg tablet 0.5 mg PO BEDTIME 0RF levothyroxine 50 mcg tablet 50 mcg PO QAM 0RF latanoprost 0.005 % drops 1 drp ophthalmic (eye) BEDTIME 0RF Rx Instructions: (BOTH EYES) venlafaxine 75 mg capsule,extended release 24hr 75 mg PO QAM 0RF allopurinol 100 mg tablet 200 mg PO QAM 0RF doxazosin 2 mg tablet 2 mg PO QAM 0RF budesonide-formoterol [Symbicort] 80-4.5 mcg/actuation HFA aerosol inhaler 2 puff INHALATION DAILY 0RF Tresiba FlexTouch U-100 100 unit/mL (3 mL) insulin pen 230 unit SUBCUT QAM 0RF potassium chloride 20 mEq tablet extended release 40 meq PO QAM 0RF temazepam 15 mg Capsule 15 mg PO BEDTIME PRN (Reason: sleep) Qty: 10 0RF Rx Instructions: Always use trilogy if taking. metoprolol succinate 25 mg Tablet Extended Release 24 Hr 50 mg PO BID@0900,2100 Qty: 60 0RF Lantus Solostar U-100 Insulin 100 unit/mL (3 mL) insulin pen 40 unit SUBCUT QPM MDD see pharmacy comment Qty: 15 0RF bumetanide 1 mg tablet 1 mg PO DAILY Qty: 30 0RF Referrals: Ministerio Sewell MD [Primary Care Provider] - Patient Instructions: Opioid Safety Coding Level of Care Code ED Bandmill Operator for Chg Fwd Exam Comprehensive
[2021-12-11 15:36] LABS: Alanine Aminotransferase 18 U/L (0-41); Albumin Level 3.1 g/dL (3.5-5.2); Alkaline Phosphatase 68 IU/L (40-130); Anion Gap 22.7 (5-19); Aspartate Amino Transferase 18 U/L (0-40); Blood Urea Nitrogen 54 mg/dL (8-23); Calcium 8.8 mg/dL (8.5-10.5); Carbon Dioxide 28 mmol/L (22-29); Chloride 87 mmol/L (98-107); Creatine Phosphokinase 110 U/L (39-308); Globulin 3.1 g/dL (1.3-4.6); Glucose 145 mg/dL (65-115); NT Pro B Type Natriuretic Pept 569 pg/mL (0-125); Osmolality Calculated 295 mOsm/kg (285-295); Potassium 3.7 mmol/L (3.5-5.1); Sodium 134 mmol/L (136-145); Total Bilirubin 0.5 mg/dL (0.15-1.2); Total Protein 6.2 g/dL (6.6-8.7)
[2021-12-11 15:37] LABS: Troponin(5th) Baseline 123 ng/L (0-15)
--- NOTE | 2021-12-11 15:38 | PC.NURSE ---
PATIENT PLACED ON CONTINUOUS BEDSIDE CARDIAC, BP AND O2 MONITOR
--- NOTE | 2021-12-11 15:57 | P.HP_ITS ---
Providers/Chief Complaint Primary Care Provider: Ministerio Sewell MD Chief Complaint: HYPOTENSION History of Present Illness Bartolo Hardy is a 71 year old male who was recently discharged on 12/09 after aggressive diuresis 16,000 mL negative balance, preserved action fraction heart failure, for his obesity hypoventilation syndrome he was placed on BiPAP, AVAPS arranged at the time of discharge, correction was declined by the family and he was discharged home creatinine at that time was 1.6. Today patient presented to the hospital with chief complaint of near syncopal episode at home. He called EMS. At home he was taking 1 mg of Bumex. Patient is stating that since his discharge from the hospital he has not been a ble to use trilogy, his oxygen company has still has to bring the machine at his place, he has been compliant with his medications, and last 24 to 30 hours he has been experiencing loose stools, as per the he had 1 large loose stool yesterday, today in the sun room he seemed confused and when checked on him he kept staring at her while leaned backwards against the seat, this episode lasted for about 2 minutes This episode resolved spontaneously, no seizure-like activities, patient at that time did not complain of chest pain shortness of breath nausea, vomiting no any diaphoresis was noted by the . Patient returned to normal after 2 minutes. As per the he started joking again. EMS was called, on arrival his blood pressure was soft. In the ER EKG shows sinus rhythm, seen of the elevated troponin, creatinine of 4, patient clinically looks dehydrated, he is hypotensive, QTC prolonged, heart rate around 60s, he given a dose of epi by the EMS because of his hypotension, he was given 500 mL bolus in the ER When I saw him he was asking for hemorrhoids cream. Prep H was provided, he immediately wanted to use bedside commode and had another episode of diarrhea. Heart rate 70s, patient is awake and alert cooperative and very pleasant Clinically looks fluid overloaded At home he uses 3 to 4 L of oxygen Review of Systems Const: Reports: body aches, fatigue and malaise Eyes: Denies: change in vision ENMT: Denies: throat pain Card: Reports: irregular heart rhythm, pre-syncope and dyspnea on exertion Resp: Reports: dyspnea GI: Denies: abdominal pain : Denies: flank pain Musc: Denies: neck pain Skin/Breast: Denies: rash Neuro: Denies: weakness in extremities Psych: Denies: anxiety Endo: Denies: polyuria Pierre/Lymph: Denies: easy bruising All/Imm: Denies: urticaria Medications/Allergies Home Medications Medication Instructions Recorded Confirmed Last Taken Type allopurinol 100 mg tablet 200 mg PO QAM 02/12/21 12/11/21 12/11/21 History doxazosin 2 mg tablet 2 mg PO QAM 02/12/21 12/11/21 12/11/21 History latanoprost 0.005 % eye drops 1 drp OPHTHALMIC (EYE) BEDTIME 02/12/21 12/11/21 12/10/21 History venlafaxine 75 mg capsule,extended 75 mg PO QAM 02/12/21 12/11/21 12/11/21 History release 24 hr budesonide-formoterol HFA 80 2 puff INHALATION DAILY g 08/13/21 12/11/21 12/11/21 History mcg-4.5 mcg/actuation aerosol inhaler (Symbicort) acetaminophen 650 mg 2,600 mg PO BEDTIME PRN 08/20/21 12/11/21 12/02/21 History tablet,extended release (Tylenol 8 Hour) levothyroxine 50 mcg tablet 50 mcg PO QAM 08/20/21 12/11/21 12/11/21 History pramipexole 0.5 mg tablet 0.5 mg PO BEDTIME 08/20/21 12/11/21 12/10/21 History amiodarone 200 mg tablet 200 mg PO QAM #90 tab 11/19/21 12/11/21 12/11/21 Rx amlodipine 10 mg tablet 10 mg PO QAM #90 tab 11/19/21 12/11/21 12/11/21 Rx apixaban 5 mg tablet (Eliquis) 5 mg PO BID #180 tab 11/19/21 12/11/21 12/11/21 Rx atorvastatin 80 mg tablet 80 mg PO BEDTIME #90 tab 11/19/21 12/11/21 12/10/21 Rx clopidogrel 75 mg tablet 75 mg PO DAILY #90 tab 11/19/21 12/11/21 12/11/21 Rx insulin degludec 100 unit/mL (3 230 unit SUBCUT QAM ml 11/19/21 12/11/21 12/11/21 History mL) subcutaneous pen (Tresiba 175 units FlexTouch U-100 insulin) lisinopril 10 mg tablet 10 mg PO QAM #90 tab 11/19/21 12/11/21 12/11/21 Rx potassium chloride 20 mEq 40 meq PO QAM 12/03/21 12/11/21 12/11/21 History tablet,extended release bumetanide 1 mg tablet 1 mg PO DAILY #30 tab 12/09/21 12/11/21 12/11/21 Rx insulin glargine 100 unit/mL (3 40 unit (0.4 mL) SUBCUT QPM #15 ml 12/09/21 12/11/21 Unknown Rx mL) subcutaneous pen (Lantus MDD see pharmacy comment Solostar U-100 Insulin) metoprolol succinate 25 mg 50 mg PO BID@0900,2100 #60 tab 12/09/21 12/11/21 12/11/21 Rx tablet,extended release 24 hr temazepam 15 mg capsule 15 mg PO BEDTIME PRN #10 cap 12/09/21 12/11/21 Unknown Rx Allergies Allergy/AdvReac Type Severity Reaction Status Date / Time No Known Allergies Allergy Verified 12/11/21 14:38 PFSH Acute PFSH: Medical History Acute kidney injury superimposed on CKD Aortic stenosis, moderate Atrial flutter with rapid ventricular response Patient converted to normal sinus rhythm on amiodarone drip. CHF (congestive heart failure), NYHA class III CHF exacerbation Coronary artery disease Diabetes Dietary indiscretion Gout HTN (hypertension) New onset atrial fibrillation UTI (urinary tract infection) Surgical History H/O vasectomy S/P right coronary artery (RCA) stent placement Family History Other CAD (coronary artery disease) Cancer Dementia Diabetes Family history of premature coronary artery disease Hyperlipidemia Hypertension Denies family history of Chronic kidney disease (CKD) Anesthesia complication Bleeding disorder Lung disease Stroke Social History Alcohol intake: never Vitals/I&O/Wt Last Vital Signs Temp 98.7 F 12/11/21 14:44 Pulse 63 12/11/21 15:37 Resp 17 12/11/21 15:37 BP 96/55 12/11/21 15:37 Pulse Ox 97 12/11/21 15:37 Weight last 48 hrs Weight 184.612 kg Physical Exam Narrative: EXAM NARRATIVE: Patient was sitting at the bedside On 4 L nasal cannula No icterus or distress no conversational dyspnea S1, S2 heart rate in 70s, variable Clinical looks fluid overloaded Pitting edema bilateral lower extremities Venous dermatitis EOMI, PERRLA Nonfocal neuro exam Euthymic appropriate mood and affect Chest pain-free Abdomen soft, distended visceral obesity Patient was complaining of headache and pain in his upper back Data : 12/11/21 14:53 12/11/21 14:53 A&P Assessment and plan (1) CHF (congestive heart failure), NYHA class III: Status: Acute (2) Aortic stenosis, moderate: Status: Acute (3) HTN (hypertension): Status: Acute (4) Coronary artery disease: Status: Acute (5) Acute kidney injury superimposed on chronic kidney disease: Status: Acute (6) Pre-syncope: Status: Acute Plan Presyncope QTC prolongation noted Nonischemic changes on EKG, troponin elevated Most likely secondary to low blood pressure Recently patient had a large bowel movement, aggressive diuresis during hospitalization, he is on fluid restricted diet 1400 mL a day Small bolus given in the ER which improved his blood pressure, he was also given a dose of epi by the EMS Keep potassium above4 and magnesium of 2 Acute on chronic kidney disease This seems secondary to aggressive diuresis Hold antihypertensives and Bumex for now Monitor urine output NSTEMI: Significant troponin elevation however no active chest pain or signs ischemic change on EKG, We will request limited echo to see wall motion abnormality No active chest pain Hemorrhoids: Patient complaining of pain, provided prep H We will keep monitoring for any signs of strangulated hernia signs and symptoms Obesity hypoventilation syndrome: BiPAP overnight Full code DVT prophylaxis covered Consistent carb cardiac diet Attestations Medical Necessity Statement*: More than 2 midnights anticipated for RACHELE, NSTEMI, presyncope Coding Level of Care Code Acute Supervisor Force Adjustment for Chg Fwd History Expanded Problem Focused Exam Expanded Problem Focused Medical Decision Making Moderate Complexity Diagnoses CHF (congestive heart failure), NYHA class III I50.9 Aortic stenosis, moderate I35.0 HTN (hypertension) I10 Coronary artery disease I25.10 Acute kidney injury superimposed on chronic kidney disease N17.9; N18.9 Pre-syncope R55 Time Spent (min) 35
[2021-12-11] MEDS: sodium chloride 0.9% 500 ML IV (16:01)
[2021-12-11 16:02] LABS: ABG PCO2 59.5 mmHg (35-45); ABG PH Result 7.39 (7.35-7.45); Alveolar-Arterial Oxygen Gradi 10.8 mmHg (5-10); Arterial Blood Gas Hematocrit 32.2 % (42-52); Base Excess ABG 9.5 mmol/L (-2.0-2.0); Blood Gas Allen Test Pos; Blood Gas Operator Identificat CAK; Blood Gas Sample Site Radial, left; Blood Gas Sample Type Arterial; Carboxyhemoglobin 0.9 %THgb (0.4-20.1); HCO3 ABG 36.1 mmol/L (22-26); HGB O2 Sat 95.9 % (95-100); Ionized Calcium Level - ABG 1.1 mmol/L (1.1-1.4); Methemoglobin 1.1 % (0.4-1.5); Oxygen Device NC; Oxygen Saturation ABG 97.9; Potassium Level - ABG 3.9 mmol/L (3.5-5.0); Total Hemoglobin 10.5 g/dL (14-18)
--- NOTE | 2021-12-11 16:37 | ECG_ITS ---
[facility] Test Date: 2021-12-11 Pat Name: Bartolo Hardy Department: Room: Gender: Male Director Toxicology: : 1950 Requested By: Shaun Jones Order Number: [id number] Khalida MD: Jamee Torres M.D. Measurements Intervals [place] Rate: 63 P: 78 [place]: 183 QRS: -73 QRSD: 174 T: -27 QT: 533 QTc: 547 Interpretive Statements SINUS RHYTHM WITH OCCASIONAL SUPRAVENTRICULAR PREMATURE COMPLEXES RIGHT BUNDLE BRANCH BLOCK [120+ ms QRS DURATION, UPRIGHT V1, 40+ ms S IN I/aVL/V4/V5/V6] LEFT ANTERIOR FASCICULAR BLOCK [QRS AXIS <= -45, QR IN I, RS IN II] MODERATE VOLTAGE CRITERIA FOR LVH, CONSIDER NORMAL VARIANT [MEETS CRITERIA IN ONE OF: R(aVL), S(V1), R(V5), R(V5/V6)+S(V1)] Compared to ECG 12/07/2021 16:23:46 ST (T wave) deviation no longer present Electronically Signed On 12-12-2021 0:12:23 INSURANCE VERIFY REP by Jamee Torres M.D. [id number]
[2021-12-11 17:17] LABS: Troponin 5 2HR 136.2 ng/L (0-15)
[2021-12-11 17:18] LABS: Troponin 5 2HR Delta 13.2 ABS# (0-10)
[2021-12-11] MEDS: hydrocortisone 2.5% cream 28 gm 1 APPLIC TOPICAL (17:31)
[2021-12-11] MEDS: aspirin 81 mg Chew Tablet 324 MG PO (17:31)
--- NOTE | 2021-12-11 20:37 | ECG_ITS ---
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 Measurements Intervals [place] Rate: 60 P: 40 NE: 189 QRS: -76 QRSD: 177 T: -2 QT: 437 QTc: 440 Interpretive Statements SINUS RHYTHM RIGHT BUNDLE BRANCH BLOCK [120+ ms QRS DURATION, UPRIGHT V1, 40+ ms S IN I/aVL/V4/V5/V6] LEFT ANTERIOR FASCICULAR BLOCK [QRS AXIS <= -45, QR IN I, RS IN II] POSSIBLE LEFT VENTRICULAR HYPERTROPHY [VOLTAGE CRITERIA PLUS LAE OR QRS WIDENING] Compared to ECG 12/11/2021 16:18:03 No significant changes Electronically Signed On 12-12-2021 0:15:14 LISW by Jamee Torres M.D. [id number]
[2021-12-11] MEDS: potassium chloride ER 20 mEq Tablet 40 MEQ PO (20:40)
[2021-12-11] MEDS: sodium chloride 0.9% 250 ML IV (20:41)
[2021-12-11] MEDS: apixaban 5 mg Tablet PO (20:42)
[2021-12-11 21:14] LABS: Glucose Point of Care 66 mg/dL (70-110)
[2021-12-11 21:29] LABS: Troponin 5 6HR 135.7 ng/L (0-15); Troponin 5 6HR Delta 12.7 ng/L (0-12)
[2021-12-12 00:05] VITALS: PULSE 63; RESP 19; O2SAT 99
[2021-12-12] MEDS: heparin 5,000 unit/mL INJ 1 mL IV (02:35)
[2021-12-12] MEDS: heparin drip 25,000 UNIT/500 ML PREMIX 36 UNIT IV ×2 (02:35→16:02)
[2021-12-12 03:42] LABS: Basophils # 0.1 10^3/uL (0.0-0.1); Basophils % 0.7 %; Eosinophils # 0.2 10^3/uL (0.0-0.8); Eosinophils % 2.3 %; Hematocrit 34.9 % (42.0-52.0); Hemoglobin 10.9 g/dL (11.7-16.6); Lymphocytes % 22.5 %; Mean Corpuscular HGB Conc 31.2 g/dL (30.0-36.0); Mean Corpuscular Hemoglobin 31.6 pg (28.0-34.0); Mean Corpuscular Volume 101.2 fl (80-94); Mean Platelet Volume 11.6 fL (7.4-10.4); Monocytes # 0.9 10^3/uL (0.2-0.9); Monocytes % 10.4 %; Neutrophils # 5.53 10^3/uL (1.8-7.7); Neutrophils % 62.7 %; Nucleated Red Blood Cells % 0 %; Platelet Count 224 10^3/cmm (130-400); Red Blood Count 3.45 10^6/uL (4.1-5.3); White Blood Count 8.8 10^3/uL (4.0-10.0)
[2021-12-12 04:17] LABS: Anion Gap 24.9 (5-19); Blood Urea Nitrogen 63 mg/dL (8-23); Calcium 9.3 mg/dL (8.5-10.5); Carbon Dioxide 27 mmol/L (22-29); Chloride 88 mmol/L (98-107); Glucose 58 mg/dL (65-115); Osmolality Calculated 298 mOsm/kg (285-295); Potassium 3.9 mmol/L (3.5-5.1); Sodium 136 mmol/L (136-145)
[2021-12-12 04:43] VITALS: PULSE 67; RESP 18; O2SAT 98
--- NOTE | 2021-12-12 04:50 | PC.NURSE ---
Frequent safety and comfort rounds continue. Orders and/or nursing care completed as indicated. Patient monitored for response to intervention and treatment(s). Education provided includes needing to leave cpap on, and telemetry leads. Also information on heparin gtt. Patient and/or in store representative verbalized understanding but continues to remove. Will continue to monitor.
[2021-12-12 04:54] VITALS: PULSE 69; RESP 18; O2SAT 95
[2021-12-12] MEDS: potassium chloride ER 20 mEq Tablet 40 MEQ PO (05:31)
[2021-12-12] MEDS: allopurinol 100 mg Tablet 200 MG PO (05:31)
[2021-12-12] MEDS: levothyroxine 50 mcg Tablet PO (05:32)
--- NOTE | 2021-12-12 06:00 | USCV_ITS ---
Bartolo Hardy Age: 71 Gender: M : 1950 Exam Date: 12/12/2021 06:59 Ordering Phys: Rohan Caldwell MD Technologist: JASSON Exam Location: [facility] Indication: wall motion BP: 101 / 78 HR: 61 Rhythm: Sinus Technical Quality: Adequate MEASUREMENTS (Male / Female) Normal Values 2D ECHO LV Diastolic Diameter PLAX 5.3 cm 4.2 - 5.9 / 3.9 - 5.3 cm LV Systolic Diameter PLAX 3.7 cm IVS Diastolic Thickness 0.9 cm 0.6 - 1.0 / 0.6 - 0.9 cm IVS Systolic Thickness 1.6 cm LVPW Diastolic Thickness 1.5 cm 0.6 - 1.0 / 0.6 - 0.9 cm LVPW Systolic Thickness 2.1 cm LVOT Diameter 2.1 cm LV Ejection Fraction 2D Teich 58.5 % LV Ejection Fraction MOD 2C 82.3 % LV Ejection Fraction 2C AL 83.5 % LA Diameter 3.5 cm FINDINGS Left Ventricle Normal left ventricular size, systolic function with no regional wall motion abnormalities. Left ventricular ejection fraction is estimated at 75 %. Right Ventricle Right ventricle not well visualized. Right Atrium Right atrium not well visualized. Left Atrium Left atrium not well visualized. Mitral Valve Severe mitral annular calcification. Thickened mitral valve. Aortic Valve Aortic valve not well visualized. Tricuspid Valve Tricuspid valve not well visualized. Pulmonic Valve Pulmonic valve not well visualized. Pericardium No pericardial effusion. Aorta Aorta not well visualized. CONCLUSIONS 1. This is a technically very difficult study. Ultrasound enhancing agent Optison was used per protocol. 2. Normal left ventricular size, systolic function with no regional wall motion abnormalities. Left ventricular ejection fraction is estimated at 75 %. 3. No significant change when compared to previous study dated 12/05/2021. Elsa Hernadez MD (Electronically Signed) Final Date: 12 December 2021 18:01 S
[2021-12-12 06:09] VITALS: PULSE 62
[2021-12-12 06:19] LABS: Glucose Point of Care 66 mg/dL (70-110)
[2021-12-12] MEDS: perflutren protein-a microsphr 0.22 mg/mL SDV 3 mL IV (07:32)
[2021-12-12] MEDS: aspirin 81 mg EC Tablet PO (08:39)
[2021-12-12] MEDS: clopidogrel 75 mg Tablet PO (08:39)
[2021-12-12] MEDS: atorvastatin 40 mg Tablet 80 MG PO (08:39)
[2021-12-12] MEDS: bumetanide 0.25 mg/mL SDV 10 mL 2 MG IVP ×2 (08:43→20:03)
[2021-12-12 08:52] LABS: Partial Thromboplastin Time 72.3 SECONDS (23.9-36.7)
--- NOTE | 2021-12-12 11:56 | PC.CHAP ---
Pastoral Care Encounter/Spiritual Assessment Type of Contact [] Declined curtain roller assembler visit [] Patient/Family/Request visit [] Outpatient visit [] Follow-up visit [] Physician referral [] Code/Alert [] Routine visit [] Staff referral [] Actively dying [] Patient sleeping [] Family support [] [] Out of room [] Palliative care [] [] Receiving care in room [] Pre-surgical visit [] Trauma [] Long length of stay [] ICU visit [x] Other: Staff care Relational/Emotional Strength [] Patient feels connected with others/family/visitors/staff [] Distress [] Loneliness/isolation [] Abandonment Spirituality of Patient [] Person of [place] [] Attends Mosque of their [place] [] Believes in Prayer [] Reads Bible or Advent materials [] There are Spiritual issues to be addressed Customer Management Specialist Interventions [] Prayer [] Active listening [] Non-anxious presence [] Spiritual/emotional support [] Crisis/trauma care [] Spiritual counseling [] Bereavement support [] Provided bereavement packet [] Provided Bible/devotional materials [] Provided toy/stuffed animal, coloring book to patient or family member [] Provided Communion [] Anointing/[place] [] Salvation [] Completed spiritual assessment [] Other: Impact on Illness or Injury [] Angry [] Fearful [] Anxious [] Often cries [] Exhaustion [] Unable to work [] Unable to attend congregational [] Unable to walk/stand [] Unable to read [] Unable to drive [] Unable to eat/drink [] Unable to sleep [] Unable to be with family [] Patient intubated [] Other: Summary Staff care Time spent with patient 5 min s
[2021-12-12 12:03] LABS: Glucose Point of Care 90 mg/dL (70-110)
[2021-12-12 14:25] VITALS: PULSE 65; RESP 17; O2SAT 95; O2SAT 98
--- NOTE | 2021-12-12 15:43 | P.PN_ITS ---
Subjective Subjective: Interval history: Overnight no events, creatinine worsening, urine output has not been calculated, requested Brand catheter for accurate output, start diuresis today Blood pressure is stable No active chest pain, used BiPAP overnight Vitals/I&O/Wt Last Vital Signs Temp 98.7 F 12/11/21 14:44 Pulse 65 12/12/21 14:25 Resp 17 12/12/21 14:25 BP 112/39 12/11/21 18:06 Pulse Ox 98 12/12/21 14:25 12/12/21 12/12/21 12/12/21 06:59 14:59 22:59 Intake Total 1230 / 1230 Balance 1230 / 1230 Weight last 48 hrs Weight 187.872 kg Weight 184.612 kg Physical Exam Narrative: EXAM NARRATIVE: When entered the room patient was cooperative Signs of fluid overload Hemodynamically stable Awake and alert Nonfocal neuro exam Currently on 3 L nasal cannula No signs of labored breathing Bilateral breath sounds Rectal exam did not reveal any thrombosed hemorrhoids, anal fissure noted Urinary Catheter Management: Brand: Cath Placed During This Visit: yes Urinary Catheter Date of Insertion: 12/12/21 Urinary Catheter Time of Insertion: 08:00 Data : 12/12/21 02:16 12/12/21 02:16 A&P Assessment and plan (1) Pre-syncope: Status: Acute (2) Acute kidney injury superimposed on chronic kidney disease: Status: Acute (3) Coronary artery disease: Status: Acute (4) HTN (hypertension): Status: Acute (5) Aortic stenosis, moderate: Status: Acute (6) CHF (congestive heart failure), NYHA class III: Status: Acute Plan Worsening acute on chronic kidney disease secondary to fluid overload Continue diuretics today I will place Brand catheter for accurate output Creatinine worsened with 1 L of fluid that was given on 12/11 Patient is complaining of rectal pain which most likely secondary to anal fissure I did not appreciate any thrombosed external hemorrhoids Hypoglycemia this morning however no active symptoms NSTEMI: Likely type II secondary to low blood pressure Echo with contrast done Cardiac consistent carb diet Sliding scale Obesity hypoventilation syndrome, BiPAP settings 20/10 respiratory rate 12-14, FiO2 50% Full code DVT prophylaxis: On board Attestations Medical Necessity Statement*: Continue management, worsening creatinine Time Spent in Patient Care: 15min Coding Level of Care Code Acute [employer] Director for Chg Fwd Diagnoses Pre-syncope R55 Acute kidney injury superimposed on chronic kidney disease N17.9; N18.9 Coronary artery disease I25.10 HTN (hypertension) I10 Aortic stenosis, moderate I35.0 CHF (congestive heart failure), NYHA class III I50.9
[2021-12-12 16:17] LABS: Partial Thromboplastin Time 93.1 SECONDS (23.9-36.7)
[2021-12-12 16:50] LABS: Glucose Point of Care 103 mg/dL (70-110)
[2021-12-12 19:53] VITALS: BP 99/44; PULSE 65; RESP 18; O2SAT 97
[2021-12-12] MEDS: hydrocortisone 2.5% cream 28 gm 1 APPLIC TOPICAL (20:03)
[2021-12-12] MEDS: temazepam 15 mg Capsule PO (20:18)
[2021-12-12 20:42] LABS: Glucose Point of Care 136 mg/dL (70-110)
[2021-12-12 21:13] LABS: Partial Thromboplastin Time 89.6 SECONDS (23.9-36.7)
[2021-12-13] VITALS (15 sets, daily range): BP systolic 94–132; BP diastolic 42–89; PULSE 63–91; RESP 15–20; TEMP 36.3–36.8; O2SAT 94–100
[2021-12-13 04:16] LABS: Basophils % 0.5 %; Eosinophils # 0.3 10^3/uL (0.0-0.8); Eosinophils % 3.1 %; Hematocrit 31.2 % (42.0-52.0); Hemoglobin 9.7 g/dL (11.7-16.6); Lymphocytes # 1.7 10^3/uL (0.8-4.8); Lymphocytes % 20.7 %; Mean Corpuscular HGB Conc 31.1 g/dL (30.0-36.0); Mean Corpuscular Hemoglobin 31.3 pg (28.0-34.0); Mean Corpuscular Volume 100.6 fl (80-94); Mean Platelet Volume 11.7 fL (7.4-10.4); Monocytes # 0.9 10^3/uL (0.2-0.9); Monocytes % 10.4 %; Neutrophils # 5.18 10^3/uL (1.8-7.7); Neutrophils % 63.5 %; Nucleated Red Blood Cells % 0 %; Platelet Count 194 10^3/cmm (130-400); Red Cell Distribution Width 15.1 % (12.1-15.1); White Blood Count 8.2 10^3/uL (4.0-10.0)
[2021-12-13 04:29] LABS: Anion Gap 19.3 (5-19); Blood Urea Nitrogen 71 mg/dL (8-23); Carbon Dioxide 29 mmol/L (22-29); Chloride 90 mmol/L (98-107); Glucose 107 mg/dL (65-115); Osmolality Calculated 299 mOsm/kg (285-295); Potassium 4.3 mmol/L (3.5-5.1); Sodium 134 mmol/L (136-145)
[2021-12-13] MEDS: levothyroxine 50 mcg Tablet PO (06:08)
[2021-12-13] MEDS: allopurinol 100 mg Tablet 200 MG PO (06:08)
[2021-12-13] MEDS: potassium chloride ER 20 mEq Tablet 40 MEQ PO (06:08)
[2021-12-13 06:28] LABS: Glucose Point of Care 89 mg/dL (70-110)
[2021-12-13] MEDS: atorvastatin 40 mg Tablet 80 MG PO (08:17)
[2021-12-13] MEDS: aspirin 81 mg EC Tablet PO (08:17)
[2021-12-13] MEDS: apixaban 5 mg Tablet 2.5 MG PO ×2 (08:18→18:39)
[2021-12-13] MEDS: clopidogrel 75 mg Tablet PO (08:18)
--- NOTE | 2021-12-13 09:19 | P.PN_ITS ---
Subjective Subjective: Interval history: Patient is on CPAP, told the nurse to use BiPAP overnight, I will hold his Bumex today his urine looks very concentrated and his creatinine has worsened Clinically patient looks fluid overloaded Vitals/I&O/Wt Last Vital Signs Temp 97.7 F 12/13/21 06:07 Pulse 68 12/13/21 06:48 Resp 16 12/13/21 02:49 BP 100/52 12/13/21 02:49 Pulse Ox 100 12/13/21 06:48 12/12/21 12/13/21 12/13/21 22:59 06:59 14:59 Intake Total 1218.7 / 2448.7 240 / 2688.7 252.633 / 252.633 Output Total 500 / 500 700 / 1200 Balance 718.7 / 1948.7 -460 / 1488.7 252.633 / 252.633 Weight last 48 hrs Weight 187.872 kg Weight 184.612 kg Physical Exam Narrative: EXAM NARRATIVE: Patient laying supine No orthopnea PND Clinical signs of fluid overload On CPAP S1, S2 variable Abdomen soft Pitting edema 1+ of lower extremities EOMI, PERRLA nonfocal neuro exam Urinary Catheter Management: Brand: Cath Placed During This Visit: yes Reason for Continuing Indwelling Catheter: Accurate Measurement of Urinary Output in Critically Ill Patients Urinary Catheter Date of Insertion: 12/12/21 Urinary Catheter Time of Insertion: 08:00 Data : 12/13/21 03:32 12/13/21 03:32 A&P Assessment and plan (1) Pre-syncope: Status: Acute (2) Acute kidney injury superimposed on chronic kidney disease: Status: Acute (3) Coronary artery disease: Status: Acute (4) HTN (hypertension): Status: Acute (5) Aortic stenosis, moderate: Status: Acute (6) CHF (congestive heart failure), NYHA class III: Status: Acute Plan Acute on chronic kidney disease Nonoliguric Creatinine 6, Hold Bumex today, patient has been hypotensive that can cause prerenal ATN, check urine studies We will consult nephro Decrease the dose of Lantus due to worsening creatinine, Volume overloaded has history of preserved ejection heart failure, EF 25%, aortic valve not well visualized despite using contrast Type II NM, discontinue heparin drip today, start low-dose Eliquis Rectal pain related to anal fissure no signs of thrombosed external hemorrhoid Cardiac consistent carb diet Sliding scale Patient will require BiPAP settings 20/10 rest rate 12-14 FiO2 50% Full code Attestations Medical Necessity Statement*: Worsening RACHELE Time Spent in Patient Care: 15mins Coding Level of Care Code Acute Contracting Executive for Chg Fwd Diagnoses Pre-syncope R55 Acute kidney injury superimposed on chronic kidney disease N17.9; N18.9 Coronary artery disease I25.10 HTN (hypertension) I10 Aortic stenosis, moderate I35.0 CHF (congestive heart failure), NYHA class III I50.9
[2021-12-13 10:30] LABS: Partial Thromboplastin Time 35.9 SECONDS (23.9-36.7)
[2021-12-13 11:09] LABS: Glucose Point of Care 136 mg/dL (70-110)
[2021-12-13 13:50] LABS: Urine Creatinine 109 mg/dL (39-259); Urine Random Sodium 42 mmol/L
[2021-12-13 13:55] LABS: Creatinine Urine, Random 109 mg/dL (39-259); Microalbum Creatinine Ratio Ur 28 mg/dL (0-20); Microalbumin Random Urine 3 ug/dL (0-20)
[2021-12-13 14:13] LABS: Eosinophil Urine No Eosinophils Seen; Urine Eosinophil Count 0 (0-0)
[2021-12-13 15:28] LABS: Urine Random Potassium 30 mmol/L
[2021-12-13 18:31] LABS: Glucose Point of Care 266 mg/dL (70-110)
[2021-12-13] MEDS: insulin lispro 100 unit/1 mL SUBCUT ×2 (18:36→20:53)
[2021-12-13] MEDS: insulin glargine 100 units/1 mL 10 UNIT SUBCUT (18:39)
[2021-12-13 20:19] LABS: Glucose Point of Care 256 mg/dL (70-110)
[2021-12-13] MEDS: temazepam 15 mg Capsule PO (20:53)
[2021-12-14] VITALS (9 sets, daily range): BP systolic 100–151; BP diastolic 42–58; PULSE 69–85; RESP 14–20; TEMP 36.4–37.1; O2SAT 97–100
[2021-12-14] MEDS: potassium chloride ER 20 mEq Tablet 40 MEQ PO (04:34)
[2021-12-14] MEDS: levothyroxine 50 mcg Tablet PO (04:34)
[2021-12-14] MEDS: allopurinol 100 mg Tablet 200 MG PO (04:34)
[2021-12-14 06:18] LABS: Glucose Point of Care 126 mg/dL (70-110)
--- NOTE | 2021-12-14 08:18 | PC.SOCIAL ---
IMM update IMM updated with patient. Verbalized an understanding. Copy Pg 2 provided. Initialled, dated, timed, and placed in chart.
[2021-12-14] MEDS: atorvastatin 40 mg Tablet 80 MG PO (09:04)
[2021-12-14] MEDS: clopidogrel 75 mg Tablet PO (09:04)
[2021-12-14] MEDS: apixaban 5 mg Tablet 2.5 MG PO ×2 (09:04→17:41)
[2021-12-14] MEDS: aspirin 81 mg EC Tablet PO (09:04)
[2021-12-14 10:22] LABS: Basophils % 0.4 %; Eosinophils # 0.2 10^3/uL (0.0-0.8); Eosinophils % 2.7 %; Hematocrit 31.8 % (42.0-52.0); Hemoglobin 9.8 g/dL (11.7-16.6); Lymphocytes # 1.2 10^3/uL (0.8-4.8); Lymphocytes % 16.1 %; Mean Corpuscular HGB Conc 30.8 g/dL (30.0-36.0); Mean Corpuscular Hemoglobin 31.4 pg (28.0-34.0); Mean Corpuscular Volume 101.9 fl (80-94); Mean Platelet Volume 11.6 fL (7.4-10.4); Monocytes # 0.9 10^3/uL (0.2-0.9); Monocytes % 11.9 %; Neutrophils # 4.97 10^3/uL (1.8-7.7); Nucleated Red Blood Cells % 0 %; Platelet Count 188 10^3/cmm (130-400); Red Blood Count 3.12 10^6/uL (4.1-5.3); Red Cell Distribution Width 15.3 % (12.1-15.1); White Blood Count 7.4 10^3/uL (4.0-10.0)
[2021-12-14 10:32] LABS: Anion Gap 19.6 (5-19); Blood Urea Nitrogen 77 mg/dL (8-23); Calcium 8.7 mg/dL (8.5-10.5); Carbon Dioxide 26 mmol/L (22-29); Chloride 92 mmol/L (98-107); Glucose 176 mg/dL (65-115); Osmolality Calculated 303 mOsm/kg (285-295); Potassium 4.6 mmol/L (3.5-5.1); Sodium 133 mmol/L (136-145)
[2021-12-14 11:32] LABS: Glucose Point of Care 173 mg/dL (70-110)
--- NOTE | 2021-12-14 11:51 | PC.PT ---
Pt refused PT today. Pt states he does not want to get up at all. When encouraged to he said maybe come try back tomorrow. Pt was checked on again later and he was asleep and was not disturbed. Will try again tomorrow to see if patient will get up.
[2021-12-14] MEDS: insulin lispro 100 unit/1 mL SUBCUT ×3 (12:39→20:39)
--- NOTE | 2021-12-14 12:59 | PM.PN ---
Subjective Subjective: Interval history: Patient creatinine is 5, negative balance despite being off diuretics now, Clinically doing better, no active shortness of breath No active rectal pain Doing well on 3 L nasal cannula Vitals/I&O/Wt Last Vital Signs Temp 98.5 F 12/14/21 11:13 Pulse 69 12/14/21 11:13 Resp 14 12/14/21 11:13 BP 136/53 12/14/21 11:13 Pulse Ox 97 12/14/21 11:13 12/13/21 12/14/21 12/14/21 22:59 06:59 14:59 Intake Total 240 / 1092.633 500 / 1592.633 720 / 720 Output Total 1100 / 1900 770 / 770 Balance 240 / 292.633 -600 / -307.367 -50 / -50 Physical Exam Narrative: EXAM NARRATIVE: Patient in supine Doing well on 3 L nasal cannula Abdomen soft Nonfocal neuro exam Edema of legs improved Awake and alert Brand catheter draining concentrated urine Nonfocal neuro exam No audible stridor or wheezing Urinary Catheter Management: Brand: Cath Placed During This Visit: yes Reason for Continuing Indwelling Catheter: Accurate Measurement of Urinary Output in Critically Ill Patients Urinary Catheter Date of Insertion: 12/12/21 Urinary Catheter Time of Insertion: 08:00 Data : 12/14/21 09:23 12/14/21 09:23 A&P Assessment and plan (1) Pre-syncope: Status: Acute (2) Acute kidney injury superimposed on chronic kidney disease: Status: Acute (3) Coronary artery disease: Status: Acute (4) HTN (hypertension): Status: Acute (5) Aortic stenosis, moderate: Status: Acute (6) CHF (congestive heart failure), NYHA class III: Status: Acute Plan Presyncope: Echo unremarkable, no signs of aortic stenosis however limited study because of body habitus No signs of hypoglycemia, Lantus was decreased secondary to worsening RACHELE RACHELE related to aggressive diuretics his heart processes volume status, despite discontinuation of diuretics history of a negative balance creatinine is trending down today it is at 5 Plan is to hold off on diuretics for now EF 75% Clinically he does have signs of fluid overload, preserved ejection fraction heart failure exacerbation holding off diuretics for now Plan to discharge once creatinine started trending down Nonfocal neuro exam Currently doing well on 3 L cannula Type II ID Consistent carb diet Obesity hypoventilation, BiPAP at night Full code Rectal pain secondary to anal fissure, improved with prep H Attestations Medical Necessity Statement*: Plan to discharge once creatinine start trending down Time Spent in Patient Care: 15 minutes Coding Level of Care Code Acute Engineer Technical Staff for Chg Fwd Diagnoses Pre-syncope R55 Acute kidney injury superimposed on chronic kidney disease N17.9; N18.9 Coronary artery disease I25.10 HTN (hypertension) I10 Aortic stenosis, moderate I35.0 CHF (congestive heart failure), NYHA class III I50.9
[2021-12-14 16:45] LABS: Glucose Point of Care 170 mg/dL (70-110)
[2021-12-14] MEDS: insulin glargine 100 units/1 mL 10 UNIT SUBCUT (17:40)
--- NOTE | 2021-12-14 19:51 | PM.CONSULT ---
Providers/Reason For Consult Consulting Physician/Specialty*: Cardiology Reason for Consult*: Worsening of decompensated heart failure, worsening of renal function Requesting Physician: Dr. Caldwell Attending Physician: Rohan Caldwell MD Primary Care Provider: Ministerio Sewell MD History of Present Illness History of Present Illness Bartolo Hardy is a 71 year old male past medical history significant for obesity, recurrent heart failure due to noncompliance with food, coronary artery disease, moderate aortic stenosis recently was discharged from hospital and readmitted with worsening of shortness of breath PND orthopnea gain of more than 15 pound weight and worsening of renal failure. Diuresis with Bumex was tried but patient continued to deteriorate, it is the reason I have been asked to assist in the care. Currently denies any chest pain but admits to shortness of breath on mild exertion orthopnea as well. He has abdominal wall and lower extremity edema. He is rate controlled by with atrial fibrillation. Review of Systems Const: Reports: body aches, fatigue and malaise; Denies: diaphoresis Eyes: Denies: change in vision or photophobia ENMT: Denies: throat pain, ear or mastoid pain, nasal discharge or nasal congestion Card: Reports: irregular heart rhythm, pre-syncope and dyspnea on exertion; Denies: chest pain, palpitations or syncope Resp: Reports: dyspnea GI: Denies: abdominal pain, nausea or vomiting : Denies: flank pain, dysuria, urinary frequency or urinary urgency Musc: Denies: neck pain Skin/Breast: Denies: rash Neuro: Denies: headache(s), weakness in extremities or confusion Psych: Denies: anxiety Endo: Denies: polyuria Pierre/Lymph: Denies: easy bruising All/Imm: Denies: urticaria Medications/Allergies Home Medications Medication Instructions Recorded Confirmed Last Taken Type allopurinol 100 mg tablet 200 mg PO QAM 02/12/21 12/11/21 12/11/21 History doxazosin 2 mg tablet 2 mg PO QAM 02/12/21 12/11/21 12/11/21 History latanoprost 0.005 % eye drops 1 drp OPHTHALMIC (EYE) BEDTIME 02/12/21 12/11/21 12/10/21 History venlafaxine 75 mg capsule,extended 75 mg PO QAM 02/12/21 12/11/21 12/11/21 History release 24 hr budesonide-formoterol HFA 80 2 puff INHALATION DAILY g 08/13/21 12/11/21 12/11/21 History mcg-4.5 mcg/actuation aerosol inhaler (Symbicort) acetaminophen 650 mg 2,600 mg PO BEDTIME PRN 08/20/21 12/11/21 12/02/21 History tablet,extended release (Tylenol 8 Hour) levothyroxine 50 mcg tablet 50 mcg PO QAM 08/20/21 12/11/21 12/11/21 History pramipexole 0.5 mg tablet 0.5 mg PO BEDTIME 08/20/21 12/11/21 12/10/21 History amiodarone 200 mg tablet 200 mg PO QAM #90 tab 11/19/21 12/11/21 12/11/21 Rx amlodipine 10 mg tablet 10 mg PO QAM #90 tab 11/19/21 12/11/21 12/11/21 Rx apixaban 5 mg tablet (Eliquis) 5 mg PO BID #180 tab 11/19/21 12/11/21 12/11/21 Rx atorvastatin 80 mg tablet 80 mg PO BEDTIME #90 tab 11/19/21 12/11/21 12/10/21 Rx clopidogrel 75 mg tablet 75 mg PO DAILY #90 tab 11/19/21 12/11/21 12/11/21 Rx insulin degludec 100 unit/mL (3 230 unit SUBCUT QAM ml 11/19/21 12/11/21 12/11/21 History mL) subcutaneous pen (Tresiba 175 units FlexTouch U-100 insulin) lisinopril 10 mg tablet 10 mg PO QAM #90 tab 11/19/21 12/11/21 12/11/21 Rx potassium chloride 20 mEq 40 meq PO QAM 12/03/21 12/11/21 12/11/21 History tablet,extended release bumetanide 1 mg tablet 1 mg PO DAILY #30 tab 12/09/21 12/11/21 12/11/21 Rx insulin glargine 100 unit/mL (3 40 unit (0.4 mL) SUBCUT QPM #15 ml 12/09/21 12/11/21 Unknown Rx mL) subcutaneous pen (Lantus MDD see pharmacy comment Solostar U-100 Insulin) metoprolol succinate 25 mg 50 mg PO BID@0900,2100 #60 tab 12/09/21 12/11/21 12/11/21 Rx tablet,extended release 24 hr temazepam 15 mg capsule 15 mg PO BEDTIME PRN #10 cap 12/09/21 12/11/21 Unknown Rx Allergies Allergy/AdvReac Type Severity Reaction Status Date / Time No Known Allergies Allergy Verified 12/11/21 14:38 Current Medications Generic Name Dose Route Start Last Admin Trade Name Willq PRN Reason Stop Dose Admin Allopurinol 200 mg 12/12/21 06:00 12/14/21 04:34 Allopurinol 100 Mg Tablet PO 200 mg QAM SHERLYN Administration Apixaban 2.5 mg 12/11/21 19:33 12/14/21 17:41 Apixaban 5 Mg Tablet PO 2.5 mg BID SHERLYN Administration Aspirin 81 mg 12/12/21 09:00 12/14/21 09:04 Aspirin 81 Mg Ec Tablet PO 81 mg DAILY SHERLYN Administration Atorvastatin Calcium 80 mg 12/12/21 09:00 12/14/21 09:04 Atorvastatin 40 Mg Tablet PO 80 mg DAILY SHERLYN Administration Clopidogrel Bisulfate 75 mg 12/12/21 09:00 12/14/21 09:04 Clopidogrel 75 Mg Tablet PO 75 mg DAILY SHERLYN Administration Hydrocortisone 1 applic 12/12/21 19:04 12/12/21 20:03 Hydrocortisone 2.5% Cream 28 Gm TOPICAL 1 applic QID PRN Administration rectal Pain Insulin Glargine 10 unit 12/12/21 18:00 12/14/21 17:40 Insulin Glargine 100 Units/1 Ml SUBCUT 10 unit QPM SHERLYN Administration Insulin Human Lispro 0 unit 12/13/21 21:00 12/14/21 17:41 Insulin Lispro 100 Unit/1 Ml SUBCUT 4 unit WM&BEDTIME SHERLYN Administration Protocol Levothyroxine Sodium 50 mcg 12/12/21 06:00 12/14/21 04:34 Levothyroxine 50 Mcg Tablet PO 50 mcg QAM SHERLYN Administration Potassium Chloride 40 meq 12/12/21 06:00 12/14/21 04:34 Potassium Chloride Er 20 Meq Tablet PO 40 meq QAM SHERLYN Administration Temazepam 15 mg 12/12/21 20:09 12/13/21 20:53 Temazepam 15 Mg Capsule PO 15 mg BEDTIME PRN Administration INSOMNIA PFSH Acute PFSH: Medical History (Updated 12/15/21 @ 16:46 by Rohan Snider MD) Acute kidney injury superimposed on CKD Aortic stenosis, moderate Atrial fibrillation Atrial flutter with rapid ventricular response Patient converted to normal sinus rhythm on amiodarone drip. CHF (congestive heart failure), NYHA class III CHF exacerbation Coronary artery disease Diabetes Dietary indiscretion Gout HTN (hypertension) New onset atrial fibrillation UTI (urinary tract infection) Surgical History H/O vasectomy S/P right coronary artery (RCA) stent placement Family History Other CAD (coronary artery disease) Cancer Dementia Diabetes Family history of premature coronary artery disease Hyperlipidemia Hypertension Denies family history of Chronic kidney disease (CKD) Anesthesia complication Bleeding disorder Lung disease Stroke Social History Alcohol intake: never Dietary Habits: Current diet type/program: regular Caffeine: Yes Vitals/I&O/Wt Last Vital Signs Temp 97.8 F 12/14/21 19:03 Pulse 72 12/14/21 19:03 Resp 20 H 12/14/21 19:03 BP 100/42 12/14/21 19:03 Pulse Ox 97 12/14/21 19:03 12/14/21 12/14/21 12/14/21 06:59 14:59 22:59 Intake Total 500 / 1592.633 720 / 720 360 / 1080 Output Total 1100 / 1900 1320 / 1320 420 / 1740 Balance -600 / -307.367 -600 / -600 -60 / -660 Physical Exam Chest: OTHER: GENERAL: Patient is alert, awake and oriented x3. NECK: No jugular vein distension. HEENT: No cyanosis. No icterus. No pallor. HEART: Regular S1 and S2. 2/6 sys murmur, rub or gallop. LUNGS: Clear to auscultate bilaterally. ABDOMEN: Soft, nontender and distended with abdominal wall edema positive bowel sounds. No guarding, rebound or tenderness. CENTRAL NERVOUS SYSTEM: Grossly nonfocal. EXTREMITIES: Lower extremities with 1+ edema bilaterally. Urinary Catheter Management: Brand: Cath Placed During This Visit: yes Reason for Continuing Indwelling Catheter: Accurate Measurement of Urinary Output in Critically Ill Patients Urinary Catheter Date of Insertion: 12/12/21 Urinary Catheter Time of Insertion: 08:00 Data : 12/14/21 09:23 12/15/21 04:50 A&P Assessment and plan (1) Aortic stenosis, moderate: Patient moderate aortic stenosis by transesophageal echocardiogram continue to monitor Status: Acute (2) CHF (congestive heart failure), NYHA class III: For worsening of renal function and decompensated diastolic heart failure I will switch patient from Bumex to IV 80 mg of Lasix twice a day along with metolazone 2.5 mg twice a day for facilitated and forced diuresis in order to control heart failure and open up renal bed. Status: Acute (3) HTN (hypertension): Will optimize medicine to control blood pressure better Status: Acute (4) Coronary artery disease: Appear to be stable from a coronary disease perspective continue current regimen Status: Acute (5) Atrial fibrillation: Patient is rate controlled on anticoagulation continue medicine. Status: Acute (6) Acute kidney injury superimposed on chronic kidney disease: Patient has worsening of renal function hopefully with diuresis it will improve. Will check BMP in the morning. Status: Acute Consult Attestations Medical Necessity Statement: Patient require continuation hospitalization for above defined care. Coding Level of Care Code New Pt Acute Patent Prosecution Paralegal for Heber Woodruff Patient Type New History Comprehensive Exam Comprehensive Medical Decision Making High Complexity Diagnoses Aortic stenosis, moderate I35.0 CHF (congestive heart failure), NYHA class III I50.9 HTN (hypertension) I10 Coronary artery disease I25.10 Atrial fibrillation I48.91 Acute kidney injury superimposed on chronic kidney disease N17.9; N18.9
[2021-12-14 20:17] LABS: Glucose Point of Care 245 mg/dL (70-110)
[2021-12-14] MEDS: FUROsemide 10 mg/mL SDV 10mL 80 MG IVP (20:39)
[2021-12-14] MEDS: metOLazone 5 MG Tablet 2.5 MG PO (20:39)
[2021-12-14] MEDS: temazepam 15 mg Capsule PO (22:41)
[2021-12-15] VITALS (13 sets, daily range): BP systolic 117–179; BP diastolic 45–91; PULSE 67–84; RESP 13–22; TEMP 36.3–36.9; O2SAT 92–100
--- NOTE | 2021-12-15 04:34 | PC.NURSE ---
Patient has been frequently back and forth from bed to chair throughout the night. Patient has been frequently back and forth from nasal cannula to Bipap throughout night. Patient has frequently pulled telemetry wires off. Telemetry wires have been placed back on patient multiple times.
[2021-12-15] MEDS: potassium chloride ER 20 mEq Tablet 40 MEQ PO (05:15)
[2021-12-15] MEDS: allopurinol 100 mg Tablet 200 MG PO (05:15)
[2021-12-15] MEDS: levothyroxine 50 mcg Tablet PO (05:15)
[2021-12-15 06:36] LABS: Glucose Point of Care 162 mg/dL (70-110)
[2021-12-15 06:46] LABS: Anion Gap 15.5 (5-19); Blood Urea Nitrogen 75 mg/dL (8-23); Carbon Dioxide 28 mmol/L (22-29); Chloride 97 mmol/L (98-107); Glucose 157 mg/dL (65-115); Osmolality Calculated 308 mOsm/kg (285-295); Potassium 4.5 mmol/L (3.5-5.1); Sodium 136 mmol/L (136-145)
[2021-12-15] MEDS: insulin lispro 100 unit/1 mL SUBCUT ×4 (07:30→20:11)
[2021-12-15] MEDS: apixaban 5 mg Tablet 2.5 MG PO ×2 (08:33→18:22)
[2021-12-15] MEDS: atorvastatin 40 mg Tablet 80 MG PO (08:34)
[2021-12-15] MEDS: clopidogrel 75 mg Tablet PO (08:34)
[2021-12-15] MEDS: aspirin 81 mg EC Tablet PO (08:34)
[2021-12-15] MEDS: FUROsemide 10 mg/mL SDV 10mL 80 MG IVP ×2 (09:53→18:31)
--- NOTE | 2021-12-15 10:08 | PC.PT ---
Pt refused therapy again today and with much encouragement just states he is not getting up to walk. Pt refused yesterday too. Pt stated to keep checking on him every day but he just doesn't want to get. Pt has been getting up to the chair which he needs to do. Will keep checking on him daily.
[2021-12-15] MEDS: metOLazone 5 MG Tablet 2.5 MG PO ×2 (10:57→18:22)
--- NOTE | 2021-12-15 11:01 | P.PN_ITS ---
Subjective Subjective: Interval history: Patient is feeling fine, no overnight events, no worsening of hypoxia, aggressive diuresis appreciate cardiology recommendations Vitals/I&O/Wt Last Vital Signs Temp 98.0 F 12/15/21 07:09 Pulse 84 12/15/21 08:31 Resp 16 12/15/21 08:31 BP 117/60 12/15/21 07:09 Pulse Ox 100 12/15/21 08:31 12/14/21 12/15/21 12/15/21 22:59 06:59 14:59 Intake Total 360 / 1080 800 / 1880 220 / 220 Output Total 420 / 1740 4450 / 6190 Balance -60 / -660 -3650 / -4310 220 / 220 Weight last 48 hrs Weight 192.459 kg Weight 191.87 kg Physical Exam Narrative: EXAM NARRATIVE: Fluid overloaded status is improving S1, S2 variable Abdomen with visceral obesity EOMI, PERRLA Nonfocal neuro exam Doing well on 2 L nasal cannula No audible stridor or wheezing Appropriate mood and affect Urinary Catheter Management: Brand: Cath Placed During This Visit: yes Reason for Continuing Indwelling Catheter: Accurate Measurement of Urinary Output in Critically Ill Patients Urinary Catheter Date of Insertion: 12/12/21 Urinary Catheter Time of Insertion: 08:00 Data : 12/14/21 09:23 12/15/21 04:50 A&P Assessment and plan (1) Pre-syncope: Status: Acute (2) Acute kidney injury superimposed on chronic kidney disease: Status: Acute (3) HTN (hypertension): Status: Acute (4) Coronary artery disease: Status: Acute (5) Aortic stenosis, moderate: Status: Acute (6) CHF (congestive heart failure), NYHA class III: Status: Acute Plan RACHELE: Improving Aggressive diuresis recommended by cardiology, currently -4L balance Added metolazone Presyncope: Echo unremarkable, patient is back to his baseline Chronic hypoxia doing well on 3 L nasal cannula Type II SD Consistent carb diet Obesity hypoventilation, BiPAP at night Patient does have AVAPS at home Full code Anal fissure rectal pain currently no active decompensation Attestations Medical Necessity Statement*: Creatinine is trending down will discharge once creatinine is less than 2 Time Spent in Patient Care: 15 minutes Coding Level of Care Code Acute Fleet Coordinator for Heber Fwata Diagnoses Pre-syncope R55 Acute kidney injury superimposed on chronic kidney disease N17.9; N18.9 HTN (hypertension) I10 Coronary artery disease I25.10 Aortic stenosis, moderate I35.0 CHF (congestive heart failure), NYHA class III I50.9
[2021-12-15 11:28] LABS: Glucose Point of Care 213 mg/dL (70-110)
--- NOTE | 2021-12-15 12:53 | PC.NURSE ---
Gave patient a sponge bath.
--- NOTE | 2021-12-15 13:27 | P.PN_ITS ---
Subjective Subjective: Interval history: Patient started diuresing well creatinine has improved overall he is feeling better today Vitals/I&O/Wt Last Vital Signs Temp 97.3 F L 12/15/21 11:17 Pulse 72 12/15/21 11:17 Resp 13 12/15/21 11:17 BP 134/45 12/15/21 11:17 Pulse Ox 99 12/15/21 11:17 12/14/21 12/15/21 12/15/21 22:59 06:59 14:59 Intake Total 360 / 1080 800 / 1880 220 / 220 Output Total 420 / 1740 4450 / 6190 2500 / 2500 Balance -60 / -660 -3650 / -4310 -2280 / -2280 Weight last 48 hrs Weight 424 lb 4.8 oz Weight 423 lb Physical Exam Chest: OTHER: GENERAL: Patient is alert, awake and oriented x3. NECK: No jugular vein distension. HEENT: No cyanosis. No icterus. No pallor. HEART: Regular S1 and S2. 2/6 sys murmur, rub or gallop. LUNGS: Clear to auscultate bilaterally. ABDOMEN: Soft, nontender and distended with abdominal wall edema positive bowel sounds. No guarding, rebound or tenderness. CENTRAL NERVOUS SYSTEM: Grossly nonfocal. EXTREMITIES: Lower extremities with 1+ edema bilaterally. Urinary Catheter Management: Brand: Cath Placed During This Visit: yes Reason for Continuing Indwelling Catheter: Accurate Measurement of Urinary Output in Critically Ill Patients Urinary Catheter Date of Insertion: 12/12/21 Urinary Catheter Time of Insertion: 08:00 Data : 12/14/21 09:23 12/15/21 04:50 A&P Assessment and plan (1) Aortic stenosis, moderate: Patient moderate aortic stenosis by transesophageal echocardiogram continue to m onitor Status: Acute (2) CHF (congestive heart failure), NYHA class III: Acute decompensated diastolic heart failure. Continue to diurese with IV Lasix and metolazone, goal -1.5 L/day. Overall he started diuresing well creatinine i s improving. Status: Acute (3) HTN (hypertension): Well-controlled continue medicine. Status: Acute (4) Coronary artery disease: Status: Acute (5) Atrial fibrillation: Status: Acute (6) Acute kidney injury superimposed on chronic kidney disease: Renal function started improving after diuresis. Continue to monitor Status: Acute Attestations Medical Necessity Statement*: Patient require continuation hospitalization for evaluation and care. Coding Level of Care Code Established Pt Acute Structural Steel Equipment Erector for Chg Fwd Patient Type Established History Detailed Exam Detailed Medical Decision Making High Complexity Diagnoses Aortic stenosis, moderate I35.0 CHF (congestive heart failure), NYHA class III I50.9 HTN (hypertension) I10 Coronary artery disease I25.10 Atrial fibrillation I48.91 Acute kidney injury superimposed on chronic kidney disease N17.9; N18.9
[2021-12-15 16:23] LABS: Glucose Point of Care 163 mg/dL (70-110)
--- NOTE | 2021-12-15 17:36 | PC.NUTR ---
Pt requested consult with dietitian. Spoke with Pt's , daughter and son-in-law. Pt agreed to let control his portions and meals and food choices. said when she is gone she locks refrigerator, freezer, and pantry because he will gorge on whatever he finds. Asked to allow his to dictate his meals and he said he wants to live so he will. Compliance is possible but not likely. Will send Glucerna 1x/day for Pt to try and see if it could be a meal replacement for him.
[2021-12-15] MEDS: insulin glargine 100 units/1 mL 20 UNIT SUBCUT (18:30)
--- NOTE | 2021-12-15 20:06 | PC.NURSE ---
Shift Note Frequent safety and comfort rounds continue. Orders and/or nursing care completed as indicated. Patient monitored for response to intervention and treatment(s). Education provided includes IV diureses,. Patient and/or traffic representative verbalizes understanding. Will continue to monitor.
[2021-12-15] MEDS: acetaminophen 500 mg Tablet PO (20:11)
[2021-12-15] MEDS: temazepam 15 mg Capsule PO (20:11)
[2021-12-15 21:42] LABS: Glucose Point of Care 232 mg/dL (70-110)
[2021-12-16 01:10] VITALS: RESP 26; O2SAT 99
[2021-12-16 04:00] VITALS: BP 154/67; PULSE 76; RESP 18; TEMP 36.9; O2SAT 97
[2021-12-16 04:14] LABS: Blood Urea Nitrogen 68 mg/dL (8-23); Calcium 8.6 mg/dL (8.5-10.5); Carbon Dioxide 27 mmol/L (22-29); Chloride 96 mmol/L (98-107); Glucose 153 mg/dL (65-115); Osmolality Calculated 307 mOsm/kg (285-295); Sodium 137 mmol/L (136-145)
[2021-12-16 04:16] LABS: Anion Gap 18.8 (5-19); Potassium 4.8 mmol/L (3.5-5.1)
[2021-12-16] MEDS: potassium chloride ER 20 mEq Tablet 40 MEQ PO (05:02)
[2021-12-16] MEDS: allopurinol 100 mg Tablet 200 MG PO (05:02)
[2021-12-16] MEDS: levothyroxine 50 mcg Tablet PO (05:02)
[2021-12-16 05:29] VITALS: PULSE 79
[2021-12-16 06:32] LABS: Glucose Point of Care 165 mg/dL (70-110)
[2021-12-16] MEDS: apixaban 5 mg Tablet 2.5 MG PO (07:52)
[2021-12-16] MEDS: metOLazone 5 MG Tablet 2.5 MG PO (07:52)
[2021-12-16] MEDS: atorvastatin 40 mg Tablet 80 MG PO (07:53)
[2021-12-16] MEDS: insulin lispro 100 unit/1 mL SUBCUT ×2 (07:53→11:51)
[2021-12-16] MEDS: clopidogrel 75 mg Tablet PO (07:53)
[2021-12-16] MEDS: aspirin 81 mg EC Tablet PO (07:53)
--- NOTE | 2021-12-16 08:50 | PC.SOCIAL ---
IMM UPDATED IMM dated and initialed and copy given to patient
[2021-12-16] MEDS: FUROsemide 10 mg/mL SDV 10mL 80 MG IVP (09:06)
[2021-12-16 09:07] VITALS: BP 161/72; PULSE 82; RESP 18; TEMP 36.6; O2SAT 92
--- NOTE | 2021-12-16 09:13 | PC.CHAP ---
Pastoral Care Encounter/Spiritual Assessment Type of Contact [] Declined home health rn visit [] Patient/Family/Request visit [] Outpatient visit [] Follow-up visit [] Physician referral [] Code/Alert [x] Routine visit [] Staff referral [] Actively dying [] Patient sleeping [] Family support [] [] Out of room [] Palliative care [] [] Receiving care in room [] Pre-surgical visit [] Trauma [] Long length of stay [] ICU visit [] Other: Relational/Emotional Strength [] Patient feels connected with others/family/visitors/staff [] Distress [] Loneliness/isolation [] Abandonment Spirituality of Patient [] Person of [place] [] Attends Hinduism of their [place] [] Believes in Prayer [] Reads Bible or Mormon materials [] There are Spiritual issues to be addressed Paint Pourer Interventions [x] Prayer [x] Active listening [x] Non-anxious presence [x] Spiritual/emotional support [] Crisis/trauma care [] Spiritual counseling [] Bereavement support [] Provided bereavement packet [] Provided Bible/devotional materials [] Provided toy/stuffed animal, coloring book to patient or family member [] Provided Communion [] Anointing/[place] [] Salvation [x] Completed spiritual assessment [] Other: Impact on Illness or Injury [] Angry [] Fearful [] Anxious [] Often cries [] Exhaustion [] Unable to work [] Unable to attend scientology [] Unable to walk/stand [] Unable to read [] Unable to drive [] Unable to eat/drink [] Unable to sleep [] Unable to be with family [] Patient intubated [] Other: Summary patient preparing to return home today.. needed prayer for kidneys ... Time spent with patient 5 min
[2021-12-16 11:21] LABS: Glucose Point of Care 285 mg/dL (70-110)
--- NOTE | 2021-12-16 11:25 | P.DS_ITS ---
Discharge Providers Date of Admission: 12/11/21 16:09 Date of Discharge: December 16, 2021 Attending Provider at Admission: Rohan Caldwell MD Attending Provider at Discharge: Rohan Caldwell MD Primary Care Provider: Ministerio Sewell MD Diagnoses at Discharge Discharge Diagnosis (1) Aortic stenosis, moderate: Status: Acute (2) CHF (congestive heart failure), NYHA class III: Status: Acute (3) HTN (hypertension): Status: Acute (4) Coronary artery disease: Status: Acute (5) Atrial fibrillation: Status: Acute (6) Acute kidney injury superimposed on chronic kidney disease: Status: Acute Reason for Visit Reason for Visit: HYPOTENSION Hospital Course Hospital Course Bartolo Hardy is a 71 year old male who was recently discharged on 12/09 after aggressive diuresis 16,000 mL negative balance, preserved action fraction heart failure, for his obesity hypoventilation syndrome he was placed on BiPAP, AVAPS arranged at the time of discharge, residential was declined by the family and he was discharged home creatinine at that time was 1.6.? Today patient presented to the hospital with chief complaint of near syncopal episode at home.? He called EMS.? At home he was taking 1 mg of Bumex. Patient is stating that since his discharge from the hospital he has not been able to use trilogy, his oxygen company has still has to bring the machine at his place, he has been compliant with his medications, and last 24 to 30 hours he has been experiencing loose stools, as per the he had 1 large loose stool yesterday, today in the sun room he seemed confused and when checked on him he kept staring at her while leaned backwards against the seat, this episode lasted for about 2 minutes? This episode resolved spontaneously, no seizure-like activities, patient at that time did not complain of chest pain shortness of breath nausea, vomiting no any diaphoresis was noted by the .? Patient returned to normal after 2 minutes.? As per the he started joking again. EMS was called, on arrival his blood pressure was soft. In the ER EKG shows sinus rhythm, seen of the elevated troponin, creatinine of 4, patient clinically looks dehydrated, he is hypotensive, QTC prolonged, heart rate around 60s, he given a dose of epi by the EMS because of his hypotension, he was given 500 mL bolus in the ER When I saw him he was asking for hemorrhoids cream.? Prep H was provided, he immediately wanted to use bedside commode and had another episode of diarrhea. Heart rate 70s, patient is awake and alert cooperative and very pleasant Clinically looks fluid overloaded At home he uses 3 to 4 L of oxygen Hospital course Patient was admitted for management and evaluation of acute on chronic kidney disease and evaluation of presyncope. Echo was done with contrast which did not show worsening of valvular pathology (however transesophageal echo did show moderate aortic stenosis in the past). In the ER he received about 1 L of normal saline fluid which worsened his creatinine. Next day patient stated that at home he probably gained about 4 pounds and was not able to use his AVAPS although it has been provided by the oxygen company, this information was verified by [facility] as well. Patient was showing signs of fluid overload during hospitalization, his creatinine worsened and then improved with aggressive IV diuresis, IV Lasix and metolazone were used. He does make good amount of urine with IV diuretics, his creatinine started trending down. During his hospitalization he was complaining of rectal pain, rectal exam did not show any thrombosed external hemorrhoids, he does have anal fissure. His troponin leak is most likely related to type II [place]. For his obesity hypoventilation syndrome he does have AVAPS at home. At the time of discharge he will get Bumex 1 mg along metolazone. I have given him a prescription for BMP to keep an eye on his creatinine level. Creatinine at the time of discharge 2.6. (At admission 4.4) This admission total negative output balance of about 9600ml Physical Exam Narrative: EXAM NARRATIVE: Fluid overloaded status improved, lower leg edema improved S1, S2 variable Abdomen with visceral obesity EOMI, PERRLA Nonfocal neuro exam Doing well on 2 L nasal cannula No audible stridor or wheezing Appropriate mood and affect ? Urinary Catheter Management: Brand: Cath Placed During This Visit: yes Reason for Continuing Indwelling Catheter: Accurate Measurement of Urinary Output in Critically Ill Patients Urinary Catheter Date of Insertion: 12/12/21 Urinary Catheter Time of Insertion: 08:00 Discharge Data Studies Completed and Pending Completed Studies During Hospitalization Category Date Time Status XR chest 1V portable [id number] Stat Exams 12/11/21 14:36 Completed CV. echo lmt w/w contras [id number] Routine Ultrasound 12/12/21 06:00 Completed Radiology Impressions Chest X-Ray 12/11/21 14:36 Impression: 1. Clearing of patchy bilateral pulmonary opacities. 2. Cardiomegaly and atherosclerosis. Laboratory Results WBC 7.4 10^3/uL (4.0-10.0) 12/14/21 09:23 Corrected WBC Cancelled 12/14/21 06:07 RBC 3.12 10^6/uL (4.1-5.3) L 12/14/21 09:23 Hgb 9.8 g/dL (11.7-16.6) L 12/14/21 09:23 Hct 31.8 % (42.0-52.0) L 12/14/21 09:23 MCV 101.9 fl (80-94) H 12/14/21 09:23 MCH 31.4 pg (28.0-34.0) 12/14/21 09:23 MCHC 30.8 g/dL (30.0-36.0) 12/14/21 09:23 RDW 15.3 % (12.1-15.1) H 12/14/21 09:23 Plt Count 188 10^3/cmm (130-400) 12/14/21 09:23 MPV 11.6 fL (7.4-10.4) H 12/14/21 09:23 Gran % Cancelled 12/14/21 06:07 Neut % (Auto) 67.0 % 12/14/21 09:23 Lymph % (Auto) 16.1 % 12/14/21 09:23 [place] % (Auto) 11.9 % 12/14/21 09:23 Eos % (Auto) 2.7 % 12/14/21 09:23 Baso % (Auto) 0.4 % 12/14/21 09:23 Neut # (Auto) 4.97 10^3/uL (1.8-7.7) 12/14/21 09:23 Lymph # (Auto) 1.2 10^3/uL (0.8-4.8) 12/14/21 09:23 [place] # (Auto) 0.9 10^3/uL (0.2-0.9) 12/14/21 09:23 Eos # (Auto) 0.2 10^3/uL (0.0-0.8) 12/14/21 09:23 Baso # (Auto) 0.0 10^3/uL (0.0-0.1) 12/14/21 09:23 Absolute Gran (auto) Cancelled 12/14/21 06:07 Nucleated RBC % (auto) 0 % 12/14/21 09:23 Nucleated RBCs # 0.0 /100WBC 12/14/21 09:23 APTT 35.9 SECONDS (23.9-36.7) D 12/13/21 10:10 Specimen Type Arterial 12/11/21 15:51 Sample Site Radial, left 12/11/21 15:51 ABG pH 7.39 (7.35-7.45) 12/11/21 15:51 ABG pCO2 59.5 mmHg (35-45) H 12/11/21 15:51 ABG pO2 104.0 mmHg (80.0-100.0) H 12/11/21 15:51 ABG HCO3 36.1 mmol/L (22-26) H 12/11/21 15:51 ABG O2 Saturation 97.9 12/11/21 15:51 ABG Base Excess 9.5 mmol/L (-2.0-2.0) H 12/11/21 15:51 Serge Test Pos 12/11/21 15:51 A-a O2 Gradient 10.8 mmHg (5-10) H 12/11/21 15:51 Hematocrit 32.2 % (42-52) L 12/11/21 15:51 Hgb O2 Saturation 95.9 % (95-100) 12/11/21 15:51 Carboxyhemoglobin 0.9 %THgb (0.4-20.1) 12/11/21 15:51 Methemoglobin 1.1 % (0.4-1.5) 12/11/21 15:51 Total Hemoglobin 10.5 g/dL (14-18) L 12/11/21 15:51 Sodium 134.0 mmol/L (131-143) 12/11/21 15:51 Potassium 3.9 mmol/L (3.5-5.0) 12/11/21 15:51 Glucose 125.0 mg/dL (70-115) H 12/11/21 15:51 Ionized Calcium 1.1 mmol/L (1.1-1.4) 12/11/21 15:51 O2 Delivery Device Nc 12/11/21 15:51 O2 Liters/Min 4.0 % 12/11/21 15:51 FiO2 36.0 % 12/11/21 15:51 School Occupational Therapist ID Cak 12/11/21 15:51 Sodium 137 mmol/L (136-145) 12/16/21 03:15 Potassium 4.8 mmol/L (3.5-5.1) 12/16/21 03:15 Chloride 96 mmol/L (98-107) L 12/16/21 03:15 Carbon Dioxide 27 mmol/L (22-29) 12/16/21 03:15 Anion Gap 18.8 (5-19) 12/16/21 03:15 BUN 68 mg/dL (8-23) H 12/16/21 03:15 Creatinine 2.6 mg/dL (0.7-1.2) H 12/16/21 03:15 GFR Calculation Not Reportable 12/16/21 03:15 Glucose 153 mg/dL (65-115) H 12/16/21 03:15 POC Glucose 285 mg/dL (70-110) H 12/16/21 11:16 Calculated Osmolality 307 mOsm/kg (285-295) H 12/16/21 03:15 Calcium 8.6 mg/dL (8.5-10.5) 12/16/21 03:15 Magnesium 3.0 mg/dL (1.7-2.3) H 12/12/21 02:16 Total Bilirubin 0.5 mg/dL (0.15-1.2) 12/11/21 14:53 AST 18 U/L (0-40) 12/11/21 14:53 ALT 18 U/L (0-41) 12/11/21 14:53 Alkaline Phosphatase 68 IU/L (40-130) 12/11/21 14:53 Creatine Kinase 110 U/L (39-308) 12/11/21 14:53 Troponin T Baseline 123 ng/L (0-15) H* 12/11/21 14:53 Troponin T 120 Minute 136.2 ng/L (0-15) H 12/11/21 16:42 Delta Troponin T 13.2 ABS# (0-10) H* 12/11/21 16:42 Troponin T Hi Sens 6Hr 135.7 ng/L (0-15) H 12/11/21 20:50 Troponin T Hi Sens 6Hr Delta 12.7 ng/L (0-12) H* 12/11/21 20:50 NT-Pro-B Natriuret Pep 569 pg/mL (0-125) H 12/11/21 14:53 Total Protein 6.2 g/dL (6.6-8.7) L 12/11/21 14:53 Albumin 3.1 g/dL (3.5-5.2) L 12/11/21 14:53 Globulin 3.1 g/dL (1.3-4.6) 12/11/21 14:53 Ur Eosinophil Smear 0 (0-0) 12/13/21 11:45 Urine Eosinophils No eosinophils seen 12/13/21 11:45 Ur Random Microalbumin 3 ug/dL (0-20) 12/13/21 11:45 Ur Random Sodium 42 mmol/L 12/13/21 11:45 Ur Random Potassium 30 mmol/L 12/13/21 11:45 Urine Creatinine 109 mg/dL (39-259) 12/13/21 11:45 Urine Creatinine 109 mg/dL (39-259) 12/13/21 11:45 Microalb/Creat Ratio 28 mg/dL (0-20) H 12/13/21 11:45 Vitals Last Vital Signs Temp 97.8 F 12/16/21 09:07 Pulse 82 12/16/21 09:07 Resp 18 12/16/21 09:07 BP 161/72 12/16/21 09:07 Pulse Ox 92 12/16/21 09:07 Discharge Plan Discharge Patient Disposition: Home Condition: Stable Prescriptions: New metolazone 5 mg Tablet 2.5 mg PO BID Qty: 10 0RF Continued amiodarone 200 mg tablet 200 mg PO QAM Qty: 90 3RF amlodipine 10 mg tablet 10 mg PO QAM Qty: 90 3RF atorvastatin 80 mg tablet 80 mg PO BEDTIME Qty: 90 3RF clopidogrel 75 mg tablet 75 mg PO DAILY Qty: 90 3RF lisinopril 10 mg tablet 10 mg PO QAM Qty: 90 3RF acetaminophen [Tylenol 8 Hour] 650 mg Tablet Extended Release 2,600 mg PO BEDTIME PRN (Reason: Pain) 0RF pramipexole 0.5 mg tablet 0.5 mg PO BEDTIME 0RF levothyroxine 50 mcg tablet 50 mcg PO QAM 0RF latanoprost 0.005 % drops 1 drp ophthalmic (eye) BEDTIME 0RF Rx Instructions: (BOTH EYES) venlafaxine 75 mg capsule,extended release 24hr 75 mg PO QAM 0RF allopurinol 100 mg tablet 200 mg PO QAM 0RF doxazosin 2 mg tablet 2 mg PO QAM 0RF budesonide-formoterol [Symbicort] 80-4.5 mcg/actuation HFA aerosol inhaler 2 puff INHALATION DAILY 0RF Tresiba FlexTouch U-100 100 unit/mL (3 mL) insulin pen 230 unit SUBCUT QAM 0RF potassium chloride 20 mEq tablet extended release 40 meq PO QAM 0RF temazepam 15 mg Capsule 15 mg PO BEDTIME PRN (Reason: sleep) Qty: 10 0RF Rx Instructions: Always use trilogy if taking. metoprolol succinate 25 mg Tablet Extended Release 24 Hr 50 mg PO BID@0900,2100 Qty: 60 0RF Lantus Solostar U-100 Insulin 100 unit/mL (3 mL) insulin pen 40 unit SUBCUT QPM MDD see pharmacy comment Qty: 15 0RF bumetanide 1 mg tablet 1 mg PO DAILY Qty: 30 3RF Changed Eliquis 5 mg tablet 2.5 mg PO BID Qty: 180 3RF Discharge Orders: Discharge Order (Routine); Ordered 12/16/21 Ordered By: Rohan Caldwell Referrals: Ministerio Sewell MD [Primary Care Provider] - 4-7 days (Please follow-up with Dr. Sewell on Dec.24 at 10:15A.M. If you have any questions or need to rescheduled. Please call ) Patient Instructions: Metolazone (By mouth) (Zaroxolyn), Coronary Artery Disease (DC), A-fib (Atrial Fibrillation) (DC), Acute Kidney Injury (DC), CHF Stoplight, Opioid Safety Discharge Attestations Time Spent in Discharge Care*: other Status at Discharge: Cognitive status at discharge: cognitively intact , Behavioral status at discharge: cooperative , Quality Metrics Clinical Quality Measures [ No reported AMI, CVA or VTE this stay] Coding Level of Care Code Acute Chg FW DC note Diagnoses Aortic stenosis, moderate I35.0 CHF (congestive heart failure), NYHA class III I50.9 HTN (hypertension) I10 Coronary artery disease I25.10 Atrial fibrillation I48.91 Acute kidney injury superimposed on chronic kidney disease N17.9; N18.9
[2021-12-16 12:43] VITALS: PULSE 94; RESP 16; O2SAT 98
[2021-12-16 12:45] VITALS: PULSE 94; RESP 16; O2SAT 98
--- NOTE | 2021-12-16 14:20 | PC.NURSE ---
Patient education provided to spouse. No questions or concerns. VS stable upon departure.
--- NOTE | 2021-12-16 19:45 | PM.PN ---
Subjective Subjective: Interval history: Patient continues to diurese well creatinine is improving he is feeling better had a good night Vitals/I&O/Wt Last Vital Signs Temp 97.8 F 12/16/21 09:07 Pulse 94 12/16/21 12:45 Resp 16 12/16/21 12:45 BP 161/72 12/16/21 09:07 Pulse Ox 98 12/16/21 12:45 12/16/21 12/16/21 12/16/21 06:59 14:59 22:59 Intake Total 240 / 1776 486 / 486 Output Total 1700 / 6400 2400 / 2400 Balance -1460 / -4624 -1914 / -1914 Weight last 48 hrs Weight 413 lb Weight 424 lb 4.8 oz Weight 423 lb Physical Exam Chest: OTHER: GENERAL: Patient is alert, awake and oriented x3. NECK: No jugular vein distension. HEENT: No cyanosis. No icterus. No pallor. HEART: Regular S1 and S2. 2/6 sys murmur, rub or gallop. LUNGS: Clear to auscultate bilaterally. ABDOMEN: Soft, nontender and distended with abdominal wall edema positive bowel sounds. No guarding, rebound or tenderness. CENTRAL NERVOUS SYSTEM: Grossly nonfocal. EXTREMITIES: Lower extremities with 1+ edema bilaterally. Urinary Catheter Management: Brand: Cath Placed During This Visit: yes, but has since been removed by the nurse Reason for Continuing Indwelling Catheter: Other Urinary Catheter Date of Insertion: 12/12/21 Urinary Catheter Time of Insertion: 08:00 Date Urinary Catheter Removed: 12/16/21 Time Urinary Catheter Discontinued: 12:00 Data : 12/14/21 09:23 12/16/21 03:15 A&P Assessment and plan (1) Aortic stenosis, moderate: Patient moderate aortic stenosis by transesophageal echocardiogram continue to monitor Status: Acute (2) CHF (congestive heart failure), NYHA class III: For worsening of renal function and decompensated diastolic heart failure I will switch patient from Bumex to IV 80 mg of Lasix twice a day along with metolazone 2.5 mg twice a day for facilitated and forced diuresis in order to control heart failure and open up renal bed. Continue to diurese with IV Lasix 80 mg twice a day and metolazone 2.5 mg twice daily Status: Acute (3) HTN (hypertension): Continue to optimize medicine. Status: Acute (4) Coronary artery disease: Appear to be stable from a coronary disease perspective continue current regimen Status: Acute (5) Atrial fibrillation: Patient is rate controlled on anticoagulation continue medicine. Status: Acute (6) Acute kidney injury superimposed on chronic kidney disease: Patient has worsening of renal function hopefully with diuresis it will improve. Will check BMP in the morning. Status: Acute Attestations Medical Necessity Statement*: Patient require continuation hospitalization for above defined care for Coding Level of Care Code Established Pt Acute [place] [employer] for g Fwd Patient Type Established History Detailed Exam Detailed Medical Decision Making Moderate Complexity Diagnoses Aortic stenosis, moderate I35.0 CHF (congestive heart failure), NYHA class III I50.9 HTN (hypertension) I10 Coronary artery disease I25.10 Atrial fibrillation I48.91 Acute kidney injury superimposed on chronic kidney disease N17.9; N18.9
== END 2021-12-16 14:21 | disposition home health service (06) | DRG 280 ==
LOC: ER 16:48 → CSU 17:39
PROVIDERS: Admitting Provider Internal Medicine; Emergency Provider Family Medicine; PCP Family Medicine; Visit Provider Internal Medicine
DX: I13.0 Hypertensive heart and chronic kidney disease with heart failure and stage 1 through stage 4 chronic kidney disease, or unspecified chronic kidney disease (principal); I50.33 Acute on chronic diastolic (congestive) heart failure; I21.A1 Myocardial infarction type 2; N17.9 Acute kidney failure, unspecified; E66.2 Morbid (severe) obesity with alveolar hypoventilation; Z68.43 Body mass index [BMI] 50.0-59.9, adult; N18.9 Chronic kidney disease, unspecified; E11.22 Type 2 diabetes mellitus with diabetic chronic kidney disease; I35.0 Nonrheumatic aortic (valve) stenosis; I25.10 Atherosclerotic heart disease of native coronary artery without angina pectoris; Z95.5 Presence of coronary angioplasty implant and graft; Z99.81 Dependence on supplemental oxygen; M10.9 Gout, unspecified; Z87.440 Personal history of urinary (tract) infections; Z99.89 Dependence on other enabling machines and devices; I95.9 Hypotension, unspecified; K60.2 Anal fissure, unspecified; I48.91 Unspecified atrial fibrillation; Z79.4 Long term (current) use of insulin; Z79.02 Long term (current) use of antithrombotics/antiplatelets
CPT/HCPCS: 36415; 36416; 36600; 51702; 71045; 80048; 80051; 80053; 82044; 82330; 82550; 82570; 82805; 82962; 83735; 83880; 84133; 84300; 84484; 85025; 85730; 85999; 93005; 94660; 96372; 96374; 96375; 97116; 97161; 97530; 99291; C8924; J1644; J1815 ×2; J1940; J3490; J7040; J7050; Q9956

== ENCOUNTER → 2021-12-18 10:45 | Outpatient (BNVA) | payer MEDICARE, OTHER, SELFPAY | PROVIDERS: PCP Family Medicine; Visit Provider Nurse Practitioner Family | DX: I11.0 Hypertensive heart disease with heart failure (principal); I50.9 Heart failure, unspecified | CPT/HCPCS: 80048 ==

== ENCOUNTER → 2022-01-17 09:10 | Outpatient (BNVA) | payer MEDICARE, OTHER, SELFPAY | PROVIDERS: PCP Family Medicine; Visit Provider Internal Medicine | DX: R55 Syncope and collapse (principal); I11.0 Hypertensive heart disease with heart failure; I50.9 Heart failure, unspecified; I35.0 Nonrheumatic aortic (valve) stenosis; Z79.01 Long term (current) use of anticoagulants; Z87.891 Personal history of nicotine dependence; Z95.5 Presence of coronary angioplasty implant and graft | CPT/HCPCS: 99214 ==